=== PATIENT | female | born 1980 | race Caucasian/White ===

== ENCOUNTER 2021-04-09 09:32 | Outpatient (REF) | payer OTHER, SELFPAY | END 2021-04-09 09:33 | disposition home or self-care (01) | LOC: HO.LAB 09:32 | PROVIDERS: Visit Provider Internal Medicine | DX: Z20.822 Contact with and (suspected) exposure to COVID-19 (principal) | CPT/HCPCS: C9803; U0003; U0005 ==

== ENCOUNTER 2021-05-19 09:18 | Emergency (ER) | payer OTHER, SELFPAY ==
--- NOTE | 2021-05-19 | ECG_ITS ---
Test Reason : dizziness Blood Pressure : / mmHG Vent. Rate : 111 BPM Atrial Rate : 111 BPM P-R Int : 126 ms QRS Dur : 076 ms QT Int : 334 ms P-R-T Axes : 052 -08 022 degrees QTc Int : 454 ms Sinus tachycardia Possible Left atrial enlargement Borderline ECG No previous ECGs available Referred By: Generic ED Physician Electronically Signed By:JUVENTINO JACK MD
--- NOTE | ~2021-05-19 | US_ITS ---
EXAMINATION: US ABDOMEN LIMITED CLINICAL INFORMATION: Elevated liver enzymes. Question gallstones.. COMPARISON: None TECHNIQUE: Real-time imaging of the right upper quadrant abdominal viscera. FINDINGS: PANCREAS: Normal. LIVER: Liver echotexture is increased. The liver is normal in size. The liver contour is normal. No focal hepatic lesion. There is no intrahepatic biliary duct dilatation seen. GALLBLADDER: Normal. The gallbladder is physiologically distended without evidence of stones, sludge, polyps, wall thickening or pericholecystic fluid. COMMON BILE DUCT: Normal in caliber measuring 0.3 cm in diameter. RIGHT KIDNEY: Normal. No hydronephrosis. No renal calculi or focal parenchymal lesions. The kidney measures 10.4 cm in maximum dimension. FREE FLUID: None. US/US abdomen limited IMPRESSION: Echogenic liver probably representing fatty infiltration. Normal-appearing gallbladder. No gallstone seen.
[2021-05-19 09:53] VITALS: BP 158/110; PULSE 115; RESP 18; TEMP 36.4; O2SAT 97; BMI 24.0
[2021-05-19 11:11] VITALS: BP 171/119; PULSE 113; RESP 18; O2SAT 100
[2021-05-19 11:23] LABS: MANUAL DIFF FLAG NO
[2021-05-19 11:28] LABS: Basophils Absolute Auto 0.1 X10*3/uL (0.0-0.2); Eosinophils Percent Auto 0.2 % (0-4); Hematocrit 41.5 % (37.0-47.0); Imm Gran Abs Auto 0.02 X10*3/uL (0.00-0.03); Imm Gran Pct Auto 0.3 % (0.0-0.4); Lymphocytes Absolute Auto 0.6 X10*3/uL (1.2-4.9); Lymphocytes Percent Auto 11.1 % (20-40); Mean Corpuscular HGB Conc 33.7 g/dl (31.0-35.0); Mean Corpuscular Hemoglobin 33.4 pg (27.0-33.0); Mean Platelet Volume 9.4 fL (9.4-12.3); Monocytes Absolute Auto 0.4 X10*3/uL (0.1-1.2); Monocytes Percent Auto 6.9 % (2-11); Neutrophils Absolute Auto 4.6 x10*3/uL (2.0-8.3); Neutrophils Percent Auto 80.5 % (45-73); Platelet Count 183 X10*3/uL (160-400); Red Blood Count 4.19 X10*6/uL (4.20-5.50); Red Cell Distribution Width 13.4 % (11.0-16.0); White Blood Count 5.8 X10*3/uL (4.8-10.8)
[2021-05-19 11:39] LABS: Alanine Aminotransferase 109 U/L (0-31); Albumin Level 5.1 g/dL (3.5-5.0); Alkaline Phosphatase 87 U/L (39-117); Anion Gap 18 (12-20); Aspartate Amino Transferase 194 U/L (5-31); Bilirubin Total 1.6 mg/dL (0.0-1.0); Blood Urea Nitrogen 10 mg/dL (9-16); Calcium 9.6 mg/dL (8.4-10.2); Carbon Dioxide 26 mmol/L (22-29); Chloride 96 mmol/L (96-108); Creatinine Clr Calc Pharmacy 76.1; Estimated Glomerular Filt Rate > 60; Glucose Random 121 mg/dL (60-115); Potassium 3.4 mmol/L (3.3-5.1); Sodium 137 mmol/L (135-145); Total Protein 8.8 g/dL (6.5-8.0)
[2021-05-19 11:47] LABS: COVID-19 Test Negative (Negative); IDNOW Serial# 08D9AD1C
[2021-05-19] MEDS: 0.9 % Sodium Chloride 1,000 ML 999 ML IV ×2 (11:53)
--- NOTE | 2021-05-19 11:55 | PC.NURSE ---
patient a&ox3, pt ambulated with a steady gait to bathroom to change into hospital attire, iv inserted, labs drawn, ivf running per order, will continue to monitor.
[2021-05-19] MEDS: LORazepam 2 MG/ML VIAL IVPUSH (12:04)
[2021-05-19 13:05] LABS: Lipase 19 U/L (8-78); Magnesium 1.2 mg/dL (1.6-2.6)
[2021-05-19 13:07] LABS: HCG Quantitative < 2 mIU/mL
--- NOTE | 2021-05-19 13:20 | ED.NAVMDI ---
HPI - Nausea/Vomiting/Diarrhea General Chief complaint: Nausea/Vomiting/Diarrhea Stated complaint: dizziness, shaky Time Seen by Provider: 05/19/21 11:30 Source: patient Mode of arrival: ambulatory Limitations: no limitations History of Present Illness HPI Narrative: 41-year-old female presents to ED for vomiting and tremors. Patient drinks 5 bottles of vodka per day. Patient states last drink was yesterday. Patient states also having the shakes. Patient admits to history of alcohol abuse. Patient denies any abdominal pain, flank pain, fever, chills, dysuria, hematuria, headache, chest pain, shortness of breath, or dizziness. Patient denies any slurred speech, loss of vision, paralysis of extremities, facial droop, abdominal pain, chest pain, shortness of breath, vomitting blood, coughing up blood, or blood in stool. Patient denies any complaints. MD elicited complaint: nausea and vomiting Associated nausea: Yes Related Data Previous Rx's Medication Instructions Recorded famotidine 20 mg tablet (Pepcid) 20 mg PO BID 10 Days #20 tab 05/19/21 ondansetron HCl 4 mg tablet 4 mg PO Q6H PRN 3 Days #12 tab 05/19/21 (Zofran) Allergies Allergy/AdvReac Type Severity Reaction Status Date / Time No Known Allergies Allergy Verified 05/19/21 09:58 [No Known Allergies*] Review of Systems Review of Systems: Yes all other systems are reviewed and are negative Constitutional: Constitutional: Reports as per HPI and Reports no additional constitutional complaints Eyes: Eyes: Reports as per HPI and Reports no additional eye complaints ENT: Reports system reviewed and no additional complaints, except as documented and Reports as per HPI Cardiovascular: Cardiovascular: Reports as per HPI and Reports no additional cardiovascular complaints Respiratory: Respiratory: Reports as per HPI and Reports no additional respiratory complaints Gastrointestinal: Gastrointestinal: Reports as per HPI, Reports no additional gastrointestinal complaints, Reports nausea and Reports vomiting Genitourinary: Genitourinary: Reports no additional female genitourinary complaints and Reports as per HPI Musculoskeletal: Musculoskeletal: Reports no additional musculoskeletal complaints and Reports as per HPI Integumentary/Breasts: Skin/Breast: Reports system reviewed and no additional complaints, except as docu and Reports as per HPI Neurologic: Reports system reviewed and no additional complaints, except as documented and Reports as per HPI Comments: Tremors Psychiatric: Psychiatric: Reports no additional psychiatric complaints and Reports as per HPI [facility] Past Medical History Medical History (Updated 05/19/21 @ 17:10 by YURY Gross) Hypertension Social History Social History Patient Tobacco Use Status: Never used Tobacco Use of substances other than those prescribed or required for medical reasons: No Advance Directives: No Patient : No Physical Exam Vital Signs: Vital Signs: Last Vital Signs Temp 97.0 F 05/19/21 15:17 Pulse 102 H 05/19/21 15:17 Resp 20 05/19/21 15:17 BP 146/88 H 05/19/21 15:17 Pulse Ox 100 05/19/21 15:17 Body Mass Index 24.0 Const: General: cooperative, healthy appearing, comfortable, no acute distress, well developed, alert and awake Orientation/consciousness: patient oriented x3 HENMT: Head: Yes normal to inspection, Yes No palpable skull fracture present, Yes normocephalic, Yes atraumatic and No abrasion Eyes: Other: Negative nystagmus Neck: Neck: Yes normal visual inspection, Yes full ROM, Yes no lymphadenopathy, Yes no meningeal signs, Yes trachea midline, Yes supple and No tender Chest: Chest palpation & inspection: normal inspection of the chest and normal palpation of entire chest wall Resp: Effort & Inspection: normal respiratory effort and able to speak in complete sentences Auscultation: clear to auscultation bilaterally Cardio: Jugular venous distension: no JVD Heart sounds: S1 normal heart sound present and S2 normal heart sound present GI: Inspection: Yes normal to inspection and No abdominal wall ecchymosis Palpation (GI): Soft to palpation, not firm, nontender, no guarding and not rigid : General: No CVA tenderness and Yes no CVA tenderness Back/Spine/Pelvis: Back: no CVA tenderness, No CVA tenderness and No back tenderness Skin: General skin exam: no rashes or lesions noted and elasticity normal Neuro: Other: Positive for tremors. Negative for slurred speech. Finger to nose and rapid hand movement intact. Negative Romberg. Negative pronator drift. All extremities equal strength 5+. Negative facial droop. General: patient oriented x3, gait normal, no meningeal signs and CN's II-XI intact bilaterally Cranial nerves: Yes CN's II-XII intact bilaterally Extrem: General: Yes normal to inspection and Yes full ROM Psych: Appearance: grossly normal, well kempt and not disheveled Course Course Course Narrative: History physical exam indicates alcohol withdrawal symptoms. Will do basic labs and EKG. Will give ativan. Negative for any neuro deficit. Reevaluation(s) Reevaluation #1: Lab shows elevated liver enzymes. Patient does not have any abdominal tenderness on palpation. Patient denies ever having abdominal pain. Slight elevation T bili. Alkaline phosphate normal. Magnesium 1.2. Magnesium ordered. Elevated liver enzymes due to history of alcoholism ( drinks 5 bottles of vodka per day). Not suspecting cholecystitis presently. Patient is not having any abdominal pain and alkaline phosphate is normal. Patient passed p.o. challenge. Tremors and vital signs resolved after receiving Ativan. Time: 14:43 Reevaluation #2: manager architectural jose angel Ariza saw patient for detox and patient refused detox but will accept outpatient resources stop drinking alcohol. Patient than me every time she drinks water she gets nauseous and vomited sometime green-yellow bile with going for 1 month. Patient states no problem eating solid food But patient denies having any sharp abdominal pain. Patient states at times may have acid burning sensation. Due to patient having liver enzymes in the ER elevated with none to compare to with just do ultrasound. No indication for any head CT scan indicated. patient is not having any dizziness just nausea and vomiting after drinking water as per patient and is negative for any neuro deficits. Not suspect any mass or stroke in the brain. Patient denies ever having seizure. Partner denies patient ever having tremors while unconscious. Patient denies ever having urinary/bowel incontinence. Patient request ultrasound althoug normal symptoms may be due to alcohol drinking and cessation to withdrawal symptoms tremors which have improved after Ativan and elevated liver enzyme. Symptoms also may be due to alcoholic GERD/Gastritis Reevaluation #3: Patient fatty liver but negative for gallstones. Patient will be discharged alcohol withdrawal. Patient will follow-up outpatient detox program lists given by Annita to help her stop drinking. EKG negative STEMI once again. Troponin negative. Negative for any neuro deficits. Time: 17:03 MDM - Nausea/Vomiting/Diarrhea MDM Narrative Medical decision making narrative: Alcohol withdrawal. GERD Lab Data Result diagrams: 05/19/21 11:17 05/19/21 11:17 Labs: Lab Results 05/19/21 05/19/21 05/19/21 Range/Units 11:17 11:17 11:17 WBC 5.8 (4.8-10.8) X10*3/uL RBC 4.19 L (4.20-5.50) X10*6/uL Hgb 14.0 (12.0-16.0) g/dl Hct 41.5 (37.0-47.0) % MCV 99.0 H (80.0-98.0) fL MCH 33.4 H (27.0-33.0) pg MCHC 33.7 (31.0-35.0) g/dl RDW 13.4 (11.0-16.0) % Plt Count 183 (160-400) X10*3/uL MPV 9.4 (9.4-12.3) fL Immature Gran % (Auto) 0.3 (0.0-0.4) % Neut % (Auto) 80.5 H (45-73) % Lymph % (Auto) 11.1 L (20-40) % Mclennan % (Auto) 6.9 (2-11) % Eos % (Auto) 0.2 (0-4) % Baso % (Auto) 1.0 (0-2) % Lymph # (Auto) 0.6 L (1.2-4.9) X10*3/uL Mclennan # (Auto) 0.4 (0.1-1.2) X10*3/uL Eos # (Auto) 0.0 (0.0-0.4) X10*3/uL Baso # (Auto) 0.1 (0.0-0.2) X10*3/uL Abs Immat Gran (auto) 0.02 (0.00-0.03) X10*3/uL Absolute Neuts (auto) 4.6 (2.0-8.3) x10*3/uL Absolute Nucleated RBC 0.000 (0.0-0.012) X10*3/uL Nucleated RBC % (auto) 0.0 (0.0-0.2) /100WBC Sodium 137 (135-145) mmol/L Potassium 3.4 (3.3-5.1) mmol/L Chloride 96 (96-108) mmol/L Carbon Dioxide 26 (22-29) mmol/L Anion Gap 18 (12-20) BUN 10 (9-16) mg/dL Creatinine 0.84 (0.5-1.4) mg/dL Estim Creat Clear Calc 76.1 Estimated GFR > 60 Random Glucose 121 H (60-115) mg/dL Calcium 9.6 (8.4-10.2) mg/dL Magnesium 1.2 L* (1.6-2.6) mg/dL Total Bilirubin 1.6 H (0.0-1.0) mg/dL AST 194 H (5-31) U/L ALT 109 H (0-31) U/L Alkaline Phosphatase 87 (39-117) U/L Troponin I High Sens (<3.5-17.0) ng/L Total Protein 8.8 H (6.5-8.0) g/dL Albumin 5.1 H (3.5-5.0) g/dL Lipase 19 (8-78) U/L Beta HCG, Quant < 2 mIU/mL COVID-19 ([facility]) Negative (Negative) COVID-19 Clin Com See Note 05/19/21 Range/Units 11:51 WBC (4.8-10.8) X10*3/uL RBC (4.20-5.50) X10*6/uL Hgb (12.0-16.0) g/dl Hct (37.0-47.0) % MCV (80.0-98.0) fL MCH (27.0-33.0) pg MCHC (31.0-35.0) g/dl RDW (11.0-16.0) % Plt Count (160-400) X10*3/uL MPV (9.4-12.3) fL Immature Gran % (Auto) (0.0-0.4) % Neut % (Auto) (45-73) % Lymph % (Auto) (20-40) % Mclennan % (Auto) (2-11) % Eos % (Auto) (0-4) % Baso % (Auto) (0-2) % Lymph # (Auto) (1.2-4.9) X10*3/uL Mclennan # (Auto) (0.1-1.2) X10*3/uL Eos # (Auto) (0.0-0.4) X10*3/uL Baso # (Auto) (0.0-0.2) X10*3/uL Abs Immat Gran (auto) (0.00-0.03) X10*3/uL Absolute Neuts (auto) (2.0-8.3) x10*3/uL Absolute Nucleated RBC (0.0-0.012) X10*3/uL Nucleated RBC % (auto) (0.0-0.2) /100WBC Sodium (135-145) mmol/L Potassium (3.3-5.1) mmol/L Chloride (96-108) mmol/L Carbon Dioxide (22-29) mmol/L Anion Gap (12-20) BUN (9-16) mg/dL Creatinine (0.5-1.4) mg/dL Estim Creat Clear Calc Estimated GFR Random Glucose (60-115) mg/dL Calcium (8.4-10.2) mg/dL Magnesium (1.6-2.6) mg/dL Total Bilirubin (0.0-1.0) mg/dL AST (5-31) U/L ALT (0-31) U/L Alkaline Phosphatase (39-117) U/L Troponin I High Sens < 3.5 (<3.5-17.0) ng/L Total Protein (6.5-8.0) g/dL Albumin (3.5-5.0) g/dL Lipase (8-78) U/L Beta HCG, Quant mIU/mL COVID-19 ([facility]) (Negative) COVID-19 Clin Com ECG Data Interpretation: Sinus tachycardia. Ventricular rate 111. Parents for 129. QRS 76 pr QTC 454. Negative STEMI Discharge Plan Discharge Clinical Impression: Alcohol withdrawal Qualifiers: Complication of substance-induced condition: uncomplicated Qualified Code(s): F10.230 - Alcohol dependence with withdrawal, uncomplicated GERD (gastroesophageal reflux disease) Qualifiers: Esophagitis presence: esophagitis presence not specified Qualified Code(s): K21.9 - Gastro-esophageal reflux disease without esophagitis Patient Disposition: Home, Self-Care Instructions: Gastroesophageal Reflux Disease (ED), Alcohol Withdrawal (ED) Additional Instructions: New EKG and blood test came back negative for heart attack. Ultrasound came back negative for gallstones. Vital Signs and symptoms resolved after receiving Ativan. Please follow-up with outpatient detox program resources your given by Care Team Counselor Annita. Return to ED immediately for any headache, dizziness, slurred speech, facial droop, loss of vision, paralysis of extremities, tremors, loss of consciousness, urinary/bowel incontinence, altered mental status, abdominal pain, inability tolerate p.o,chest pain, shortness of breath, fever, or chills, or any other concerning symptoms. Please follow-up with primary care provider. Prescriptions: New famotidine [Pepcid] 20 mg tablet 20 mg PO BID 10 Days Qty: 20 RF: 0 ondansetron HCl [Zofran] 4 mg tablet 4 mg PO Q6H PRN (Reason: nausea and vomiting) 3 Days Qty: 12 RF: 0 Interventions: ED Discharge Assessment Last Done: 05/19/21 17:50 Discharge Date/Time: 05/19/21 17:51 Print Language: [place]
[2021-05-19 13:35] VITALS: BP 134/89; PULSE 105; RESP 18; O2SAT 98
--- NOTE | 2021-05-19 13:35 | PC.NURSE ---
patient a&ox3, vss, family at bedside, no c/o pain or discomfort, pt eating ice chips so no temp was done at this time, will continue to monitor.
[2021-05-19] MEDS: Magnesium Sulfate/H2O 2 GM/50 ML PIGGYBACK IV (14:08)
--- NOTE | 2021-05-19 14:10 | PC.NURSE ---
patient a&ox3, family at bedside, iv mag started per order, will continue to monitor.
[2021-05-19 14:20] LABS: Troponin-I High Sensitivity < 3.5 ng/L (<3.5-17.0)
[2021-05-19 15:17] VITALS: BP 146/88; PULSE 102; RESP 20; TEMP 36.1; O2SAT 100
--- NOTE | 2021-05-19 16:16 | MHC.RECOVRN ---
T/w met with pt in 22H to discuss alcohol use. Pt reports drinking 5 drinks daily x 2 years. Pt states I only drink after work. Pt denies experiencing withdrawal symptoms in the past. Pt difficult to engage in conversation regarding alcohol use, pt repeatedly states I'm good. Pt made aware of elevated LFTs and how alcohol use may be beginning to impact health. Pt verbalizes understanding. When asked about desire to reduce amount of alcohol, pt states I'm thinking about cutting back. Pt educated regarding recovery supports and services available, provided with written material as well. Pt declines referrals at this time, provided with t/w card if needed. Discussed with provider as well as Vidya Walden APRN.
== END 2021-05-19 17:51 | disposition home or self-care (01) ==
PROVIDERS: Physician Assistant; Emergency Provider Emergency Medicine; PCP Internal Medicine
DX: F10.230 Alcohol dependence with withdrawal, uncomplicated (principal); K21.9 Gastro-esophageal reflux disease without esophagitis; R42 Dizziness and giddiness; Y90.9 Presence of alcohol in blood, level not specified; Z20.822 Contact with and (suspected) exposure to COVID-19; Z79.899 Other long term (current) drug therapy
CPT/HCPCS: 36415; 76705; 80053; 83690; 83735; 84484; 84702; 85025; 87635; 93005; 96361; 96365; 96366; 96375; 99284; J2060; J3475

== ENCOUNTER 2021-07-18 19:39 | Emergency (ER) | payer OTHER, SELFPAY ==
[2021-07-18 19:54] VITALS: BP 144/121; PULSE 105; RESP 18; TEMP 36.4; O2SAT 99; BMI 23.1
--- NOTE | 2021-07-18 20:20 | ED_ITS ---
HPI - Psych General Chief Complaint: Psychiatric Symptoms <YURY Hernandez - Last Filed: 07/18/21 20:59> Stated Complaint: crisis <YURY Hernandez - Last Filed: 07/18/21 20:59> Time Seen by Provider: 07/18/21 20:20 <YURY Hernandez Last Filed: 07/18/21 20:59> Source: patient <YURY Hernandez - Last Filed: 07/18/21 20:59> Mode of arrival: ambulatory <YURY Hernandez - Last Filed: 07/18/21 20:59> Limitations: no limitations <YURY Hernandez Last Filed: 07/18/21 20:59> History of Present Illness HPI Narrative: 41-year-old female with history of intermittent heavy ETOH abuse, HTN, and untreated anxiety/depression who presents to the ER with worsening depression and anxiety in the setting of increased life stressors. She cannot specifically say when or what triggered her worsening state. She got into a fight with her prior to coming in and reports she was not in a good place. She has had thoughts of hurting herself but reports she would never do it, she has 2 children who she loves and she would never harm herself. She reports 2 years ago she found her best friend after she committed suicide by hanging herself. She reports she thinks about this event often and it triggers her anxiety and depression. She repors a longstanding history of anxiety, was previously on ativan but has since been taken off. She have never been to therapy and is not on any other medications, except for her BP. She admits to intermittent ETOH use, at times binges. No drug use. <YURY Hernandez - Last Filed: 07/18/21 20:59> MD complaint: feels depressed and anxiety <YURY Hernandez - Last Filed: 07/18/21 20:59> Onset (ago): unknown <YURY Hernandez - Last Filed: 07/18/21 20:59> Duration: constant <YURY Hernandez Last Filed: 07/18/21 20:59> History of same: Yes <YURY Hernandez - Last Filed: 07/18/21 20:59> Relieving factors: none <YURY Hernandez Last Filed: 07/18/21 20:59> Exacerbating factors: other (thinking about her best friend's suicide) <YURY Hernandez Last Filed: 07/18/21 20:59> Context: significant life stressor <YURY Hernandez Last Filed: 07/18/21 20:59> Associated psychiatric symptoms: depression <YURY Hernandez Last Filed: 07/18/21 20:59> Associated symptoms: headache and insomnia <YURY Hernandez Last Filed: 07/18/21 20:59> If self harm: admits thoughts of self harm <YURY Hernandez Last Filed: 07/18/21 20:59> Related Data Home Medications: Home Medications Medication Instructions Recorded Confirmed amlodipine 10 mg tablet 10 mg PO DAILY 06/09/21 indapamide 1.25 mg tablet 1.25 mg PO DAILY 06/09/21 Previous Rx's Medication Instructions Recorded clotrimazole-betamethasone 1 1 appl TOPICAL BID 14 Days #45 g 06/09/21 %-0.05 % topical cream <YURY Hernandez Last Filed: 07/18/21 20:59> Allergies/Adverse Reactions: Allergies Allergy/AdvReac Type Severity Reaction Status Date / Time No Known Allergies Allergy Verified 06/09/21 09:16 [No Known Allergies*] <YURY Hernandez Last Filed: 07/18/21 20:59> Review of Systems Review of Systems: Constitutional: No Fever, No Chills ENT/Mouth: No sore throat, No Rhinorrhea Cardiovascular: No Chest Pain, No SOB Respiratory: No Cough, No Sputum Gastrointestinal: No Nausea, No Vomiting, No Diarrhea, No abdominal Pain Genitourinary: No Dysuria, No Urinary Frequency, No Hematuria Musculoskeletal: No joint pain, No Myalgias Neuro: No Dizziness, + Headache Psych: + Anxiety/Panic, + Depression, +vague SI, no AH/VH, No HI Heme/Lymph: No Bruising, No Lymphadenopathy <YURY Hernandez Last Filed: 07/18/21 20:59> [facility] Past Medical History Medical History: Medical History (Updated 07/18/21 @ 20:47 by YURY Hernandez) Hypertension <YURY Hernandez - Last Filed: 07/18/21 20:59> Social History Social History: Social History Patient Tobacco Use Status: Never used Tobacco Advance Directives: No Advance Directives Information Provided: No Patient : No <YURY Hernandez - Last Filed: 07/18/21 20:59> Physical Exam Vital Signs: Vital Signs: Last Vital Signs Temp 97.6 F 07/18/21 19:54 Pulse 105 H 07/18/21 19:54 Resp 18 07/18/21 19:54 BP 144/121 H 07/18/21 19:54 Pulse Ox 99 07/18/21 19:54 BMI result Body Mass Index 23.1 <YURY Hernandez - Last Filed: 07/18/21 20:59> Vital Signs: Last Vital Signs Temp 97.6 F 07/18/21 19:54 Pulse 105 H 07/18/21 19:54 Resp 18 07/18/21 19:54 BP 144/121 H 07/18/21 19:54 Pulse Ox 99 07/18/21 19:54 BMI result Body Mass Index 23.1 <Scott Rousseau MD - Last Filed: 07/18/21 23:33> Appearance: Alert. Oriented X3. Tearful Eyes: Pupils equal, round and reactive to light. ENT: Pharynx normal. Neck: Normal inspection. Neck supple. CVS: Normal heart rate and rhythm. Pulses normal. Respiratory: No respiratory distress. Breath sounds normal. Abdomen: Soft and nontender. +BS x4 Skin: Skin warm and dry. Normal skin color. Normal skin turgor. No rashes. Extremities: No lower extremity edema. Neuro/psych: Oriented X 3. Grossly normal, nonfocal. Tearful, conversant, makes eye contact. anxious and depressed, good insight and judgment <YURY Hernandez - Last Filed: 07/18/21 20:59> Course Course Course Narrative: 41 y/o female with history of anxiety/depression, ETOH abuse, HTN who presents to the ER with worsening depression and anxiety as well as vague SI. She reports she would never actually harm herself but she has thought about it only because of the experience she had finding her best friend. She never sought counseling or therapy after this traumatic event. She would like some resources on how best to cope and manage her stress. She reports feeling safe at home. Will check basic labs, Utox, ETOH and have CARE team see her. <YURY Hernandez - Last Filed: 07/18/21 20:59> 41 y/o female with history of anxiety/depression, ETOH abuse, HTN who presents to the ER with worsening depression and anxiety as well as vague SI. She reports she would never actually harm herself but she has thought about it o nly because of the experience she had finding her best friend. She never sought counseling or therapy after this traumatic event. She would like some resources on how best to cope and manage her stress. She reports feeling safe at home. Will check basic labs, Utox, ETOH and have CARE team see her. 3: I assumed care of this patient from my colleague, physician pediatric medical assistant Angeles Neil at 9:00 p.m.. The patient stated that she 1 the leave the emergency department and attempted to leave. I went in to talk to the patient but she refused to talk to me. She states that she told the triage nurse details that she felt were going to be kept private and she does not want to make the statements again. In reviewing the notes, she did tell the triage nurse that she wanted to harm herself. In this note, she told the physician pediatric medical assistant that she has been thinking of hurting herself but does not have a plan. She has also been thinking about her friend who committed suicide, the patient states that she found the patient hanging and she thinks about this often. Given these statements and the fact that the patient at this time is unwilling to discuss this further with me, the patient will be placed on a Section 12 until she can get at a appropriate psychiatric evaluation to help her with her suicidal ideation. 2329: The patient's laboratory evaluation did reveal an elevated AST and ALT of 181 and 96, she has had similar elevations in the past and this is secondary to her daily alcohol use. Patient's blood alcohol level was 330. COVID-19 was positive. The patient told me that her children were positive for COVID last week. The patient states she has had 3 Moderna vaccines. She has not had any symptoms. Given her elevated alcohol level the patient will need to be observed in the emergency department for at least 8 hours until she is sober and can be evaluated by the crisis 2329: Physician observation started at 2329. Patient placed in physician observation because the patient needed more time for her to metabolize her alcohol in her blood so that she can be sober at the time of evaluation by the crisis team. I did discuss the above findings with the patient. At the time observation was started the patient's vitals were stable, patient is alert and oriented but slightly agitated about being on a Section 12. Neuro: nonfocal, CV RRR, Lungs clear. <Scott Rousseau MD - Last Filed: 07/18/21 23:33> MDM - Psych Lab Data Result diagrams: : 07/18/21 21:39 07/18/21 21:39 <YURY Hernandez - Last Filed: 07/18/21 20:59> Labs: Lab Results 07/18/21 07/18/21 07/18/21 Range/Units 21:34 21:39 21:39 WBC 5.9 (4.8-10.8) X10*3/uL RBC 4.26 (4.20-5.50) X10*6/uL Hgb 14.1 (12.0-16.0) g/dl Hct 43.1 (37.0-47.0) % MCV 101.2 H (80.0-98.0) fL MCH 33.1 H (27.0-33.0) pg MCHC 32.7 (31.0-35.0) g/dl RDW 14.2 (11.0-16.0) % Plt Count 315 D (160-400) X10*3/uL MPV 8.9 L (9.4-12.3) fL Immature Gran % (Auto) 0.5 H (0.0-0.4) % Neut % (Auto) 50.8 (45-73) % Lymph % (Auto) 37.3 (20-40) % Henderson % (Auto) 8.0 (2-11) % Eos % (Auto) 1.5 (0-4) % Baso % (Auto) 1.9 (0-2) % Lymph # (Auto) 2.2 (1.2-4.9) X10*3/uL Henderson # (Auto) 0.5 (0.1-1.2) X10*3/uL Eos # (Auto) 0.1 (0.0-0.4) X10*3/uL Baso # (Auto) 0.1 (0.0-0.2) X10*3/uL Abs Immat Gran (auto) 0.03 (0.00-0.03) X10*3/uL Absolute Neuts (auto) 3.0 (2.0-8.3) x10*3/uL Absolute Nucleated RBC 0.000 (0.0-0.012) X10*3/uL Nucleated RBC % (auto) 0.0 (0.0-0.2) /100WBC Sodium 143 (135-145) mmol/L Potassium 3.7 (3.3-5.1) mmol/L Chloride 105 (96-108) mmol/L Carbon Dioxide 23 (22-29) mmol/L Anion Gap 19 (12-20) BUN 9 (9-16) mg/dL Creatinine 0.76 (0.5-1.4) mg/dL Estim Creat Clear Calc 84.1 Estimated GFR > 60 Random Glucose 96 (60-115) mg/dL Calcium 9.7 (8.4-10.2) mg/dL Magnesium 2.1 (1.6-2.6) mg/dL Total Bilirubin 0.4 (0.0-1.0) mg/dL Direct Bilirubin 0.2 (0.0-0.5) mg/dL AST 181 H (5-31) U/L ALT 96 H (0-31) U/L Alkaline Phosphatase 88 (39-117) U/L Total Protein 8.8 H (6.5-8.0) g/dL Albumin 4.7 (3.5-5.0) g/dL Ethyl Alcohol mg/dL COVID-19 ([facility]) Positive A (Negative) COVID-19 Clin Com See Note 07/18/21 Range/Units 21:39 WBC (4.8-10.8) X10*3/uL RBC (4.20-5.50) X10*6/uL Hgb (12.0-16.0) g/dl Hct (37.0-47.0) % MCV (80.0-98.0) fL MCH (27.0-33.0) pg MCHC (31.0-35.0) g/dl RDW (11.0-16.0) % Plt Count (160-400) X10*3/uL MPV (9.4-12.3) fL Immature Gran % (Auto) (0.0-0.4) % Neut % (Auto) (45-73) % Lymph % (Auto) (20-40) % Henderson % (Auto) (2-11) % Eos % (Auto) (0-4) % Baso % (Auto) (0-2) % Lymph # (Auto) (1.2-4.9) X10*3/uL Henderson # (Auto) (0.1-1.2) X10*3/uL Eos # (Auto) (0.0-0.4) X10*3/uL Baso # (Auto) (0.0-0.2) X10*3/uL Abs Immat Gran (auto) (0.00-0.03) X10*3/uL Absolute Neuts (auto) (2.0-8.3) x10*3/uL Absolute Nucleated RBC (0.0-0.012) X10*3/uL Nucleated RBC % (auto) (0.0-0.2) /100WBC Sodium (135-145) mmol/L Potassium (3.3-5.1) mmol/L Chloride (96-108) mmol/L Carbon Dioxide (22-29) mmol/L Anion Gap (12-20) BUN (9-16) mg/dL Creatinine (0.5-1.4) mg/dL Estim Creat Clear Calc Estimated GFR Random Glucose (60-115) mg/dL Calcium (8.4-10.2) mg/dL Magnesium (1.6-2.6) mg/dL Total Bilirubin (0.0-1.0) mg/dL Direct Bilirubin (0.0-0.5) mg/dL AST (5-31) U/L ALT (0-31) U/L Alkaline Phosphatase (39-117) U/L Total Protein (6.5-8.0) g/dL Albumin (3.5-5.0) g/dL Ethyl Alcohol 330 H* mg/dL COVID-19 ([facility]) (Negative) COVID-19 Clin Com <YURY Hernandez - Last Filed: 07/18/21 20:59> Lab Results 07/18/21 07/18/21 07/18/21 Range/Units 21:34 21:39 21:39 WBC 5.9 (4.8-10.8) X10*3/uL RBC 4.26 (4.20-5.50) X10*6/uL Hgb 14.1 (12.0-16.0) g/dl Hct 43.1 (37.0-47.0) % MCV 101.2 H (80.0-98.0) fL MCH 33.1 H (27.0-33.0) pg MCHC 32.7 (31.0-35.0) g/dl RDW 14.2 (11.0-16.0) % Plt Count 315 D (160-400) X10*3/uL MPV 8.9 L (9.4-12.3) fL Immature Gran % (Auto) 0.5 H (0.0-0.4) % Neut % (Auto) 50.8 (45-73) % Lymph % (Auto) 37.3 (20-40) % Henderson % (Auto) 8.0 (2-11) % Eos % (Auto) 1.5 (0-4) % Baso % (Auto) 1.9 (0-2) % Lymph # (Auto) 2.2 (1.2-4.9) X10*3/uL Henderson # (Auto) 0.5 (0.1-1.2) X10*3/uL Eos # (Auto) 0.1 (0.0-0.4) X10*3/uL Baso # (Auto) 0.1 (0.0-0.2) X10*3/uL Abs Immat Gran (auto) 0.03 (0.00-0.03) X10*3/uL Absolute Neuts (auto) 3.0 (2.0-8.3) x10*3/uL Absolute Nucleated RBC 0.000 (0.0-0.012) X10*3/uL Nucleated RBC % (auto) 0.0 (0.0-0.2) /100WBC Sodium 143 (135-145) mmol/L Potassium 3.7 (3.3-5.1) mmol/L Chloride 105 (96-108) mmol/L Carbon Dioxide 23 (22-29) mmol/L Anion Gap 19 (12-20) BUN 9 (9-16) mg/dL Creatinine 0.76 (0.5-1.4) mg/dL Estim Creat Clear Calc 84.1 Estimated GFR > 60 Random Glucose 96 (60-115) mg/dL Calcium 9.7 (8.4-10.2) mg/dL Magnesium 2.1 (1.6-2.6) mg/dL Total Bilirubin 0.4 (0.0-1.0) mg/dL Direct Bilirubin 0.2 (0.0-0.5) mg/dL AST 181 H (5-31) U/L ALT 96 H (0-31) U/L Alkaline Phosphatase 88 (39-117) U/L Total Protein 8.8 H (6.5-8.0) g/dL Albumin 4.7 (3.5-5.0) g/dL Ethyl Alcohol mg/dL COVID-19 ([facility]) Positive A (Negative) COVID-19 Clin Com See Note 07/18/21 Range/Units 21:39 WBC (4.8-10.8) X10*3/uL RBC (4.20-5.50) X10*6/uL Hgb (12.0-16.0) g/dl Hct (37.0-47.0) % MCV (80.0-98.0) fL MCH (27.0-33.0) pg MCHC (31.0-35.0) g/dl RDW (11.0-16.0) % Plt Count (160-400) X10*3/uL MPV (9.4-12.3) fL Immature Gran % (Auto) (0.0-0.4) % Neut % (Auto) (45-73) % Lymph % (Auto) (20-40) % Henderson % (Auto) (2-11) % Eos % (Auto) (0-4) % Baso % (Auto) (0-2) % Lymph # (Auto) (1.2-4.9) X10*3/uL Henderson # (Auto) (0.1-1.2) X10*3/uL Eos # (Auto) (0.0-0.4) X10*3/uL Baso # (Auto) (0.0-0.2) X10*3/uL Abs Immat Gran (auto) (0.00-0.03) X10*3/uL Absolute Neuts (auto) (2.0-8.3) x10*3/uL Absolute Nucleated RBC (0.0-0.012) X10*3/uL Nucleated RBC % (auto) (0.0-0.2) /100WBC Sodium (135-145) mmol/L Potassium (3.3-5.1) mmol/L Chloride (96-108) mmol/L Carbon Dioxide (22-29) mmol/L Anion Gap (12-20) BUN (9-16) mg/dL Creatinine (0.5-1.4) mg/dL Estim Creat Clear Calc Estimated GFR Random Glucose (60-115) mg/dL Calcium (8.4-10.2) mg/dL Magnesium (1.6-2.6) mg/dL Total Bilirubin (0.0-1.0) mg/dL Direct Bilirubin (0.0-0.5) mg/dL AST (5-31) U/L ALT (0-31) U/L Alkaline Phosphatase (39-117) U/L Total Protein (6.5-8.0) g/dL Albumin (3.5-5.0) g/dL Ethyl Alcohol 330 H* mg/dL COVID-19 ([facility]) (Negative) COVID-19 Clin Com <Scott Rousseau MD - Last Filed: 07/18/21 23:33> Discharge Plan Discharge Clinical Impression: Anxiety Depression Qualifiers: Depression Type: unspecified Qualified Code(s): F32.A - Depression, unspecified <YURY Hernandez - Last Filed: 07/18/21 20:59> Instructions: Depression (ED), Anxiety (ED) <YURY Hernandez - Last Filed: 07/18/21 20:59> Prescriptions: No Action amlodipine 10 mg tablet 10 mg PO DAILY RF: 0 indapamide 1.25 mg tablet 1.25 mg PO DAILY RF: 0 clotrimazole-betamethasone 1-0.05 % cream 1 appl topical BID 14 Days Qty: 45 RF: 0 <YURY Hernandez - Last Filed: 07/18/21 20:59>
--- NOTE | 2021-07-18 21:16 | PC.NURSE ---
Pt became agitated and attempted to leave. I've been waiting here for a fucking hour and this isnt' helping MD Curiel To bedside to evaluate.
--- NOTE | 2021-07-18 21:29 | MHC.CARE ---
CARE team consult received for pt who endorsed increased family stress, anxiety, and vague suicidal ideation with no plan. Given pt's report of alcohol use prior to arrival to the ED nurse, ethanol level is needed prior to intervention. Pt has been refusing to change or provide lab specimens. ED physician spoke with pt and determined that pt will be placed on a Sect 12a for evaluation. Changeover completed and labs pending.
[2021-07-18 21:49] LABS: MANUAL DIFF FLAG NO
[2021-07-18 21:51] LABS: Basophils Absolute Auto 0.1 X10*3/uL (0.0-0.2); Basophils Percent Auto 1.9 % (0-2); Eosinophils Absolute Auto 0.1 X10*3/uL (0.0-0.4); Eosinophils Percent Auto 1.5 % (0-4); Hematocrit 43.1 % (37.0-47.0); Hemoglobin 14.1 g/dl (12.0-16.0); Imm Gran Abs Auto 0.03 X10*3/uL (0.00-0.03); Imm Gran Pct Auto 0.5 % (0.0-0.4); Lymphocytes Absolute Auto 2.2 X10*3/uL (1.2-4.9); Lymphocytes Percent Auto 37.3 % (20-40); Mean Corpuscular HGB Conc 32.7 g/dl (31.0-35.0); Mean Corpuscular Hemoglobin 33.1 pg (27.0-33.0); Mean Corpuscular Volume 101.2 fL (80.0-98.0); Mean Platelet Volume 8.9 fL (9.4-12.3); Monocytes Absolute Auto 0.5 X10*3/uL (0.1-1.2); Neutrophils Percent Auto 50.8 % (45-73); Platelet Count 315 X10*3/uL (160-400); Red Blood Count 4.26 X10*6/uL (4.20-5.50); Red Cell Distribution Width 14.2 % (11.0-16.0); White Blood Count 5.9 X10*3/uL (4.8-10.8)
[2021-07-18 21:57] LABS: COVID-19 Test Positive (Negative)
[2021-07-18 22:06] LABS: Ethanol 330 mg/dL
[2021-07-18 22:12] LABS: Alanine Aminotransferase 96 U/L (0-31); Albumin Level 4.7 g/dL (3.5-5.0); Alkaline Phosphatase 88 U/L (39-117); Anion Gap 19 (12-20); Aspartate Amino Transferase 181 U/L (5-31); Bilirubin Direct 0.2 mg/dL (0.0-0.5); Bilirubin Total 0.4 mg/dL (0.0-1.0); Blood Urea Nitrogen 9 mg/dL (9-16); Calcium 9.7 mg/dL (8.4-10.2); Carbon Dioxide 23 mmol/L (22-29); Chloride 105 mmol/L (96-108); Creatinine Clr Calc Pharmacy 84.1; Estimated Glomerular Filt Rate > 60; Glucose Random 96 mg/dL (60-115); Magnesium 2.1 mg/dL (1.6-2.6); Potassium 3.7 mmol/L (3.3-5.1); Sodium 143 mmol/L (135-145); Total Protein 8.8 g/dL (6.5-8.0)
--- NOTE | 2021-07-18 22:23 | MHC.CARE ---
Pt is intoxicated with a BAL of 330 at 2139. She will not be clinically appropriate for assessment until after 6am.
--- NOTE | 2021-07-19 00:11 | PC.NURSE ---
Patient resting comfortably in bed aware of plan of care to stay till sober on section 12 and be evaluated in am.
[2021-07-19 01:02] VITALS: RESP 18
[2021-07-19 02:58] VITALS: BP 146/85; PULSE 99; RESP 18; O2SAT 97
[2021-07-19 05:16] VITALS: BP 129/84; PULSE 100; RESP 18; TEMP 36.7; O2SAT 98
--- NOTE | 2021-07-19 08:07 | PC.NURSE ---
Care Team aware of pt waiting to be seen. pt sleeping, Care Team will meet with her when she is more awake.
[2021-07-19 08:45] LABS: Appearance Urine CLOUDY; Color Urine YELLOW; Glucose Urine UA NEG (NEG); Leukocyte Esterase Urine 2+ (NEG); Nitrite Urine NEG (NEG); PH 5.5 (5.0-8.0); Specific Gravity - Urine 1.025 (1.005-1.025); UACC Culture Trigger YES; Urine Blood TRACE (NEG); Urine Ketones 40 MG/DL (NEG); Urine Protein TRACE MG/DL (NEG-TRACE)
[2021-07-19 08:54] LABS: Bacteria Urine 2+ /LPF; Squamous Epithelial Cell Urine 3+ /LPF
[2021-07-19 09:00] LABS: Amphetamine Screen Urine Not Detected (Not Detect); Barbiturates, Urine Not Detected (Not Detect); Benzodiazepines Screen Urine Not Detected (Not Detect); Cannabinoid Screen Urine POSITIVE (Not Detect); Cocaine Screen Urine POSITIVE (Not Detect); Fentanyl, urine Not Detected (Not Detect); Opiate Screen Urine Not Detected (Not Detect); Phencyclidine Screen Urine Not Detected (Not Detect)
[2021-07-19] MEDS: LORazepam 1 MG TABLET PO (10:18)
--- NOTE | 2021-07-19 12:26 | MHC.CARE ---
Pt presented to [facility] ED after she was dropped off by her friend. Pt was intoxicated with a BAL of? ?330 07/18/21 at 2139.? Pt reported passive SI though denied plan and intent and stressors related to her . Today, Pt denies current SI/HI/AH/VH. Pt denies history of SI/HI/AH/VH. Pt denies history of formal mental health or substance use treatment. Pt has no history of hospitalizations. Pt reports she is a social drinker and was intoxicated last evening.? CARE Team spoke with Pts who reported no safety concerns and in agreement with discharge home. CARE Team reviewed case with Dr. Hawk who is in agreement with plan for discharge. Plan for Pt to follow up with her PCP regarding therapy referrals. Pt provided with [facility] crisis information.
== END 2021-07-19 11:19 | disposition home or self-care (01) ==
PROVIDERS: Physician Assistant; Emergency Provider Emergency Medicine Emergency Medical Services
DX: U07.1 COVID-19 (principal); F41.9 Anxiety disorder, unspecified; F32.A Depression, unspecified; R45.851 Suicidal ideations; F10.10 Alcohol abuse, uncomplicated; Y90.8 Blood alcohol level of 240 mg/100 ml or more; R45.1 Restlessness and agitation; I10 Essential (primary) hypertension; Z79.899 Other long term (current) drug therapy
CPT/HCPCS: 36415; 80048; 80076; 80307; 81001; 82077; 83735; 85025; 87086; 87635; 99283; 99284

== ENCOUNTER 2021-08-21 12:18 | Emergency (ER) | payer OTHER, SELFPAY ==
--- NOTE | ~2021-08-21 | XR_ITS ---
EXAMINATION: XR WRIST, LEFT CLINICAL INFORMATION: Left wrist pain at the ulnar styloid process after injury. COMPARISON: 07/24/2019 TECHNIQUE: Four views of the left wrist. FINDINGS: There is no fracture or dislocation. The carpal rows are well aligned. Joint spaces are maintained. The soft tissues are unremarkable. XR/XR wrist LT min 3V IMPRESSION: No fracture or malalignment.
[2021-08-21 12:24] VITALS: BP 142/100; PULSE 82; RESP 18; TEMP 37; O2SAT 100; BMI 24.0
--- NOTE | 2021-08-21 14:31 | ED.EXTPRO ---
HPI - Extremity Problem General Chief complaint: Extremity Injury, Upper Stated complaint: wrist might be broken Time Seen by Provider: 08/21/21 13:48 Source: patient Mode of arrival: ambulatory History of Present Illness HPI Narrative: 41-year-old female with PMHx HTN presenting to ED complaining of left wrist pain s/p slip and on ice 2-3 weeks ago. Reports mild swelling and pain with movement. Denies numbness, tingling, weakness MD Complaint: extremity pain Onset (ago): week(s) Related Data Home Medications Medication Instructions Recorded Confirmed amlodipine 10 mg tablet 10 mg PO DAILY 06/09/21 indapamide 1.25 mg tablet 1.25 mg PO DAILY 06/09/21 Previous Rx's Medication Instructions Recorded clotrimazole-betamethasone 1 1 appl TOPICAL BID 14 Days #45 g 06/09/21 %-0.05 % topical cream naproxen 500 mg tablet 500 mg PO BID PRN 10 Days #20 tab 08/21/21 Allergies Allergy/AdvReac Type Severity Reaction Status Date / Time No Known Allergies Allergy Verified 08/21/21 12:26 [No Known Allergies*] Review of Systems Review of Systems: Constitutional: No Fever, No Chills ENT/Mouth: No Ear Pain, No Nasal Congestion, No sore throat, No Rhinorrhea Cardiovascular: No Chest Pain, No SOB Respiratory: No Cough Gastrointestinal: No Nausea, No Vomiting, No Diarrhea, No Constipation, No Abdominal pain Genitourinary:, No Dysuria, No Hematuria Musculoskeletal: + joint pain, No Myalgias, + Joint Swelling Skin: No Skin Lesions, No rash Neuro: No Weakness, No Numbness, No Paresthesias, no head trauma, no LO Yes all other systems are reviewed and are negative Neurologic: Denies Sensory deficit (Neuro) [facility] Past Medical History Attestation statement: The following information was validated with the patient. Medical History Hypertension Social History Social History Patient Tobacco Use Status: Never used Tobacco Advance Directives: No Advance Directives Information Provided: No Patient : No Physical Exam Vital Signs: Vital Signs: Last Vital Signs Temp 98.6 F 08/21/21 12:24 Pulse 82 08/21/21 12:24 Resp 18 08/21/21 12:24 BP 142/100 H 08/21/21 12:24 Pulse Ox 100 08/21/21 12:24 BMI result Body Mass Index 24.0 Const: General: cooperative, healthy appearing and no acute distress Orientation/consciousness: patient oriented x3 Limitations: no limitations HENMT: Head: Yes normal to inspection and Yes atraumatic Ears: hearing grossly normal bilaterally General nose exam: Normal external nose present Face and sinus: Yes normal facial exam Eyes: General: appearance normal, both eyes and all related structures EOM: EOMs intact bilaterally Neck: Neck: Yes normal visual inspection and Yes no meningeal signs Resp: Effort & Inspection: normal respiratory effort and no respiratory distress Cardio: Rate: regular rate Peripheral pulses: radial pulses present Skin: Rashes: no rashes Wounds: no wounds Neuro: General: patient oriented x3 and no meningeal signs Gait exam (Neuro): Normal gait present Sensory Exam: No Sensory deficit (Neuro) Extrem: Other: left wrist with mild swelling to ulnar aspect & tenderness to palpation. No deformity/ ecchymosis or erythema. Neurovascularly intact. Inversion/ eversion limited secondary to pain. Hand/ digits nontender with finger to thumb opposition intact. No snuffbox tenderness. Forearm without deformity Course Course Course Narrative: XR wrist LT min 3V IMPRESSION: No fracture or malalignment. ? >> volar splint applied. Patient given orthopedic follow-up. Discussed worrisome signs and symptoms. Feels safe for discharge MDM - Extremity (Nontraumatic) MDM Narrative Medical decision making narrative: 41-year-old female with PMHx HTN presenting to ED complaining of left wrist pain s/p slip and on ice 2-3 weeks ago. on exam VSS, NAD /appearing, concern for sprain versus fracture. Will obtain x-rays Discharge Plan Discharge Clinical Impression: Left wrist sprain Patient Disposition: Home, Self-Care Instructions: Wrist Sprain (ED) Additional Instructions: your x-ray was unremarkable. Wear wrist splint home as needed for comfort and stability. Ice and elevate Naproxen as an anti-inflammatory/pain medication, take with food. In addition take Tylenol. Please follow-up with her primary care doctor and Orthopedics as needed If symptoms persist or worsen, you have weakness or numbness please return to ED Prescriptions: New naproxen 500 mg tablet 500 mg PO BID PRN (Reason: pain) 10 Days Qty: 20 0RF No Action amlodipine 10 mg tablet 10 mg PO DAILY 0RF indapamide 1.25 mg tablet 1.25 mg PO DAILY 0RF clotrimazole-betamethasone 1-0.05 % cream 1 appl topical BID 14 Days Qty: 45 0RF Referrals: Colette Quintanilla PA-C [Physician Screen Printer] - 1 week Interventions: ED Discharge Assessment Last Done: 08/21/21 14:39
[2021-08-21 14:37] VITALS: BP 133/94; PULSE 88; RESP 18; O2SAT 100
== END 2021-08-21 14:39 | disposition home or self-care (01) ==
PROVIDERS: Emergency Provider Emergency Medicine
DX: S63.502A Unspecified sprain of left wrist, initial encounter (principal); W00.0XXA Fall on same level due to ice and snow, initial encounter; Y93.9 Activity, unspecified; Y92.410 Unspecified street and highway as the place of occurrence of the external cause; Y99.9 Unspecified external cause status
CPT/HCPCS: 29125; 73110; 99283; 99284

== ENCOUNTER → 2021-08-27 14:12 | Outpatient (BNVA) | payer OTHER, SELFPAY | PROVIDERS: Visit Provider Physician Assistant ==

== ENCOUNTER 2021-09-14 19:33 | Outpatient (REF) | payer OTHER, SELFPAY ==
--- NOTE | ~2021-09-14 | MR_ITS ---
EXAMINATION: MRI WRIST WITHOUT CONTRAST, LEFT CLINICAL INFORMATION: Medial left wrist pain radiating to the elbow. Pain and swelling. Fall. COMPARISON: Left wrist radiographs dated 08/21/2021. TECHNIQUE: Multisequence MR imaging of the left wrist was obtained without contrast on a high-field strength scanner. FINDINGS: TRIANGULAR FIBROCARTILAGE: Possible partial tear through the ulnar styloid aspect of the triangular fibrocartilage complex. INTRINSIC LIGAMENTS: Intact. TENDONS/MEDIAN NERVE: Trace fluid within the extensor carpi ulnaris tendon sheath, consistent with minimal tenosynovitis. No measurable tendon defect. ARTICULAR CARTILAGE/BONE: Intact articular cartilage. No acute fracture or dislocation. No marrow edema. JOINT FLUID/SOFT TISSUES: Along the volar aspect of the radial styloid there is a lobulated fluid collection measuring 0.2 x 0.7 x 1.1 cm, consistent with a synovial recess versus ganglion cyst. There is mild edema adjacent to the distal radioulnar joint capsule with a trace joint effusion. MR/MR wrist LT wo con IMPRESSION: 1. Possible partial tear through the ulnar styloid attachment of the triangular fibrocartilage complex. Trace distal radioulnar joint effusion with mild capsular edema, which could indicate a capsular sprain. 2. Ganglion cyst versus synovial recess ventral to the radial styloid measuring up to 1.1 cm. 3. Minimal extensor carpi ulnaris tenosynovitis. No measurable tendon tear.
== END 2021-09-14 19:34 | disposition home or self-care (01) ==
LOC: HO.MRI 19:33
PROVIDERS: Visit Provider Physician Assistant
DX: S63.501A Unspecified sprain of right wrist, initial encounter (principal)
CPT/HCPCS: 73221

== ENCOUNTER 2021-10-05 12:13 | Inpatient (IN) | payer OTHER, SELFPAY ==
[2021-10-05 13:11] VITALS: BP 177/109; PULSE 121; RESP 24; TEMP 36.1; O2SAT 100; BMI 24.0
[2021-10-05 13:28] LABS: MANUAL DIFF FLAG NO
[2021-10-05 13:29] LABS: Basophils Percent Auto 0.5 % (0-2); Hematocrit 40.5 % (37.0-47.0); Hemoglobin 13.8 g/dl (12.0-16.0); Imm Gran Abs Auto 0.04 X10*3/uL (0.00-0.03); Imm Gran Pct Auto 0.5 % (0.0-0.4); Lymphocytes Absolute Auto 0.5 X10*3/uL (1.2-4.9); Lymphocytes Percent Auto 6.9 % (20-40); Mean Corpuscular HGB Conc 34.1 g/dl (31.0-35.0); Mean Corpuscular Hemoglobin 32.6 pg (27.0-33.0); Mean Corpuscular Volume 95.7 fL (80.0-98.0); Mean Platelet Volume 9.4 fL (9.4-12.3); Monocytes Absolute Auto 0.5 X10*3/uL (0.1-1.2); Monocytes Percent Auto 6.1 % (2-11); Neutrophils Absolute Auto 6.7 x10*3/uL (2.0-8.3); Platelet Count 203 X10*3/uL (160-400); Red Blood Count 4.23 X10*6/uL (4.20-5.50); Red Cell Distribution Width 12.4 % (11.0-16.0); White Blood Count 7.8 X10*3/uL (4.8-10.8)
[2021-10-05 13:47] LABS: Alanine Aminotransferase 71 U/L (0-31); Albumin Level 5.1 g/dL (3.5-5.0); Alkaline Phosphatase 81 U/L (39-117); Anion Gap 23 (12-20); Aspartate Amino Transferase 116 U/L (5-31); Bilirubin Direct 0.3 mg/dL (0.0-0.5); Bilirubin Total 1.2 mg/dL (0.0-1.0); Blood Urea Nitrogen 10 mg/dL (9-16); Calcium 10.3 mg/dL (8.4-10.2); Carbon Dioxide 22 mmol/L (22-29); Chloride 95 mmol/L (96-108); Creatinine Clr Calc Pharmacy 75.1; Estimated Glomerular Filt Rate > 60; Glucose Random 145 mg/dL (60-115); Lipase 17 U/L (8-78); Potassium 4.4 mmol/L (3.3-5.1); Sodium 136 mmol/L (135-145); Total Protein 9.6 g/dL (6.5-8.0)
--- NOTE | 2021-10-05 14:29 | ED_ITS ---
HPI - Nausea/Vomiting/Diarrhea General Chief complaint: Nausea/Vomiting/Diarrhea Stated complaint: Liver issues Time Seen by Provider: 10/05/21 14:29 Source: patient Mode of arrival: ambulatory Limitations: no limitations History of Present Illness HPI Narrative: 41 y/o female with history of daily ETOH abuse, anxiety/depression, HTN who presents to the ER with intractable vomiting since last night. She states that she has had countless episodes of vomiting with persistent nausea. She states her upper abdomen and rib cage is sore from vomiting so forcefully but she has no abdominal pain at rest. She states earlier today both of her hands cramped up and she couldn't move them. She has been anxious all day, started developing tremors, lightheadedness and weakness. She states she has drank 10 nips of vodka per day for the last 6 months. She wants to quit. She denies other drug use. MD elicited complaint: nausea and vomiting Pertinent past history: alcohol abuse Onset (ago): day(s) (1) Description of vomiting: bilious Associated nausea: Yes Associated abdominal pain: Yes Location of pain: chest and epigastric Pain consistency: intermittent Severity: moderate Quality: aching Exacerbating factors: eating and vomiting Relieving factors: none Context: alcohol abuse Associated symptoms: diaphoresis, loss of appetite, malaise, nausea/vomiting, weakness, anxiety and bloating Related Data Home Medications Medication Instructions Recorded Confirmed amlodipine 10 mg tablet 10 mg PO DAILY 06/09/21 10/05/21 indapamide 1.25 mg tablet 1.25 mg PO DAILY 06/09/21 10/05/21 omeprazole 20 mg capsule,delayed 20 mg PO DAILY PRN 10/05/21 10/05/21 release Allergies Allergy/AdvReac Type Severity Reaction Status Date / Time No Known Allergies Allergy Verified 08/21/21 12:26 [No Known Allergies*] Review of Systems 2 Review of Systems: Constitutional: No Fever, No Chills ENT/Mouth: No sore throat, No Rhinorrhea, No Swallowing Difficulty Eyes: No Eye Pain, No Swelling, No Redness Cardiovascular: No Chest Pain, No SOB, No Orthopnea, No Edema Respiratory: No Cough, No Sputum, No Wheezing, No dyspnea Gastrointestinal: + Nausea, +Vomiting, No Diarrhea, + abdominal Pain, No Hematochezia, No Melena Genitourinary: No Dysuria, No Urinary Frequency, No Hematuria Musculoskeletal: No joint pain, No Myalgias Skin: No Skin Lesions, No rash Neuro: + Weakness, No Numbness, + Dizziness, +Headache Psych: + Anxiety/Panic, +Depression, No SI Heme/Lymph: No Bruising, No Lymphadenopathy Endocrine: No Polyuria, No Polydipsia Gastrointestinal: Gastrointestinal: Reports nausea PMFSH Past Medical History Attestation statement: The following information was validated with the patient. Medical History Hypertension Social History Social History (Updated 08/27/21 @ 14:20 by Karen Baxter CMA) Patient Tobacco Use Status: Never used Tobacco Advance Directives: No Advance Directives Information Provided: No Patient : No Current occupational status: employed Current occupation: [employer] Physical Exam Vital Signs: Vital Signs: Last Vital Signs Temp 98.4 F 10/05/21 15:08 Pulse 110 H 10/05/21 15:08 Resp 15 10/05/21 15:08 BP 155/96 H 10/05/21 15:08 Pulse Ox 99 10/05/21 15:08 BMI result Body Mass Index 24.0 Appearance: Alert. Oriented X3. Appears anxious, tremulous Eyes: Pupils equal, round and reactive to light. ENT: Pharynx normal. Neck: Normal inspection. Neck supple. CVS: tachycardic, regular rhythm. Pulses normal. Respiratory: No respiratory distress. Breath sounds normal. Abdomen: Soft and nontender. hyperactive +BS x4 Skin: Skin warm and dry. Normal skin color. Normal skin turgor. No rashes. Extremities: No lower extremity edema. Bilateral hand tremor. Neuro: Oriented X 3. No motor deficit. No sensory deficit. Course Course Course Narrative: 41 y/o female with history of ETOH abuse, anxiety/depression, HTN who presents to the ED with nausea and vomiting since last night in the setting of chronic daily ETOH abuse. On arrival to the ER she is tachycardic, hypertensive and tremulous. Will check labs, lytes, etoh level, VICK and give her IV ativan 2mg, IV zofran. CIWA at least 10 with last drink <24 hours ago. Will plan to give PO phenobarbital once nausea is improved. Will plan for admission, she is agreeable. Reevaluation(s) Reevaluation #1: Patient remains tachycardic and tremulous after 2 mg ativan. Will give another 1mg as well as PO phenobarb load, PO phos and IV Mg+ for repletion. Will admit for further treatment of alcohol withdrawal. MDM - Nausea/Vomiting/Diarrhea Medical Records Attestation: I reviewed the patient's medical records. Lab Data Attestation: I reviewed the patient's lab results. Result diagrams: 10/05/21 13:22 10/05/21 13:22 Labs: Lab Results 10/05/21 10/05/21 10/05/21 Range/Units 13:22 13:22 14:57 WBC 7.8 (4.8-10.8) X10*3/uL RBC 4.23 (4.20-5.50) X10*6/uL Hgb 13.8 (12.0-16.0) g/dl Hct 40.5 (37.0-47.0) % MCV 95.7 (80.0-98.0) fL MCH 32.6 (27.0-33.0) pg MCHC 34.1 (31.0-35.0) g/dl RDW 12.4 (11.0-16.0) % Plt Count 203 D (160-400) X10*3/uL MPV 9.4 (9.4-12.3) fL Immature Gran % (Auto) 0.5 H (0.0-0.4) % Neut % (Auto) 86.0 H (45-73) % Lymph % (Auto) 6.9 L (20-40) % [place] % (Auto) 6.1 (2-11) % Eos % (Auto) 0.0 (0-4) % Baso % (Auto) 0.5 (0-2) % Lymph # (Auto) 0.5 L (1.2-4.9) X10*3/uL [place] # (Auto) 0.5 (0.1-1.2) X10*3/uL Eos # (Auto) 0.0 (0.0-0.4) X10*3/uL Baso # (Auto) 0.0 (0.0-0.2) X10*3/uL Abs Immat Gran (auto) 0.04 H (0.00-0.03) X10*3/uL Absolute Neuts (auto) 6.7 (2.0-8.3) x10*3/uL Absolute Nucleated RBC 0.000 (0.0-0.012) X10*3/uL Nucleated RBC % (auto) 0.0 (0.0-0.2) /100WBC PT 12.2 (9.9-13.0) SEC INR 1.1 (0.9-1.1) APTT 29.7 (24.1-38.0) SEC Sodium 136 (135-145) mmol/L Potassium 4.4 (3.3-5.1) mmol/L Chloride 95 L (96-108) mmol/L Carbon Dioxide 22 (22-29) mmol/L Anion Gap 23 H (12-20) BUN 10 (9-16) mg/dL Creatinine 0.85 (0.5-1.4) mg/dL Estim Creat Clear Calc 75.1 Estimated GFR > 60 Random Glucose 145 H (60-115) mg/dL Calcium 10.3 H D (8.4-10.2) mg/dL Phosphorus 2.1 L (2.7-4.5) mg/dL Magnesium 1.3 L* (1.6-2.6) mg/dL Total Bilirubin 1.2 H (0.0-1.0) mg/dL Direct Bilirubin 0.3 (0.0-0.5) mg/dL AST 116 H (5-31) U/L ALT 71 H (0-31) U/L Alkaline Phosphatase 81 (39-117) U/L Total Protein 9.6 H (6.5-8.0) g/dL Albumin 5.1 H (3.5-5.0) g/dL Lipase 17 (8-78) U/L Ethyl Alcohol mg/dL 10/05/21 Range/Units 14:57 WBC (4.8-10.8) X10*3/uL RBC (4.20-5.50) X10*6/uL Hgb (12.0-16.0) g/dl Hct (37.0-47.0) % MCV (80.0-98.0) fL MCH (27.0-33.0) pg MCHC (31.0-35.0) g/dl RDW (11.0-16.0) % Plt Count (160-400) X10*3/uL MPV (9.4-12.3) fL Immature Gran % (Auto) (0.0-0.4) % Neut % (Auto) (45-73) % Lymph % (Auto) (20-40) % [place] % (Auto) (2-11) % Eos % (Auto) (0-4) % Baso % (Auto) (0-2) % Lymph # (Auto) (1.2-4.9) X10*3/uL [place] # (Auto) (0.1-1.2) X10*3/uL Eos # (Auto) (0.0-0.4) X10*3/uL Baso # (Auto) (0.0-0.2) X10*3/uL Abs Immat Gran (auto) (0.00-0.03) X10*3/uL Absolute Neuts (auto) (2.0-8.3) x10*3/uL Absolute Nucleated RBC (0.0-0.012) X10*3/uL Nucleated RBC % (auto) (0.0-0.2) /100WBC PT (9.9-13.0) SEC INR (0.9-1.1) APTT (24.1-38.0) SEC Sodium (135-145) mmol/L Potassium (3.3-5.1) mmol/L Chloride (96-108) mmol/L Carbon Dioxide (22-29) mmol/L Anion Gap (12-20) BUN (9-16) mg/dL Creatinine (0.5-1.4) mg/dL Estim Creat Clear Calc Estimated GFR Random Glucose (60-115) mg/dL Calcium (8.4-10.2) mg/dL Phosphorus (2.7-4.5) mg/dL Magnesium (1.6-2.6) mg/dL Total Bilirubin (0.0-1.0) mg/dL Direct Bilirubin (0.0-0.5) mg/dL AST (5-31) U/L ALT (0-31) U/L Alkaline Phosphatase (39-117) U/L Total Protein (6.5-8.0) g/dL Albumin (3.5-5.0) g/dL Lipase (8-78) U/L Ethyl Alcohol < 10 mg/dL ECG Data Attestation: I personally reviewed and interpreted this ECG as follows: ECG interpretation date: 10/05/21 ECG interpretation time: 16:16 Prior ECG tracings: available for review Interpretation: Sinus rhythm with marked sinus arrhythmia, heart rate 97 beats per minute, normal FL interval, normal QTC, no ST segment elevations or depressions. Critical Care Time Critical Care Time Critical Care Time: Yes Total Critical Care Time: 37 Attestation: I have personally provided critical care time exclusive of time spent on separately billable procedures. Time includes review of lab data, radiology results, discussion with consultants, and monitoring for potential decompensation. Intervention performed as documented. Discharge Plan Discharge Clinical Impression: Alcohol withdrawal, Hypomagnesemia, Transaminitis, Vomiting Patient Disposition: Admitted As Inpatient
--- NOTE | 2021-10-05 14:41 | ECG_ITS ---
Test Reason : NAUSEA Blood Pressure : / mmHG Vent. Rate : 097 BPM Atrial Rate : 097 BPM P-R Int : 142 ms QRS Dur : 078 ms QT Int : 366 ms P-R-T Axes : 052 -12 020 degrees QTc Int : 464 ms Sinus rhythm with marked sinus arrhythmia Possible Left atrial enlargement Minimal voltage criteria for LVH, may be normal variant ( R in aVL ) Nonspecific ST abnormality Abnormal ECG When compared with ECG of 19-MAY-2021 09:48, No significant change was found Referred By: Angeles Neil Electronically Signed By:LILLIAN HERNANDEZ MD
--- NOTE | 2021-10-05 14:42 | PHA.MEDREC ---
MED REC COMPLETE, PT MAY NOT BE TAKING HER BLOOD PRESSURE MEDS REGULARY, BASED ON PHARMACY FILL HISTORY SHE SHOULD HAVE RUN OUT SEVERAL MONTHS AGO Pharmacy Consult ? Medication Reconciliation Pharmacy has completed the medication reconciliation.
[2021-10-05 15:02] LABS: Magnesium 1.3 mg/dL (1.6-2.6); Phosphorus 2.1 mg/dL (2.7-4.5)
[2021-10-05] MEDS: 0.9 % Sodium Chloride 1,000 ML 999 ML IVCONT (15:04)
[2021-10-05 15:08] VITALS: BP 155/96; PULSE 110; RESP 15; TEMP 36.9; O2SAT 99
[2021-10-05 15:13] LABS: INTERNATIONAL NORM RATIO 1.1 (0.9-1.1); Prothrombin Time 12.2 SEC (9.9-13.0)
[2021-10-05 15:15] LABS: Partial Thromboplastin Time 29.7 SEC (24.1-38.0)
[2021-10-05] MEDS: Magnesium Sulfate/H2O 2 GM/50 ML PIGGYBACK IV (15:16)
[2021-10-05] MEDS: LORazepam 2 MG/ML VIAL IVPUSH (15:16)
[2021-10-05] MEDS: ondansetron HCL 4 MG/2 ML VIAL IVPUSH (15:16)
[2021-10-05 15:18] LABS: Ethanol < 10 mg/dL
--- NOTE | 2021-10-05 16:20 | PM.IMHP ---
History of Present Illness Date of Service: 10/05/21 Chief Complaint: Alcohol withdrawl 41-year-old woman with history of alcohol abuse presenting to the ER with complaints of intractable nausea and vomiting since last night. She reports that the vomiting was forceful and she started to have pain in her abdomen and ribcage. Apparently today her hands cramped up and she could not move them she developed anxiety and tremors. She reports that she drinks 10 nips of vodka a day and has been doing this for at least 6 months. Magnesium was noted to be low at 1.3, total bili 1.2, AST 116, ALT 71 she was also noted to be hypertensive and tachycardic. She was given a dose of phenobarb in the ER, Ativan, Zofran, 1 L of IV fluid and K-Phos. She will be admitted for further management and treatment of acute alcohol withdrawal and intractable nausea and vomiting. Review of Systems Review of Systems: Denies any recent fever chills or decrease in appetite respiratory denies any shortness of breath coverage production cardiovascular chest pain gastrointestinal see HPI genitourinary denies any dysuria frequency or hematuria musculoskeletal denies any joint pain or swelling neuropsych denies any weakness or seizures all other systems reviewed are negative [facility] Medical History Hypertension Family History (Updated 10/05/21 @ 16:57 by Hilda Mccall NP) Father Bile duct cancer Mother Breast cancer Social History (Updated 08/27/21 @ 14:20 by Karen Baxter CMA) Patient Tobacco Use Status: Never used Tobacco Advance Directives: No Advance Directives Information Provided: No Patient : No Current occupational status: employed Current occupation: [employer] Meds Allergies Allergy/AdvReac Type Severity Reaction Status Date / Time No Known Allergies Allergy Verified 08/21/21 12:26 [No Known Allergies*] Active Medications: Current Medications Amlodipine Besylate (Amlodipine Besylate 10 Mg Tablet) 10 mg PO DAILY DAI; Protocol Folic Acid (Folic Acid 1 Mg Tablet) 1 mg PO DAILY DAI Magnesium Sulfate (Magnesium Sulfate/H2o) 2 gm in 50 mls @ 25 mls/hr IV ONCE ONE Stop: 10/05/21 17:02 Last Admin: 10/05/21 15:16 Dose: 25 mls/hr Documented by: Multivitamins/Vitamin C (Multivitamin Tablet) 1 tab PO DAILY [facility] Non-Formulary Medication (Indapamide) 1.25 mg PO DAILY [facility] Omeprazole (Omeprazole 20 Mg Capsule.Dr) 20 mg PO DAILY PRN PRN Reason: Heartburn Pharmacy Consult (Consult Rx Perform Med Rec) 1 each MISCELLANE ONCE PRN PRN Reason: Consult order Thiamine HCl (Thiamine Hcl 100 Mg Tablet) 50 mg PO DAILY [facility] Home Medications Medication Instructions Recorded Confirmed Last Taken Type amlodipine 10 mg tablet 10 mg PO DAILY 06/09/21 10/05/21 Unknown History indapamide 1.25 mg tablet 1.25 mg PO DAILY 06/09/21 10/05/21 Unknown History omeprazole 20 mg capsule,delayed 20 mg PO DAILY PRN 10/05/21 10/05/21 Unknown History release Physical Exam Vital Signs and Narrative: Vital Signs: Last Vital Signs Temp 98.4 F 10/05/21 15:08 Pulse 110 H 10/05/21 15:08 Resp 15 10/05/21 15:08 BP 155/96 H 10/05/21 15:08 Pulse Ox 99 10/05/21 15:08 BMI result Body Mass Index 24.0 Appearing in no acute distress head is normocephalic atraumatic eyes pupils are PERRLA sclera is anicteric mouth throat mucous membranes are intact and moist neck is supple no lymphadenopathy, no JVD noted lung sounds are clear to auscultation heart regular rate rhythm, clear S1, S2 positive bowel sounds, abdomen is soft, nontender neuro patient is alert x3, no focal deficits Results Labs CBC and Chem 7: 10/05/21 13:22 10/05/21 13:22 Labs: Laboratory Results - last 24 hr 10/05/21 10/05/21 10/05/21 13:22 13:22 14:57 MCV 95.7 MCH 32.6 MCHC 34.1 RDW 12.4 Plt Count 203 D MPV 9.4 Immature Gran % (Auto) 0.5 H Neut % (Auto) 86.0 H Lymph % (Auto) 6.9 L [place] % (Auto) 6.1 Eos % (Auto) 0.0 Baso % (Auto) 0.5 Lymph # (Auto) 0.5 L [place] # (Auto) 0.5 Eos # (Auto) 0.0 Baso # (Auto) 0.0 Abs Immat Gran (auto) 0.04 H Absolute Neuts (auto) 6.7 Absolute Nucleated RBC 0.000 Nucleated RBC % (auto) 0.0 PT 12.2 INR 1.1 APTT 29.7 Anion Gap 23 H Estim Creat Clear Calc 75.1 Estimated GFR > 60 Random Glucose 145 H Calcium 10.3 H D Phosphorus 2.1 L Magnesium 1.3 L* Total Bilirubin 1.2 H Direct Bilirubin 0.3 AST 116 H ALT 71 H Alkaline Phosphatase 81 Total Protein 9.6 H Albumin 5.1 H Lipase 17 Ethyl Alcohol 10/05/21 14:57 MCV MCH MCHC RDW Plt Count MPV Immature Gran % (Auto) Neut % (Auto) Lymph % (Auto) [place] % (Auto) Eos % (Auto) Baso % (Auto) Lymph # (Auto) [place] # (Auto) Eos # (Auto) Baso # (Auto) Abs Immat Gran (auto) Absolute Neuts (auto) Absolute Nucleated RBC Nucleated RBC % (auto) PT INR APTT Anion Gap Estim Creat Clear Calc Estimated GFR Random Glucose Calcium Phosphorus Magnesium Total Bilirubin Direct Bilirubin AST ALT Alkaline Phosphatase Total Protein Albumin Lipase Ethyl Alcohol < 10 Assessment and Plan (1) Alcohol withdrawal: Status: Acute Plan 41 year old women admitted with nausea, vomiting and alcohol withdrawl symptoms Alcohol withdrawal symptoms Phenobarbital protocol Multivitamin, folic acid and thiamine Intractable Nausea and vomiting likely secondary to gastritis PPI IV fluids Alcohol abuse Care team consult Hypophosphatemia Secondary to alcohol use [facility] Hypertension Continue home medications Transaminitis Secondary to alcohol use Trend Hypomagnesemia Secondary to alcohol use Replete and trend DVT prophylaxis with Lovenox Attending Dr. Duckworth Full code Quality Stroke Does the patient have a stroke diagnosis?: No VTE Prior VTE?: No VTE Risk Level:: Medical - moderate - high VTE Device Contraindication: Treatment Not Indicated VTE Drug Contraindication: N/A - Med Ordered
--- NOTE | 2021-10-05 16:35 | PC.NURSE ---
covid test added on per request of house painter helper
[2021-10-05] MEDS: LORazepam 2 MG/ML VIAL 1 MG IVPUSH (17:14)
[2021-10-05] MEDS: Enoxaparin Sodium 40 MG/0.4 ML SYRINGE SUBCUT (17:14)
[2021-10-05] MEDS: PHENobarbitaL 30 MG TABLET 210 MG PO (17:15)
[2021-10-05 18:43] LABS: COVID-19 Test Negative (Negative); IDNOW Serial# 55D5AD1C
[2021-10-05] MEDS: Lactated Ringers 1,000 ML 150 ML IVCONT ×2 (18:45→23:12)
[2021-10-05 20:01] VITALS: PULSE 112; RESP 17
[2021-10-05] MEDS: PHENobarbitaL 30 MG TABLET 150 MG PO ×2 (20:46→23:14)
[2021-10-05] MEDS: Sodium,Potassium Phosphates POWD.PACK 2 PACKET PO (20:47)
[2021-10-05] MEDS: Acetaminophen 325 MG TABLET 650 MG PO (20:53)
[2021-10-05 20:55] VITALS: TEMP 36.9
[2021-10-05] MEDS: 0.9 % Sodium Chloride Flush 3 ML SYRINGE IVFLUSH (23:14)
[2021-10-05] MEDS: Omeprazole 20 MG CAPSULE.DR PO (23:21)
[2021-10-05 23:28] VITALS: BMI 26.4
[2021-10-05] MEDS: oxyCODONE HCl Immed Release 5 MG TABLET PO (23:52)
[2021-10-06] VITALS (7 sets, daily range): BP systolic 126–141; BP diastolic 80–94; PULSE 81–96; RESP 16–20; TEMP 36.1–37.1; O2SAT 96–100
[2021-10-06 06:59] LABS: MANUAL DIFF FLAG NO
[2021-10-06 07:10] LABS: Basophils Percent Auto 0.9 % (0-2); Eosinophils Percent Auto 1.2 % (0-4); Hematocrit 35.2 % (37.0-47.0); Hemoglobin 11.6 g/dl (12.0-16.0); Imm Gran Abs Auto 0.02 X10*3/uL (0.00-0.03); Imm Gran Pct Auto 0.6 % (0.0-0.4); Lymphocytes Absolute Auto 1.2 X10*3/uL (1.2-4.9); Lymphocytes Percent Auto 34.1 % (20-40); Mean Corpuscular Hemoglobin 32.8 pg (27.0-33.0); Mean Corpuscular Volume 99.4 fL (80.0-98.0); Mean Platelet Volume 9.5 fL (9.4-12.3); Monocytes Absolute Auto 0.4 X10*3/uL (0.1-1.2); Monocytes Percent Auto 10.2 % (2-11); Neutrophils Absolute Auto 1.8 x10*3/uL (2.0-8.3); Red Blood Count 3.54 X10*6/uL (4.20-5.50); Red Cell Distribution Width 12.5 % (11.0-16.0); White Blood Count 3.4 X10*3/uL (4.8-10.8)
[2021-10-06 07:12] LABS: Platelet Count 139 X10*3/uL (160-400)
[2021-10-06 07:19] LABS: Magnesium 2.1 mg/dL (1.6-2.6)
[2021-10-06 07:22] LABS: Anion Gap 11 (12-20); Blood Urea Nitrogen 8 mg/dL (9-16); Calcium 8.4 mg/dL (8.4-10.2); Carbon Dioxide 29 mmol/L (22-29); Chloride 97 mmol/L (96-108); Creatinine Clr Calc Pharmacy 96.1; Estimated Glomerular Filt Rate > 60; Glucose Random 86 mg/dL (60-115); Potassium 3.2 mmol/L (3.3-5.1); Sodium 134 mmol/L (135-145)
[2021-10-06] MEDS: Acetaminophen 325 MG TABLET 650 MG PO (09:37)
[2021-10-06] MEDS: hydroCHLOROthiazide 25 MG TABLET PO (09:38)
[2021-10-06] MEDS: Potassium Chloride ER 20 MEQ TAB.ER.PRT 40 MEQ PO (09:38)
[2021-10-06] MEDS: Folic Acid 1 MG TABLET PO (09:39)
[2021-10-06] MEDS: PHENobarbitaL 15 MG TABLET 45 MG PO ×2 (09:39→19:59)
[2021-10-06] MEDS: Thiamine HCL 100 MG TABLET 50 MG PO (09:40)
[2021-10-06] MEDS: Multivitamin TABLET 1 TAB PO (09:40)
[2021-10-06] MEDS: amLODIPine Besylate 10 MG TABLET PO (09:40)
[2021-10-06] MEDS: ondansetron HCL 4 MG/2 ML VIAL IVPUSH (09:41)
[2021-10-06] MEDS: 0.9 % Sodium Chloride Flush 3 ML SYRINGE IVFLUSH (09:41)
--- NOTE | 2021-10-06 10:02 | MHC.CM.PN ---
CM met with Patient and her at bedside. Patient lives in a house with her and 2 Sons, ages 9 and 16 years of age (Patient is here with ETOH Withdrawal/51A Filed with the [facility] branch). Home no services vs Care Team interventions is the goal and CM has initiated and will follow for dc planning.PCP is through [facility] and Patient has received Moderna vax x3.
--- NOTE | 2021-10-06 10:05 | HO.PM.IMPN ---
Subjective Subjective Date of Service: 10/06/21 Review of Systems follow-up alcohol withdrawal Still feeling mildly shaky soem nausea Physical Exam Vital Signs: Vital Signs: Last Vital Signs Temp 98.1 F 10/06/21 07:40 Pulse 87 10/06/21 07:40 Resp 18 10/06/21 07:40 BP 133/92 H 10/06/21 07:40 Pulse Ox 96 10/06/21 07:40 BMI result Body Mass Index 26.4 Appearing in no acute distress lung sounds are clear to auscultation heart regular rate rhythm, clear S1, S2 positive bowel sounds, abdomen is soft, nontender neuro patient is alert x3, no focal deficits Objective Data Active Medications Acetaminophen (Acetaminophen 325 Mg Tablet) 650 mg PO Q6H PRN PRN Reason: Pain, Mild (Pain Scale 1-3) Last Admin: 10/06/21 09:37 Dose: 650 mg Documented by: MEREDITH Amlodipine Besylate (Amlodipine Besylate 10 Mg Tablet) 10 mg PO DAILY [facility]; Protocol Last Admin: 10/06/21 09:40 Dose: 10 mg Documented by: MEREDITH Enoxaparin Sodium (Enoxaparin Sodium 40 Mg/0.4 Ml Syringe) 40 mg SUBCUT Q24H [facility] Last Admin: 10/05/21 17:14 Dose: 40 mg Documented by: NAZARIO Folic Acid (Folic Acid 1 Mg Tablet) 1 mg PO DAILY [facility] Last Admin: 10/06/21 09:39 Dose: 1 mg Documented by: MEREDITH Hydrochlorothiazide (Hydrochlorothiazide 25 Mg Tablet) 25 mg PO DAILY [facility] Last Admin: 10/06/21 09:38 Dose: 25 mg Documented by: MEREDITH Lactated Ringer's (Lr) 1,000 mls @ 150 mls/hr IVCONT .Q6H40M [facility] Last Infusion: 10/06/21 09:43 Dose: 0 mls/hr Documented by: MEREDITH Multivitamins/Vitamin C (Multivitamin Tablet) 1 tab PO DAILY [facility] Last Admin: 10/06/21 09:40 Dose: 1 tab Documented by: MEREDITH Omeprazole (Omeprazole 20 Mg Capsule.) 20 mg PO DAILY PRN PRN Reason: Heartburn Last Admin: 10/05/21 23:21 Dose: 20 mg Documented by: SANDRA Ondansetron HCl (Ondansetron Hcl 4 Mg/2 Ml Vial) 4 mg IVPUSH Q8H PRN PRN Reason: Nausea and Vomiting Last Admin: 10/06/21 09:41 Dose: 4 mg Documented by: MEREDITH Pharmacy Consult (Consult Rx Perform Med Rec) 1 each MISCELLANE ONCE PRN PRN Reason: Consult order Pharmacy Consult (Consult Rx Etoh Phenob Po Dose) 1 each MISCELLANE ONCE PRN; Protocol PRN Reason: Consult order Phenobarbital (Phenobarbital 15 Mg Tablet) 45 mg PO BID [facility]; Protocol Stop: 10/07/21 21:01 Last Admin: 10/06/21 09:39 Dose: 45 mg Documented by: MEREDITH Phenobarbital (Phenobarbital 30 Mg Tablet) 30 mg PO BID [facility]; Protocol Stop: 10/09/21 21:01 Phenobarbital (Phenobarbital 30 Mg Tablet) 30 mg PO DAILY [facility]; Protocol Stop: 10/11/21 09:01 Sodium Chloride (0.9 % Sodium Chloride Flush 3 Ml Syringe) 3 ml IVFLUSH QSHIFT [facility] Last Admin: 10/06/21 09:41 Dose: 3 ml Documented by: MEREDITH Thiamine HCl (Thiamine Hcl 100 Mg Tablet) 50 mg PO DAILY [facility] Last Admin: 10/06/21 09:40 Dose: 50 mg Documented by: MEREDITH Labs CBC & Chem 7: 10/06/21 06:22 10/06/21 06:22 Labs: Laboratory Results - last 24 hr 10/05/21 10/05/21 10/05/21 13:22 13:22 14:57 MCV 95.7 MCH 32.6 MCHC 34.1 RDW 12.4 Plt Count 203 D MPV 9.4 Immature Gran % (Auto) 0.5 H Neut % (Auto) 86.0 H Lymph % (Auto) 6.9 L [place] % (Auto) 6.1 Eos % (Auto) 0.0 Baso % (Auto) 0.5 Lymph # (Auto) 0.5 L [place] # (Auto) 0.5 Eos # (Auto) 0.0 Baso # (Auto) 0.0 Abs Immat Gran (auto) 0.04 H Absolute Neuts (auto) 6.7 Absolute Nucleated RBC 0.000 Nucleated RBC % (auto) 0.0 PT 12.2 INR 1.1 APTT 29.7 Anion Gap 23 H Estim Creat Clear Calc 75.1 Estimated GFR > 60 Random Glucose 145 H Calcium 10.3 H D Phosphorus 2.1 L Magnesium 1.3 L* Total Bilirubin 1.2 H Direct Bilirubin 0.3 AST 116 H ALT 71 H Alkaline Phosphatase 81 Total Protein 9.6 H Albumin 5.1 H Lipase 17 Ethyl Alcohol COVID-19 ([facility]) COVID-19 Clin Com 10/05/21 10/05/21 10/06/21 14:57 18:22 06:22 MCV 99.4 H MCH 32.8 MCHC 33.0 RDW 12.5 Plt Count 139 L D MPV 9.5 Immature Gran % (Auto) 0.6 H Neut % (Auto) 53.0 Lymph % (Auto) 34.1 [place] % (Auto) 10.2 Eos % (Auto) 1.2 Baso % (Auto) 0.9 Lymph # (Auto) 1.2 [place] # (Auto) 0.4 Eos # (Auto) 0.0 Baso # (Auto) 0.0 Abs Immat Gran (auto) 0.02 Absolute Neuts (auto) 1.8 L Absolute Nucleated RBC 0.000 Nucleated RBC % (auto) 0.0 PT INR APTT Anion Gap Estim Creat Clear Calc Estimated GFR Random Glucose Calcium Phosphorus Magnesium Total Bilirubin Direct Bilirubin AST ALT Alkaline Phosphatase Total Protein Albumin Lipase Ethyl Alcohol < 10 COVID-19 ([facility]) Negative COVID-19 Clin Com See Note 10/06/21 10/06/21 06:22 06:22 MCV MCH MCHC RDW Plt Count MPV Immature Gran % (Auto) Neut % (Auto) Lymph % (Auto) [place] % (Auto) Eos % (Auto) Baso % (Auto) Lymph # (Auto) [place] # (Auto) Eos # (Auto) Baso # (Auto) Abs Immat Gran (auto) Absolute Neuts (auto) Absolute Nucleated RBC Nucleated RBC % (auto) PT INR APTT Anion Gap 11 L Estim Creat Clear Calc 96.1 Estimated GFR > 60 Random Glucose 86 Calcium 8.4 D Phosphorus Magnesium 2.1 Total Bilirubin Direct Bilirubin AST ALT Alkaline Phosphatase Total Protein Albumin Lipase Ethyl Alcohol COVID-19 ([facility]) COVID-19 Clin Com Assessment and Plan (1) Alcohol withdrawal: Status: Acute Plan 41 year old women admitted with nausea, vomiting and alcohol withdrawl symptoms Alcohol withdrawal symptoms Phenobarbital protocol Multivitamin, folic acid and thiamine Intractable Nausea and vomiting likely secondary to gastritis. Improving PPI IV fluids cepacol for throat discomfort Alcohol abuse Care team consult Hypophosphatemia Secondary to alcohol use [facility] Hypertension Continue home medications Transaminitis Secondary to alcohol use Trend Hypomagnesemia Secondary to alcohol use Replete and trend DVT prophylaxis with Lovenox Attending Dr. Bee Full code Patient requires continued hospitalization For IV fluids and PPI for gastritis and alcohol withdrawal. She also continues to need phenobarbital for withdrawal symptoms. Quality Stroke Does the patient have a stroke diagnosis?: No VTE Prior VTE?: No VTE Risk Level:: Medical - moderate - high VTE Device Contraindication: Treatment Not Indicated VTE Drug Contraindication: N/A - Med Ordered
[2021-10-06] MEDS: Lactated Ringers 1,000 ML 150 ML IVCONT ×2 (10:27→20:00)
[2021-10-06] MEDS: Famotidine/PF 20 MG/2 ML VIAL IVPUSH ×2 (12:35→20:01)
--- NOTE | 2021-10-06 14:38 | MHC.RECOVRN ---
Met with pt in 475 after consult placed to CARE Team for alcohol use. Upon entering pts room, pt in bed, awake, alert, oriented, watching TV. Pt reports alcohol use, approx 10 nips vodka daily after work x a few years. Prior to that, pt reports drinking hard seltzer. Pt dismissive of t/w questions, states After yesterday I am just going to stop. I know everyone probably says that but it was awful. Pt has not received [facility] tx in the past, however, reports was hospitalized 6-7 months ago and was started on naltrexone. Pt states They didn't do anything for him so I tried them. I didn't feel anything on them. Pt educated regarding medications for alcohol use disorder and risks associated with taking non-prescribed medications. Pt educated regarding resources and community supports. 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 Pt declines all other interventions. Pt plans to make appt with [facility] once discharged and think about IOP. Pt states I can't go anywhere, I have my kids and my job. They are school choice so I have to drive them and I just can't go. Pt smiling and nodding yes throughout conversation, avoidant of discussing alcohol use. Pt provided with resources as well as t/w contact information if needed. Pt encouraged to reach out if referrals are needed.
[2021-10-06] MEDS: Enoxaparin Sodium 40 MG/0.4 ML SYRINGE SUBCUT (17:49)
[2021-10-06] MEDS: hydrOXYzine HCL 25 MG TABLET PO (19:58)
[2021-10-07] VITALS: BP 134/85; PULSE 76; RESP 20; TEMP 36.1; O2SAT 100
[2021-10-07] MEDS: Lactated Ringers 1,000 ML 150 ML IVCONT (02:33)
[2021-10-07 02:50] VITALS: BP 144/97; PULSE 76; RESP 20; TEMP 36.4; O2SAT 97
[2021-10-07 07:29] VITALS: BP 132/90; PULSE 62; RESP 18; TEMP 36.1; O2SAT 98
[2021-10-07 10:11] LABS: Potassium 3.4 mmol/L (3.3-5.1)
[2021-10-07] MEDS: PHENobarbitaL 15 MG TABLET 45 MG PO (10:42)
[2021-10-07] MEDS: hydroCHLOROthiazide 25 MG TABLET PO (10:43)
[2021-10-07] MEDS: Thiamine HCL 100 MG TABLET 50 MG PO (10:43)
[2021-10-07] MEDS: Multivitamin TABLET 1 TAB PO (10:44)
[2021-10-07] MEDS: Famotidine/PF 20 MG/2 ML VIAL IVPUSH (10:44)
[2021-10-07] MEDS: amLODIPine Besylate 10 MG TABLET PO (10:44)
[2021-10-07] MEDS: Folic Acid 1 MG TABLET PO (10:44)
[2021-10-07] MEDS: 0.9 % Sodium Chloride Flush 3 ML SYRINGE IVFLUSH (10:46)
--- NOTE | 2021-10-07 11:17 | PM.DS ---
DS: Providers Provider Date of Service: 10/07/21 Date of admission: 10/05/21 16:18 Primary care physician: Unknown Physician Consults: 10/05/21 16:17 Consult to Care Team Routine Comment: Reason for consultation: alcohol abuse DS: Diagnosis Discharge Diagnosis (1) Alcohol withdrawal: Status: Acute DS: Summary Hospital Course Hospital Course: 41-year-old woman with history of alcohol abuse presenting to the ER with complaints of intractable nausea and vomiting since last night.? She reports that the vomiting was forceful and she started to have pain in her abdomen and ribcage.? Apparently today her hands cramped up and she could not move them she developed anxiety and tremors.? She reports that she drinks 10 nips of vodka a day and has been doing this for at least 6 months. Magnesium was noted to be low at 1.3, total bili 1.2, AST 116, ALT 71 she was also noted to be hypertensive and tachycardic.? She was given a dose of phenobarb in the ER, Ativan, Zofran, 1 L of IV fluid and K-Phos.? She will be admitted for further management and treatment of acute alcohol withdrawal and intractable nausea and vomiting. Hospital course: Patient came with alcohol withdrawal-treated with phenobarb protocol-seems to be improved. Electrolyte abnormalities including hypomagnesemia and hypokalemia repleted and resolved and seems to be related to alcohol use. Care team saw the patient and information given. Elevated LFT probably related to alcohol use-liver function test improving, repeat liver function test and electrolytes and renal function with PCP in 1 week. Above was discussed with the patient in detail length she understand and in agreement with the above plan. Time Spent with Patient Time attestation: Total time spent providing and/or coordinating discharge services: Discharge coordination time: Greater than 30 minutes Quality: Safe Use of Opioids Does Pt have an Active Cancer Diagnosis on the Problem List?: No Quality: Stroke Does the patient have a stroke diagnosis?: No Physical Exam Vital Signs: Vital Signs: Last Vital Signs Temp 97.0 F 10/07/21 07:29 Pulse 62 10/07/21 07:29 Resp 18 10/07/21 07:29 BP 132/90 H 10/07/21 07:29 Pulse Ox 98 10/07/21 07:29 BMI result Body Mass Index 26.4 Appearance: Alert.? Oriented X3.? not in distress.? Eyes: Pupils equal, round and reactive to light.? Sclera nonicteric.? ENT: Pharynx normal.? Moist mucous membranes. cvs: rrr, [id number] , no murmur res: clear to auscultation ,no rhonchii or wheezing abd: no rebound or guarding ,nt, bs present. ext pulses present , no cyanosis . neuro: axo3 , nonfocal. DS: Data Data Completed and Pending Labs on day of discharge: Laboratory Results - last 24 hr 10/07/21 09:16 Potassium 3.4 labs: PT ? ? ?12.2 INR ? ? ?1.1 APTT ? ? ?29.7 Anion Gap ? ?23 H ? Estim Creat Clear Calc ? ?75.1 ? Estimated GFR ? ?> 60 ? Random Glucose ? ?145 H ? Calcium ? ?10.3 H D ? Phosphorus ? ?2.1 L ? Magnesium ? ?1.3 L* ? Total Bilirubin ? ?1.2 H ? Direct Bilirubin ? ?0.3 ? AST ? ?116 H ? ALT ? ?71 H ? Alkaline Phosphatase ? ?81 ? Total Protein ? ?9.6 H ? Albumin ? ?5.1 H ? Lipase ? ?17 ? Ethyl Alcohol ? ? Discharge Plan Discharge Patient Disposition: Home, Self-Care Discharge Diagnosis: Alcohol withdrawal, hypokalemia/hypomagnesemia. Referrals: Physician,Unknown J [Primary Care Provider] - 1 Week Discharge Medications: New Cepacol Sore Throat (brittani-men) 15-3.6 mg Lozenge 1 jessica mucous membrane Q2H PRN (Reason: Sore Throat) Qty: 10 0RF folic acid 1 mg Tablet 1 mg PO DAILY Qty: 30 0RF thiamine mononitrate (vit B1) 100 mg Tablet 100 mg PO DAILY Qty: 30 0RF Continued omeprazole 20 mg Capsule,Delayed Release(Dr/Ec) 20 mg PO DAILY PRN (Reason: Heartburn) 0RF amlodipine 10 mg tablet 10 mg PO DAILY 0RF indapamide 1.25 mg tablet 1.25 mg PO DAILY 0RF Discharge Orders: Discharge Order (Routine); Ordered 10/07/21 Ordered By: Shantell Mistry Diet: advance to usual diet Activity on Discharge: As tolerated Stand Alone Forms: Patient Portal Discharge page Care Plan Goals: Patient came with alcohol withdrawal-treated with phenobarb protocol-seems to be improved. Electrolyte abnormalities including hypomagnesemia and hypokalemia repleted and resolved and seems to be related to alcohol use. Care team saw the patient and information given. Elevated LFT probably related to alcohol use-liver function test improving, repeat liver function test and electrolytes and renal function with PCP in 1 week. Above was discussed with the patient in detail length she understand and in agreement with the above plan. Health Concerns: As above. Plan of Treatment: As above. Assessment: As above.
[2021-10-07 11:28] VITALS: BP 130/93; PULSE 76; RESP 18; TEMP 36.9; O2SAT 98
--- NOTE | 2021-10-07 11:32 | MHC.CM.PN ---
Female 41 DX ETOH WD She lives with family. She is independent. Discharge scheduled for today. DP She has been seen by the Care team. They have provided Community resource information. Patient will arrange for transportation home.
--- NOTE | 2021-10-07 14:09 | PM.DS ---
DS: Providers Provider Date of Service: 10/07/21 Date of admission: 10/05/21 16:18 Primary care physician: Unknown Physician Consults: 10/05/21 16:17 Consult to Care Team Routine Comment: Reason for consultation: alcohol abuse DS: Diagnosis Discharge Diagnosis (1) Alcohol withdrawal: Status: Acute DS: Summary Hospital Course Hospital Course: 41-year-old woman with history of alcohol abuse presenting to the ER with complaints of intractable nausea and vomiting since last night.? She reports that the vomiting was forceful and she started to have pain in her abdomen and ribcage.? Apparently today her hands cramped up and she could not move them she developed anxiety and tremors.? She reports that she drinks 10 nips of vodka a day and has been doing this for at least 6 months. Magnesium was noted to be low at 1.3, total bili 1.2, AST 116, ALT 71 she was also noted to be hypertensive and tachycardic.? She was given a dose of phenobarb in the ER, Ativan, Zofran, 1 L of IV fluid and K-Phos.? She will be admitted for further management and treatment of acute alcohol withdrawal and intractable nausea and vomiting. Hospital course: Patient came with alcohol withdrawal-treated with phenobarb protocol-seems to be improved. Electrolyte abnormalities including hypomagnesemia and hypokalemia repleted and resolved and seems to be related to alcohol use. Care team saw the patient and information given. Elevated LFT probably related to alcohol use-liver function test improving, repeat liver function test and electrolytes and renal function with PCP in 1 week. Above was discussed with the patient in detail length she understand and in agreement with the above plan. Time Spent with Patient Time attestation: Total time spent providing and/or coordinating discharge services: Discharge coordination time: Greater than 30 minutes Quality: Safe Use of Opioids Does Pt have an Active Cancer Diagnosis on the Problem List?: No Quality: Stroke Does the patient have a stroke diagnosis?: No Physical Exam Vital Signs: Vital Signs: Last Vital Signs Temp 98.4 F 10/07/21 11:28 Pulse 76 10/07/21 11:28 Resp 18 10/07/21 11:28 BP 130/93 H 10/07/21 11:28 Pulse Ox 98 10/07/21 11:28 BMI result Body Mass Index 26.4 Appearance: Alert.? Oriented X3.? not in distress.? Eyes: Pupils equal, round and reactive to light.? Sclera nonicteric.? ENT: Pharynx normal.? Moist mucous membranes. cvs: rrr, [id number] , no murmur res: clear to auscultation ,no rhonchii or wheezing abd: no rebound or guarding ,nt, bs present. ext pulses present , no cyanosis. neuro: axo3 , nonfocal. DS: Data Data Completed and Pending Labs on day of discharge: Laboratory Results - last 24 hr 10/07/21 09:16 Potassium 3.4 Discharge Plan Discharge Patient Disposition: Home, Self-Care Discharge Diagnosis: Alcohol withdrawal, hypokalemia/hypomagnesemia. Referrals: Physician,Unknown J [Primary Care Provider] - 1 Week Discharge Medications: New folic acid 1 mg Tablet 1 mg PO DAILY Qty: 30 0RF thiamine mononitrate (vit B1) 100 mg Tablet 100 mg PO DAILY Qty: 30 0RF Cepacol Sore Throat (brittani-men) 15-3.6 mg Lozenge 1 jessica mucous membrane Q2H PRN (Reason: Sore Throat) Qty: 10 0RF Continued omeprazole 20 mg Capsule,Delayed Release(Dr/Ec) 20 mg PO DAILY PRN (Reason: Heartburn) 0RF amlodipine 10 mg tablet 10 mg PO DAILY 0RF indapamide 1.25 mg tablet 1.25 mg PO DAILY 0RF Discharge Orders: Discharge Order (Routine); Ordered 10/07/21 Ordered By: Shantell Mistry Diet: advance to usual diet Activity on Discharge: As tolerated Stand Alone Forms: Patient Portal Discharge page Care Plan Goals: Patient came with alcohol withdrawal-treated with phenobarb protocol-seems to be improved. Electrolyte abnormalities including hypomagnesemia and hypokalemia repleted and resolved and seems to be related to alcohol use. Care team saw the patient and information given. Elevated LFT probably related to alcohol use-liver function test improving, repeat liver function test and electrolytes and renal function with PCP in 1 week. Above was discussed with the patient in detail length she understand and in agreement with the above plan. Health Concerns: As above. Plan of Treatment: As above. Assessment: As above.
--- NOTE | 2021-10-09 13:28 | P.CDIR_ITS ---
Documented by User: Ana Luisa Eldridge RN 10/09/21 13:32 Retrospective Query PHYSICIAN'S DOCUMENTATION REQUEST Date of Query: 10/09/21 1322 Patient Name: Aracelis Calderón Admit Date: 10/05/21 Dear Doctor, A review of the medical record indicates additional documentation may be needed. Please review below and update the documentation accordingly. Clinical Indicators: The diagnosis of Gastritis was documented on 10/05/21 and 10/06/21 but is not consistently noted in subsequent documentation Risk Factors/Clinical Indicators/Treatments Per H&P 10/05/21: intractable nausea and vomiting likely secondary to gastritis PPI, IVF Please clarify the following: * Gastritis was present on admission and is now resolved * Gastritis was present on admission and is still being monitored, evaluated, or treated * Gastritis was ruled out * Gastritis is still a likely, suspected, probable diagnosis * Other (please specify) * Unable to determine Use of terms such as suspected, likely, concern for, or probable (associated with a specific diagnosis that is being evaluated, monitored, or treated as if it exists) are acceptable and can be coded in the inpatient setting, when documented at the time of discharge. Thank you, Ana Luisa Eldridge RN Extension: [phone] Please use your independent medical judgment in providing your response. THIS QUERY IS PART OF THE PERMANENT MEDICAL RECORD Documented by User: Shantell Mistry MD 10/09/21 13:34 Retrospective Query Provider Response: Other (Alcohol related gastritis.)
== END 2021-10-07 14:57 | disposition home or self-care (01) | DRG 241 ==
LOC: HO.ED 14:45 → HO.EDOVER 16:24 → HO.IMC 18:32
PROVIDERS: Physician Assistant; Admitting Provider Nurse Practitioner Acute Care; Emergency Provider Emergency Medicine; Visit Provider Internal Medicine
DX: K29.20 Alcoholic gastritis without bleeding (principal); E83.39 Other disorders of phosphorus metabolism; F10.139 Alcohol abuse with withdrawal, unspecified; E83.42 Hypomagnesemia; F32.A Depression, unspecified; F41.9 Anxiety disorder, unspecified; Z20.822 Contact with and (suspected) exposure to COVID-19; Z79.899 Other long term (current) drug therapy
CPT/HCPCS: 36415; 80048; 80076; 82077; 83690; 83735; 84100; 84132; 85025; 85610; 85730; 87635; 93005; 96361; 96365; 96375; 96376; 99285; 99291; J1650; J2060; J2405; J3475

== ENCOUNTER 2021-11-10 10:00 | Emergency (ER) | payer OTHER, SELFPAY ==
--- NOTE | ~2021-11-10 | XR_ITS ---
EXAMINATION: LEFT WRIST X-RAY CLINICAL INFORMATION: Pain COMPARISON: Previous x-rays most recent August 2021 and MRI September 2021 TECHNIQUE: 4 views of the left wrist FINDINGS: Bone alignment is normal. No fracture or dislocation is seen. Joint spaces are normal. Soft tissues are normal. XR/XR hand wrist LT IMPRESSION: Normal left wrist.
[2021-11-10 11:02] VITALS: BP 162/116; PULSE 86; RESP 18; TEMP 36.5; O2SAT 100; BMI 24.9
--- NOTE | 2021-11-10 11:43 | ED_ITS ---
HPI - Extremity Injury (Upper) General Chief Complaint: Extremity Injury, Upper Stated Complaint: L arm inj-work related Time Seen by Provider: 11/10/21 11:17 Source: patient Mode of arrival: ambulatory Limitations: no limitations History of Present Illness HPI narrative: 41-year-old female presenting to the ED with complaints of left wrist / hand pain after she was opening up a window at her job and the whole window came down on her left hand/ wrist and since then she has been having pain/ swelling on palpation. She reports it does not hurt when she moves it. Otherwise she denies any other symptoms complaints or concerns at this time. 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) Other injuries: none Place: work Severity: moderate Relieving factors: none Exacerbating factors: other ( Palpation) Context: crush Associated symptoms: denies other symptoms Related Data Home Medications Medication Instructions Recorded Confirmed amlodipine 10 mg tablet 10 mg PO DAILY 06/09/21 10/05/21 indapamide 1.25 mg tablet 1.25 mg PO DAILY 06/09/21 10/05/21 omeprazole 20 mg capsule,delayed 20 mg PO DAILY PRN 10/05/21 10/05/21 release Previous Rx's Medication Instructions Recorded benzocaine 15 mg-menthol 3.6 mg 1 jessica MUCOUS MEMBRANE Q2H PRN #10 10/07/21 lozenges (Cepacol Sore Throat ea (benzocaine-menthol)) folic acid 1 mg tablet 1 mg PO DAILY #30 tab 10/07/21 thiamine mononitrate (vit B1) 100 100 mg PO DAILY #30 tab 10/07/21 mg tablet naproxen 500 mg tablet 500 mg PO BID PRN #10 tab 11/10/21 Allergies Allergy/AdvReac Type Severity Reaction Status Date / Time No Known Allergies Allergy Verified 08/21/21 12:26 [No Known Allergies*] Review of Systems Review of Systems: Constitutional : No Weight loss, No Fever, No Chills, No Night Sweats, No Fatigue, No Malaise ENT/Mouth : No Hearing loss, No Ear Pain, No Nasal Congestion, No Sinus Pain, No Hoarseness, No sore throat, No Rhinorrhea, No Swallowing Difficulty Eyes: No Eye Pain, No Swelling, No Redness, No Foreign Body, No Discharge, No Vision Changes Cardiovascular : No Chest Pain, No SOB, No Dyspnea on Exertion, No Orthopnea, No Edema, No Palpitations Respiratory : No Cough, No Sputum, No Wheezing, No Smoke Exposure, No Dyspnea Gastrointestinal : No Nausea, No Vomiting, No Diarrhea, No Constipation, No abdominal Pain, No Hematochezia, No Melena Genitourinary : no irregular bleeding, No Dysuria, No Urinary Frequency, No Hematuria, No Urinary Incontinence, No Urgency, No Flank Pain, No Urinary Flow Changes, No Hesitancy Musculoskeletal : + left hand/wrist joint pain/swelling, No Myalgias, No Joint Swelling Skin : No Skin Lesions, No rash Neuro : No Weakness, No Numbness, No Paresthesias, No Loss of Consciousness, No Dizziness, No Headache Psych : No Anxiety/Panic, No Depression, No SI/HI/AH/VH, No Social Issues, Heme/Lymph: No Bruising, No Bleeding,No Lymphadenopathy Endocrine : No Polyuria, No Polydipsia, No Temperature Intolerance Yes all other systems are reviewed and are negative COUNT INCLUDES THE [facility] Past Medical History Attestation statement: The following information was validated with the patient. Medical History Hypertension Family History Family History Father Bile duct cancer Mother Breast cancer Social History Social History Household Members: Spouse and Children Housing: House Alcohol intake: current Alcohol intake frequency: 3 or more drinks per day Alcohol type: beer Patient Tobacco Use Status: Never used Tobacco Advance Directives: No Patient : No service: No Current occupational status: employed Current occupation: [employer] Physical Exam Vital Signs: Vital Signs: Last Vital Signs Temp 97.7 F 11/10/21 11:02 Pulse 86 11/10/21 11:02 Resp 18 11/10/21 11:02 BP 162/116 H 11/10/21 11:02 Pulse Ox 100 11/10/21 11:02 BMI result Body Mass Index 24.9 vital signs have been reviewed as normal and appeared to be correct. Blood pressure 162/116 Heart rate normal. Respiration rate normal. Temperature normal. Oxygen saturation normal. Appearance: Alert. Oriented X3. No acute distress. Head: Normal external exam. Normocephalic. Atraumatic. Eyes: PERRLA. EOMI. Conjunctiva and sclera normal. Eyelids normal. ENT: Pharynx normal. Uvula midline. Moist mucous membranes. Neck: Normal inspection. Neck supple. FROM. CVS: Normal heart rate and rhythm. Respiratory: No respiratory distress. Painless inspiration. Skin: Skin warm and dry. Normal skin color. Normal skin turgor. No rashes/lesions/lacerations noted. Extremities: Patient mild tenderness palpation to the ulnar aspect of the left hand/ wrist with mild soft tissue swelling. She has full range of motion no obvious ligamentous or tendon injury noted. Not consistent muscle rupture noted. Otherwise all other extremities exhibit normal range of motion nontender. Neuro: Oriented X 3. No motor deficit. No sensory deficit. Reflexes normal. Normal steady gait. No focal neuro deficits noted. Vascular: + radial pulses/+ 2 distal pedal pulses/+2 dorsalis pedis b/l. Normal cap refill. No cyanosis noted to upper extremity nails and lower extremity toes nails. Course Course Course Narrative: x-ray of left hand and wrist negative for any acute processes. Patient most likely hand/wrist sprain. Will treat symptomatic instruct to return if any new or worsening symptoms follow up with primary care provider and to take her blood pressure medication at home as she reports she is unsure if she took it although she denies any cardiac related complaints. Patient understands agrees with this plan. MDM - Extremity Injury (Upper) Medical Records Attestation: I reviewed the patient's medical records. Imaging Data Left hand/ wrist x-ray: Attestation: I personally reviewed and interpreted this imaging study as follows: Radiologist's impression: FINDINGS: Bone alignment is normal. No fracture or dislocation is seen. Joint spaces are normal. Soft tissues are normal.? XR/XR hand wrist LT IMPRESSION: Normal left wrist.? Discharge Plan Discharge Clinical Impression: Sprain and strain of wrist, Work related injury Patient Disposition: Home, Self-Care Instructions: Wrist Sprain (ED), Return to Work Instructions (ED) Prescriptions: New naproxen 500 mg tablet 500 mg PO BID PRN (Reason: pain) Qty: 10 0RF No Action omeprazole 20 mg Capsule,Delayed Release(Dr/Ec) 20 mg PO DAILY PRN (Reason: Heartburn) 0RF folic acid 1 mg Tablet 1 mg PO DAILY Qty: 30 0RF thiamine mononitrate (vit B1) 100 mg Tablet 100 mg PO DAILY Qty: 30 0RF Cepacol Sore Throat (brittani-men) 15-3.6 mg Lozenge 1 jessica mucous membrane Q2H PRN (Reason: Sore Throat) Qty: 10 0RF amlodipine 10 mg tablet 10 mg PO DAILY 0RF indapamide 1.25 mg tablet 1.25 mg PO DAILY 0RF Referrals: [facility] [Provider Group] - 1 day Physician,Unknown J [Primary Care Provider] - 2 days (your pcp) Stand Alone Forms: Work/School Release
[2021-11-10] MEDS: Ibuprofen 800 MG TABLET PO (11:45)
== END 2021-11-10 12:30 | disposition home or self-care (01) ==
PROVIDERS: Emergency Provider Emergency Medicine
DX: S63.502A Unspecified sprain of left wrist, initial encounter (principal); M25.532 Pain in left wrist; X58.XXXA Exposure to other specified factors, initial encounter; Y93.9 Activity, unspecified; Y92.9 Unspecified place or not applicable; Y99.0 Civilian activity done for income or pay; Z79.899 Other long term (current) drug therapy
CPT/HCPCS: 29125; 73110; 73130; 99283

== ENCOUNTER → 2021-11-17 11:20 | Outpatient (BNVA) | payer OTHER, SELFPAY | PROVIDERS: Visit Provider Physician Assistant Medical | DX: S60.212A Contusion of left wrist, initial encounter (principal); W20.8XXA Other cause of strike by thrown, projected or falling object, initial encounter | CPT/HCPCS: 99203 ==

== ENCOUNTER → 2021-11-24 08:57 | Outpatient (BNVA) | payer OTHER, SELFPAY | PROVIDERS: Visit Provider Physician Assistant Medical | DX: S60.212A Contusion of left wrist, initial encounter (principal); X58.XXXA Exposure to other specified factors, initial encounter | CPT/HCPCS: 99213 ==

== ENCOUNTER → 2021-12-03 10:29 | Outpatient (BNVA) | payer OTHER, SELFPAY | PROVIDERS: Visit Provider Physician Assistant | DX: S69.82XA Other specified injuries of left wrist, hand and finger(s), initial encounter (principal) | CPT/HCPCS: 99202 ==

== ENCOUNTER → 2021-12-22 15:24 | Outpatient (BNVA) | payer OTHER, SELFPAY | PROVIDERS: Visit Provider Orthopaedic Surgery | DX: M25.532 Pain in left wrist (principal); R20.0 Anesthesia of skin; R20.2 Paresthesia of skin | CPT/HCPCS: 99212 ==

== ENCOUNTER → 2022-01-12 10:29 | Outpatient (BNVA) | payer OTHER, SELFPAY | PROVIDERS: Visit Provider Orthopaedic Surgery | DX: M25.532 Pain in left wrist (principal); R20.0 Anesthesia of skin; R20.2 Paresthesia of skin | CPT/HCPCS: 20605; 99212; J1100 ==

== ENCOUNTER → 2022-01-21 10:15 | Outpatient (BNVA) | payer OTHER, SELFPAY | PROVIDERS: Visit Provider Physician Assistant | DX: M25.539 Pain in unspecified wrist (principal); M25.532 Pain in left wrist; R20.0 Anesthesia of skin; R20.2 Paresthesia of skin | CPT/HCPCS: 99212 ==

== ENCOUNTER 2022-01-29 10:30 | Outpatient (RCR) | payer OTHER, SELFPAY ==
--- NOTE | 2021-11-19 09:52 | MHC.OT.EP ---
[address] [phone] Occupational Therapy Plan of Care Date of Evaluation: 11/19/21 Diagnosis: Left hand/wrist constusion Assessment: 41 yo right hand dominant female w/ hx of trauma to left wrist including fall two years ago and TFCC injury after FOOSH this past August, now presents to OT after left wrist contusion when an open window slammed down on her wrist. On assessment she has mild edema in left ulnar wrist and tenderness to palpate over TFCC. She has (+) fovea sign and pain w/ gross grasp and weightbearing through palm. S/S consistant w/ TFCC injury, and MRI 09/14/21 shows partial tear. She will benefit from cont'd orthosis wear as well as trial of conservative treatment for wrist stability and joint protection. Frequency and Duration: The patient will be seen 2x/wk for 4 weeks Short Term Goals: Ind w/ orthosis wear Ind w/ joint protection Pt to return to light work duties Assisted Goals: Pt to demo gross grasp >45lb w/ minimal pain Pt to demo good progression of weightbearing through palm Pt to complete bimanual lifting 20lb w/ ease, wearing orthosis for support Treatment Plan: Therapeutic Exercise Therapeutic Activity Home Exercise Program Splinting Patient Education Edema Control ADL Training Ultrasound Iontophoresis Paraffin Fluidotherapy MHP Cold Packs Soft Tissue Mobilization Kinesiotaping Ionto w/ dex Electronically Signed By: Nicole Albrecht OTR/Zayra CHT Please Sign and return to therapist. Thank you once again for your referral.
--- NOTE | 2022-02-08 13:50 | MHC.OT.DC ---
[address] [phone] F: [phone] Occupational Therapy Discharge Note Provider: Paty Brown PA-C Diagnosis: Left hand/wrist constusion Date of Evaluation: 11/19/21 Date of Discharge: 02/08/22 Treatments to Date: 10 Cancellations to Date: 6 No Shows to Date: 1 Discharge Status: Recommend MD Follow-up Visit Non-compliance Discharge Summary: Aracelis was initially seen in OT s/p crush injury to left hand/wrist, which appears to have exacerbated prior TFCC injury. She is now s/p cortisone injection to right wrist, reporting no change in pain and has returned to resting wrist orthosis wear. Prior to injection, wrist range has been WFL, but still with low gross grasp and inability to weight bear through her palm. We have educated her on protection of TFCC through orthosis wear, limiting rotation and weight-bearing, but she has continued to have discomfort and impaired function. She has met a plateau in therapy along with several cancellations and no-shows; we will be discharging from services at this time. Electronically Signed By: ELIE Mustafa/Zayra MEMBRENO Reviewed/agree with student documentation: N/A Therapist: Please Sign and return to therapist, thank you for your referral.
== END 2022-02-08 13:50 | disposition home or self-care (01) ==
LOC: HO.OT 10:30
PROVIDERS: Visit Provider Physician Assistant Medical
DX: S60.212D Contusion of left wrist, subsequent encounter (principal)
CPT/HCPCS: 97033; 97035; 97110; 97140; 97165

== ENCOUNTER 2022-02-11 08:15 | Outpatient (REF) | payer OTHER, SELFPAY ==
--- NOTE | 2022-02-11 08:18 | EMG_ITS ---
Left median and ulnar motor and sensory studies were performed, left radial sensory study was performed, left ulnar and dorsal median and lateral antecubital sensory studies were performed, and needle examination performed in paraspinals and some hand muscles. IMPRESSION: Mild left ulnar neuropathy mostly affecting the sensory component. This is probably not of entrapment type. MD SANTOS Fitch/HANDY / [id number]
== END 2022-02-11 08:16 | disposition home or self-care (01) ==
LOC: HO.NEURO 08:15
PROVIDERS: Visit Provider Orthopaedic Surgery
DX: R20.0 Anesthesia of skin (principal); R20.2 Paresthesia of skin
CPT/HCPCS: 95886; 95910

== ENCOUNTER 2022-03-02 10:34 | Outpatient (REF) | payer OTHER, SELFPAY ==
--- NOTE | ~2022-03-02 | XR_ITS ---
EXAMINATION: XR WRIST, LEFT CLINICAL INFORMATION: Pain. COMPARISON: 08/21/2021 TECHNIQUE: 4 views of the left wrist. FINDINGS: There is no evidence of acute fracture or dislocation of the left wrist. Left wrist joint spaces are maintained. No significant soft tissue swelling is appreciated. XR/XR wrist LT w scaphoid IMPRESSION: No significant bony abnormality of the left wrist identified.
== END 2022-03-02 10:35 | disposition home or self-care (01) ==
LOC: HO.HOSX 10:34
PROVIDERS: Visit Provider Orthopaedic Surgery
DX: M25.532 Pain in left wrist (principal); R20.0 Anesthesia of skin; R20.2 Paresthesia of skin
CPT/HCPCS: 73110; 99212

== ENCOUNTER 2022-07-06 08:53 | Outpatient (REF) | payer OTHER, SELFPAY | END 2022-07-06 08:54 | disposition home or self-care (01) | LOC: HO.HOSX 08:53 | PROVIDERS: Visit Provider Orthopaedic Surgery | DX: Z13.89 Encounter for screening for other disorder (principal) ==

== ENCOUNTER 2022-10-09 10:10 | Inpatient (IN) | payer OTHER, SELFPAY ==
[2022-10-09] VITALS (9 sets, daily range): BP systolic 128–165; BP diastolic 81–120; PULSE 95–113; RESP 16–20; TEMP 36.2–37.7; O2SAT 95–100; BMI 22.3
--- NOTE | ~2022-10-09 | XR_ITS ---
EXAMINATION: XR CHEST CLINICAL INFORMATION: Cough, fever COMPARISON: None available. TECHNIQUE: Frontal view of the chest was obtained. FINDINGS: No significant abnormality is noted involving the heart, lungs, mediastinum, bony thorax or soft tissues. XR/XR chest 1V IMPRESSION: Unremarkable examination.
--- NOTE | ~2022-10-09 | MR_ITS ---
EXAMINATION: MR ABDOMEN WITHOUT CONTRAST CLINICAL INFORMATION: Abdominal pain and elevated liver function tests COMPARISON: HIDA scan 10/10/2022 Previous abdominal ultrasound 10/09/2022 and nuclear medicine TECHNIQUE: MR abdomen is performed without gadolinium contrast. MRCP sequences were also performed. Exam is limited due to patient motion. FINDINGS: LUNG BASES: The visualized lung bases are unremarkable. LIVER, GALLBLADDER, AND BILIARY TREE: The liver is enlarged, right lobe measuring 23 cm in length. There is significant signal loss in the liver on out of phase sequences suggestive of severe fatty infiltration. The liver is normal in contour. No focal liver lesion is seen. The gallbladder is slightly enlarged measuring 10 x 4.5 x 4.5 cm in dimension. No gallstones are seen. The gallbladder wall is thickened and edematous. Gallbladder wall measures 6 mm. There is increased central T2 signal in the liver suggestive of periportal edema. Intra and extrahepatic bile ducts are not well visualized due to periportal edema. No biliary duct dilatation is seen. There is a small amount of ascites. PANCREAS: Unremarkable. SPLEEN: Unremarkable. ADRENAL GLANDS: Unremarkable. KIDNEYS AND URETERS: The kidneys are normal in size and shape. No hydronephrosis. No perinephric stranding. GASTROINTESTINAL TRACT: No bowel obstruction. No ascites or fluid collection. ABDOMINAL WALL: No significant hernia is appreciated. LYMPH NODES: No lymphadenopathy. VASCULAR: Unremarkable. OSSEOUS STRUCTURES: Marrow signal normal. MR/MR abdomen wo con IMPRESSION: Enlarged fatty liver. Dilated gallbladder, gallbladder wall thickening and edema. No gallstone seen. Limited MRCP. There is periportal edema and bile ducts are not well visualized. No intra or extrahepatic biliary duct dilatation or stone seen. Differential would include reactive gallbladder wall changes secondary to liver disease, cholangitis and acalculous cholecystitis. Small amount of ascites.
--- NOTE | ~2022-10-09 | US_ITS ---
EXAMINATION: US ABDOMEN LIMITED CLINICAL INFORMATION: Right upper quadrant pain. COMPARISON: None available. TECHNIQUE: Real-time imaging of the right upper quadrant abdominal viscera. FINDINGS: PANCREAS: The visualized portion of the pancreas head and body are normal, portion of the pancreatic body and tail, not visualized are obscured by bowel gas. LIVER: Mildly enlarged The liver is normal in size. The liver contour is normal. Increased echogenicity of the liver parenchyma, this can be seen in the setting of hepatic steatosis or liver parenchymal disease. No focal hepatic lesion. There is no intrahepatic biliary duct dilatation seen. GALLBLADDER: Gallbladder is distended the wall of which are edematous, there is pericholecystic fluid and echogenic material within the gallbladder, this is highly suspicious for acute cholecystitis. No tenderness reported pressing on the gallbladder however this could be masked if patient is medicated. COMMON BILE DUCT: Normal in caliber measuring 0.4 cm in diameter. RIGHT KIDNEY: Normal. No hydronephrosis. No renal calculi or focal parenchymal lesions. The kidney measures 11 cm in maximum dimension. FREE FLUID: There is a trace amount of free fluid around the liver mild ascites. US/US abdomen limited IMPRESSION: * Findings suspicious for ACUTE CHOLECYSTITIS. This can be confirmed by HIDA scan if clinically indicated. Surgical evaluation warranted. * Increased echogenicity of the liver parenchyma, this can be seen in the setting of hepatic steatosis or liver parenchymal disease. (Referring physician staff is being called, by physician staff assistance, to be alerted of the above findings and recommendations.) WILBERT 10/09/2022 1:45 PM
--- NOTE | ~2022-10-09 | NM_ITS ---
EXAMINATION: NUCLEAR MEDICINE HEPATOBILIARY CLINICAL INFORMATION: Biliary sludge. Right upper quadrant pain. Evaluate for acute cholecystitis. COMPARISON: Right upper quadrant ultrasound from 10/09/2022. TECHNIQUE: Hepatobiliary scintigraphy performed. Anterior dynamic imaging of abdomen performed for 60 minutes after injection of radiotracer. A total of 5.0 mCi of Tc99m mebrofenin was administered intravenously. 1.0 mcg of CCK was given intravenously after 30 minutes. FINDINGS: Normal hepatic uptake and excretion. The radiotracer begins to accumulate within the gallbladder after 8-9 minutes and radiotracer becomes visible in the duodenum after 15 minutes. The calculated gallbladder ejection fraction is 14% at 20 minutes and 8% at 30 minutes. Therefore, there are findings of gallbladder dysfunction. NM/NM hepatobiliary w pharm IMPRESSION: * The observation of accumulation of radiotracer within the gallbladder indicates patency of the cystic duct and argues against acute cholecystitis. * Gallbladder dysfunction with suboptimal ejection fraction of < 35 % after 30 minutes of observation.
--- NOTE | 2022-10-09 10:27 | PC.NURSE ---
Pt reports fatigue and general weakness x 4 days. States dark urine, abd swollen x 1 month. States dry heaving x 1 month. Abd is firm, tender to RUQ on palpation. H/O elevated LFTs that normalized after no ETOH. Pt reports ETOH on Tuesday. Denies h/o ETOH withdrawal Pt sclera s/ jaundiced, warm and dry. Urine is dark.
--- NOTE | 2022-10-09 10:35 | ED.GENADULT ---
[facility] - General Adult General Chief complaint: General Medical Stated complaint: fatigue Time Seen by Provider: 10/09/22 10:22 Source: patient Mode of arrival: ambulatory History of Present Illness HPI narrative: 42-year-old female with a past medical history of ETOH abuse, anxiety/depression, HTN, presenting to the ED complaining of excessive fatigue, dark urine x5 days, with postprandial nausea & bilious emesis x1 month. Also reports right-sided abdominal pain. Admits to drinking 7-8 vodka drinks daily and stopped cold turkey since Tuesday. Reports her son noticed her eyes were yellow recently. Reports decrease urine output and constipation attributed to decreased oral intake. Denies headache, weakness, change in vision, chest pain, SOB, dysuria, hematuria, or hematochezia. Onset (ago): day(s) Related Data Home Medications Medication Instructions Recorded Confirmed amlodipine 10 mg tablet 10 mg PO DAILY 06/09/21 10/09/22 omeprazole 20 mg capsule,delayed 20 mg PO DAILY PRN Heartburn 10/05/21 10/09/22 release multivitamin 1 tab PO DAILY 10/09/22 10/09/22 Allergies Allergy/AdvReac Type Severity Reaction Status Date / Time No Known Allergies Allergy Verified 03/02/22 09:49 [No Known Allergies*] Review of Systems Review of Systems: Constitutional: No Fever, No Chills, + Fatigue, + Malaise ENT/Mouth: No Ear Pain, No Hoarseness, No Rhinorrhea, No Swallowing Difficulty Eyes: +scleral icterus, No Eye Pain, No Swelling, No Redness, No Discharge, No Vision Changes Cardiovascular: No Chest Pain, No SOB, No Dyspnea on Exertion, No Edema, No Palpitations Respiratory: No Cough, No Sputum, No Dyspnea Gastrointestinal: + Nausea, + Vomiting, No Diarrhea, + Constipation, + Abdominal pain, No Hematochezia, No Melena Genitourinary: No irregular bleeding, No Dysuria, No Urinary Frequency, No Hematuria, No Flank Pain, No Urinary Flow Changes, No Hesitancy Musculoskeletal: No joint pain, No Myalgias, No Joint Swelling Skin: No Skin Lesions, No rash Neuro: + Weakness, No Numbness, No Dizziness, No Headache Yes all other systems are reviewed and are negative Constitutional: Constitutional: Reports as per [facility] Past Medical History Attestation statement: The following information was validated with the patient. 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[employer] Physical Exam ED Vital Signs: Vital Signs - 24 hr 10/09/22 10:19 10/09/22 10:35 10/09/22 10:37 Temperature 97.4 F Pulse Rate 108 H 108 H 113 H Respiratory Rate 18 18 Blood Pressure 165/120 H 147/108 H Pulse Oximetry 99 95 Oxygen Delivery Method Room Air Room Air 10/09/22 12:08 10/09/22 15:30 Temperature Pulse Rate 99 106 H Respiratory Rate 16 20 Blood Pressure 137/96 H 148/103 H Pulse Oximetry 97 98 Oxygen Delivery Method Room Air Room Air BMI result Body Mass Index 22.3 Const General: cooperative and no acute distress Orientation/consciousness: patient oriented x3 Limitations: no limitations HENMT Head: Yes normal to inspection and Yes atraumatic Ears: hearing grossly normal bilaterally General nose exam: Normal external nose present Face and sinus: Yes normal facial exam Eyes General: appearance normal, both eyes and all related structures Alignment and Position: position normal Conjunctivae: conjunctival abnormal bilateral conjunctival icterus Pupils: Equal, round and reactive pupils present EOM: EOMs intact bilaterally Direct Ophthalmoscopy: normal light reflex and no photophobia Neck Neck: Yes normal visual inspection and Yes no meningeal signs Resp Effort & Inspection: normal respiratory effort and no respiratory distress Auscultation: clear to auscultation bilaterally Cardio Rate: regular rate Heart sounds: S1 normal heart sound present and S2 normal heart sound present GI Inspection: Yes normal to inspection Palpation (GI): Soft to palpation, Tenderness to palpation present (GI) in the RUQ; Corea's sign negative and with no rebound tenderness, no guarding and not rigid General: Yes no CVA tenderness Back/Spine/Pelvis Back: no CVA tenderness Skin Rashes: no rashes Wounds: no wounds Neuro General: patient oriented x3, gait normal, tone normal, no meningeal signs, no focal motor deficits and CN's II-XI intact bilaterally Cranial nerves: Yes CN's II-XII intact bilaterally, Yes Equal, round and reactive pupils present and Yes Bilaterally intact EOM present Gait exam (Neuro): Normal gait present Motor exam (neuro): 5/5 motor strength present throughout, Motor fasciculations not present and no tremors Extrem General: Yes normal to inspection, Yes no pedal edema and Yes no calf tenderness Course Course Course Narrative: -1225--no leukocytosis. Hypokalemic to 2.6 > 20 mEq IV and 60 mEq p.o. repletion ordered. Also hypomagnesemic at 1.0 > 2g IV repletion ordered -noted transaminitis with significantly elevated bilirubin, AST/ALT and alk-phos -ethanol negative 1358--US abdomen limited IMPRESSION: ? *? Findings suspicious for ACUTE CHOLECYSTITIS. This can be confirmed by HIDA scan if clinically indicated. Surgical evaluation warranted. ? *? Increased echogenicity of the liver parenchyma, this can be seen in the setting of hepatic steatosis or liver parenchymal disease. ? (Referring physician staff is being called, by physician staff assistance, to be alerted of the above findings and recommendations.) AJ 10/09/2022 1:45 PM > will consult surgery Dr. Yun > patient not surgical candidate at this time, will see patient on admission. Also consulted GI Dr. Johnson -patient to be admitted for further management. >>Lactic/blood cultures and empiric IV antibiotics ordered. Patient's persistent tachycardia and hypertension likely from ETOH withdrawal rather than severe sepsis > phenobarb protocol ordered Medications Administered Discontinued Medications Generic Name Dose Route Start Last Admin Trade Name Freq PRN Reason Stop Dose Admin Famotidine 20 mg 10/09/22 10:48 10/09/22 11:02 Famotidine/Pf 20 Mg/2 Ml Vial IVPUSH 10/09/22 10:49 20 mg ONCE ONE Administration Sodium Chloride 1,000 mls @ 999 mls/hr 10/09/22 11:00 10/09/22 12:05 Ns IV 10/09/22 12:00 Infused .Q1H1M DAI Infusion Magnesium Sulfate 2 gm in 50 mls @ 25 mls/hr 10/09/22 11:36 10/09/22 13:50 Magnesium Sulfate/H2o IV 10/09/22 13:35 Infused ONCE ONE Infusion Potassium Chloride 10 meq in 100 mls @ 100 mls/hr 10/09/22 12:30 10/09/22 14:50 Potassium Chloride/H20 IV 10/09/22 14:29 Infused Q1H DAI Infusion Piperacillin Sod/Tazobactam 50 mls @ 100 mls/hr 10/09/22 14:44 10/09/22 15:28 Sod 3.375 gm/ Sodium Chloride IV 10/09/22 15:13 100 mls/hr ONCE ONE Administration Ondansetron HCl 4 mg 10/09/22 10:43 10/09/22 11:02 Ondansetron Hcl 4 Mg/2 Ml Vial IVPUSH 10/09/22 10:44 4 mg ONCE ONE Administration Potassium Chloride 60 meq 10/09/22 12:27 10/09/22 12:40 Potassium Chloride Packet 20 Meq Packet PO 10/09/22 12:28 60 meq ONCE ONE Administration Potassium Chloride 40 meq 10/09/22 14:49 10/09/22 15:28 Potassium Chloride Packet 20 Meq Packet PO 10/09/22 14:50 40 meq ONCE ONE Administration Medical Decision Making Medical Decision Making MDM Narrative: 42-year-old female with a past medical history of ETOH abuse, anxiety/depression, HTN, presenting to the ED complaining of excessive fatigue, dark urine x5 days, postprandial nausea & bilious emesis x1 month, & right-sided abdominal pain. On physical exam, tachycardic to 108 likely from dehydration/pain, hypertensive (could be subclinical ETOH withdrawal), mild bilateral scleral icterus noted, RUQ tender to palpation with negative Corea's sign. Concern for cholelithiasis/choledocalithiasis/cholangitis vs pancreatitis vs liver failure/cirrhosis vs ?Hepatitis vs ETOH abuse vs metabolic abnormalities including dehydration. No evidence of alcohol withdrawal at this time. Lower concern for appendicitis, diverticulitis, UTI, ACS Low suspicion for severe sepsis at this time Plan: Abd US, labs, UA, hepatitis panel, acetaminophen/ethanol Please refer to course for remaining clinical decision making, interpretation of labs/imaging results, and discussions with consultants and/or family members. Differential Diagnosis Differential Diagnoses: The differential diagnosis associated with the presentation includes As above Admission/Observation Consideration of admission/observation: Escalation of care including admission/observation considered Lab Data MDM Lab Attestation statement: I reviewed the patient's lab results. 10/09/22 10:55 10/09/22 10:55 Labs: Lab Results 10/09/22 10/09/22 10/09/22 Range/Units 10:55 10:55 10:55 WBC 10.6 (4.8-10.8) X10*3/uL RBC 3.48 L (4.20-5.50) X10*6/uL Hgb 12.9 (12.0-16.0) g/dl Hct 36.0 L (37.0-47.0) % MCV 103.4 H (80.0-98.0) fL MCH 37.1 H (27.0-33.0) pg MCHC 35.8 H (31.0-35.0) g/dl RDW 16.5 H (11.0-16.0) % Plt Count 186 D (160-400) X10*3/uL MPV 10.5 (9.4-12.3) fL Immature Gran % (Auto) 0.8 H (0.0-0.4) % Neut % (Auto) 85.8 H (45-73) % Lymph % (Auto) 7.3 L (20-40) % Gates % (Auto) 5.1 (2-11) % Eos % (Auto) 0.1 (0-4) % Baso % (Auto) 0.9 (0-2) % Lymph # (Auto) 0.8 L (1.2-4.9) X10*3/uL Gates # (Auto) 0.5 (0.1-1.2) X10*3/uL Eos # (Auto) 0.0 (0.0-0.4) X10*3/uL Baso # (Auto) 0.1 (0.0-0.2) X10*3/uL Abs Immat Gran (auto) 0.08 H (0.00-0.03) X10*3/uL Absolute Neuts (auto) 9.1 H (2.0-8.3) x10*3/uL Absolute Nucleated RBC 0.020 H (0.0-0.012) X10*3/uL Nucleated RBC % (auto) 0.2 (0.0-0.2) /100WBC PT (10.0-13.1) SEC INR (0.9-1.1) Sodium 134 L (135-145) mmol/L Potassium 2.6 L D (3.3-5.1) mmol/L Chloride 89 L (96-108) mmol/L Carbon Dioxide 29 (22-29) mmol/L Anion Gap 19 (12-20) BUN 6 L (9-16) mg/dL Creatinine 0.63 (0.5-1.4) mg/dL Estim Creat Clear Calc 100.4 Estimated GFR > 60 Random Glucose 100 (60-115) mg/dL Calcium 8.1 L (8.4-10.2) mg/dL Magnesium 1.0 L* (1.6-2.6) mg/dL Total Bilirubin 7.5 H (0.0-1.0) mg/dL Direct Bilirubin 4.8 H (0.0-0.5) mg/dL AST 305 H (5-31) U/L ALT 59 H (0-31) U/L Alkaline Phosphatase 263 H (39-117) U/L Total Protein 7.5 (6.5-8.0) g/dL Albumin 3.5 (3.5-5.0) g/dL Lipase 24 (8-78) U/L Acetaminophen < 17 (<30) mcg/mL Ethyl Alcohol < 10 mg/dL COVID-19 ([facility]) Negative (Negative) COVID-19 Clin Com See Note 10/09/22 Range/Units 10:56 WBC (4.8-10.8) X10*3/uL RBC (4.20-5.50) X10*6/uL Hgb (12.0-16.0) g/dl Hct (37.0-47.0) % MCV (80.0-98.0) fL MCH (27.0-33.0) pg MCHC (31.0-35.0) g/dl RDW (11.0-16.0) % Plt Count (160-400) X10*3/uL MPV (9.4-12.3) fL Immature Gran % (Auto) (0.0-0.4) % Neut % (Auto) (45-73) % Lymph % (Auto) (20-40) % Gates % (Auto) (2-11) % Eos % (Auto) (0-4) % Baso % (Auto) (0-2) % Lymph # (Auto) (1.2-4.9) X10*3/uL Gates # (Auto) (0.1-1.2) X10*3/uL Eos # (Auto) (0.0-0.4) X10*3/uL Baso # (Auto) (0.0-0.2) X10*3/uL Abs Immat Gran (auto) (0.00-0.03) X10*3/uL Absolute Neuts (auto) (2.0-8.3) x10*3/uL Absolute Nucleated RBC (0.0-0.012) X10*3/uL Nucleated RBC % (auto) (0.0-0.2) /100WBC PT 16.1 H (10.0-13.1) SEC INR 1.4 H (0.9-1.1) Sodium (135-145) mmol/L Potassium (3.3-5.1) mmol/L Chloride (96-108) mmol/L Carbon Dioxide (22-29) mmol/L Anion Gap (12-20) BUN (9-16) mg/dL Creatinine (0.5-1.4) mg/dL Estim Creat Clear Calc Estimated GFR Random Glucose (60-115) mg/dL Calcium (8.4-10.2) mg/dL Magnesium (1.6-2.6) mg/dL Total Bilirubin (0.0-1.0) mg/dL Direct Bilirubin (0.0-0.5) mg/dL AST (5-31) U/L ALT (0-31) U/L Alkaline Phosphatase (39-117) U/L Total Protein (6.5-8.0) g/dL Albumin (3.5-5.0) g/dL Lipase (8-78) U/L Acetaminophen (<30) mcg/mL Ethyl Alcohol mg/dL COVID-19 ([facility]) (Negative) COVID-19 Clin Com Radiology Impression Discussion of test interpretation with radiology: I have reviewed the radiologist's reading. External Record Review External record reviewed: Inpatient record, Office record, Outpatient record, Prior outpatient labs, Prior outpatient radiology, Primary care record and Outside ED record Critical Care Time Critical Care Time Critical Care Time: Yes Total Critical Care Time: 50 Attestation: I have personally provided critical care time exclusive of time spent on separately billable procedures. Time includes review of lab data, radiology results, discussion with consultants, and monitoring for potential decompensation. Intervention performed as documented. Discharge Plan Discharge Clinical Impression: Acute cholecystitis, Transaminitis, Scleral icterus Patient Disposition: Admitted As Inpatient
[2022-10-09] MEDS: Famotidine/PF 20 MG/2 ML VIAL IVPUSH (11:02)
[2022-10-09] MEDS: ondansetron HCL 4 MG/2 ML VIAL IVPUSH (11:02)
[2022-10-09 11:03] LABS: MANUAL DIFF FLAG NO
[2022-10-09] MEDS: 0.9 % Sodium Chloride 1,000 ML 999 ML IV ×2 (11:03→16:20)
[2022-10-09 11:08] LABS: Basophils Absolute Auto 0.1 X10*3/uL (0.0-0.2); Basophils Percent Auto 0.9 % (0-2); Eosinophils Percent Auto 0.1 % (0-4); Hemoglobin 12.9 g/dl (12.0-16.0); Imm Gran Abs Auto 0.08 X10*3/uL (0.00-0.03); Imm Gran Pct Auto 0.8 % (0.0-0.4); Lymphocytes Absolute Auto 0.8 X10*3/uL (1.2-4.9); Lymphocytes Percent Auto 7.3 % (20-40); Mean Corpuscular HGB Conc 35.8 g/dl (31.0-35.0); Mean Corpuscular Hemoglobin 37.1 pg (27.0-33.0); Mean Corpuscular Volume 103.4 fL (80.0-98.0); Mean Platelet Volume 10.5 fL (9.4-12.3); Monocytes Absolute Auto 0.5 X10*3/uL (0.1-1.2); Monocytes Percent Auto 5.1 % (2-11); NRBC Pct Auto 0.2 /100WBC (0.0-0.2); Neutrophils Absolute Auto 9.1 x10*3/uL (2.0-8.3); Neutrophils Percent Auto 85.8 % (45-73); Platelet Count 186 X10*3/uL (160-400); Red Blood Count 3.48 X10*6/uL (4.20-5.50); Red Cell Distribution Width 16.5 % (11.0-16.0); White Blood Count 10.6 X10*3/uL (4.8-10.8)
[2022-10-09 11:17] LABS: INTERNATIONAL NORM RATIO 1.4 (0.9-1.1); Prothrombin Time 16.1 SEC (10.0-13.1)
[2022-10-09 11:22] LABS: COVID-19 Test Negative (Negative); IDNOW Serial# 55D5AD1C
[2022-10-09 11:37] LABS: Alanine Aminotransferase 59 U/L (0-31); Albumin Level 3.5 g/dL (3.5-5.0); Alkaline Phosphatase 263 U/L (39-117); Anion Gap 19 (12-20); Aspartate Amino Transferase 305 U/L (5-31); Bilirubin Direct 4.8 mg/dL (0.0-0.5); Bilirubin Total 7.5 mg/dL (0.0-1.0); Blood Urea Nitrogen 6 mg/dL (9-16); Calcium 8.1 mg/dL (8.4-10.2); Carbon Dioxide 29 mmol/L (22-29); Chloride 89 mmol/L (96-108); Creatinine Clr Calc Pharmacy 100.4; Estimated Glomerular Filt Rate > 60; Ethanol < 10 mg/dL; Glucose Random 100 mg/dL (60-115); Lipase 24 U/L (8-78); Potassium 2.6 mmol/L (3.3-5.1); Sodium 134 mmol/L (135-145); Total Protein 7.5 g/dL (6.5-8.0)
[2022-10-09] MEDS: Magnesium Sulfate/H2O 2 GM/50 ML PIGGYBACK IV (12:05)
[2022-10-09] MEDS: Potassium Chloride Packet 20 MEQ PACKET 60 MEQ PO (12:40)
[2022-10-09] MEDS: Potassium Chloride/H20 10 MEQ/100 ML PIGGYBACK 100 MEQ IV ×2 (12:42→13:44)
[2022-10-09 13:18] LABS: Acetaminophen LAB < 17 mcg/mL (<30)
--- NOTE | 2022-10-09 14:22 | PHA.MEDREC ---
Pharmacy Consult ? Medication Reconciliation Pharmacy has completed the medication reconciliation. Spoke to patient to confirm meds. Patient states that they are nonadherent to meds. Patient states they should be on amlodipine for BP, but haven't been faithful to taking it.
--- NOTE | 2022-10-09 14:43 | PM.GICN ---
History of Present Illness Data of Consult Service Date: 10/09/22 Requesting physician: Natalie Tyson Primary Care Provider: Unknown Physician HPI Reason for consult: elevated LFts 42 YF with history of ETOH abuse, anxiety/depression, HTN seen at [facility] ED on 10/09/22 with excessive fatigue, dark urine x5 days, Pt also complains of mild right-sided abdominal pain, postprandial nausea & bilious emesis x1 month.? Her appetite has been poor with decreased PO intake and wt loss Pt admits to drinking 7-8 vodka drinks daily on and off for the past several years and stopped cold turkey since Tuesday - 10/05/22. Reports her son noticed her eyes were yellow recently. Pt notes a decrease urine output and constipation attributed to decreased oral intake. She denies fever, chills, sweating, headache, weakness, change in vision, chest pain, SOB, dysuria, hematuria, or hematochezia. Pt is and has 2 childern. She worked at the [employer] in [place] and took an early shelter recently. Patient denies any family history of liver disease, colon polyps, colon cancer or GI malignancy Her dad has a driking problem 10/08/22 ABDOMINAL ULTRASOUND SHOWED: LIVER: Mildly enlarged The liver is normal in size. The liver contour is normal. Increased echogenicity of the liver parenchyma, this can be seen in the setting of hepatic steatosis or liver parenchymal disease. No focal hepatic lesion. There is no intrahepatic biliary duct dilatation seen. GALLBLADDER: Gallbladder is distended the wall of which are edematous, there is pericholecystic fluid and echogenic material within the gallbladder, this is highly suspicious for acute cholecystitis. No tenderness reported pressing on the gallbladder however this could be masked if patient is medicated. COMMON BILE DUCT: Normal in caliber measuring 0.4 cm in diameter. ? Findings suspicious for ACUTE CHOLECYSTITIS. This can be confirmed by HIDA scan if clinically indicated. Surgical evaluation warranted. ? *? Increased echogenicity of the liver parenchyma, this can be seen in the setting of hepatic steatosis or liver parenchymal disease. Review of Systems Review of Systems: Constitutional: No Fever, No Chills, + Fatigue, + Malaise ENT/Mouth: No Ear Pain, No Hoarseness, No Rhinorrhea, No Swallowing Difficulty Eyes: +scleral icterus, No Eye Pain, No Swelling, No Redness, No Discharge, No Vision Changes Cardiovascular: No Chest Pain, No SOB, No Dyspnea on Exertion, No Edema, No Palpitations Respiratory: No Cough, No Sputum, No Dyspnea Gastrointestinal: + Nausea, + Vomiting, No Diarrhea, + Constipation, + Abdominal pain, No Hematochezia, No Melena Genitourinary: No irregular bleeding, No Dysuria, No Urinary Frequency, No Hematuria, No Flank Pain, No Urinary Flow Changes, No Hesitancy Musculoskeletal: No joint pain, No Myalgias, No Joint Swelling Skin: No Skin Lesions, No rash Neuro: + Weakness, No Numbness, No Dizziness, No Headache Yes all other systems are reviewed and are negative Constitutional: Constitutional: Reports as per [facility] Past Medical History Medical History Hypertension Family History Family History Father Bile duct cancer Mother Breast cancer Social History Social History Household Members: Family Housing: House Alcohol intake: current Alcohol intake frequency: 3 or more drinks per day Alcohol type: hard liquor Patient Tobacco Use Status: Never used Tobacco Substance Use Type: Marijuana service: No Current occupational status: employed 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[employer] Meds Allergies Allergy/AdvReac Type Severity Reaction Status Date / Time No Known Allergies Allergy Verified 03/02/22 09:49 [No Known Allergies*] Active Medications: Current Medications Pharmacy Consult (Consult Rx Perform Med Rec) 1 each MISCELLANE ONCE STA Stop: 10/09/22 12:31 Home Medications Medication Instructions Recorded Confirmed Last Taken Type amlodipine 10 mg tablet 10 mg PO DAILY 06/09/21 10/09/22 2 Months Ago History ~08/11/22 omeprazole 20 mg capsule,delayed 20 mg PO DAILY PRN Heartburn 10/05/21 10/09/22 Unknown History release multivitamin 1 tab PO DAILY 10/09/22 10/09/22 1 Month Ago History ~09/08/22 Physical Exam Vital Signs: Vital Signs: Last Vital Signs Temp 97.4 F 10/09/22 10:19 Pulse 99 10/09/22 12:08 Resp 16 10/09/22 12:08 BP 137/96 H 10/09/22 12:08 Pulse Ox 97 10/09/22 12:08 O2 Del Method Room Air 10/09/22 12:08 BMI result Body Mass Index 22.3 Const: General: comfortable and no acute distress Nutritional Appearance: average body habitus Orientation/consciousness: patient oriented x3 Limitations: no limitations HEENT: Head: Yes normal to inspection Ears: hearing grossly normal bilaterally Eyes: Sclerae: scleral abnormal (jaundice) Pupils: Equal, round and reactive pupils present Neck: Neck: Yes normal visual inspection Chest: Chest palpation & inspection: normal inspection of the chest Resp: Effort & Inspection: normal respiratory effort Auscultation: clear to auscultation bilaterally Cardio: Palpation: normal PMI Rate: regular rate Rhythm: regular rhythm Heart sounds: S1 normal heart sound present, S2 normal heart sound present and no murmurs GI: Palpation (GI): Soft to palpation, Tenderness to palpation present (GI) (Mild right upper quadrant tenderness on palpation), No hepatosplenomegaly present and Hepatomegaly present (Liver palpable 4 cms below the RCM - slightly tender to palpation) Auscultation: normal bowel sounds Rectal Exam - Female: deferred Skin: General skin exam: no rashes or lesions noted Neuro: General: patient oriented x3, gait normal and moves all extremities Cranial nerves: Yes Equal, round and reactive pupils present Psych: Appearance: grossly normal Mental Status: mental status grossly normal Results Labs 10/09/22 10:55 10/09/22 10:55 Labs: Short CBC 10/09/22 Range/Units 10:55 WBC 10.6 (4.8-10.8) X10*3/uL Hgb 12.9 (12.0-16.0) g/dl Hct 36.0 L (37.0-47.0) % Plt Count 186 D (160-400) X10*3/uL BMP 10/09/22 10:55 Sodium 134 L Potassium 2.6 L D Chloride 89 L Carbon Dioxide 29 BUN 6 L Creatinine 0.63 Calcium 8.1 L Liver Function 10/09/22 Range/Units 10:55 Total Bilirubin 7.5 H (0.0-1.0) mg/dL Direct Bilirubin 4.8 H (0.0-0.5) mg/dL AST 305 H (5-31) U/L ALT 59 H (0-31) U/L Alkaline Phosphatase 263 H (39-117) U/L Albumin 3.5 (3.5-5.0) g/dL Assessment and Plan (1) Scleral icterus: Status: Acute (2) Transaminitis: Status: Acute Plan 42 YF with history of ETOH abuse, anxiety/depression, HTN admitted to [facility] on 10/09/22 with excessive fatigue, dark urine x5 days, Pt also complains of mild right-sided abdominal pain, postprandial nausea & bilious emesis x1 month.? Pt admits to drinking 7-8 vodka drinks daily on and off for the past several years and stopped cold turkey since Tuesday - 10/05/22. Pt has tender hepatomegaly on physical exam. Elevated LFTs are likely due to acute alcoholic hepatitis, acute viral, ischemic or drug induced hepatitis. Maddrey score is 26, the [place] alcoholic hepatitis score is 6 Biliary obstruction is unlikely since CBD is not dilated. Pt denies taking acetaminophen for the past 6 months. GB changes noted on US are likely related to alcoholic hepatitis. RECOMMENDATIONS: 1. Agree with checking serologies for hepatitis A, B and C and a clear liquid diet 2. Follow LFTs daily 3. Steroids are not indicated since Maddrey score is 26 and [place] alcoholic hepatitis score is 6 4. Agree with IV antibiotics 5. Needs outpatient Rehab to quit ETOH abuse ADDENDUM: 10/10/22 HIDA SCAN SHOWED: The radiotracer begins to accumulate within the gallbladder after 8-9 minutes and radiotracer becomes visible in the duodenum after 15 minutes. The calculated gallbladder ejection fraction is 14% at 20 minutes and 8% at 30 minutes. Therefore, there are findings of gallbladder dysfunction. IMPRESSION: *? The observation of accumulation of radiotracer within the gallbladder indicates patency of the cystic duct and argues against acute cholecystitis. *? Gallbladder dysfunction with suboptimal ejection fraction of < 35 % after 30 minutes of observation. Low GB EF likely related to hepatic inflammation. ? Time Spent With Patient Time: Total time managing care of this patient today ____ minutes. Procedures Date of Service Date of Service: 10/09/22
[2022-10-09] MEDS: Potassium Chloride Packet 20 MEQ PACKET 40 MEQ PO (15:28)
[2022-10-09] MEDS: Piperacillin Sodium/Tazobactam 3.375 GM in 0.9 % Sodium Chloride 50 ML IV (15:28)
--- NOTE | 2022-10-09 15:34 | PC.NURSE ---
pt reports she is prescribed Amlodipine however, she has not taken it since she has run out of the last dose. Blood pressure is elevated at this time, PA and aware
--- NOTE | 2022-10-09 15:45 | MHC.EDTECH ---
this pct assumed care of pt at 1500 ,vitals sign taken ,blood and blood culture drawn ,urine sample collected and sent to lab ,pt had a jello and chicken broth .
--- NOTE | 2022-10-09 15:48 | P.HPHOSP_ITS ---
History of Present Illness Date of Service: 10/09/22 Attending physician on admission: Shantell Mistry Chief Complaint: Abdominal pain, N/V Pt is a 42-year-old female with a PMH significant for?HTN, alcohol use disorder, and anxiety/depression who presents to the ED with?nausea, vomiting, and right upper quadrant pain. Patient states she has been drinking heavily for quite a while now, 7-8 mixed vodka-soda water drinks on most days. For the past month patient states she has been dry heaving in the morning and has reduced p.o. intake since then, with virtually no regular food the past two weeks. Has been fatigued since then. Patient developed intractable nausea and vomiting 4 days ago, with 8-9 episodes of vomiting daily. Patient denies hematemesis. Has had dark urine since then. Around the same time patient developed right upper quadrant pain rated 5/10, and had upper abdominal bloating/distension. Patient states she did not take any medications to relieve pain or for nausea or vomiting. Says she has not had a drink since Tuesday. Patient denies tremors, diaphoresis, hallucinations. Of note, pt states she was admitted once in the past for alcohol withdrawal. Patient denies chest pain/pressure, palpitations. No shortness of breath, denies headache. ED spoke with Dr. Yun who stated the pt was not a surgical candidate at this time. In the ED patient was afebrile, but tachycardic up to 113. Labs were significant for INR of 1.4, sodium of 134, potassium of 2.6, chloride of 89, magnesium of 1.0, total bilirubin of 7.5, direct bilirubin of 4.8, AST of 305, ALT of 59, alk-phos 263. Tox screen negative for salicylates, acetaminophen, and ethyl alcohol, but positive for cocaine and marijuana. Hepatitis panel pending. Abdominal ultrasound and findings suspicious for acute cholecystitis with increased echogenicity of the liver. Pt was treated for ondansetron, famotidine, IVF, magnesium, potassium, Zosyn, and started on phenobarbital protocol. Pt will be admitted to the hospital for treatment of likely alcoholic hepatitis. Review of Systems Review of Systems: Dry heaves/retching in the morning x4 weeks Nausea, vomiting x4 days Decreased p.o. intake Right upper quadrant pain Upper abdominal bloating No fever, chills Yes all other systems are reviewed and are negative [facility] Medical History Hypertension Family History Father Bile duct cancer Mother Breast cancer Social History Household Members: Spouse and Children Housing: House Alcohol intake: current Alcohol intake frequency: 3 or more drinks per day Alcohol type: hard liquor Patient Tobacco Use Status: Never used Tobacco Smoked in Last 30 Days: No Use of substances other than those prescribed or required for medical reasons: Yes Substance Use Type: Marijuana Advance Directives: No service: No Current occupational status: employed 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[employer] Meds Allergies Allergy/AdvReac Type Severity Reaction Status Date / Time No Known Allergies Allergy Verified 03/02/22 09:49 [No Known Allergies*] Home Medications Medication Instructions Recorded Confirmed Last Taken Type amlodipine 10 mg tablet 10 mg PO DAILY 06/09/21 10/09/22 2 Months Ago History ~08/11/22 omeprazole 20 mg capsule,delayed 20 mg PO DAILY PRN Heartburn 10/05/21 10/09/22 Unknown History release multivitamin 1 tab PO DAILY 10/09/22 10/09/22 1 Month Ago History ~09/08/22 Physical Exam Vital Signs and Narrative: Vital Signs: Last Vital Signs Temp 97.4 F 10/09/22 10:19 Pulse 106 H 10/09/22 15:30 Resp 20 10/09/22 15:30 BP 148/103 H 10/09/22 15:30 Pulse Ox 98 10/09/22 15:30 O2 Del Method Room Air 10/09/22 15:30 BMI result Body Mass Index 22.3 Constitutional: Alert, in no acute distress. Mental Status: Oriented to person, place and time. Eyes: Pupils are equal, round, and reactive to light. Ear, Nose, and Throat: Oropharynx clear, mucous membranes moist. Ears and nose without deformities. Trachea midline. Respiratory: Clear to auscultation bilaterally. No wheezing, rales, or rhonchi. Cardiovascular: S1, S2 regular, tachycardic. No murmurs, rubs, or gallops. Gastrointestinal: Abdomen soft, non-tender, non-distended. Normal bowel sounds. Non-tender hepatomegaly. Neurologic: Cranial nerves II-XII are grossly intact bilaterally. No focal neurological deficits. Moves all extremities spontaneously. Skin: No rashes or lesions noted. Musculoskeletal: No cyanosis or clubbing. Extremities: No edema. Psychiatric: Normal mood and affect. Results Labs 10/09/22 10:55 10/09/22 10:55 Labs: Laboratory Results - last 24 hr 10/09/22 10/09/22 10/09/22 10:55 10:55 10:55 MCV 103.4 H MCH 37.1 H MCHC 35.8 H RDW 16.5 H Plt Count 186 D MPV 10.5 Immature Gran % (Auto) 0.8 H Neut % (Auto) 85.8 H Lymph % (Auto) 7.3 L [place] % (Auto) 5.1 Eos % (Auto) 0.1 Baso % (Auto) 0.9 Lymph # (Auto) 0.8 L [place] # (Auto) 0.5 Eos # (Auto) 0.0 Baso # (Auto) 0.1 Abs Immat Gran (auto) 0.08 H Absolute Neuts (auto) 9.1 H Absolute Nucleated RBC 0.020 H Nucleated RBC % (auto) 0.2 PT INR Anion Gap 19 Estim Creat Clear Calc 100.4 Estimated GFR > 60 Random Glucose 100 Calcium 8.1 L Magnesium 1.0 L* Total Bilirubin 7.5 H Direct Bilirubin 4.8 H AST 305 H ALT 59 H Alkaline Phosphatase 263 H Total Protein 7.5 Albumin 3.5 Lipase 24 Acetaminophen < 17 Ethyl Alcohol < 10 COVID-19 ([facility]) Negative COVID-19 Clin Com See Note 10/09/22 10:56 MCV MCH MCHC RDW Plt Count MPV Immature Gran % (Auto) Neut % (Auto) Lymph % (Auto) [place] % (Auto) Eos % (Auto) Baso % (Auto) Lymph # (Auto) [place] # (Auto) Eos # (Auto) Baso # (Auto) Abs Immat Gran (auto) Absolute Neuts (auto) Absolute Nucleated RBC Nucleated RBC % (auto) PT 16.1 H INR 1.4 H Anion Gap Estim Creat Clear Calc Estimated GFR Random Glucose Calcium Magnesium Total Bilirubin Direct Bilirubin AST ALT Alkaline Phosphatase Total Protein Albumin Lipase Acetaminophen Ethyl Alcohol COVID-19 ([facility]) COVID-19 Clin Com Imaging Radiologist's Impressions: Impressions Abdomen Ultrasound 10/09/22 12:15 IMPRESSION: * Findings suspicious for ACUTE CHOLECYSTITIS. This can be confirmed by HIDA scan if clinically indicated. Surgical evaluation warranted. * Increased echogenicity of the liver parenchyma, this can be seen in the setting of hepatic steatosis or liver parenchymal disease. (Referring physician staff is being called, by physician staff assistance, to be alerted of the above findings and recommendations.) AJ 10/09/2022 1:45 PM Assessment and Plan (1) Transaminitis: Status: Acute (2) Hypomagnesemia: Status: Acute Plan Pt is a 42-year-old female with a PMH significant for?HTN, alcohol use disorder, and anxiety/depression who presents to the ED with?nausea, vomiting, and right upper quadrant pain. Pt will be admitted to the hospital for treatment of likely alcoholic hepatitis. Transaminitis Patient's total bilirubin 7.5, direct bilirubin 4.8, AST 305, ALT, 59, alk-phos 263 Question of acute alcoholic hepatitis versus biliary obstruction Check hepatitis panel Check tox screen, salicylates IV abx: Ceftriaxone and metronidazole Clear liquid diet for now, advance as tolerated GI consult Follow CMP Question of acute cholecystitis Abdominal ultrasound found evidence of possible cholecystitis Patient currently not experiencing any right upper quadrant abdominal pain, abdomen nontender on physical examination ED contacted General surgery who stated patient is not a surgical candidate at this time Will get HIDA scan Pt will be made NPO after midnight in anticipation of HIDA scan Alcohol use disorder Pt placed on phenobarbital protocol CIWA scale Follow Mag holland, CMP IVF: D5W Addiction medicine consult Daily multivitamin, folic acid 1mg, Thiamine 100 mg daily Protonix IV Admit to telemetry Hypokalemia Patient's potassium 2.6 at time of presentation Patient given supplemental potassium in the ED Follow BMP Hypomagnesmia Patient's magnesium 1.0 time of presentation Patient given magnesium 2 g IV in the ED Repeat magnesium 1.9 Follow BMP Full Code Attending:?Dr. Mistry DVT Prophylaxis: Lovenox Pt will require a hospitalization of at least two nights for treatment of?likely alcoholic hepatitis. Time Spent With Patient Time: Total time managing care of this patient today ____ minutes. Quality Stroke Does the patient have a stroke diagnosis?: No VTE Prior VTE?: No VTE Risk Level:: Medical - moderate - high VTE Device Contraindication: Treatment Not Indicated VTE Drug Contraindication: N/A - Med Ordered
[2022-10-09 16:03] LABS: Appearance Urine Cloudy; Color Urine Orange; Glucose Urine UA 100 mg/dL (Negative); PH 6.5 (5.0-9.0); Specific Gravity - Urine 1.025 (1.005-1.025); UMIC TRIGGER UACC YES; Urine Blood Negative (Negative)
[2022-10-09 16:06] LABS: UPreg QC Valid YES; Urine Pregnancy NEGATIVE (NEGATIVE)
[2022-10-09 16:10] LABS: Lactic Acid 1.1 mmol/L (0.5-2.0)
[2022-10-09 16:13] LABS: Bacteria Urine Trace (None Seen); Hyaline Casts Urine 0-2 /LPF (0-2); RBC Urine 0-2 /HPF (0-2); WBC Urine 0-5 /HPF (0-5)
[2022-10-09 16:18] LABS: Amphetamine Screen Urine Not Detected (Not Detect); Barbiturates, Urine Not Detected (Not Detect); Benzodiazepines Screen Urine Not Detected (Not Detect); Cannabinoid Screen Urine POSITIVE (Not Detect); Cocaine Screen Urine POSITIVE (Not Detect); Fentanyl, urine Not Detected (Not Detect); Opiate Screen Urine Not Detected (Not Detect); Phencyclidine Screen Urine Not Detected (Not Detect)
[2022-10-09 16:20] LABS: Salicylate < 5.0 mg/dL (15-30)
[2022-10-09] MEDS: PHENobarbitaL sodium 130 MG/ML IM ONCE 219 MG IM (16:20)
[2022-10-09 16:21] LABS: Alanine Aminotransferase 58 U/L (0-31); Albumin Level 3.3 g/dL (3.5-5.0); Alkaline Phosphatase 240 U/L (39-117); Anion Gap 15 (12-20); Aspartate Amino Transferase 315 U/L (5-31); Bilirubin Direct 4.8 mg/dL (0.0-0.5); Bilirubin Total 7.1 mg/dL (0.0-1.0); Blood Urea Nitrogen 4 mg/dL (9-16); Calcium 7.4 mg/dL (8.4-10.2); Carbon Dioxide 27 mmol/L (22-29); Chloride 96 mmol/L (96-108); Creatinine Clr Calc Pharmacy 105.4; Estimated Glomerular Filt Rate > 60; Glucose Random 87 mg/dL (60-115); Potassium 3.3 mmol/L (3.3-5.1); Sodium 135 mmol/L (135-145); Total Protein 7.1 g/dL (6.5-8.0)
--- NOTE | 2022-10-09 16:30 | PC.NURSE ---
pt reports last drink being on Tuesday and at that time also doing 1 line of cocaine. Pt agreeable to phenobarb doses
--- NOTE | 2022-10-09 17:24 | PM.EVENT ---
Event Note Date of Service: 10/09/22 Event Note: This patient is seen and examined . Patient came the hospital because of 2-3 weeks history of poor appetite, on top of that patient was drinking alcohol work and start are 6-7 drink almost every day, 3-4 days ago started having nausea vomiting and some discomfort in right upper guarded area , she denies any fever chills or any sick contacts or cough or phlegm or urine urinary complaints. Lab imaging: Elevated bilirubin in range of 7.1, elevated AST greater than ALT, alk-phos in region of 200s, INR 1.4. Albumin 3.3 Also found to have severe hypokalemia, potassium range 2.6, magnesium 1.1. CBC seems fine. Abdominal ultrasound:?suspicious for ACUTE CHOLECYSTITIS. This can be confirmed by HIDA scan if clinically indicated. Surgical evaluation warranted. ? *? Increased echogenicity of the liver parenchyma, this can be seen in the setting of hepatic steatosis or liver parenchymal disease. In ED: Patient received aggressive electrolytic replacement potassium and magnesium, famotidine, IV fluid, Zofran, also on phenobarb protocol. Physical exam and assessment and plan coordinated in APCs note, Agree with the plan except: 1. Right upper quadrant pain/elevated LFT: Question of cholecystitis. Workup for elevated LFTs-hepatitis profile pending, Tylenol level fine, abdominal ultrasound shows question of cholecystitis. Will start patient on hydration, antibiotics, replete electrolytes, continue bowel rest, IV hydration, antiemetics In ED seems to be started on phenobarb protocol , CIWA scale, thiamine, folic acid. Addiction consult., urine toxicology-in the past she was positive with cocaine and marijuana. GI evaluation noted-continue above supportive care, HIDA scan. ED physician discussed the case with on-call surgery-currently no surgical intervention recommended. Time Spent With Patient Time: Total time managing care of this patient today ____ minutes.
[2022-10-09] MEDS: Thiamine HCL 100 MG TABLET PO (17:49)
[2022-10-09] MEDS: Enoxaparin Sodium 40 MG/0.4 ML SYRINGE SUBCUT (17:49)
[2022-10-09] MEDS: Folic Acid 1 MG TABLET PO (17:49)
[2022-10-09] MEDS: Dextrose 5 % and 0.9 % NaCl 1,000 ML 100 ML IVCONT (17:51)
[2022-10-09] MEDS: 0.9 % Sodium Chloride 1,000 ML 100 ML IVCONT (17:51)
[2022-10-09] MEDS: Potassium Chloride Packet 20 MEQ PACKET PO (17:51)
[2022-10-09] MEDS: metroNIDAZOLE/NS 500 MG/100 ML PIGGYBACK 100 MG IV (17:51)
[2022-10-09 17:58] LABS: Magnesium 1.9 mg/dL (1.6-2.6)
[2022-10-09 18:40] LABS: Alanine Aminotransferase 55 U/L (0-31); Alkaline Phosphatase 216 U/L (39-117); Anion Gap 14 (12-20); Aspartate Amino Transferase 290 U/L (5-31); Bilirubin Total 6.2 mg/dL (0.0-1.0); Blood Urea Nitrogen 4 mg/dL (9-16); Calcium 7.3 mg/dL (8.4-10.2); Carbon Dioxide 26 mmol/L (22-29); Chloride 98 mmol/L (96-108); Estimated Glomerular Filt Rate > 60; Glucose Random 140 mg/dL (60-115); Sodium 134 mmol/L (135-145); Total Protein 6.5 g/dL (6.5-8.0)
--- NOTE | 2022-10-09 19:13 | PC.NURSE ---
this RN spoke with nuc med who informed me that pt must be NPO for HIDA scan. PA hospitalist aware and patient will be NPO after midnight
--- NOTE | 2022-10-09 20:00 | MHC.EDTECH ---
pt 2000 rounding and vitals sign taken ,pt have a visitor at bedside .
[2022-10-09] MEDS: Pantoprazole Sodium 40 MG/10 ML VIAL IVPUSH (20:06)
[2022-10-09] MEDS: Magnesium Oxide 400 MG TABLET PO (20:06)
[2022-10-09] MEDS: PHENobarbitaL sodium 130 MG/ML VIAL IM Q3Hx2 164 MG IM ×2 (20:06→22:28)
--- NOTE | 2022-10-09 21:01 | PC.NURSE ---
attempted to call report on pt, no answer
[2022-10-09] MEDS: Melatonin 3 MG TABLET 6 MG PO (22:28)
[2022-10-09] MEDS: 0.9 % Sodium Chloride Flush 3 ML SYRINGE IVFLUSH (22:29)
[2022-10-10] MEDS: metroNIDAZOLE/NS 500 MG/100 ML PIGGYBACK 100 MG IV ×3 (02:44→16:05)
[2022-10-10 03:45] VITALS: BP 125/86; PULSE 95; RESP 16; TEMP 36.6; O2SAT 97
[2022-10-10 06:13] LABS: INTERNATIONAL NORM RATIO 1.3 (0.9-1.1); Prothrombin Time 15.6 SEC (10.0-13.1)
[2022-10-10 06:33] LABS: Magnesium 1.8 mg/dL (1.6-2.6)
[2022-10-10 07:58] LABS: Alanine Aminotransferase 49 U/L (0-31); Albumin Level 2.8 g/dL (3.5-5.0); Alkaline Phosphatase 206 U/L (39-117); Anion Gap 12 (12-20); Aspartate Amino Transferase 249 U/L (5-31); Bilirubin Total 5.6 mg/dL (0.0-1.0); Blood Urea Nitrogen < 3 mg/dL (9-16); Carbon Dioxide 28 mmol/L (22-29); Chloride 100 mmol/L (96-108); Creatinine Clr Calc Pharmacy 109.1; Estimated Glomerular Filt Rate > 60; Glucose Random 98 mg/dL (60-115); Sodium 137 mmol/L (135-145); Total Protein 6.1 g/dL (6.5-8.0)
[2022-10-10 08:17] LABS: Potassium 2.8 mmol/L (3.3-5.1)
[2022-10-10] MEDS: Magnesium Oxide 400 MG TABLET PO ×2 (09:49→21:26)
[2022-10-10] MEDS: Multivitamin TABLET 1 TAB PO (09:49)
[2022-10-10] MEDS: PHENobarbitaL 15 MG TABLET 45 MG PO ×2 (09:49→21:26)
[2022-10-10] MEDS: Folic Acid 1 MG TABLET PO (09:49)
[2022-10-10] MEDS: Pantoprazole Sodium 40 MG/10 ML VIAL IVPUSH ×2 (09:49→21:26)
[2022-10-10] MEDS: cefTRIAXone sodium 1 GM in 0.9 % Sodium Chloride 50 ML IV (09:49)
--- NOTE | 2022-10-10 10:18 | MHC.CM.PN ---
CM ATTEMPTED TO MEET W/PT HOWEVER PT OFF UNIT FOR PROCEDURE, CM TO REVISIT
[2022-10-10] MEDS: Dextrose 5 % and 0.9 % NaCl 1,000 ML 100 ML IVCONT (10:36)
--- NOTE | 2022-10-10 11:05 | P.PNIM_ITS ---
Subjective Subjective Date of Service: 10/11/22 Interval History: Abdominal pain, elevated lft's Review of Systems abd pain slowly improving no fevers ,lft's improving Physical Exam Vital Signs: Vital Signs: Last Vital Signs Temp 97.9 F 10/10/22 03:45 Pulse 95 10/10/22 03:45 Resp 16 10/10/22 03:45 BP 125/86 10/10/22 03:45 Pulse Ox 97 10/10/22 03:45 O2 Del Method Room Air 10/10/22 03:45 BMI result Body Mass Index 22.3 Appearance: Alert.? Oriented X3.? cvs: rrr, [id number] . res: clear to auscultation ,no rhonchii or wheezing abd: no rebound or guarding ,ruq improving, bs present. ext pulses present , no cyanosis . neuro: axo3 , nonfocal. Objective Data Active Medications Docusate Sodium (Docusate Sodium 100 Mg Capsule) 100 mg PO DAILY PRN PRN Reason: Constipation Enoxaparin Sodium (Enoxaparin Sodium 40 Mg/0.4 Ml Syringe) 40 mg SUBCUT Q24H [facility] Last Admin: 10/09/22 17:49 Dose: 40 mg Documented By: HERNÁN Folic Acid (Folic Acid 1 Mg Tablet) 1 mg PO DAILY [facility] Last Admin: 10/10/22 09:49 Dose: 1 mg Documented By: TIRSO Ceftriaxone Sodium 1 gm/ (Sodium Chloride) 50 mls @ 100 mls/hr IV Q24H [facility] Last Infusion: 10/10/22 10:47 Dose: 0 mls/hr Documented By: TIRSO Metronidazole (Flagyl) 500 mg in 100 mls @ 100 mls/hr IV Q8H [facility] Last Admin: 10/10/22 10:25 Dose: 100 mls/hr Documented By: TIRSO Dextrose/Sodium Chloride (D5ns) 1,000 mls @ 100 mls/hr IVCONT .Q10H [facility] Last Infusion: 10/10/22 10:48 Dose: 0 mls/hr Documented By: TIRSO Magnesium Oxide (Magnesium Oxide 400 Mg Tablet) 400 mg PO BID [facility] Last Admin: 10/10/22 09:49 Dose: 400 mg Documented By: TIRSO Melatonin (Melatonin 3 Mg Tablet) 6 mg PO BEDTIME [facility] Last Admin: 10/09/22 22:28 Dose: 6 mg Documented By: BECCA Multivitamins/Vitamin C (Multivitamin Tablet) 1 tab PO DAILY [facility] Last Admin: 10/10/22 09:49 Dose: 1 tab Documented By: TIRSO Ondansetron HCl (Ondansetron Hcl 4 Mg/2 Ml Vial) 4 mg IVPUSH Q8H PRN PRN Reason: Nausea and Vomiting Pantoprazole Sodium (Pantoprazole Sodium 40 Mg/10 Ml Vial) 40 mg IVPUSH BID [facility] Last Admin: 10/10/22 09:49 Dose: 40 mg Documented By: TIRSO Pharmacy Consult (Consult Rx Etoh Phenob Im/Po) 1 each MISCELLANE ONCE PRN; Protocol PRN Reason: Consult order Phenobarbital (Phenobarbital 15 Mg Tablet) 45 mg PO BID [facility] Stop: 10/11/22 21:01 Last Admin: 10/10/22 09:49 Dose: 45 mg Documented By: TIRSO Phenobarbital (Phenobarbital 30 Mg Tablet) 30 mg PO BID [facility] Stop: 10/13/22 21:01 Phenobarbital (Phenobarbital 15 Mg Tablet) 15 mg PO DAILY [facility] Stop: 10/15/22 09:01 Sodium Chloride (0.9 % Sodium Chloride Flush 3 Ml Syringe) 3 ml IVFLUSH QSHIFT [facility] Last Admin: 10/10/22 09:03 Dose: Not Given Documented By: USMAN Non-Admin Reason: IV Running Trazodone HCl (Trazodone Hcl 50 Mg Tablet) 50 mg PO BEDTIME PRN PRN Reason: Insomnia Labs 10/09/22 10:55 10/10/22 07:34 Labs: Laboratory Results - last 24 hr 10/09/22 10/09/22 10/09/22 10:55 10:55 10:55 MCV 103.4 H MCH 37.1 H MCHC 35.8 H RDW 16.5 H Plt Count 186 D MPV 10.5 Immature Gran % (Auto) 0.8 H Neut % (Auto) 85.8 H Lymph % (Auto) 7.3 L [place] % (Auto) 5.1 Eos % (Auto) 0.1 Baso % (Auto) 0.9 Lymph # (Auto) 0.8 L [place] # (Auto) 0.5 Eos # (Auto) 0.0 Baso # (Auto) 0.1 Abs Immat Gran (auto) 0.08 H Absolute Neuts (auto) 9.1 H Absolute Nucleated RBC 0.020 H Nucleated RBC % (auto) 0.2 PT INR Anion Gap 19 Estim Creat Clear Calc 100.4 Estimated GFR > 60 Random Glucose 100 Lactic Acid Calcium 8.1 L Magnesium 1.0 L* Total Bilirubin 7.5 H Direct Bilirubin 4.8 H AST 305 H ALT 59 H Alkaline Phosphatase 263 H Total Protein 7.5 Albumin 3.5 Lipase 24 Urine Color Urine Appearance Urine pH Ur Specific [place] Urine Protein Urine Glucose (UA) Urine Ketones Urine Blood Urine Nitrite Ur Leukocyte Esterase Urine RBC Urine WBC Ur Squamous Epith Cells Urine Bacteria Hyaline Casts Urine Test Salicylates < 5.0 L Urine Opiates Screen Urine Fentanyl Screen Acetaminophen < 17 Ur Barbiturates Screen Ur Phencyclidine Scrn Ur Amphetamines Screen U Benzodiazepines Scrn Urine Cocaine Screen U Marijuana (THC) Screen Ethyl Alcohol < 10 COVID-19 ([facility]) Negative COVID-19 Clin Com See Note 10/09/22 10/09/22 10/09/22 10:56 15:47 15:47 MCV MCH MCHC RDW Plt Count MPV Immature Gran % (Auto) Neut % (Auto) Lymph % (Auto) [place] % (Auto) Eos % (Auto) Baso % (Auto) Lymph # (Auto) [place] # (Auto) Eos # (Auto) Baso # (Auto) Abs Immat Gran (auto) Absolute Neuts (auto) Absolute Nucleated RBC Nucleated RBC % (auto) PT 16.1 H INR 1.4 H Anion Gap 15 Estim Creat Clear Calc 105.4 Estimated GFR > 60 Random Glucose 87 Lactic Acid Calcium 7.4 L D Magnesium 1.9 Total Bilirubin 7.1 H Direct Bilirubin 4.8 H AST 315 H ALT 58 H Alkaline Phosphatase 240 H Total Protein 7.1 Albumin 3.3 L Lipase Urine Color [place] Urine Appearance Cloudy Urine pH 6.5 Ur Specific [place] 1.025 Urine Protein See Note Urine Glucose (UA) 100 H Urine Ketones See Note Urine Blood Negative Urine Nitrite See Note Ur Leukocyte Esterase See Note Urine RBC 0-2 Urine WBC 0-5 Ur Squamous Epith Cells 6-10 Urine Bacteria Trace Hyaline Casts 0-2 Urine Test Salicylates Urine Opiates Screen Urine Fentanyl Screen Acetaminophen Ur Barbiturates Screen Ur Phencyclidine Scrn Ur Amphetamines Screen U Benzodiazepines Scrn Urine Cocaine Screen U Marijuana (THC) Screen Ethyl Alcohol COVID-19 ([facility]) COVID-[address] Com 10/09/22 10/09/22 10/09/22 15:47 15:47 15:48 MCV MCH MCHC RDW Plt Count MPV Immature Gran % (Auto) Neut % (Auto) Lymph % (Auto) [place] % (Auto) Eos % (Auto) Baso % (Auto) Lymph # (Auto) [place] # (Auto) Eos # (Auto) Baso # (Auto) Abs Immat Gran (auto) Absolute Neuts (auto) Absolute Nucleated RBC Nucleated RBC % (auto) PT INR Anion Gap Estim Creat Clear Calc Estimated GFR Random Glucose Lactic Acid 1.1 Calcium Magnesium Total Bilirubin Direct Bilirubin AST ALT Alkaline Phosphatase Total Protein Albumin Lipase Urine Color Urine Appearance Urine pH Ur Specific Williamson Urine Protein Urine Glucose (UA) Urine Ketones Urine Blood Urine Nitrite Ur Leukocyte Esterase Urine RBC Urine WBC Ur Squamous Epith Cells Urine Bacteria Hyaline Casts Urine Test NEGATIVE Salicylates Urine Opiates Screen Not Detected Urine Fentanyl Screen Not Detected Acetaminophen Ur Barbiturates Screen Not Detected Ur Phencyclidine Scrn Not Detected Ur Amphetamines Screen Not Detected U Benzodiazepines Scrn Not Detected Urine Cocaine Screen POSITIVE H U Marijuana (THC) Screen POSITIVE H Ethyl Alcohol COVID-19 ([facility]) COVID-19 [place] 10/09/22 10/10/22 10/10/22 18:00 05:53 05:53 MCV MCH MCHC RDW Plt Count MPV Immature Gran % (Auto) Neut % (Auto) Lymph % (Auto) [place] % (Auto) Eos % (Auto) Baso % (Auto) Lymph # (Auto) [place] # (Auto) Eos # (Auto) Baso # (Auto) Abs Immat Gran (auto) Absolute Neuts (auto) Absolute Nucleated RBC Nucleated RBC % (auto) PT 15.6 H INR 1.3 H Anion Gap 14 Estim Creat Clear Calc 102.0 Estimated GFR > 60 Random Glucose 140 H Lactic Acid Calcium 7.3 L Magnesium 1.8 Total Bilirubin 6.2 H Direct Bilirubin AST 290 H ALT 55 H Alkaline Phosphatase 216 H Total Protein 6.5 Albumin 3.0 L Lipase Urine Color Urine Appearance Urine pH Ur Specific [place] Urine Protein Urine Glucose (UA) Urine Ketones Urine Blood Urine Nitrite Ur Leukocyte Esterase Urine RBC Urine WBC Ur Squamous Epith Cells Urine Bacteria Hyaline Casts Urine Test Salicylates Urine Opiates Screen Urine Fentanyl Screen Acetaminophen Ur Barbiturates Screen Ur Phencyclidine Scrn Ur Amphetamines Screen U Benzodiazepines Scrn Urine Cocaine Screen U Marijuana (THC) Screen Ethyl Alcohol COVID-19 ([facility]) COVID-19 Clin Com 10/10/22 07:34 MCV MCH MCHC RDW Plt Count MPV Immature Gran % (Auto) Neut % (Auto) Lymph % (Auto) [place] % (Auto) Eos % (Auto) Baso % (Auto) Lymph # (Auto) [place] # (Auto) Eos # (Auto) Baso # (Auto) Abs Immat Gran (auto) Absolute Neuts (auto) Absolute Nucleated RBC Nucleated RBC % (auto) PT INR Anion Gap 12 Estim Creat Clear Calc 109.1 Estimated GFR > 60 Random Glucose 98 Lactic Acid Calcium 7.0 L Magnesium Total Bilirubin 5.6 H Direct Bilirubin AST 249 H ALT 49 H Alkaline Phosphatase 206 H Total Protein 6.1 L Albumin 2.8 L Lipase Urine Color Urine Appearance Urine pH Ur Specific [place] Urine Protein Urine Glucose (UA) Urine Ketones Urine Blood Urine Nitrite Ur Leukocyte Esterase Urine RBC Urine WBC Ur Squamous Epith Cells Urine Bacteria Hyaline Casts Urine Test Salicylates Urine Opiates Screen Urine Fentanyl Screen Acetaminophen Ur Barbiturates Screen Ur Phencyclidine Scrn Ur Amphetamines Screen U Benzodiazepines Scrn Urine Cocaine Screen U Marijuana (THC) Screen Ethyl Alcohol COVID-19 ([facility]) COVID-19 Clin Com Assessment and Plan (1) Acute cholecystitis: Status: Acute (2) Transaminitis: Status: Acute Plan 42-year-old female with a PMH significant for?HTN, alcohol use disorder, and anxiety/depression who presents to the ED with?nausea, vomiting, and right upper quadrant pain. Pt will be admitted to the hospital for treatment of? likely alcoholic hepatitis. Transaminitis-? alcoholic hepatitis vs viral hepatitis vs obstruction lft's improving hepatitis profile pending ,tox screen-positive for cocaine /marijuana. plan: Clear liquid diet for now, advance as tolerated,IV abx:? Ceftriaxone and metronidazole GI consult- continue hydration, lft;s trendin ,antibiotics ,added hida scan. Question of acute cholecystitis Abdominal ultrasound found evidence of possible cholecystitis Patient currently not experiencing any right upper quadrant abdominal pain, abdomen nontender on physical examination HIDA scan,GI follow up. impending Alcohol withdrawal on phenobarbital protocol,CIWA scale Follow lytes, Mag, CMP continue ivf D5W, multivitamin, folic acid 1mg, Thiamine 100 mg daily,Protonix IV Admit to telemetry Hypokalemia added po replacements Follow BMP Hypomagnesmia Repeat magnesium 1.8 added po replacements Follow BMP DVT Prophylaxis: Lovenox inpatient need : alcoholic hepatitis, acute cholecystitis -need lft;s moniterin, hida scan, electrolytic abnormalities -needs replacements ,iv antibiotics ,blood culture waitin( need to be neg 48hr) . Time Spent With Patient Time: Total time managing care of this patient today ____ minutes. Quality Stroke Does the patient have a stroke diagnosis?: No VTE Prior VTE?: No VTE Risk Level:: Medical - moderate - high VTE Device Contraindication: Treatment Not Indicated VTE Drug Contraindication: N/A - Med Ordered
--- NOTE | 2022-10-10 11:25 | MHC.RECOVRN ---
This senior grant writer went to meet with patient after addiction consult was placed. Patient was visiting with family, t/w to return later when family not present to review [facility] hx and recovery supports.
[2022-10-10] MEDS: Potassium Chloride Packet 20 MEQ PACKET 40 MEQ PO (11:59)
[2022-10-10 12:00] VITALS: BP 114/70; PULSE 103; RESP 18; TEMP 36.5; O2SAT 97
[2022-10-10] MEDS: Potassium Chloride/H20 10 MEQ/100 ML PIGGYBACK 100 MEQ IV ×2 (12:00→13:30)
[2022-10-10 12:01] LABS: Bilirubin Direct 3.7 mg/dL (0.0-0.5)
--- NOTE | 2022-10-10 13:22 | MHC.CM.PN ---
EMR REVIEWED, PT ADMITTED W/ABD PAIN. QUESTION OF ACUTE CHOLEYCYSTITIS AND PHENOBARB PROTOCOL FOR ETOH, CM MET W/PT WHO IS A&OX4, REPORTS SHE LIVES W/ AND 2 KIDS, INDEPENDENT W/ALL CARE, DENIES USE OF DME/SERVICES, CM DISCUSSED ETOH TX W/PT AND SHE REPORTS SHE RECENTLY SIGNED UP AT [facility] [employer] HOWEVER NEEDS TO CALL THEM AFTER D/C SHE HAS NOT YET STARTED TX PROGRAM. PT IS VAGUE IN RESPONSES AND ANTIC WOULD STILL BENEFIT FROM RECOVERY TEAM INTERVENTION. PT VERIFIES PCP IS AT [facility] OFFICE BUT DOES NOT KNOW NAME, [facility] AND PT EDUCATED ON AND DECLINES TO COMPLETE A HCP AT THIS TIME, PT AWARE SHE CAN ASK FOR CM IF SHE CHANGES HER MIND.
--- NOTE | 2022-10-10 13:35 | MHC.RECOVRN ---
This sports writer met w/ patient after addiction consult was placed, patient was laying in bed, alert, awake. This sports writer attempted substance use hx, patient reports I have already stopped drinking and will be going to [facility] when I leave here . T/W inquired about whether patient had been in touch with [facility] about inpatient treatment, patient states no, outpatient treatment. This sports writer attempted to review risks associated with stopping use of ETOH abruptly, attempted to review harm reduction, patient minimizing impact of ETOH, minimizing risks of ETOH withdrawal. Patient denied hx of seizures, AVH. Patient states supportive of recovery. Patient declined recovery supports.
[2022-10-10 15:56] VITALS: BP 117/62; PULSE 106; RESP 18; TEMP 38.1; O2SAT 99
[2022-10-10] MEDS: guaiFENesin 100 MG/5 ML LIQUID 10 ML PO (16:05)
[2022-10-10] MEDS: Potassium Chloride Packet 20 MEQ PACKET PO (16:05)
[2022-10-10] MEDS: Acetaminophen 325 MG TABLET 650 MG PO (16:47)
[2022-10-10 16:53] VITALS: BP 122/83; PULSE 113; RESP 20; TEMP 38; O2SAT 96
[2022-10-10] MEDS: Melatonin 3 MG TABLET 6 MG PO (21:26)
[2022-10-11] VITALS: BP 124/72; PULSE 108; RESP 16; TEMP 37.2; O2SAT 99
[2022-10-11] MEDS: metroNIDAZOLE/NS 500 MG/100 ML PIGGYBACK 100 MG IV ×2 (02:15→10:21)
[2022-10-11 03:49] LABS: HBS Num1 > 1000.00 mIU/mL (0-7.99); HBc Num1 0.17 S/CO (0.00-0.79); HBsAGNum1 0.32 S/CO (0.00-0.99); Hepatitis A Antibody IgM 0.12 Index (0-0.79); Hepatitis B Core Antibody Nonreactive (Nonreactive); Hepatitis B Surface Antigen Negative (Negative); ~HepC Num1 0.13 S/CO (0.00-0.79); ~Hepatitis A Antibody IgM Nonreactive (Nonreactive); ~Hepatitis B Surface Antibody REACTIVE (Nonreactive); ~Hepatitis C Antibody Nonreactive (Nonreactive)
[2022-10-11 07:17] LABS: Folate 4.8 ng/mL (> or = 4.0); Vitamin B12 1656 pg/mL (200-900)
[2022-10-11 07:46] LABS: Alanine Aminotransferase 45 U/L (0-31); Albumin Level 2.7 g/dL (3.5-5.0); Alkaline Phosphatase 191 U/L (39-117); Aspartate Amino Transferase 203 U/L (5-31); Bilirubin Direct 3.3 mg/dL (0.0-0.5); Bilirubin Total 4.8 mg/dL (0.0-1.0); Total Protein 5.8 g/dL (6.5-8.0)
[2022-10-11 07:52] LABS: Vitamin D 25-OH Total 9.9 ng/mL (>30)
[2022-10-11 08:00] VITALS: BP 136/88; PULSE 95; RESP 20; TEMP 36.7; O2SAT 100
[2022-10-11 08:18] LABS: Magnesium 1.6 mg/dL (1.6-2.6); Potassium 3.4 mmol/L (3.3-5.1)
[2022-10-11] MEDS: guaiFENesin 100 MG/5 ML LIQUID 10 ML PO ×3 (09:09→22:44)
[2022-10-11] MEDS: Multivitamin TABLET 1 TAB PO (09:09)
[2022-10-11] MEDS: Magnesium Oxide 400 MG TABLET PO ×2 (09:09→22:45)
[2022-10-11] MEDS: Pantoprazole Sodium 40 MG/10 ML VIAL IVPUSH ×2 (09:09→22:44)
[2022-10-11] MEDS: Folic Acid 1 MG TABLET PO (09:09)
[2022-10-11] MEDS: PHENobarbitaL 15 MG TABLET 45 MG PO ×2 (09:09→22:45)
[2022-10-11] MEDS: cefTRIAXone sodium 1 GM in 0.9 % Sodium Chloride 50 ML IV (09:10)
[2022-10-11] MEDS: 0.9 % Sodium Chloride Flush 3 ML SYRINGE IVFLUSH ×2 (09:10→17:07)
--- NOTE | 2022-10-11 09:34 | MHC.CM.PN ---
Patient is listed as, self-pay. CM has made a referral to [facility].
--- NOTE | 2022-10-11 09:55 | MHC.CM.PN ---
Per Ligia in [facility] [employer], Patient has HNE through her Employer.
--- NOTE | 2022-10-11 10:36 | MHC.CM.PN ---
Per ROUNDS discussion, Patient is not yet medically cleared for dc (spiking fevers and blood cultures are pending);home vs Recovery Team interventions is the goal and CM will continue to follow.
[2022-10-11] MEDS: Dextrose 5 % and 0.9 % NaCl 1,000 ML 100 ML IVCONT (11:47)
--- NOTE | 2022-10-11 12:36 | P.PNIM_ITS ---
Subjective Subjective Date of Service: 10/11/22 Interval History: Abdominal pain, elevated lft's Review of Systems abd pain slowly improving no fevers ,lft's improving Physical Exam Vital Signs: Vital Signs: Last Vital Signs Temp 98.1 F 10/11/22 08:00 Pulse 95 10/11/22 08:00 Resp 20 10/11/22 08:00 BP 136/88 10/11/22 08:00 Pulse Ox 100 10/11/22 08:00 O2 Del Method Room Air 10/11/22 08:00 BMI result Body Mass Index 22.3 Appearance: Alert.? Oriented X3.? cvs: rrr, [id number] . res: clear to auscultation ,no rhonchii or wheezing abd: no rebound or guarding ,ruq improving, bs present. ext pulses present , no cyanosis . neuro: axo3 , nonfocal. Objective Data Active Medications Docusate Sodium (Docusate Sodium 100 Mg Capsule) 100 mg PO DAILY PRN PRN Reason: Constipation Enoxaparin Sodium (Enoxaparin Sodium 40 Mg/0.4 Ml Syringe) 40 mg SUBCUT Q24H [facility] Last Admin: 10/10/22 16:07 Dose: Not Given Documented By: TIRSO Non-Admin Reason: Patient Refused Folic Acid (Folic Acid 1 Mg Tablet) 1 mg PO DAILY [facility] Last Admin: 10/11/22 09:09 Dose: 1 mg Documented By: JUN Guaifenesin (Guaifenesin 100 Mg/5 Ml Liquid) 10 ml PO Q4H PRN PRN Reason: Cough Last Admin: 10/11/22 09:09 Dose: 10 ml Documented By: JUN Ceftriaxone Sodium 1 gm/ (Sodium Chloride) 50 mls @ 100 mls/hr IV Q24H [facility] Last Infusion: 10/11/22 10:28 Dose: 0 mls/hr Documented By: JUN Metronidazole (Flagyl) 500 mg in 100 mls @ 100 mls/hr IV Q8H [facility] Last Infusion: 10/11/22 11:49 Dose: 0 mls/hr Documented By: JUN Dextrose/Sodium Chloride (D5ns) 1,000 mls @ 100 mls/hr IVCONT .Q10H [facility] Last Admin: 10/11/22 11:47 Dose: Not Given Documented By: JUN Non-Admin Reason: IV Running Magnesium Oxide (Magnesium Oxide 400 Mg Tablet) 400 mg PO BID [facility] Last Admin: 10/11/22 09:09 Dose: 400 mg Documented By: JUN Melatonin (Melatonin 3 Mg Tablet) 6 mg PO BEDTIME [facility] Last Admin: 10/10/22 21:26 Dose: 6 mg Documented By: KHANH Multivitamins/Vitamin C (Multivitamin Tablet) 1 tab PO DAILY [facility] Last Admin: 10/11/22 09:09 Dose: 1 tab Documented By: JUN Ondansetron HCl (Ondansetron Hcl 4 Mg/2 Ml Vial) 4 mg IVPUSH Q8H PRN PRN Reason: Nausea and Vomiting Pantoprazole Sodium (Pantoprazole Sodium 40 Mg/10 Ml Vial) 40 mg IVPUSH BID [facility] Last Admin: 10/11/22 09:09 Dose: 40 mg Documented By: JUN Pharmacy Consult (Consult Rx Etoh Phenob Im/Po) 1 each MISCELLANE ONCE PRN; Protocol PRN Reason: Consult order Phenobarbital (Phenobarbital 15 Mg Tablet) 45 mg PO BID [facility] Stop: 10/11/22 21:01 Last Admin: 10/11/22 09:09 Dose: 45 mg Documented By: JUN Phenobarbital (Phenobarbital 30 Mg Tablet) 30 mg PO BID [facility] Stop: 10/13/22 21:01 Phenobarbital (Phenobarbital 15 Mg Tablet) 15 mg PO DAILY [facility] Stop: 10/15/22 09:01 Sodium Chloride (0.9 % Sodium Chloride Flush 3 Ml Syringe) [facility] Last Admin: 10/11/22 09:10 Dose: 3 ml Documented By: JUN Trazodone HCl (Trazodone Hcl 50 Mg Tablet) 50 mg PO BEDTIME PRN PRN Reason: Insomnia Labs 10/09/22 10:55 10/11/22 06:10 Labs: Laboratory Results - last 24 hr 10/09/22 10/11/22 10/11/22 10:55 06:10 06:10 Magnesium 1.6 Total Bilirubin 4.8 H Direct Bilirubin 3.3 H AST 203 H ALT 45 H Alkaline Phosphatase 191 H Total Protein 5.8 L Albumin 2.7 L Vitamin B12 1656 H 25-OH Vitamin D Total 9.9 Folate 4.8 Hepatitis A IgM Ab Nonreactive Hep Bs Antigen Negative Hep Bs Antibody REACTIVE Hep B Core Total Ab Nonreactive Hepatitis C Ab (EIA) Nonreactive Microbiology Microbiology Results: Microbiology 10/09/22 15:47 Blood Culture - Preliminary Blood - Venous No growth after 24 hours. 10/09/22 15:49 Blood Culture - Preliminary Blood - Venous No growth after 24 hours. Assessment and Plan (1) Transaminitis: Status: Acute (2) FUO (fever of unknown origin): Status: Acute (3) Viral URI: Status: Acute Plan 42-year-old female with a PMH significant for?HTN, alcohol use disorder, and anxiety/depression who presents to the ED with?nausea, vomiting, and right upper quadrant pain. Pt will be admitted to the hospital for treatment of? likely alcoholic hepatitis. Transaminitis-? alcoholic hepatitis vs viral hepatitis vs obstruction lft's improving hepatitis profile? pending ,tox screen-positive for cocaine /marijuana. plan: Clear liquid diet for now, advance as tolerated,IV abx:? Ceftriaxone and metronidazole GI consult- continue hydration, lft;s trendin ,antibiotics ,added hida scan. less likely acute cholecystitis Abdominal ultrasound found evidence of possible cholecystitis Patient currently not experiencing any right upper quadrant abdominal pain, abdomen nontender on physical examination ?HIDA scan noted - less likely cheolcystitis . impending Alcohol withdrawal on phenobarbital protocol,CIWA scale Follow lytes, Mag, CMP continue ivf? D5W, multivitamin, folic acid 1mg, Thiamine 100 mg daily,Protonix IV Admit to telemetry Hypokalemia added po replacements Follow BMP Hypomagnesmia Repeat magnesium 1.8 added po replacements Follow BMP Fevers : ? unclear possible alcoholic hepatitis related, since ua, cxr , blood cultures so far neg@24hrs ,hida neg for acute cholecytitis will add Id eval. tachycardia seems multifactorial -due to dehydration/anxiety-not due to sepsis ID eval- may related to alcoholic hepatitis, possible related to viral uri- positive for entero/rhino virus ,hpeatitis profile seems fine hiv test pending continue antibiotics until blood cultures neg@48hrs DVT Prophylaxis: Lovenox inpatient need : alcoholic hepatitis, acute cholecystitis -need lft;s moniterin, hida scan, electrolytic abnormalities -needs replacements ,iv antibiotics ,blood culture waitin( need to be neg 48hr) . Time Spent With Patient Time: Total time managing care of this patient today ____ minutes. Quality Stroke Does the patient have a stroke diagnosis?: No VTE Prior VTE?: No VTE Risk Level:: Medical - moderate - high VTE Device Contraindication: Treatment Not Indicated VTE Drug Contraindication: N/A - Med Ordered
[2022-10-11 13:52] LABS: Adenovirus PCR Not Detected (Not Detect.); Bordetella parapertussis PCR Not Detected (Not Detect.); Bordetella pertussis PCR Not Detected (Not Detect.); Chlamydia pneumoniae PCR Not Detected (Not Detect.); Coronavirus 229E PCR Not Detected (Not Detect.); Coronavirus HKU1 PCR Not Detected (Not Detect.); Coronavirus NL63 PCR Not Detected (Not Detect.); Coronavirus OC43 PCR Not Detected (Not Detect.); Human metapneumovirus PCR Not Detected (Not Detect.); Influenza A PCR Not Detected (Not Detect.); Influenza B PCR Not Detected (Not Detect.); Mycoplasma pneumoniae PCR Not Detected (Not Detect.); Parainfluenza 1 PCR Not Detected (Not Detect.); Parainfluenza 2 PCR Not Detected (Not Detect.); Parainfluenza 3 PCR Not Detected (Not Detect.); Parainfluenza 4 PCR Not Detected (Not Detect.); RSV PCR Not Detected (Not Detect.); Rhino/Enterovirus PCR Detected (Not Detect.); SARS-CoV-2 PCR Not Detected (Not Detect.)
--- NOTE | 2022-10-11 14:22 | W.PM.IDCN ---
History of Present Illness Data of Consult Service Date: 10/11/22 Requesting physician: Slime Duckworth Primary Care Provider: Unknown Physician HPI Reason for consult: hepatitis She presents with one month nausea and vomiting. She also has low grade fever and chills. She drinks daily vodka and uses cocaine and marijuan. No one else is ill. She denies tick bites. 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[employer] Meds Allergies Allergy/AdvReac Type Severity Reaction Status Date / Time No Known Allergies Allergy Verified 03/02/22 09:49 [No Known Allergies*] Active Medications: Current Medications Docusate Sodium (Docusate Sodium 100 Mg Capsule) 100 mg PO DAILY PRN PRN Reason: Constipation Enoxaparin Sodium (Enoxaparin Sodium 40 Mg/0.4 Ml Syringe) 40 mg SUBCUT Q24H [facility] Last Admin: 10/10/22 16:07 Dose: Not Given Folic Acid (Folic Acid 1 Mg Tablet) 1 mg PO DAILY [facility] Last Admin: 10/11/22 09:09 Dose: 1 mg Guaifenesin (Guaifenesin 100 Mg/5 Ml Liquid) 10 ml PO Q4H PRN PRN Reason: Cough Last Admin: 10/11/22 09:09 Dose: 10 ml Ceftriaxone Sodium 1 gm/ (Sodium Chloride) 50 mls @ 100 mls/hr IV Q24H DAI Last Infusion: 10/11/22 10:28 Dose: Infused Metronidazole (Flagyl) 500 mg in 100 mls @ 100 mls/hr IV Q8H [facility] Last Infusion: 10/11/22 11:49 Dose: Infused Dextrose/Sodium Chloride (D5ns) 1,000 mls @ 100 mls/hr IVCONT .Q10H [facility] Last Admin: 10/11/22 11:47 Dose: 100 mls/hr Magnesium Oxide (Magnesium Oxide 400 Mg Tablet) 400 mg PO BID [facility] Last Admin: 10/11/22 09:09 Dose: 400 mg Melatonin (Melatonin 3 Mg Tablet) 6 mg PO BEDTIME [facility] Last Admin: 10/10/22 21:26 Dose: 6 mg Multivitamins/Vitamin C (Multivitamin Tablet) 1 tab PO DAILY [facility] Last Admin: 10/11/22 09:09 Dose: 1 tab Ondansetron HCl (Ondansetron Hcl 4 Mg/2 Ml Vial) 4 mg IVPUSH Q8H PRN PRN Reason: Nausea and Vomiting Pantoprazole Sodium (Pantoprazole Sodium 40 Mg/10 Ml Vial) 40 mg IVPUSH BID [facility] Last Admin: 10/11/22 09:09 Dose: 40 mg Pharmacy Consult (Consult Rx Etoh Phenob Im/Po) 1 each MISCELLANE ONCE PRN; Protocol PRN Reason: Consult order Phenobarbital (Phenobarbital 15 Mg Tablet) 45 mg PO BID [facility] Stop: 10/11/22 21:01 Last Admin: 10/11/22 09:09 Dose: 45 mg Phenobarbital (Phenobarbital 30 Mg Tablet) 30 mg PO BID [facility] Stop: 10/13/22 21:01 Phenobarbital (Phenobarbital 15 Mg Tablet) 15 mg PO DAILY [facility] Stop: 10/15/22 09:01 Sodium Chloride (0.9 % Sodium Chloride Flush 3 Ml Syringe) 3 ml IVFLUSH QSHIFT [facility] Last Admin: 10/11/22 09:10 Dose: 3 ml Trazodone HCl (Trazodone Hcl 50 Mg Tablet) 50 mg PO BEDTIME PRN PRN Reason: Insomnia Home Medications Medication Instructions Recorded Confirmed Last Taken Type amlodipine 10 mg tablet 10 mg PO DAILY 06/09/21 10/09/22 2 Months Ago History ~08/11/22 omeprazole 20 mg capsule,delayed 20 mg PO DAILY PRN Heartburn 10/05/21 10/09/22 Unknown History release multivitamin 1 tab PO DAILY 10/09/22 10/09/22 1 Month Ago History ~09/08/22 Physical Exam Vital Signs: Vital Signs: Last Vital Signs Temp 98.1 F 10/11/22 08:00 Pulse 95 10/11/22 08:00 Resp 20 10/11/22 08:00 BP 136/88 10/11/22 08:00 Pulse Ox 100 10/11/22 08:00 O2 Del Method Room Air 10/11/22 08:00 BMI result Body Mass Index 22.3 Const: General: cooperative HEENT: Head: Yes normal to inspection Face and sinus: Yes normal facial exam Mouth: Normal oral and palatal mucosa present Teeth and gingiva: dentition normal Eyes: General: appearance normal, both eyes and all related structures Pupils: Equal, round and reactive pupils present Resp: Effort & Inspection: normal respiratory effort Cardio: Rate: regular rate Rhythm: regular rhythm GI: Palpation (GI): Soft to palpation and nontender : General: Yes no CVA tenderness Back/Spine/Pelvis: Back: no CVA tenderness Skin: General skin exam: no rashes or lesions noted Neuro: General: moves all extremities Cranial nerves: Yes Equal, round and reactive pupils present Extrem: General: Yes normal to inspection Psych: Appearance: grossly normal Results Labs 10/09/22 10:55 10/11/22 06:10 Labs: BMP 10/11/22 06:10 Potassium 3.4 D Liver Function 10/11/22 Range/Units 06:10 Total Bilirubin 4.8 H (0.0-1.0) mg/dL Direct Bilirubin 3.3 H (0.0-0.5) mg/dL AST 203 H (5-31) U/L ALT 45 H (0-31) U/L Alkaline Phosphatase 191 H (39-117) U/L Albumin 2.7 L (3.5-5.0) g/dL Microbiology Microbiology Results: Microbiology 10/09/22 15:47 Blood - Venous Blood Culture - Preliminary No growth after 24 hours. 10/09/22 15:49 Blood - Venous Blood Culture - Preliminary No growth after 24 hours. Assessment and Plan (1) FUO (fever of unknown origin): Status: Acute She has hepatitis of subacute onset. She has had scleral icterus in past. Diagnosis can include alcohol associated hepatitis ,Hepatitis C,HIV,autoimmune disorder Plan No antibiotics since not found to have infection such as cholecysititis. Await Hepatitis C,HIV testing. Alcohol use disorder treatment. Await blood cultures. Time Spent With Patient Time: Total time managing care of this patient today ____ minutes.
[2022-10-11 15:29] VITALS: BP 134/91; PULSE 105; RESP 17; TEMP 37.6; O2SAT 96
[2022-10-11] MEDS: Melatonin 3 MG TABLET 6 MG PO (22:45)
[2022-10-11 23:25] VITALS: BP 133/87; PULSE 104; RESP 17; TEMP 37.3; O2SAT 97
[2022-10-12] MEDS: guaiFENesin 100 MG/5 ML LIQUID 10 ML PO ×3 (05:09→18:21)
[2022-10-12 06:24] LABS: Alanine Aminotransferase 47 U/L (0-31); Alkaline Phosphatase 215 U/L (39-117); Anion Gap 13 (12-20); Aspartate Amino Transferase 180 U/L (5-31); Blood Urea Nitrogen < 3 mg/dL (9-16); Calcium 7.8 mg/dL (8.4-10.2); Carbon Dioxide 24 mmol/L (22-29); Chloride 100 mmol/L (96-108); Estimated Glomerular Filt Rate > 60; Glucose Random 135 mg/dL (60-115); Potassium 3.4 mmol/L (3.3-5.1); Sodium 134 mmol/L (135-145); Total Protein 6.5 g/dL (6.5-8.0)
--- NOTE | 2022-10-12 07:13 | PC.NURSE ---
Pt began experiencing abdominal bloating and distention that was noticeably increased from the beginning of the shift. Pt was pass flatus and had hyperactive bowel sounds. Dr. Rocha was notified will continue to monitor.
[2022-10-12 07:41] VITALS: BP 116/77; PULSE 89; RESP 16; TEMP 37.3; O2SAT 97
[2022-10-12] MEDS: 0.9 % Sodium Chloride Flush 3 ML SYRINGE IVFLUSH ×2 (08:21→17:43)
[2022-10-12] MEDS: Pantoprazole Sodium 40 MG/10 ML VIAL IVPUSH ×2 (08:21→20:03)
[2022-10-12] MEDS: Folic Acid 1 MG TABLET PO (08:22)
[2022-10-12] MEDS: Magnesium Oxide 400 MG TABLET PO ×2 (08:22→20:02)
[2022-10-12] MEDS: Calcium Carbonate 750 MG TAB.CHEW PO (08:22)
[2022-10-12] MEDS: Multivitamin TABLET 1 TAB PO (08:22)
[2022-10-12] MEDS: PHENobarbitaL 30 MG TABLET PO ×2 (08:24→20:02)
--- NOTE | 2022-10-12 14:27 | PM.GIPN ---
Subjective Subjective Date of Service: 10/12/22 Interval History: Initial consultation 10/[address] Johnson for etOH hepatitis. Pt seen at bedside for persistent abd discomfort and elevated LFTs. Reports worsening sensation of bloating and distention since yest despite a good appetite and lack of N,V. Had diarrhea initially at the time of admission but now for one day no BMs and passing minimal gas. No fevers, chills. Critical Care Time (minutes): 0 Physical Exam Vital Signs: Vital Signs: Last Vital Signs Temp 99.2 F 10/12/22 07:41 Pulse 89 10/12/22 07:41 Resp 16 10/12/22 07:41 BP 116/77 10/12/22 07:41 Pulse Ox 97 10/12/22 07:41 O2 Del Method Room Air 10/12/22 07:41 BMI result Body Mass Index 22.3 Gen appear: NAD, non toxic appearing HEENT: icteric Abd: soft, nontender, mildly distended, bowel sounds present Objective Data Labs 10/09/22 10:55 10/12/22 05:37 Labs: Laboratory Results - last 24 hr 10/12/22 05:37 Sodium 134 L Potassium 3.4 Chloride 100 Carbon Dioxide 24 Anion Gap 13 BUN < 3 L Creatinine 0.57 Estim Creat Clear Calc 111.0 Estimated GFR > 60 Random Glucose 135 H Calcium 7.8 L D Total Bilirubin 5.0 H AST 180 H ALT 47 H Alkaline Phosphatase 215 H Total Protein 6.5 Albumin 3.0 L Microbiology Microbiology Results: Microbiology 10/09/22 15:47 Blood - Venous Blood Culture - Preliminary No growth after 48 hours. 10/09/22 15:49 Blood - Venous Blood Culture - Preliminary No growth after 48 hours. Procedures Date of Service Date of Service: 10/12/22 Progress Note: A&P Assessment and plan (1) Elevated LFTs: Status: Acute (2) Alcohol use disorder: Status: Acute Plan Overall picture consistent with mild alc hep confounded by rhino/enterovirus infection. AST:ALT pattern quite typical for etOH hep however given persistent abd discomfort would recommend MRCP to r/o biliary obstruction. Optimize bowel regimen Encourage ambulation. Of note, pt was also noted to have biliary dyskinesia with EF of 8% at 30 mins. In the absence of baseline sx of biliary colic and ongoing alc hep, would recommend repeating the HIDA in 2-4 weeks. Time Spent With Patient Time: Total time managing care of this patient today ____ minutes. Quality Stroke Does the patient have a stroke diagnosis?: No VTE Prior VTE?: No VTE Risk Level:: Medical - moderate - high VTE Device Contraindication: Treatment Not Indicated VTE Drug Contraindication: N/A - Med Ordered
--- NOTE | 2022-10-12 14:46 | P.PNIM_ITS ---
Subjective Subjective Date of Service: 10/12/22 Interval History: Abdominal pain and some swellin also, elevated lft's Review of Systems abd pain slowly improving no fevers ,lft's similar to day, no fevers Physical Exam Vital Signs: Vital Signs: Last Vital Signs Temp 99.2 F 10/12/22 07:41 Pulse 89 10/12/22 07:41 Resp 16 10/12/22 07:41 BP 116/77 10/12/22 07:41 Pulse Ox 97 10/12/22 07:41 O2 Del Method Room Air 10/12/22 07:41 BMI result Body Mass Index 22.3 Appearance: Alert.? Oriented X3.? cvs: rrr, [id number] . res: clear to auscultation ,no rhonchii or wheezing abd: no rebound or guarding ,ruq improving, bs present. ext pulses present , no cyanosis . neuro: axo3 , nonfocal. Objective Data Active Medications Docusate Sodium (Docusate Sodium 100 Mg Capsule) 100 mg PO DAILY PRN PRN Reason: Constipation Enoxaparin Sodium (Enoxaparin Sodium 40 Mg/0.4 Ml Syringe) 40 mg SUBCUT Q24H [facility] Last Admin: 10/11/22 17:12 Dose: Not Given Documented By: JUN Non-Admin Reason: Patient Refused Folic Acid (Folic Acid 1 Mg Tablet) 1 mg PO DAILY [facility] Last Admin: 10/12/22 08:22 Dose: 1 mg Documented By: NABOR Guaifenesin (Guaifenesin 100 Mg/5 Ml Liquid) 10 ml PO Q4H PRN PRN Reason: Cough Last Admin: 10/12/22 10:29 Dose: 10 ml Documented By: NABOR Magnesium Oxide (Magnesium Oxide 400 Mg Tablet) 400 mg PO BID [facility] Last Admin: 10/12/22 08:22 Dose: 400 mg Documented By: NABOR Melatonin (Melatonin 3 Mg Tablet) 6 mg PO BEDTIME [facility] Last Admin: 10/11/22 22:45 Dose: 6 mg Documented By: KHANH Multivitamins/Vitamin C (Multivitamin Tablet) 1 tab PO DAILY [facility] Last Admin: 10/12/22 08:22 Dose: 1 tab Documented By: NABOR Ondansetron HCl (Ondansetron Hcl 4 Mg/2 Ml Vial) 4 mg IVPUSH Q8H PRN PRN Reason: Nausea and Vomiting Pantoprazole Sodium (Pantoprazole Sodium 40 Mg/10 Ml Vial) 40 mg IVPUSH BID [facility] Last Admin: 10/12/22 08:21 Dose: 40 mg Documented By: NABOR Pharmacy Consult (Consult Rx Etoh Phenob Im/Po) 1 each MISCELLANE ONCE PRN; Protocol PRN Reason: Consult order Phenobarbital (Phenobarbital 30 Mg Tablet) 30 mg PO BID [facility] Stop: 10/13/22 21:01 Last Admin: 10/12/22 08:24 Dose: 30 mg Documented By: NABOR Phenobarbital (Phenobarbital 15 Mg Tablet) 15 mg PO DAILY [facility] Stop: 10/15/22 09:01 Sodium Chloride (0.9 % Sodium Chloride Flush 3 Ml Syringe) 3 ml IVFLUSH QSHIFT [facility] Last Admin: 10/12/22 08:21 Dose: 3 ml Documented By: NABOR Trazodone HCl (Trazodone Hcl 50 Mg Tablet) 50 mg PO BEDTIME PRN PRN Reason: Insomnia Labs 10/09/22 10:55 10/12/22 05:37 Labs: Laboratory Results - last 24 hr 10/12/22 05:37 Anion Gap 13 Estim Creat Clear Calc 111.0 Estimated GFR > 60 Random Glucose 135 H Calcium 7.8 L D Total Bilirubin 5.0 H AST 180 H ALT 47 H Alkaline Phosphatase 215 H Total Protein 6.5 Albumin 3.0 L Microbiology Microbiology Results: Microbiology 10/09/22 15:47 Blood Culture - Preliminary Blood - Venous No growth after 48 hours. 10/09/22 15:49 Blood Culture - Preliminary Blood - Venous No growth after 48 hours. Assessment and Plan (1) Transaminitis: Status: Acute (2) FUO (fever of unknown origin): Status: Acute (3) Viral URI: Status: Acute Plan 42-year-old female with a PMH significant for?HTN, alcohol use disorder, and anxiety/depression who presents to the ED with?nausea, vomiting, and right upper quadrant pain. Pt will be admitted to the hospital for treatment of? likely alcoholic hepatitis. Transaminitis-? alcoholic hepatitis vs viral hepatitis vs obstruction lft's improving hepatitis profile? pending ,tox screen-positive for cocaine /marijuana. plan: Clear liquid diet for now, advance as tolerated,IV abx:? Ceftriaxone and metronidazole GI consult- continue hydration, lft;s similar, added abd mri , d/w Gi -need Gi followup less likely acute cholecystitis Abdominal ultrasound found evidence of possible cholecystitis Patient currently not experiencing any right upper quadrant abdominal pain, abdomen nontender on physical examination ?HIDA scan noted - less likely cheolcystitis . impending Alcohol withdrawal on phenobarbital protocol,CIWA scale Follow lytes, Mag, CMP continue ivf? D5W, multivitamin, folic acid 1mg, Thiamine 100 mg daily,Protonix IV Admit to telemetry Hypokalemia added po replacements Follow BMP Hypomagnesmia Repeat magnesium 1.8 added po replacements Follow BMP Fevers : ? unclear possible alcoholic hepatitis related vs viral URI (rhino/entero) since ua, cxr , blood cultures so far neg@24hrs ,hida neg for acute cholecytitis tachycardia seems multifactorial -due to dehydration/anxiety-not due to sepsis ID eval- may related to alcoholic hepatitis, possible related to viral uri- positive for entero/rhino virus ,hpeatitis profile seems fine hiv test pending, stop antibiotics DVT Prophylaxis: Lovenox inpatient need : alcoholic hepatitis and lft;s moniterin-? biliray dikinesia ,electrolytic abnormalities -needs replacements ,workup for ?bliary diskinesia ,Gi follow up Time Spent With Patient Time: Total time managing care of this patient today ____ minutes. Quality Stroke Does the patient have a stroke diagnosis?: No VTE Prior VTE?: No VTE Risk Level:: Medical - moderate - high VTE Device Contraindication: Treatment Not Indicated VTE Drug Contraindication: N/A - Med Ordered
[2022-10-12 15:38] VITALS: BP 121/85; PULSE 98; RESP 17; TEMP 36.6; O2SAT 97
[2022-10-12] MEDS: Melatonin 3 MG TABLET 6 MG PO (20:03)
[2022-10-12] MEDS: Benzonatate 100 MG CAPSULE 200 MG PO (20:40)
[2022-10-12 23:39] VITALS: BP 131/84; PULSE 102; RESP 18; TEMP 37.1; O2SAT 98
[2022-10-13] MEDS: 0.9 % Sodium Chloride Flush 3 ML SYRINGE IVFLUSH ×4 (00:13→20:11)
[2022-10-13] MEDS: guaiFENesin 100 MG/5 ML LIQUID 10 ML PO ×3 (02:35→17:39)
[2022-10-13 04:35] LABS: HIV AB/AG Nonreactive (Nonreactive); HIV Num 1 0.08 S/CO (0.00-0.99)
[2022-10-13 07:34] LABS: Alanine Aminotransferase 34 U/L (0-31); Albumin Level 2.7 g/dL (3.5-5.0); Alkaline Phosphatase 182 U/L (39-117); Anion Gap 10 (12-20); Aspartate Amino Transferase 135 U/L (5-31); Bilirubin Total 4.6 mg/dL (0.0-1.0); Blood Urea Nitrogen < 3 mg/dL (9-16); Calcium 7.9 mg/dL (8.4-10.2); Carbon Dioxide 29 mmol/L (22-29); Chloride 100 mmol/L (96-108); Creatinine Clr Calc Pharmacy 117.1; Estimated Glomerular Filt Rate > 60; Glucose Random 93 mg/dL (60-115); Sodium 135 mmol/L (135-145); Total Protein 5.8 g/dL (6.5-8.0)
[2022-10-13 07:53] VITALS: BP 152/97; PULSE 97; RESP 16; TEMP 36.3; O2SAT 97
[2022-10-13] MEDS: PHENobarbitaL 30 MG TABLET PO ×2 (07:59→20:11)
[2022-10-13] MEDS: Multivitamin TABLET 1 TAB PO (07:59)
[2022-10-13] MEDS: Folic Acid 1 MG TABLET PO (07:59)
[2022-10-13] MEDS: Magnesium Oxide 400 MG TABLET PO ×2 (07:59→20:11)
[2022-10-13 14:52] VITALS: BP 124/85; PULSE 108; RESP 20; TEMP 36; O2SAT 96
--- NOTE | 2022-10-13 16:38 | P.PNIM_ITS ---
Subjective Subjective Date of Service: 10/13/22 Interval History: Notes improvement in pain overnight. Review of Systems Denies chest pain Denies shortness of breath Denies nausea vomiting diarrhea Denies fever chills Physical Exam Vital Signs: Vital Signs: Last Vital Signs Temp 96.8 F 10/13/22 14:52 Pulse 108 H 10/13/22 14:52 Resp 20 10/13/22 14:52 BP 124/85 10/13/22 14:52 Pulse Ox 96 10/13/22 14:52 O2 Del Method Room Air 10/13/22 14:52 BMI result Body Mass Index 22.3 Const: Other: No acute issues Resp: Other: Clear to auscultation bilaterally no rales rhonchi or wheezes Cardio: Other: No S4; positive S1-S2; no S3 murmurs rubs or gallops GI: Other: Soft nontender nondistended normoactive bowel sounds Extrem: Other: No edema bilaterally Objective Data Active Medications Benzonatate (Benzonatate 100 Mg Capsule) 200 mg PO TID PRN PRN Reason: cough Last Admin: 10/12/22 20:40 Dose: 200 mg Documented By: CHUCHO Docusate Sodium (Docusate Sodium 100 Mg Capsule) 100 mg PO DAILY PRN PRN Reason: Constipation Enoxaparin Sodium (Enoxaparin Sodium 40 Mg/0.4 Ml Syringe) 40 mg SUBCUT Q24H [facility]S [facility] 234 BEDS AT [facility] Last Admin: 10/12/22 17:43 Dose: Not Given Documented By: NABOR Non-Admin Reason: Patient Refused Folic Acid (Folic Acid 1 Mg Tablet) 1 mg PO DAILY [facility] 234 BEDS AT [facility] Last Admin: 10/13/22 07:59 Dose: 1 mg Documented By: TIRSO Guaifenesin (Guaifenesin 100 Mg/5 Ml Liquid) 10 ml PO Q4H PRN PRN Reason: Cough Last Admin: 10/13/22 07:58 Dose: 10 ml Documented By: TIRSO Magnesium Oxide (Magnesium Oxide 400 Mg Tablet) 400 mg PO BID [facility] 234 BEDS AT [facility] Last Admin: 10/13/22 07:59 Dose: 400 mg Documented By: TIRSO Melatonin (Melatonin 3 Mg Tablet) 6 mg PO BEDTIME [facility] 234 BEDS AT [facility] Last Admin: 10/12/22 20:03 Dose: 6 mg Documented By: CHUCHO Multivitamins/Vitamin C (Multivitamin Tablet) 1 tab PO DAILY [facility] 234 BEDS AT [facility] Last Admin: 10/13/22 07:59 Dose: 1 tab Documented By: TIRSO Ondansetron HCl (Ondansetron Hcl 4 Mg/2 Ml Vial) 4 mg IVPUSH Q8H PRN PRN Reason: Nausea and Vomiting Pharmacy Consult (Consult Rx Etoh Phenob Im/Po) 1 each MISCELLANE ONCE PRN; Protocol PRN Reason: Consult order Phenobarbital (Phenobarbital 30 Mg Tablet) 30 mg PO BID [facility] 234 BEDS AT [facility] Stop: 10/13/22 21:01 Last Admin: 10/13/22 07:59 Dose: 30 mg Documented By: TIRSO Phenobarbital (Phenobarbital 15 Mg Tablet) 15 mg PO DAILY [facility] 234 BEDS AT [facility] Stop: 10/15/22 09:01 Sodium Chloride (0.9 % Sodium Chloride Flush 3 Ml Syringe) 3 ml IVFLUSH QSHIFT [facility]S [facility]CLUDE 234 BEDS AT [facility] Last Admin: 10/13/22 07:59 Dose: 3 ml Documented By: TIRSO Trazodone HCl (Trazodone Hcl 50 Mg Tablet) 50 mg PO BEDTIME PRN PRN Reason: Insomnia Labs 10/09/22 10:55 10/13/22 06:20 Labs: Laboratory Results - last 24 hr 10/11/22 10/13/22 13:11 06:20 Anion Gap 10 L Estim Creat Clear Calc 117.1 Estimated GFR > 60 Random Glucose 93 Calcium 7.9 L Total Bilirubin 4.6 H AST 135 H ALT 34 H Alkaline Phosphatase 182 H Total Protein 5.8 L Albumin 2.7 L HIV 1&2 Ab/P24 Ag 4thGn Nonreactive Assessment and Plan (1) Transaminitis: Status: Acute (2) Viral URI: Status: Acute (3) Alcohol use disorder: Status: Acute Plan 42-year-old female with a PMH significant for?HTN, alcohol use disorder, and anxiety/depression who presents to the ED with?nausea, vomiting, and right upper quadrant pain. Pt will be admitted to the hospital for treatment of? likely alcoholic hepatitis. 1.Transaminitis -slowly improving; observe overnight and follow labs in a -will ask surgery to review MRI to rule out surgical issues -likely home in a.m. 2. Alcohol use disorder -CIWA 0 -continue CIWA protocol DVT Prophylaxis: Lovenox Requires ongoing hospitalization to observe on CIWA scale to rule out alcohol withdrawal. Time Spent With Patient Time: Total time managing care of this patient today ____ minutes. Quality Stroke Does the patient have a stroke diagnosis?: No VTE Prior VTE?: No VTE Risk Level:: Medical - moderate - high VTE Device Contraindication: Treatment Not Indicated VTE Drug Contraindication: N/A - Med Ordered
[2022-10-13] MEDS: Enoxaparin Sodium 40 MG/0.4 ML SYRINGE SUBCUT (17:39)
[2022-10-13] MEDS: Benzonatate 100 MG CAPSULE 200 MG PO (17:39)
[2022-10-13] MEDS: Acetaminophen 325 MG TABLET 650 MG PO (20:10)
[2022-10-13] MEDS: Melatonin 3 MG TABLET 6 MG PO (20:11)
[2022-10-13 22:58] VITALS: BP 125/81; PULSE 95; RESP 20; TEMP 36.1; O2SAT 97
--- NOTE | 2022-10-14 02:39 | PC.NURSE ---
Pt A&OX3. Pleasant and cooperative. CIWA score (0). VSS. Pt sleeping comfortably after receiving Tylenol around 2014. No further c/o pain/discomfort. Pt has a harsh cough that comes in waves. Has not asked for cough medicine since 17:40. Will continue to monitor.
[2022-10-14 07:25] LABS: MANUAL DIFF FLAG NO
[2022-10-14 07:28] LABS: Basophils Absolute Auto 0.1 X10*3/uL (0.0-0.2); Basophils Percent Auto 1.5 % (0-2); Eosinophils Absolute Auto 0.1 X10*3/uL (0.0-0.4); Eosinophils Percent Auto 1.5 % (0-4); Hemoglobin 11.6 g/dl (12.0-16.0); Imm Gran Abs Auto 0.19 X10*3/uL (0.00-0.03); Imm Gran Pct Auto 2.9 % (0.0-0.4); Lymphocytes Absolute Auto 1.1 X10*3/uL (1.2-4.9); Lymphocytes Percent Auto 16.5 % (20-40); Mean Corpuscular HGB Conc 34.1 g/dl (31.0-35.0); Mean Corpuscular Hemoglobin 36.8 pg (27.0-33.0); Mean Corpuscular Volume 107.9 fL (80.0-98.0); Mean Platelet Volume 10.8 fL (9.4-12.3); Monocytes Absolute Auto 0.6 X10*3/uL (0.1-1.2); Monocytes Percent Auto 9.4 % (2-11); Neutrophils Absolute Auto 4.4 x10*3/uL (2.0-8.3); Neutrophils Percent Auto 68.2 % (45-73); Platelet Count 225 X10*3/uL (160-400); Red Blood Count 3.15 X10*6/uL (4.20-5.50); Red Cell Distribution Width 19.5 % (11.0-16.0); White Blood Count 6.5 X10*3/uL (4.8-10.8)
[2022-10-14 07:51] LABS: Alanine Aminotransferase 33 U/L (0-31); Albumin Level 2.9 g/dL (3.5-5.0); Alkaline Phosphatase 210 U/L (39-117); Anion Gap 10 (12-20); Aspartate Amino Transferase 135 U/L (5-31); Bilirubin Total 4.6 mg/dL (0.0-1.0); Blood Urea Nitrogen < 3 mg/dL (9-16); Calcium 8.6 mg/dL (8.4-10.2); Carbon Dioxide 29 mmol/L (22-29); Chloride 99 mmol/L (96-108); Estimated Glomerular Filt Rate > 60; Glucose Fasting 96 mg/dL (60-99); Potassium 3.8 mmol/L (3.3-5.1); Sodium 134 mmol/L (135-145); Total Protein 6.2 g/dL (6.5-8.0)
[2022-10-14 08:00] VITALS: BP 136/96; PULSE 95; RESP 20; TEMP 36.7; O2SAT 97
[2022-10-14] MEDS: PHENobarbitaL 15 MG TABLET PO (08:34)
[2022-10-14] MEDS: guaiFENesin 100 MG/5 ML LIQUID 10 ML PO (08:34)
[2022-10-14] MEDS: Magnesium Oxide 400 MG TABLET PO (08:35)
[2022-10-14] MEDS: Acetaminophen 325 MG TABLET 650 MG PO (08:35)
[2022-10-14] MEDS: Multivitamin TABLET 1 TAB PO (08:35)
[2022-10-14] MEDS: Benzonatate 100 MG CAPSULE 200 MG PO (08:35)
[2022-10-14] MEDS: Folic Acid 1 MG TABLET PO (08:35)
[2022-10-14] MEDS: 0.9 % Sodium Chloride Flush 3 ML SYRINGE IVFLUSH (08:36)
[2022-10-14 11:41] VITALS: BP 134/99; PULSE 98; RESP 19; TEMP 36.7; O2SAT 99
--- NOTE | 2022-10-14 12:01 | PM.DS ---
DS: Providers Provider Date of Service: 10/14/22 Date of admission: 10/09/22 17:16 Date of discharge: 10/14/22 Primary care physician: Ralph Claudio III, MD Consults: 10/09/22 17:23 Consult to Gastroenterology Routine Consulting Provider: Patrick Johnson Reason for consultation: Elevated LFTs Has provider been notified: Yes 10/09/22 17:33 Addiction Medicine Routine Consulting Provider: Addiction Covering Reason for consultation: Alcohol use disorder 10/11/22 07:55 Consult to Infectious Diseases Routine Consulting Provider: [facility] Infectious Disease Reason for consultation: fuo DS: Diagnosis Discharge Diagnosis (1) Transaminitis: Status: Acute (2) Viral URI: Status: Acute (3) Alcohol use disorder: Status: Acute DS: Summary Hospital Course Hospital Course: 42-year-old female with a PMH significant for?HTN, alcohol use disorder, and anxiety/depression who presents to the ED with?nausea, vomiting, and right upper quadrant pain.? Patient states she has been drinking heavily for quite a while now, 7-8 mixed vodka-soda water drinks on most days.? For the past month patient states she has been dry heaving in the morning and has reduced p.o. intake since then, with virtually no regular food the past two weeks. Has been fatigued since then. Patient developed intractable nausea and vomiting 4 days ago, with 8-9 episodes of vomiting daily.? Patient denies hematemesis. Has had dark urine since then. Around the same time patient developed right upper quadrant pain rated 5/10, and had upper abdominal bloating/distension. Patient states she did not take any medications to relieve pain or for nausea or vomiting.? Says she has not had a drink since Tuesday. Patient denies tremors, diaphoresis, hallucinations. Of note, pt states she was admitted once in the past for alcohol withdrawal.? Patient denies chest pain/pressure, palpitations.? No shortness of breath, denies headache. ED spoke with Dr. Yun who stated the pt was not a surgical candidate at this time. In the ED patient was afebrile, but tachycardic up to 113. Labs were significant for INR of 1.4, sodium of 134, potassium of 2.6, chloride of 89, magnesium of 1.0, total bilirubin of 7.5, direct bilirubin of 4.8, AST of 305, ALT of 59, alk-phos 263.? Tox screen negative for salicylates, acetaminophen, and ethyl alcohol, but positive for cocaine and marijuana.? Hepatitis panel pending.? Abdominal ultrasound and findings suspicious for acute cholecystitis with increased echogenicity of the liver.? Pt was treated for ondansetron, famotidine, IVF, magnesium, potassium, Zosyn, and started on phenobarbital protocol. Pt will be admitted to the hospital for treatment of? likely alcoholic hepatitis. Hospital [facility] Patient admitted to general medical floor.s. HIDA scan without findings consistent with acute cholecystitis. MRCP without acute obstructive findings. Patient was seen by GI, and enzymes trended downward. This was felt to be alcoholic transaminitis. Patient was counseled extensively about the avoidance of alcohol to prevent further deterioration. She declines services at this time related to alcohol use disorder will follow-up with PCP Time Spent with Patient Time attestation: Total time managing care of this patient today ____ minutes. Discharge coordination time: Greater than 30 minutes Quality: Safe Use of Opioids Does Pt have an Active Cancer Diagnosis on the Problem List?: No Quality: Stroke Does the patient have a stroke diagnosis?: No Physical Exam Vital Signs: Vital Signs: Last Vital Signs Temp 98.0 F 10/14/22 11:41 Pulse 98 10/14/22 11:41 Resp 19 10/14/22 11:41 BP 134/99 H 10/14/22 11:41 Pulse Ox 99 10/14/22 11:41 O2 Del Method Room Air 10/14/22 11:41 BMI result Body Mass Index 22.3 Const: Other: No acute issues Resp: Other: Clear to auscultation bilaterally no rales rhonchi or wheezes Cardio: Other: No S4; positive S1-S2; no S3 murmurs rubs or gallops GI: Other: Soft nontender nondistended normoactive bowel sounds Extrem: Other: No edema bilaterally DS: Data Data Completed and Pending Completed studies during hospitalization [Text1]: Procedures Detoxification Services for Substance Abuse Treatment (10/05/21) Labs on day of discharge: Laboratory Results - last 24 hr 10/14/22 10/14/22 06:49 06:49 WBC 6.5 RBC 3.15 L Hgb 11.6 L Hct 34.0 L MCV 107.9 H MCH 36.8 H MCHC 34.1 RDW 19.5 H Plt Count 225 MPV 10.8 Immature Gran % (Auto) 2.9 H Neut % (Auto) 68.2 Lymph % (Auto) 16.5 L [place] % (Auto) 9.4 Eos % (Auto) 1.5 Baso % (Auto) 1.5 Lymph # (Auto) 1.1 L [place] # (Auto) 0.6 Eos # (Auto) 0.1 Baso # (Auto) 0.1 Abs Immat Gran (auto) 0.19 H Absolute Neuts (auto) 4.4 Absolute Nucleated RBC 0.000 Nucleated RBC % (auto) 0.0 Sodium 134 L Potassium 3.8 Chloride 99 Carbon Dioxide 29 Anion Gap 10 L BUN < 3 L Creatinine 0.56 Estim Creat Clear Calc 113.0 Estimated GFR > 60 Fasting Glucose 96 Calcium 8.6 D Total Bilirubin 4.6 H AST 135 H ALT 33 H Alkaline Phosphatase 210 H Total Protein 6.2 L Albumin 2.9 L Preliminary micro results at discharge 10/09/22 15:47 Blood Culture - Preliminary Blood - Venous No growth after 48 hours. 10/09/22 15:49 Blood Culture - Preliminary Blood - Venous No growth after 48 hours. Discharge Plan Discharge Anticipated Discharge Date/Time: 10/14/22 11:58 Patient Disposition: Home, Self-Care Discharge Diagnosis: Transaminitis Referrals: Ralph Claudio III, MD [Primary Care Provider] - 1 Week Discharge Medications: Continued omeprazole 20 mg Capsule,Delayed Release(Dr/Ec) 20 mg PO DAILY PRN (Reason: Heartburn) multivitamin Tablet 1 tab PO DAILY amlodipine 10 mg tablet 10 mg PO DAILY Discharge Orders: Discharge Order (Routine); Ordered 10/14/22 Ordered By: Edgar Aguilera Diet: Advance to usual diet Activity on Discharge: As tolerated Stand Alone Forms: Patient Portal Discharge page Care Plan Goals: Avoid alcohol at all cost Health Concerns: Resume pre-hospital medicines Plan of Treatment: Follow-up with PCP in 2 weeks Assessment: See discharge summary
--- NOTE | 2022-10-14 12:20 | MHC.CM.PN ---
Patient has been medically cleared for dc to home today, self care.
== END 2022-10-14 12:45 | disposition home or self-care (01) | DRG 434 ==
LOC: HO.ED 14:01 → HO.EDOVER 17:41 → HO.IMC 20:22
PROVIDERS: Internal Medicine; Internal Medicine Gastroenterology; Physician Assistant; Admitting Provider Student in an Organized Health Care Education/Training Program; Emergency Provider Emergency Medicine; PCP Internal Medicine; Visit Provider Hospitalist
DX: K70.10 Alcoholic hepatitis without ascites (principal); J06.9 Acute upper respiratory infection, unspecified; B97.10 Unspecified enterovirus as the cause of diseases classified elsewhere; B97.89 Other viral agents as the cause of diseases classified elsewhere; F41.9 Anxiety disorder, unspecified; F10.10 Alcohol abuse, uncomplicated; F32.A Depression, unspecified; E83.42 Hypomagnesemia; E87.6 Hypokalemia; E86.0 Dehydration; Z79.899 Other long term (current) drug therapy
CPT/HCPCS: 36415; 71045; 74181; 76705; 78227; 80048; 80053; 80076; 80143; 80179; 80307; 81001; 81003; 81025; 82077; 82248; 82306; 82607; 82746; 83605; 83690; 83735; 84132; 85025; 85610; 86704; 86706; 86709; 86803; 87040; 87340; 87389; 87633; 87635; 99222; 99285; A9537; J0696; J1650; J2405; J2543; J2560; J2805; J3475

== ENCOUNTER 2022-12-16 08:06 | Emergency (ER) | payer OTHER, SELFPAY ==
--- NOTE | ~2022-12-16 | XR_ITS ---
EXAMINATION: XR ABDOMEN COMPLETE CLINICAL INDICATION: Abdominal distention COMPARISON: None available. TECHNIQUE: 2 views of the abdomen. FINDINGS: Nonobstructive bowel gas pattern. Scattered gas throughout the bowel in the abdomen without abnormal dilatation. IUD in the pelvis. No suspicious calcifications. No air-fluid level on the upright view. No gross free air, though the right hemidiaphragm is not fully in the [id number]. The lung bases are clear. XR/XR abdomen min 2V IMPRESSION: Nonobstructive bowel gas pattern.
--- NOTE | ~2022-12-16 | US_ITS ---
EXAMINATION: US ABDOMEN LIMITED CLINICAL INFORMATION: Alcohol abuse. Abdominal distention. COMPARISON: MRI abdomen 10/12/2022 Right upper quadrant ultrasound 10/09/2022 TECHNIQUE: Real-time imaging of the right upper quadrant abdominal viscera. FINDINGS: LIVER: Enlarged. Nodular surface contour. There is diffuse increased liver parenchymal echogenicity, consistent with hepatic steatosis. No definite focal lesion is seen, but evaluation is limited due to poor sound beam penetration through the coarse echogenic liver parenchyma. There is no intrahepatic biliary duct dilatation seen. FREE FLUID: Small to moderate ascites. US/US abdomen limited IMPRESSION: Hepatomegaly and hepatic steatosis. Small to moderate ascites.
[2022-12-16 08:15] VITALS: BP 146/103; PULSE 97; RESP 18; TEMP 36.8; O2SAT 96; BMI 21.9
[2022-12-16 09:54] LABS: MANUAL DIFF FLAG NO
[2022-12-16 09:57] LABS: Basophils Absolute Auto 0.1 X10*3/uL (0.0-0.2); Basophils Percent Auto 1.1 % (0-2); Eosinophils Percent Auto 0.4 % (0-4); Hemoglobin 12.9 g/dl (12.0-16.0); Imm Gran Abs Auto 0.14 X10*3/uL (0.00-0.03); Imm Gran Pct Auto 1.4 % (0.0-0.4); Lymphocytes Absolute Auto 0.9 X10*3/uL (1.2-4.9); Lymphocytes Percent Auto 8.4 % (20-40); Mean Corpuscular HGB Conc 34.9 g/dl (31.0-35.0); Mean Corpuscular Hemoglobin 32.8 pg (27.0-33.0); Mean Corpuscular Volume 94.1 fL (80.0-98.0); Mean Platelet Volume 10.5 fL (9.4-12.3); Monocytes Absolute Auto 0.8 X10*3/uL (0.1-1.2); Monocytes Percent Auto 7.5 % (2-11); NRBC Pct Auto 0.2 /100WBC (0.0-0.2); Neutrophils Absolute Auto 8.3 x10*3/uL (2.0-8.3); Neutrophils Percent Auto 81.2 % (45-73); Platelet Count 153 X10*3/uL (160-400); Red Blood Count 3.93 X10*6/uL (4.20-5.50); Red Cell Distribution Width 16.9 % (11.0-16.0); White Blood Count 10.3 X10*3/uL (4.8-10.8)
[2022-12-16 10:00] LABS: INTERNATIONAL NORM RATIO 2.1 (0.9-1.1); Prothrombin Time 24.9 SEC (10.0-13.1)
[2022-12-16 10:07] LABS: Appearance Urine Cloudy; Color Urine Orange; UMIC TRIGGER UACC YES
[2022-12-16 10:14] LABS: Amphetamine Screen Urine Not Detected (Not Detect); Barbiturates, Urine Not Detected (Not Detect); Benzodiazepines Screen Urine Not Detected (Not Detect); Cannabinoid Screen Urine POSITIVE (Not Detect); Cocaine Screen Urine POSITIVE (Not Detect); Fentanyl, urine Not Detected (Not Detect); Opiate Screen Urine Not Detected (Not Detect); Phencyclidine Screen Urine Not Detected (Not Detect)
[2022-12-16 10:17] LABS: Bacteria Urine 4+ (None Seen); Hyaline Casts Urine 0-2 /LPF (0-2); RBC Urine 0-2 /HPF (0-2); WBC Urine 0-5 /HPF (0-5)
[2022-12-16 10:33] LABS: Alanine Aminotransferase 30 U/L (0-31); Alkaline Phosphatase 317 U/L (39-117); Anion Gap 13 (12-20); Aspartate Amino Transferase 221 U/L (5-31); Bilirubin Total 20.6 mg/dL (0.0-1.0); Blood Urea Nitrogen 5 mg/dL (9-16); Calcium 8.9 mg/dL (8.4-10.2); Carbon Dioxide 39 mmol/L (22-29); Chloride 82 mmol/L (96-108); Creatinine Clr Calc Pharmacy 107.2; Estimated Glomerular Filt Rate > 60; Glucose Random 92 mg/dL (60-115); Potassium 2.6 mmol/L (3.3-5.1); Sodium 131 mmol/L (135-145)
--- NOTE | 2022-12-16 10:34 | ED.GENADULT ---
HPI - General Adult General Chief complaint: Abdominal Pain Stated complaint: abd blotting Time Seen by Provider: 12/16/22 08:18 Source: patient Mode of arrival: ambulatory Limitations: no limitations History of Present Illness HPI narrative: 42-year-old female presents with abdominal distention symptoms seem to have started about 1-2 weeks ago. She describes symptoms moderate to severe. They are associated with constipation. She is passing flatus. She has a lot of abdominal discomfort but no fevers, chills, nausea vomiting. There is no clear relieving or exacerbating features. She has no urinary complaints. Patient admits drinking significant amounts of alcohol on a daily basis. Patient reports last drink was on Tuesday. Patient also admits to smoking marijuana in use of cocaine. Patient does have a known history of elevated liver enzymes. She denies a history of liver cirrhosis. Related Data Home Medications Medication Instructions Recorded Confirmed amlodipine 10 mg tablet 10 mg PO DAILY 06/09/21 10/09/22 omeprazole 20 mg capsule,delayed 20 mg PO DAILY PRN Heartburn 10/05/21 10/09/22 release multivitamin 1 tab PO DAILY 10/09/22 10/09/22 Previous Rx's Medication Instructions Recorded folic acid 1 mg tablet 1 mg PO DAILY #30 tabs 12/16/22 potassium chloride 20 mEq oral 20 meq PO DAILY #30 ea 12/16/22 packet thiamine HCl (vitamin B1) 100 mg 100 mg PO DAILY #30 tabs 12/16/22 tablet Allergies Allergy/AdvReac Type Severity Reaction Status Date / Time No Known Allergies Allergy Verified 03/02/22 09:49 [No Known Allergies*] Review of Systems Review of Systems: CONSTITUTIONAL: Denies weight loss, fever and chills. HEENT: Denies changes in vision and hearing. RESPIRATORY: Denies SOB and cough. CV: Denies palpitations no CP. GI: Denies abdominal pain, nausea, vomiting and diarrhea. : Denies dysuria and urinary frequency. MSK: Denies myalgia and joint pain. SKIN: Denies rash and pruritus. NEUROLOGICAL: Denies headache and syncope. PSYCHIATRIC: Denies recent changes in mood. Denies anxiety and depression. 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[employer] Physical Exam ED Vital Signs: Vital Signs - 24 hr 12/16/22 08:15 Temperature 98.2 F Pulse Rate 97 Respiratory Rate 18 Blood Pressure 146/103 H Pulse Oximetry 96 Oxygen Delivery Method Room Air BMI result Body Mass Index 21.9 GEN: Well developed, no acute distress, alert, oriented HEENT: Normocephalic, atraumatic, normal external ears, nose appears normal, no oropharyngeal edema or exudates Eyes: Normal to appearance Neck: Supple, no lymphadenopathy Respiratory: Talks in complete sentences, no respiratory distress, clear to auscultation bilaterally Cardiovascular: Regular rate and rhythm, no murmurs rubs or gallops Abdomen: Soft, nontender, , no guarding, no rebound abdomen is distended Back: No CVA tenderness Extremities: No clubbing cyanosis or edema Neurologic: No focal neurologic deficits, cranial nerves 2-12 intact, strength is 5/5 bilaterally Skin: No rash Course Course Course Narrative: 42-year-old female with history of alcohol abuse presents with abdominal distension. Examination is consistent with either a nonspecific bowel gas pattern versus ascites. Will order imaging studies to confirm this. Her x-ray did come back which is a nonspecific bowel gas pattern. Ultrasound is currently pending. On my personal evaluation, I saw small amount of ascites increased liver echogenicity. Awaiting official report. Her chemistry panel still pending. Her INR is 2 suggestive of significant liver injury. Her platelet count is also slightly low. I have already discussed with her concerns about ongoing liver injury and risk of liver cirrhosis. She will need to follow-up with gastroenterology. Will re-evaluate the patient shortly Reevaluation(s) Reevaluation #1: Workup is complete. Patient has hypokalemia. She has been replaced orally and will take an additional dose today. She will also take folic acid, thiamine and multivitamin. Patient will be referred to GI. Time: 10:56 Medical Decision Making Medical Decision Making [facility] Narrative: 42-year-old female presents with abdominal distension. Examination revealed distended abdomen, no rebound or guarding. Differential diagnosis includes ascites, constipation, small-bowel obstruction, gastroenteritis, ileus. Will obtain an x-ray and ultrasound. Order routine laboratory analysis. There is no emergent indication for CT scan at this time. Differential Diagnosis Differential Diagnoses: The differential diagnosis associated with the presentation includes (See above) Admission/Observation Consideration of admission/observation: Escalation of care including admission/observation considered Lab Data [facility] Lab Attestation statement: I reviewed the patient's lab results. 12/16/22 09:49 12/16/22 09:49 Labs: Lab Results 12/16/22 12/16/22 12/16/22 Range/Units 09:49 09:49 09:49 WBC 10.3 (4.8-10.8) X10*3/uL RBC 3.93 L D (4.20-5.50) X10*6/uL Hgb 12.9 (12.0-16.0) g/dl Hct 37.0 (37.0-47.0) % MCV 94.1 (80.0-98.0) fL MCH 32.8 (27.0-33.0) pg MCHC 34.9 (31.0-35.0) g/dl RDW 16.9 H (11.0-16.0) % Plt Count 153 L D (160-400) X10*3/uL MPV 10.5 (9.4-12.3) fL Immature Gran % (Auto) 1.4 H (0.0-0.4) % Neut % (Auto) 81.2 H (45-73) % Lymph % (Auto) 8.4 L (20-40) % [place] % (Auto) 7.5 (2-11) % Eos % (Auto) 0.4 (0-4) % Baso % (Auto) 1.1 (0-2) % Lymph # (Auto) 0.9 L (1.2-4.9) X10*3/uL [place] # (Auto) 0.8 (0.1-1.2) X10*3/uL Eos # (Auto) 0.0 (0.0-0.4) X10*3/uL Baso # (Auto) 0.1 (0.0-0.2) X10*3/uL Abs Immat Gran (auto) 0.14 H (0.00-0.03) X10*3/uL Absolute Neuts (auto) 8.3 (2.0-8.3) x10*3/uL Absolute Nucleated RBC 0.020 H (0.0-0.012) X10*3/uL Nucleated RBC % (auto) 0.2 (0.0-0.2) /100WBC PT 24.9 H (10.0-13.1) SEC INR 2.1 H (0.9-1.1) Sodium 131 L (135-145) mmol/L Potassium 2.6 L D (3.3-5.1) mmol/L Chloride 82 L (96-108) mmol/L Carbon Dioxide 39 H (22-29) mmol/L Anion Gap 13 (12-20) BUN 5 L (9-16) mg/dL Creatinine 0.59 (0.5-1.4) mg/dL Estim Creat Clear Calc 107.2 Estimated GFR > 60 Random Glucose 92 (60-115) mg/dL Calcium 8.9 (8.4-10.2) mg/dL Total Bilirubin 20.6 H (0.0-1.0) mg/dL AST 221 H (5-31) U/L ALT 30 (0-31) U/L Alkaline Phosphatase 317 H (39-117) U/L Total Protein 8.0 (6.5-8.0) g/dL Albumin 3.0 L (3.5-5.0) g/dL Urine Color Urine Appearance Urine pH (5.0-9.0) Ur Specific [place] (1.005-1.025) Urine Protein (Neg-Trace) mg/dL Urine Glucose (UA) (Negative) mg/dL Urine Ketones (Negative) mg/dL Urine Blood (Negative) Urine Nitrite (Negative) Ur Leukocyte Esterase (Negative) Urine RBC (0-2) /HPF Urine WBC (0-5) /HPF Ur Squamous Epith Cells (0-2) /HPF Urine Bacteria (None Seen) Hyaline Casts (0-2) /LPF Urine Opiates Screen (Not Detect) Urine Fentanyl Screen (Not Detect) Ur Barbiturates Screen (Not Detect) Ur Phencyclidine Scrn (Not Detect) Ur Amphetamines Screen (Not Detect) U Benzodiazepines Scrn (Not Detect) Urine Cocaine Screen (Not Detect) U Marijuana (THC) Screen (Not Detect) Ethyl Alcohol mg/dL 12/16/22 12/16/22 12/16/22 Range/Units 09:49 09:49 09:49 WBC (4.8-10.8) X10*3/uL RBC (4.20-5.50) X10*6/uL Hgb (12.0-16.0) g/dl Hct (37.0-47.0) % MCV (80.0-98.0) fL MCH (27.0-33.0) pg MCHC (31.0-35.0) g/dl RDW (11.0-16.0) % Plt Count (160-400) X10*3/uL MPV (9.4-12.3) fL Immature Gran % (Auto) (0.0-0.4) % Neut % (Auto) (45-73) % Lymph % (Auto) (20-40) % [place] % (Auto) (2-11) % Eos % (Auto) (0-4) % Baso % (Auto) (0-2) % Lymph # (Auto) (1.2-4.9) X10*3/uL [place] # (Auto) (0.1-1.2) X10*3/uL Eos # (Auto) (0.0-0.4) X10*3/uL Baso # (Auto) (0.0-0.2) X10*3/uL Abs Immat Gran (auto) (0.00-0.03) X10*3/uL Absolute Neuts (auto) (2.0-8.3) x10*3/uL Absolute Nucleated RBC (0.0-0.012) X10*3/uL Nucleated RBC % (auto) (0.0-0.2) /100WBC PT (10.0-13.1) SEC INR (0.9-1.1) Sodium (135-145) mmol/L Potassium (3.3-5.1) mmol/L Chloride (96-108) mmol/L Carbon Dioxide (22-29) mmol/L Anion Gap (12-20) BUN (9-16) mg/dL Creatinine (0.5-1.4) mg/dL Estim Creat Clear Calc Estimated GFR Random Glucose (60-115) mg/dL Calcium (8.4-10.2) mg/dL Total Bilirubin (0.0-1.0) mg/dL AST (5-31) U/L ALT (0-31) U/L Alkaline Phosphatase (39-117) U/L Total Protein (6.5-8.0) g/dL Albumin (3.5-5.0) g/dL Urine Color [place] Urine Appearance Cloudy Urine pH 8.0 (5.0-9.0) Ur Specific [place] 1.010 (1.005-1.025) Urine Protein See Note (Neg-Trace) mg/dL Urine Glucose (UA) See Note (Negative) mg/dL Urine Ketones See Note (Negative) mg/dL Urine Blood See Note (Negative) Urine Nitrite See Note (Negative) Ur Leukocyte Esterase See Note (Negative) Urine RBC 0-2 (0-2) /HPF Urine WBC 0-5 (0-5) /HPF Ur Squamous Epith Cells 3-5 (0-2) /HPF Urine Bacteria 4+ (None Seen) Hyaline Casts 0-2 (0-2) /LPF Urine Opiates Screen Not Detected (Not Detect) Urine Fentanyl Screen Not Detected (Not Detect) Ur Barbiturates Screen Not Detected (Not Detect) Ur Phencyclidine Scrn Not Detected (Not Detect) Ur Amphetamines Screen Not Detected (Not Detect) U Benzodiazepines Scrn Not Detected (Not Detect) Urine Cocaine Screen POSITIVE H (Not Detect) U Marijuana (THC) Screen POSITIVE H (Not Detect) Ethyl Alcohol < 10 mg/dL Independent Interpretation I performed an independent interpretation of an: Plain X-Ray (Nonspecific bowel gas pattern) and Ultrasound (Increased liver echogenicity, ascites) Radiology Impression Discussion of test interpretation with radiology: I have reviewed the radiologist's reading. Radiologist Impression: US/US abdomen limited IMPRESSION: Hepatomegaly and hepatic steatosis. Small to moderate ascites. Dictated By: Rachel Ortiz MD Signed By: <Electronically signed by Rachel Ortiz MD in OV> 12/16/22 1034 DD/ 1008 TD/TT:? Kitchen Stewardess: Prescription Management I considered prescription management with: Antibiotic Discharge Plan Discharge Clinical Impression: Liver disease, Alcohol abuse, Acute hypokalemia, Elevated INR, Hypoalbuminemia, Elevated LFTs, Ascites Patient Disposition: Home, Self-Care Instructions: Liver Disease Diet (DC), Hypokalemia (ED), Abuse of Alcohol (DC), Ascites (ED), Elevated INR (ED) Additional Instructions: Your workup today demonstrated moderate liver disease likely due to alcohol abuse. I am recommending abstinence of alcohol. Addition, I would recommend following up with some outpatient resources for alcohol abuse therapy, counseling and treatment. Your potassium level was quite low. Your given some potassium prior to discharge. He should take an additional dose today and continue to take for the next several days until you are able to follow-up with her primary care provider. Prescriptions: New potassium chloride 20 mEq packet 20 meq PO DAILY Qty: 30 0RF folic acid 1 mg tablet 1 mg PO DAILY Qty: 30 0RF thiamine HCl (vitamin B1) 100 mg tablet 100 mg PO DAILY Qty: 30 0RF No Action omeprazole 20 mg Capsule,Delayed Release(Dr/Ec) 20 mg PO DAILY PRN (Reason: Heartburn) multivitamin Tablet 1 tab PO DAILY amlodipine 10 mg tablet 10 mg PO DAILY Referrals: Patrick Johnson MD [Physician] - 1 week
[2022-12-16 10:38] LABS: Ethanol < 10 mg/dL
[2022-12-16] MEDS: Potassium Chloride Packet 20 MEQ PACKET 40 MEQ PO (11:46)
== END 2022-12-16 11:49 | disposition home or self-care (01) ==
PROVIDERS: Emergency Provider Emergency Medicine; PCP Internal Medicine
DX: K70.9 Alcoholic liver disease, unspecified (principal); E87.6 Hypokalemia; R79.89 Other specified abnormal findings of blood chemistry; R18.8 Other ascites; R16.0 Hepatomegaly, not elsewhere classified; K31.89 Other diseases of stomach and duodenum; Z79.899 Other long term (current) drug therapy
CPT/HCPCS: 36415; 74019; 76705; 80053; 80307; 81001; 81003; 85025; 85610; 99282; 99284

== ENCOUNTER 2022-12-27 19:26 | Inpatient (IN) | payer OTHER, SELFPAY ==
--- NOTE | ~2022-12-27 | US_ITS ---
EXAMINATION: US ABDOMEN LIMITED CLINICAL INFORMATION: Right upper quadrant pain and jaundice. COMPARISON: None available. TECHNIQUE: Real-time imaging of the right upper quadrant abdominal viscera. FINDINGS: PANCREAS: Normal. LIVER: The liver is normal in size, with a longitudinal span of 18.2 cm. The liver contour is normal. Parenchymal echogenicity is generally increased. No focal hepatic lesion. There is no intrahepatic biliary duct dilatation seen. There is hepatopedal portal venous flow. GALLBLADDER: The gallbladder is physiologically distended without evidence of stones, sludge or polyp. There is gallbladder wall thickening to 7 mm, likely a sequela of ascites. COMMON BILE DUCT: Visualization limited. Normal in caliber measuring 0.2 cm in diameter. RIGHT KIDNEY: Normal. No hydronephrosis. No renal calculi or focal parenchymal lesions. The kidney measures 11.4 cm in maximum dimension. FREE FLUID: There is moderate ascites, most pronounced in the perihepatic region and left lower quadrant. US/US abdomen limited IMPRESSION: 1. There is hepatomegaly. 2. There is generalized increase in hepatic echotexture, consistent with fatty infiltration or hepatocellular disease. Please correlate clinically. No focal hepatic mass or intrahepatic biliary dilatation is seen. 3. There is moderate ascites. 4. Gallbladder wall thickening is likely a sequela of ascites. No cholelithiasis is seen. No sonographic Corea's sign is reported.
--- NOTE | ~2022-12-27 | XR_ITS ---
EXAMINATION: XR CHEST CLINICAL INFORMATION: Chest pain. COMPARISON: Chest x-ray 10/10/2022 TECHNIQUE: Frontal portable view of the chest was obtained. 1730 hours FINDINGS: Lung volume low. Linear atelectasis at lung bases. No focal consolidation. No significant pleural effusion. The heart size is normal. The cardiac and mediastinal contours are normal. No pulmonary vascular congestion No acute osseous abnormality. XR/XR chest 1V IMPRESSION: Low lung volume with linear atelectasis at lung bases.
--- NOTE | ~2022-12-27 | CT_ITS ---
EXAMINATION: CT ABDOMEN AND PELVIS WITHOUT CONTRAST CLINICAL INFORMATION: Abdominal pain. History of vocal use COMPARISON: None available. TECHNIQUE: Multidetector volumetric imaging was performed from the superior aspect of the liver through the pubic symphysis. Sagittal and coronal reformatted images were obtained on the technologist's workstation. This CT examination was performed using dose optimization techniques as appropriate, variously including the following: *Automated exposure control *Adjustment of mA and/or kV according to patient size (this includes techniques or standardized protocols for targeted exams where dose is matched to indication/reason for exam; i.e. extremities or head) *Use of iterative reconstruction technique DLP: 414 mGy-cm FINDINGS: LUNG BASES: There is bibasilar posterior pleural thickening and bilateral basilar parenchymal scarring. Heart size is normal. LIVER, GALLBLADDER, AND BILIARY TREE: The liver is enlarged in size, shape, and diffusely hypoattenuated. No focal hepatic lesion or biliary ductal dilatation is present. There is mild perihepatic fluid collection. The gallbladder is unremarkable with no evidence of radiopaque gallstones, gallbladder wall thickening, or obvious pericholecystic inflammatory changes. PANCREAS: Unremarkable. SPLEEN: Unremarkable. ADRENAL GLANDS: Unremarkable. KIDNEYS AND URETERS: The kidneys are normal in size, shape, and attenuation. No hydronephrosis, hydroureter, or calculi seen. No perinephric stranding. BLADDER: Unremarkable. GASTROINTESTINAL TRACT: The small and large bowel are unremarkable. The appendix is unremarkable. There is diffuse mild to moderate ascites. ABDOMINAL WALL: No significant hernia is appreciated. LYMPH NODES: Normal. VASCULAR: Unremarkable. PELVIC VISCERA: The uterus is anteverted with an IUD well located within the endometrial canal. There is free fluid in the pelvis. No abnormal pelvic lymph nodes. No evidence of inguinal hernia. OSSEOUS STRUCTURES: Unremarkable. CT/CT abdomen pelvis wo IV con IMPRESSION: 1. Hepatomegaly with hepatic steatosis. 2. Diffuse ascites. 3. No radiopaque urolith or hydroureteronephrosis. Fleischner guidelines were followed.
--- NOTE | ~2022-12-27 | US_ITS ---
EXAMINATION: ULTRASOUND-GUIDED PARACENTESIS WITH ABDOMINAL CLINICAL INDICATIONS: Ascites. COMPARISON: CT of the abdomen and pelvis 12/28/2022. TECHNIQUE: Following explaining ultrasound-guided paracentesis procedure, benefits and risk, a written consent was obtained. Patient was placed supine on ultrasound stretcher and preliminary ultrasound imaging was obtained. An optimal site was selected along the right mid quadrant and site was marked with marker. The marked site was cleaned and draped in the usual sterile manner. 1% lidocaine was injected at the puncture site. Through a small skin incision a 5 [place] catheter was advanced into the peritoneal space. After observing fluid return, stylet was withdrawn and catheter connected to vacuum bottle via connecting cannula. After obtaining all fluid and observing no more fluid remaining, the catheter was withdrawn and complete hemostasis was achieved at the puncture site. Sterile dressing was applied postprocedure. The patient tolerated procedure extremely well. The patient was monitored by our nursing during the exam. FINDINGS: There is a moderate amount of fluid seen in the abdomen. Approximately 1.2 L of greenish/yellowish clear fluid was drained for therapeutic purposes. None of the fluid was sent at this time. Ultrasound-guided paracentesis was performed in the ER on the previous day. US/US paracentesis abd w/image IMPRESSION: Successful ultrasound-guided therapeutic paracentesis performed with approximately 1.2 L of greenish/yellowish clear fluid drained.
[2022-12-27 19:28] VITALS: BP 149/86; PULSE 108; RESP 19; TEMP 36.6; O2SAT 95; BMI 22.3
--- NOTE | 2022-12-27 19:30 | ED.ABDPAIN ---
HPI - Abdominal Pain General Chief Complaint: Abdominal Pain Stated Complaint: abd pain Time Seen by Provider: 12/27/22 21:54 Source: patient, RN notes reviewed and old records reviewed Mode of arrival: ambulatory Limitations: no limitations History of Present Illness HPI narrative: 42-year-old male presents for evaluation abdominal pain and abdominal distension Patient has recent workup for ?liver issues. ? She is a chronic alcoholic reports that she has been sober for the last 2 weeks She was seen here 12 days ago for abdominal distension and ?turning yellow. ? She was ultimately worked up for with abdominal ultrasound, x-ray and was discharged home to follow-up with GI She reports that because it is a specialist her insurance requires that she get a referral from her PCP and she has been unable to see GI She reports in the last 12 days she has had increasing abdominal pain, distention and has been turning ?more yellow. ? Denies having any alcohol in the last 2 weeks Denies any fevers or chills Related Data Home Medications Medication Instructions Recorded Confirmed amlodipine 10 mg tablet 10 mg PO DAILY 06/09/21 10/09/22 omeprazole 20 mg capsule,delayed 20 mg PO DAILY PRN Heartburn 10/05/21 10/09/22 release multivitamin 1 tab PO DAILY 10/09/22 10/09/22 Previous Rx's Medication Instructions Recorded folic acid 1 mg tablet 1 mg PO DAILY #30 tabs 12/16/22 potassium chloride 20 mEq oral 20 meq PO DAILY #30 ea 12/16/22 packet thiamine HCl (vitamin B1) 100 mg 100 mg PO DAILY #30 tabs 12/16/22 tablet Allergies Allergy/AdvReac Type Severity Reaction Status Date / Time No Known Allergies Allergy Verified 12/27/22 19:28 [No Known Allergies*] Review of Systems Constitutional: Reports as per HPI, Denies chills, Denies fatigue, Denies fever(s) and Denies headache(s) Denies headache(s) Cardiovascular: Denies chest pain and Denies dyspnea Respiratory: Denies cough and Denies dyspnea Gastrointestinal: Reports abdominal pain, Denies constipation, Denies nausea and Denies vomiting Genitourinary: Denies dysuria Skin/Breast: Reports jaundice Denies headache(s) and Denies focal weakness Endocrine: Denies fatigue PMFSH Past Medical History Medical History Hypertension Family History Family History Father Bile duct cancer Mother Breast cancer Social History Social History Household Members: Family Housing: House Alcohol intake: former Patient Tobacco Use Status: Never used Tobacco Smoked in Last 30 Days: No Use of substances other than those prescribed or required for medical reasons: No Substance Use Type: Marijuana Advance Directives: No Advance Directives Information Provided: No Patient : No service: No Current occupational status: employed 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[employer] Physical Exam ED Vital Signs: Vital Signs - 24 hr 12/27/22 19:28 12/27/22 21:08 12/27/22 21:57 Temperature 98 F 98.6 F 98.5 F Pulse Rate 108 H 101 H 100 Respiratory Rate 19 17 21 H Blood Pressure 149/86 H 114/76 106/62 Pulse Oximetry 95 98 95 Oxygen Delivery Method Room Air Room Air Room Air 12/27/22 23:50 Temperature Pulse Rate 93 Respiratory Rate 16 Blood Pressure 112/72 Pulse Oximetry 96 Oxygen Delivery Method Room Air BMI result Body Mass Index 22.3 Const General: alert and awake Nutritional Appearance: well nourished Orientation/consciousness: patient oriented x3 HENMT Head: Yes normocephalic and Yes atraumatic Eyes Eyelids: Yes eyelids normal Conjunctivae: conjunctivae normal Sclerae: scleral abnormal (Bilateral scleral icterus) Corneas: corneas normal Pupils: Equal, round and reactive pupils present EOM: EOMs intact bilaterally Neck Neck: Yes full ROM Resp Effort & Inspection: normal respiratory effort, able to speak in complete sentences, no audible wheezes and not labored Auscultation: clear to auscultation bilaterally GI Inspection: Yes distended Palpation (GI): Soft to palpation, Tenderness to palpation present (GI), no guarding, not rigid and Ascites present (Moderate ascites) Skin Other: Significant jaundice Neuro General: patient oriented x3 Cranial nerves: Yes Equal, round and reactive pupils present and Yes Bilaterally intact EOM present Cognition (Neuro): normal cognition Extrem Other: Moving all extremities well without any obvious deformities Procedures Paracentesis Time Out Performed: Yes Local Anesthetic: lidocaine 1% Amount of anesthesia used (mL): 2 Fluid: clear, other (Approximately 700 cc of clear, yellow peritoneal fluid drained) and sent to lab for analysis Post Procedure Exam: awake, alert, normal BP, normal HR and normal SpO2 Patient Tolerated Procedure: well Complications: pain Course Course Course Narrative: RME - 42 yo female with history of alcoholic liver disease (last drink 2 weeks ago), ascites who is presenting with worsening abdominal pain and distention for the last 2 weeks. Seen here on 12/16 - had bilirubin of 20, K+ 2.6, and U/S showing nodular liver w/ small-moderate ascites. She has never had a paracentesis. Denies history of cirrhosis. Was discharged with plan for outpatient GI. Has been having worsening abd pain and distention. Plan: labs, bedside U/S to assess for worsening ascites and possible paracentesis. Reevaluation(s) Reevaluation #1: Patient's labs not indicative of SBP. We will treat her hyponatremia with IV fluids, will give her albumin to help increase oncotic pressure and hopefully prevent immediate recurrence of ascites fluid. Discussed with the hospitalist, Dr Wells who recommends treating the UTI with ceftriaxone and she will admit the patient. Time: 02:07 Medical Decision Making Medical Decision Making [facility] Narrative: Patient is significantly jaundiced the T bili elevated to 30, will get ultrasound to rule out biliary obstruction. She is doing workup for ascites and liver failure. The patient has a white count of 15.4 1000 which is new from 12 days ago. Will get a paracentesis. See procedure note. She is afebrile, her abdomen is mildly tender to palpation with no significant guarding. Differential Diagnosis Differential Diagnoses: The differential diagnosis associated with the presentation includes Liver cirrhosis Acute liver failure Ascites SBP Lab Data [facility] Lab Attestation statement: I reviewed the patient's lab results. (Leukocytosis of 15.4k. Mild transaminitis, significant hyperbilirubinemia to 31.3. Albumin it is low at 2.6) 12/27/22 19:54 12/27/22 19:54 Labs: Lab Results 12/27/22 12/27/22 12/27/22 Range/Units 19:54 19:54 19:54 WBC 15.4 H (4.8-10.8) X10*3/uL RBC 2.96 L D (4.20-5.50) X10*6/uL Hgb 10.0 L D (12.0-16.0) g/dl Hct 29.4 L D (37.0-47.0) % MCV 99.3 H (80.0-98.0) fL MCH 33.8 H (27.0-33.0) pg MCHC 34.0 (31.0-35.0) g/dl RDW 20.5 H (11.0-16.0) % Plt Count 232 D (160-400) X10*3/uL MPV 10.0 (9.4-12.3) fL Immature Gran % (Auto) Cancelled Neut % (Auto) Cancelled Lymph % (Auto) Cancelled [place] % (Auto) Cancelled Eos % (Auto) Cancelled Baso % (Auto) Cancelled Lymph # (Auto) Cancelled [place] # (Auto) Cancelled Eos # (Auto) Cancelled Baso # (Auto) Cancelled Abs Immat Gran (auto) Cancelled Absolute Neuts (auto) Cancelled Absolute Nucleated RBC 0.020 H (0.0-0.012) X10*3/uL Nucleated RBC % (auto) 0.1 (0.0-0.2) /100WBC Neutrophils % (Manual) 76 H (45-73) % Band Neutrophils % 5 (3-5) % Lymphocytes % (Manual) 10 L (20-40) % Monocytes % (Manual) 7 (2-11) % Eosinophils % (Manual) 1 (0-4) % Metamyelocytes % 1 % Abs Neuts (Manual) 12.5 H (2.0-8.3) X10*3/uL Lymphocytes # (Manual) 1.5 (1.2-4.9) X10*3/uL Monocytes # (Manual) 1.1 (0.1-1.2) X10*3/uL Eosinophils # (Manual) 0.2 (0.0-0.4) X10*3/uL Metamyelocytes # 0.2 X10*3/uL Platelet Estimate NORMAL (NORMAL) Plt Morphology Comment NORMAL RBC Morphology NOTED Acanthocytes (Spur) 2+ (3-5) /OIF PT 22.3 H (10.0-13.1) SEC INR 1.9 H (0.9-1.1) APTT 34.5 (26.0-36.4) SEC Sodium 130 L (135-145) mmol/L Potassium 4.0 D (3.3-5.1) mmol/L Chloride 103 D (96-108) mmol/L Carbon Dioxide 18 L (22-29) mmol/L Anion Gap 13 (12-20) BUN 7 L (9-16) mg/dL Creatinine 0.62 (0.5-1.4) mg/dL Estim Creat Clear Calc 102.0 Estimated GFR > 60 Random Glucose 101 (60-115) mg/dL Calcium 8.8 (8.4-10.2) mg/dL Magnesium 1.7 (1.6-2.6) mg/dL Total Bilirubin 31.3 H (0.0-1.0) mg/dL Direct Bilirubin 19.6 H (0.0-0.5) mg/dL AST 301 H (5-31) U/L ALT 47 H (0-31) U/L Alkaline Phosphatase 192 H (39-117) U/L Total Protein 6.9 (6.5-8.0) g/dL Albumin 2.6 L (3.5-5.0) g/dL Lipase 19 (8-78) U/L Urine Color Urine Appearance Urine pH (5.0-9.0) Ur Specific [place] (1.005-1.025) Urine Protein (Neg-Trace) mg/dL Urine Glucose (UA) (Negative) mg/dL Urine Ketones (Negative) mg/dL Urine Blood (Negative) Urine Nitrite (Negative) Ur Leukocyte Esterase (Negative) Urine RBC (0-2) /HPF Urine WBC (0-5) /HPF Ur Squamous Epith Cells (0-2) /HPF Other Crystals Urine Bacteria (None Seen) Hyaline Casts (0-2) /LPF Peritoneal WBC X10*3/uL Peritoneal RBC X10*6/uL [place] Neutrophils % [place]iton Lymphocytes % Peritoneal Monocytes % Peritoneal Basophils % Peritoneal Other Cells % Urine Opiates Screen (Not Detect) Urine Fentanyl Screen (Not Detect) Ur Barbiturates Screen (Not Detect) Ur Phencyclidine Scrn (Not Detect) Ur Amphetamines Screen (Not Detect) U Benzodiazepines Scrn (Not Detect) Urine Cocaine Screen (Not Detect) U Marijuana (THC) Screen (Not Detect) Ethyl Alcohol < 10 mg/dL 06/26/23 06/26/23 06/26/23 Range/Units 21:03 21:03 23:57 WBC (4.8-10.8) X10*3/uL RBC (4.20-5.50) X10*6/uL Hgb (12.0-16.0) g/dl Hct (37.0-47.0) % MCV (80.0-98.0) fL MCH (27.0-33.0) pg MCHC (31.0-35.0) g/dl RDW (11.0-16.0) % Plt Count (160-400) X10*3/uL MPV (9.4-12.3) fL Immature Gran % (Auto) Neut % (Auto) Lymph % (Auto) [place] % (Auto) Eos % (Auto) Baso % (Auto) Lymph # (Auto) [place] # (Auto) Eos # (Auto) Baso # (Auto) Abs Immat Gran (auto) Absolute Neuts (auto) Absolute Nucleated RBC (0.0-0.012) X10*3/uL Nucleated RBC % (auto) (0.0-0.2) /100WBC Neutrophils % (Manual) (45-73) % Band Neutrophils % (3-5) % Lymphocytes % (Manual) (20-40) % Monocytes % (Manual) (2-11) % Eosinophils % (Manual) (0-4) % Metamyelocytes % % Abs Neuts (Manual) (2.0-8.3) X10*3/uL Lymphocytes # (Manual) (1.2-4.9) X10*3/uL Monocytes # (Manual) (0.1-1.2) X10*3/uL Eosinophils # (Manual) (0.0-0.4) X10*3/uL Metamyelocytes # X10*3/uL Platelet Estimate (NORMAL) Plt Morphology Comment RBC Morphology Acanthocytes (Spur) /OIF PT (10.0-13.1) SEC INR (0.9-1.1) APTT (26.0-36.4) SEC Sodium (135-145) mmol/L Potassium (3.3-5.1) mmol/L Chloride (96-108) mmol/L Carbon Dioxide (22-29) mmol/L Anion Gap (12-20) BUN (9-16) mg/dL Creatinine (0.5-1.4) mg/dL Estim Creat Clear Calc Estimated GFR Random Glucose (60-115) mg/dL Calcium (8.4-10.2) mg/dL Magnesium (1.6-2.6) mg/dL Total Bilirubin (0.0-1.0) mg/dL Direct Bilirubin (0.0-0.5) mg/dL AST (5-31) U/L ALT (0-31) U/L Alkaline Phosphatase (39-117) U/L Total Protein (6.5-8.0) g/dL Albumin (3.5-5.0) g/dL Lipase (8-78) U/L Urine Color Dark Yellow Urine Appearance Cloudy Urine pH 6.5 (5.0-9.0) Ur Specific [place] 1.020 (1.005-1.025) Urine Protein 30 (1+) H (Neg-Trace) mg/dL Urine Glucose (UA) Negative (Negative) mg/dL Urine Ketones Negative (Negative) mg/dL Urine Blood Negative (Negative) Urine Nitrite Positive H (Negative) Ur Leukocyte Esterase Moderate (2+) H (Negative) Urine RBC 11-20 H (0-2) /HPF Urine WBC 6-10 H (0-5) /HPF Ur Squamous Epith Cells 11-20 (0-2) /HPF Other Crystals Present Urine Bacteria 4+ (None Seen) Hyaline Casts 0-2 (0-2) /LPF Peritoneal WBC 0.046 X10*3/uL Peritoneal RBC < 0.002 X10*6/uL [place] Neutrophils 10 % Periton Lymphocytes 13 % Peritoneal Monocytes 32 % Peritoneal Basophils 1 % Peritoneal Other Cells 44 % Urine Opiates Screen Not Detected (Not Detect) Urine Fentanyl Screen Not Detected (Not Detect) Ur Barbiturates Screen Not Detected (Not Detect) Ur Phencyclidine Scrn Not Detected (Not Detect) Ur Amphetamines Screen Not Detected (Not Detect) U Benzodiazepines Scrn Not Detected (Not Detect) Urine Cocaine Screen Not Detected (Not Detect) U Marijuana (THC) Screen POSITIVE H (Not Detect) Ethyl Alcohol mg/dL Medications Administered Generic Name Dose Route Start Last Admin Trade Name Freq PRN Reason Stop Dose Admin Albumin Human 100 mls @ 100 mls/hr 12/28/22 00:30 12/28/22 01:08 Kedbumin 25 % IV 12/28/22 02:29 100 mls/hr Q1H DAI Administration Discontinued Medications Generic Name Dose Route Start Last Admin Trade Name Freq PRN Reason Stop Dose Admin Sodium Chloride 1,000 mls @ 999 mls/hr 12/28/22 00:30 12/28/22 01:10 Ns IV 12/28/22 01:30 999 mls/hr .Q1H1M DAI Administration Lidocaine HCl 5 ml 12/27/22 23:07 12/28/22 00:25 Lidocaine Hcl 1 % Mpf 5 Ml Vial INFILTRATI 12/27/22 23:08 5 ml ONCE ONE Administration Discharge Plan Discharge Clinical Impression: Abdominal ascites, Transaminitis Patient Disposition: Admitted As Inpatient
[2022-12-27 20:07] LABS: Hematocrit 29.4 % (37.0-47.0); Mean Corpuscular Hemoglobin 33.8 pg (27.0-33.0); Mean Corpuscular Volume 99.3 fL (80.0-98.0); NRBC Pct Auto 0.1 /100WBC (0.0-0.2); Platelet Count 232 X10*3/uL (160-400); Red Blood Count 2.96 X10*6/uL (4.20-5.50); Red Cell Distribution Width 20.5 % (11.0-16.0); White Blood Count 15.4 X10*3/uL (4.8-10.8)
[2022-12-27 20:26] LABS: INTERNATIONAL NORM RATIO 1.9 (0.9-1.1); Prothrombin Time 22.3 SEC (10.0-13.1)
[2022-12-27 20:28] LABS: Partial Thromboplastin Time 34.5 SEC (26.0-36.4)
[2022-12-27 21:00] LABS: Alanine Aminotransferase 47 U/L (0-31); Albumin Level 2.6 g/dL (3.5-5.0); Alkaline Phosphatase 192 U/L (39-117); Anion Gap 13 (12-20); Aspartate Amino Transferase 301 U/L (5-31); Bilirubin Total 31.3 mg/dL (0.0-1.0); Blood Urea Nitrogen 7 mg/dL (9-16); Calcium 8.8 mg/dL (8.4-10.2); Carbon Dioxide 18 mmol/L (22-29); Chloride 103 mmol/L (96-108); Estimated Glomerular Filt Rate > 60; Ethanol < 10 mg/dL; Glucose Random 101 mg/dL (60-115); Lipase 19 U/L (8-78); Magnesium 1.7 mg/dL (1.6-2.6); Sodium 130 mmol/L (135-145); Total Protein 6.9 g/dL (6.5-8.0)
[2022-12-27 21:08] VITALS: BP 114/76; PULSE 101; RESP 17; TEMP 37; O2SAT 98
[2022-12-27 21:25] LABS: Bilirubin Direct 19.6 mg/dL (0.0-0.5)
[2022-12-27 21:25] LABS: Amphetamine Screen Urine Not Detected (Not Detect); Barbiturates, Urine Not Detected (Not Detect); Benzodiazepines Screen Urine Not Detected (Not Detect); Cannabinoid Screen Urine POSITIVE (Not Detect); Cocaine Screen Urine Not Detected (Not Detect); Fentanyl, urine Not Detected (Not Detect); Opiate Screen Urine Not Detected (Not Detect); Phencyclidine Screen Urine Not Detected (Not Detect)
[2022-12-27 21:29] LABS: Acanthocytes 2+ (3-5) /OIF; Band Neutrophils Percent 5 % (3-5); Eosinophils Absolute Manual 0.2 X10*3/uL (0.0-0.4); Eosinophils Percent Manual 1 % (0-4); Lymphocytes Absolute Manual 1.5 X10*3/uL (1.2-4.9); Lymphocytes Percent Manual 10 % (20-40); Metamyelocytes Absolute 0.2 X10*3/uL; Metamyelocytes Percent 1 %; Monocytes Absolute Manual 1.1 X10*3/uL (0.1-1.2); Monocytes Percent Manual 7 % (2-11); Neutrophils Absolute Manual 12.5 X10*3/uL (2.0-8.3); Neutrophils Percent Manual 76 % (45-73)
[2022-12-27 21:30] LABS: RBC Morphology NOTED
[2022-12-27 21:31] LABS: Platelet Estimate NORMAL (NORMAL); Platelet Morphology Comment NORMAL
[2022-12-27 21:33] LABS: Appearance Urine Cloudy; Color Urine Dark Yellow; Glucose Urine UA Negative (Negative); Leukocyte Esterase Urine Moderate (2+) (Negative); Nitrite Urine Positive (Negative); PH 6.5 (5.0-9.0); UMIC TRIGGER UACC YES; Urine Blood Negative (Negative); Urine Ketones Negative (Negative); Urine Protein 30 (1+) mg/dL (Neg-Trace)
[2022-12-27 21:57] VITALS: BP 106/62; PULSE 100; RESP 21; TEMP 36.9; O2SAT 95
[2022-12-27 21:57] LABS: Bacteria Urine 4+ (None Seen); Hyaline Casts Urine 0-2 /LPF (0-2); UACC Culture Trigger YES
[2022-12-27 21:58] LABS: Other Crystals Urine Present
[2022-12-27 23:50] VITALS: BP 112/72; PULSE 93; RESP 16; O2SAT 96
--- NOTE | 2022-12-27 23:59 | MHC.EDTECH ---
This tech assumed care of patient at 2300, Patient had a paracentesis done,sent diagnostic labs per Adria Mack taken after bottle they are wnl. RN aware. Patient is resting comfortably in stretcher call martinez is within reach
[2022-12-28] VITALS (7 sets, daily range): BP systolic 97–120; BP diastolic 57–75; PULSE 97–103; RESP 18–26; TEMP 36.3–37.3; O2SAT 94–97; BMI 24.5; BMI 23.3
[2022-12-28 00:22] LABS: MN% 90.9 %; PMN% 9.1 %; WBC Peritoneal Fluid 0.046 X10*3/uL
[2022-12-28] MEDS: Lidocaine HCl 1 % MPF 5 ML VIAL INFILTRATI (00:25)
[2022-12-28 00:26] LABS: RBC Peritoneal Fluid < 0.002 X10*6/uL
[2022-12-28 00:28] LABS: BF Shift QC OK YES; Man Diluent Bkgrd OK YES
[2022-12-28 00:47] LABS: Basophils Peritoneal Fl 1 %; Lymphocyte Peritoneal Fl 13 %; Monocytes Peritoneal Fl 32 %; Neutrophils Peritoneal Fluid 10 %
[2022-12-28 00:48] LABS: Other Peritioneal Fl 44 %
[2022-12-28] MEDS: Albumin Human 25 % 100 ML IV ×2 (01:08→02:40)
[2022-12-28] MEDS: 0.9 % Sodium Chloride 1,000 ML 999 ML IV (01:10)
[2022-12-28 02:40] LABS: Ammonia 26 umol/L (13-55)
[2022-12-28] MEDS: Lactulose 20 GM/30 ML SOLUTION 30 GM PO ×3 (02:41→14:26)
[2022-12-28] MEDS: Enoxaparin Sodium 40 MG/0.4 ML SYRINGE SUBCUT ×2 (02:45→20:21)
[2022-12-28] MEDS: prednisoLONE sodium phosphate 15 MG/5 ML SOLUTION 40 MG PO (03:18)
[2022-12-28 05:16] LABS: Glucose Peritoneal Fluid 20 MG/DL
[2022-12-28 05:28] LABS: LDH Peritoneal Fluid < 10 U/L
[2022-12-28 06:02] LABS: Hematocrit 23.9 % (37.0-47.0); Hemoglobin 8.4 g/dl (12.0-16.0); Mean Corpuscular HGB Conc 35.1 g/dl (31.0-35.0); Mean Corpuscular Hemoglobin 34.9 pg (27.0-33.0); Mean Corpuscular Volume 99.2 fL (80.0-98.0); Mean Platelet Volume 9.9 fL (9.4-12.3); Platelet Count 199 X10*3/uL (160-400); Red Blood Count 2.41 X10*6/uL (4.20-5.50); Red Cell Distribution Width 20.2 % (11.0-16.0); White Blood Count 12.8 X10*3/uL (4.8-10.8)
[2022-12-28 06:21] LABS: Anion Gap 12 (12-20); Blood Urea Nitrogen 6 mg/dL (9-16); Calcium 8.5 mg/dL (8.4-10.2); Carbon Dioxide 18 mmol/L (22-29); Chloride 106 mmol/L (96-108); Estimated Glomerular Filt Rate > 60; Glucose Random 109 mg/dL (60-115); Potassium 3.4 mmol/L (3.3-5.1); Sodium 133 mmol/L (135-145)
--- NOTE | 2022-12-28 06:38 | PM.IMHP ---
History of Present Illness Date of Service: 12/28/22 Chief Complaint: Abdominal pain and distension This is a 42-year-old female past medical history of alcoholic liver cirrhosis and alcohol abuse, hypertension presents the hospital with complaints of abdominal distension and significant pain. Patient also reports that she noticed her color yellowing. Patient has not been able to get an appointment with a internet marketing analyst and would like further management. Patient denies any confusion, no fever no chills, no chest pain, some shortness of breath, no urinary symptoms and no current lower extremity edema. On arrival to the ED patient noted to have a heart rate of 108, otherwise stable Labs are significant for WBC count of 15.4, hemoglobin of 10, hematocrit 29.4, PT of 22.3, INR of 1.9, sodium of 130, bilirubin of 31.3, direct of 19.6, AST of 3 1, ALT of 47, alk-phos of 192, albumin of 2.6, Urine is positive for leukocyte Estrace, nitrites, and WBC, Patient reports that her last drink was about 2 weeks ago. Diagnostic paracentesis was done in the ED and shows no evidence of SBP Review of Systems Review of Systems: Yes all other systems are reviewed and are negative [facility] Medical History Alcohol use disorder Alcoholic cirrhosis of liver Hypertension Family History Father Bile duct cancer Mother Breast cancer Social History Household Members: Family Housing: House Alcohol intake: former Patient Tobacco Use Status: Never used Tobacco Smoked in Last 30 Days: No Use of substances other than those prescribed or required for medical reasons: No Substance Use Type: Marijuana Advance Directives: No Advance Directives Information Provided: No Patient : No service: No Current occupational status: employed 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[employer] Meds Allergies Allergy/AdvReac Type Severity Reaction Status Date / Time No Known Allergies Allergy Verified 12/27/22 19:28 [No Known Allergies*] Active Medications: Current Medications Enoxaparin Sodium (Enoxaparin Sodium 40 Mg/0.4 Ml Syringe) 40 mg SUBCUT BEDTIME DAI Last Admin: 12/28/22 02:45 Dose: 40 mg Guaifenesin/Dextromethorphan (Guaifenesin Dm 100/10/5 Ml 5 Ml Syrup) 5 ml PO Q4H PRN PRN Reason: cough Ceftriaxone Sodium 1 gm/ (Sodium Chloride) 50 mls @ 100 mls/hr IV BEDTIME [facility] Lactulose (Lactulose 20 Gm/30 Ml Solution) 30 gm PO TID [facility] Last Admin: 12/28/22 02:41 Dose: 30 gm Ondansetron HCl (Ondansetron Hcl 4 Mg/2 Ml Vial) 4 mg IVPUSH Q8H PRN PRN Reason: Nausea and Vomiting Oxycodone HCl (Oxycodone Hcl Immed Release 5 Mg Tablet) 5 mg PO Q6H PRN PRN Reason: Pain, Severe (Pain Scale 7-10) Prednisolone Sodium Phosphate (Prednisolone Sodium Phosphate 15 Mg/5 Ml Solution) 40 mg PO DAILY [facility] Last Admin: 12/28/22 03:18 Dose: 40 mg Sodium Chloride (0.9 % Sodium Chloride Flush 3 Ml Syringe) 3 ml IVFLUSH QSHIFT [facility] Home Medications Medication Instructions Recorded Confirmed Last Taken Type amlodipine 10 mg tablet 10 mg PO DAILY 06/09/21 12/28/22 1 Day Ago History ~12/27/22 omeprazole 20 mg capsule,delayed 20 mg PO DAILY PRN Heartburn 10/05/21 12/28/22 1 Day Ago History release ~12/27/22 multivitamin 1 tab PO DAILY 10/09/22 12/28/22 1 Month Ago History ~09/08/22 Physical Exam Vital Signs and Narrative: Vital Signs: Last Vital Signs Temp 98.6 F 12/28/22 02:05 Pulse 101 H 12/28/22 04:06 Resp 18 12/28/22 04:06 BP 112/74 12/28/22 04:06 Pulse Ox 97 12/28/22 04:06 O2 Del Method Room Air 12/28/22 04:06 BMI result Body Mass Index 22.3 Const: General: cooperative and no acute distress Orientation/consciousness: patient oriented x3 Eyes: Pupils: Equal, round and reactive pupils present Resp: Effort & Inspection: normal respiratory effort Cardio: Rate: regular rate Rhythm: regular rhythm GI: Other: Abdomen is hard, 3+ distension, diffusely tender to palpation Skin: General skin exam: no rashes or lesions noted Neuro: General: patient oriented x3 Cranial nerves: Yes Equal, round and reactive pupils present Cognition (Neuro): normal cognition Extrem: General: Yes normal to inspection and Yes no pedal edema Results Labs 12/28/22 05:28 12/28/22 05:28 Labs: Laboratory Results - last 24 hr 12/27/22 12/27/22 12/27/22 19:54 19:54 19:54 MCV 99.3 H MCH 33.8 H MCHC 34.0 RDW 20.5 H Plt Count 232 D MPV 10.0 Immature Gran % (Auto) Cancelled Neut % (Auto) Cancelled Lymph % (Auto) Cancelled Alcorn % (Auto) Cancelled Eos % (Auto) Cancelled Baso % (Auto) Cancelled Lymph # (Auto) Cancelled Alcorn # (Auto) Cancelled Eos # (Auto) Cancelled Baso # (Auto) Cancelled Abs Immat Gran (auto) Cancelled Absolute Neuts (auto) Cancelled Absolute Nucleated RBC 0.020 H Nucleated RBC % (auto) 0.1 Neutrophils % (Manual) 76 H Band Neutrophils % 5 Lymphocytes % (Manual) 10 L Monocytes % (Manual) 7 Eosinophils % (Manual) 1 Metamyelocytes % 1 Abs Neuts (Manual) 12.5 H Lymphocytes # (Manual) 1.5 Monocytes # (Manual) 1.1 Eosinophils # (Manual) 0.2 Metamyelocytes # 0.2 Platelet Estimate NORMAL Plt Morphology Comment NORMAL RBC Morphology NOTED Acanthocytes (Spur) 2+ (3-5) PT 22.3 H INR 1.9 H APTT 34.5 Anion Gap 13 Estim Creat Clear Calc 102.0 Estimated GFR > 60 Random Glucose 101 Calcium 8.8 Magnesium 1.7 Total Bilirubin 31.3 H Direct Bilirubin 19.6 H AST 301 H ALT 47 H Alkaline Phosphatase 192 H Ammonia Total Protein 6.9 Albumin 2.6 L Lipase 19 Urine Color Urine Appearance Urine pH Ur Specific [place] Urine Protein Urine Glucose (UA) Urine Ketones Urine Blood Urine Nitrite Ur Leukocyte Esterase Urine RBC Urine WBC Ur Squamous Epith Cells Other Crystals Urine Bacteria Hyaline Casts Peritoneal WBC Peritoneal RBC Periton Neutrophils Periton Lymphocytes Peritoneal Monocytes Peritoneal Basophils Peritoneal Other Cells Peritoneal LDH Peritoneal Glucose Urine Opiates Screen Urine Fentanyl Screen Ur Barbiturates Screen Ur Phencyclidine Scrn Ur Amphetamines Screen U Benzodiazepines Scrn Urine Cocaine Screen U Marijuana (THC) Screen Ethyl Alcohol < 10 12/27/22 12/27/22 12/27/22 21:03 21:03 23:57 MCV MCH MCHC RDW Plt Count MPV Immature Gran % (Auto) Neut % (Auto) Lymph % (Auto) Alcorn % (Auto) Eos % (Auto) Baso % (Auto) Lymph # (Auto) [place]corn # (Auto) Eos # (Auto) Baso # (Auto) Abs Immat Gran (auto) Absolute Neuts (auto) Absolute Nucleated RBC Nucleated RBC % (auto) Neutrophils % (Manual) Band Neutrophils % Lymphocytes % (Manual) Monocytes % (Manual) Eosinophils % (Manual) Metamyelocytes % Abs Neuts (Manual) Lymphocytes # (Manual) Monocytes # (Manual) Eosinophils # (Manual) Metamyelocytes # Platelet Estimate Plt Morphology Comment RBC Morphology Acanthocytes (Spur) PT INR APTT Anion Gap Estim Creat Clear Calc Estimated GFR Random Glucose Calcium Magnesium Total Bilirubin Direct Bilirubin AST ALT Alkaline Phosphatase Ammonia Total Protein Albumin Lipase Urine Color Dark Yellow Urine Appearance Cloudy Urine pH 6.5 Ur Specific [place] 1.020 Urine Protein 30 (1+) H Urine Glucose (UA) Negative Urine Ketones Negative Urine Blood Negative Urine Nitrite Positive H Ur Leukocyte Esterase Moderate (2+) H Urine RBC 11-20 H Urine WBC 6-10 H Ur Squamous Epith Cells 11-20 Other Crystals Present Urine Bacteria 4+ Hyaline Casts 0-2 Peritoneal WBC 0.046 Peritoneal RBC < 0.002 Periton Neutrophils 10 Periton Lymphocytes 13 Peritoneal Monocytes 32 Peritoneal Basophils 1 Peritoneal Other Cells 44 Peritoneal LDH Peritoneal Glucose Urine Opiates Screen Not Detected Urine Fentanyl Screen Not Detected Ur Barbiturates Screen Not Detected Ur Phencyclidine Scrn Not Detected Ur Amphetamines Screen Not Detected U Benzodiazepines Scrn Not Detected Urine Cocaine Screen Not Detected U Marijuana (THC) Screen POSITIVE H Ethyl Alcohol 12/27/22 12/28/22 12/28/22 23:57 02:16 05:28 MCV 99.2 H MCH 34.9 H MCHC 35.1 H RDW 20.2 H Plt Count 199 MPV 9.9 Immature Gran % (Auto) Cancelled Neut % (Auto) Cancelled Lymph % (Auto) Cancelled Alcorn % (Auto) Cancelled Eos % (Auto) Cancelled Baso % (Auto) Cancelled Lymph # (Auto) Cancelled [place]corn # (Auto) Cancelled Eos # (Auto) Cancelled Baso # (Auto) Cancelled Abs Immat Gran (auto) Cancelled Absolute Neuts (auto) Cancelled Absolute Nucleated RBC 0.000 Nucleated RBC % (auto) 0.0 Neutrophils % (Manual) Band Neutrophils % Lymphocytes % (Manual) Monocytes % (Manual) Eosinophils % (Manual) Metamyelocytes % Abs Neuts (Manual) Lymphocytes # (Manual) Monocytes # (Manual) Eosinophils # (Manual) Metamyelocytes # Platelet Estimate Plt Morphology Comment RBC Morphology Acanthocytes (Spur) PT INR APTT Anion Gap Estim Creat Clear Calc Estimated GFR Random Glucose Calcium Magnesium Total Bilirubin Direct Bilirubin AST ALT Alkaline Phosphatase Ammonia 26 Total Protein Albumin Lipase Urine Color Urine Appearance Urine pH Ur Specific [place] Urine Protein Urine Glucose (UA) Urine Ketones Urine Blood Urine Nitrite Ur Leukocyte Esterase Urine RBC Urine WBC Ur Squamous Epith Cells Other Crystals Urine Bacteria Hyaline Casts Peritoneal WBC Peritoneal RBC Periton Neutrophils Periton Lymphocytes Peritoneal Monocytes Peritoneal Basophils Peritoneal Other Cells Peritoneal LDH < 10 Peritoneal Glucose 20 Urine Opiates Screen Urine Fentanyl Screen Ur Barbiturates Screen Ur Phencyclidine Scrn Ur Amphetamines Screen U Benzodiazepines Scrn Urine Cocaine Screen U Marijuana (THC) Screen Ethyl Alcohol 12/28/22 05:28 MCV MCH MCHC RDW Plt Count MPV Immature Gran % (Auto) Neut % (Auto) Lymph % (Auto) [place] % (Auto) Eos % (Auto) Baso % (Auto) Lymph # (Auto) [place] # (Auto) Eos # (Auto) Baso # (Auto) Abs Immat Gran (auto) Absolute Neuts (auto) Absolute Nucleated RBC Nucleated RBC % (auto) Neutrophils % (Manual) Band Neutrophils % Lymphocytes % (Manual) Monocytes % (Manual) Eosinophils % (Manual) Metamyelocytes % Abs Neuts (Manual) Lymphocytes # (Manual) Monocytes # (Manual) Eosinophils # (Manual) Metamyelocytes # Platelet Estimate Plt Morphology Comment RBC Morphology Acanthocytes (Spur) PT INR APTT Anion Gap 12 Estim Creat Clear Calc 102.0 Estimated GFR > 60 Random Glucose 109 Calcium 8.5 Magnesium Total Bilirubin Direct Bilirubin AST ALT Alkaline Phosphatase Ammonia Total Protein Albumin Lipase Urine Color Urine Appearance Urine pH Ur Specific [place] Urine Protein Urine Glucose (UA) Urine Ketones Urine Blood Urine Nitrite Ur Leukocyte Esterase Urine RBC Urine WBC Ur Squamous Epith Cells Other Crystals Urine Bacteria Hyaline Casts Peritoneal WBC Peritoneal RBC Periton Neutrophils Periton Lymphocytes Peritoneal Monocytes Peritoneal Basophils Peritoneal Other Cells Peritoneal LDH Peritoneal Glucose Urine Opiates Screen Urine Fentanyl Screen Ur Barbiturates Screen Ur Phencyclidine Scrn Ur Amphetamines Screen U Benzodiazepines Scrn Urine Cocaine Screen U Marijuana (THC) Screen Ethyl Alcohol Imaging Radiologist's Impressions: Impressions Abdomen Ultrasound 12/27/22 22:36 IMPRESSION: 1. There is hepatomegaly. 2. There is generalized increase in hepatic echotexture, consistent with fatty infiltration or hepatocellular disease. Please correlate clinically. No focal hepatic mass or intrahepatic biliary dilatation is seen. 3. There is moderate ascites. 4. Gallbladder wall thickening is likely a sequela of ascites. No cholelithiasis is seen. No sonographic Corea's sign is reported. Assessment and Plan (1) Acute alcoholic hepatitis: Status: Acute (2) Abdominal ascites: Status: Acute (3) Alcohol use disorder: Status: Acute Plan Patient is a 42-year-old female with history of alcohol abuse presents the hospital with abdominal pain and ascites # acute alcoholic hepatitis - child Morin score of 12, MELD-NA of 30 - will start her on oral prednisolone - gastroenterology consulted - at this time no concern for SBP # abdominal ascites/pain - likely secondary to alcoholic liver cirrhosis - patient had diagnostic paracentesis in the ED with no evidence of SBP - at this time will consult IR for further therapeutic paracentesis # history of alcohol abuse - last drink 2 weeks ago, - not in alcohol withdrawal - continue folic acid and thiamine # acute UTI - positive UA - will treat with IV antibiotics - follow cultures DVT prophylaxis: Lovenox Time Spent With Patient Time: Total time managing care of this patient today ____ minutes. Quality Stroke Does the patient have a stroke diagnosis?: No VTE Prior VTE?: No VTE Risk Level:: Medical - moderate - high VTE Device Contraindication: Treatment Not Indicated VTE Drug Contraindication: N/A - Med Ordered
[2022-12-28 06:50] LABS: Band Neutrophils Percent 5 % (3-5); Basophils Abs Manual 0.4 X10*3/uL (0.0-0.2); Basophils Percent Manual 3 % (0-2); Lymphocytes Absolute Manual 0.5 X10*3/uL (1.2-4.9); Lymphocytes Percent Manual 4 % (20-40); Metamyelocytes Absolute 0.1 X10*3/uL; Metamyelocytes Percent 1 %; Monocytes Absolute Manual 0.3 X10*3/uL (0.1-1.2); Monocytes Percent Manual 2 % (2-11); Neutrophils Absolute Manual 11.5 X10*3/uL (2.0-8.3); Neutrophils Percent Manual 85 % (45-73)
[2022-12-28 07:03] LABS: Acanthocytes 1+ (0-2) /OIF; Platelet Estimate NORMAL (NORMAL); Platelet Morphology Comment NORMAL; Polychromasia 1+ (0-2) /OIF; RBC Morphology NOTED; Target Cells 1+ (5-14) /OIF
--- NOTE | 2022-12-28 07:20 | PC.NURSE ---
pt alert and oriented, pt states she feels very anxious and is requesting ativan to calm her nerves, will tigertext provider.
--- NOTE | 2022-12-28 07:32 | PC.NURSE ---
pt's stomach is jaundice in color, tender to the touch and abdominal distention noted.
--- NOTE | 2022-12-28 07:43 | PC.NURSE ---
messaged provider on tigertext requesting ativan per patient request, CIWA scale done - pt scored an 8, heart rate is 103.
--- NOTE | 2022-12-28 07:50 | MHC.CM.PN ---
Met with patient in regards to discharge planning. Patient lives with her and kids, ambulates independently and had no services prior to coming to the hospital. No services anticipated to be needed because patient is not homebound. Patient has a history of alcohol abuse. Not actively using. PCP verified. HCP completed, signed and witnessed. Original given to patient. Copy placed in chart. Patient received 3 Moderna vaccines. Patient's will transport her home when medically stable. Continue to monitor for d/c needs.
[2022-12-28] MEDS: LORazepam 2 MG/ML VIAL 1 MG IVPUSH (08:43)
[2022-12-28] MEDS: amLODIPine Besylate 10 MG TABLET PO (08:43)
[2022-12-28] MEDS: Potassium Chloride Packet 20 MEQ PACKET PO (08:43)
[2022-12-28] MEDS: Phytonadione (Vit K1) Oral 10 MG/ML AMPUL PO (08:43)
[2022-12-28] MEDS: Multivitamin TABLET 1 TAB PO (08:43)
[2022-12-28] MEDS: Thiamine HCL 100 MG TABLET PO (08:43)
[2022-12-28] MEDS: Folic Acid 1 MG TABLET PO (08:43)
[2022-12-28] MEDS: 0.9 % Sodium Chloride Flush 3 ML SYRINGE IVFLUSH ×3 (08:44→20:31)
--- NOTE | 2022-12-28 08:46 | PC.NURSE ---
pt medicated per order, report called to floor
--- NOTE | 2022-12-28 09:44 | P.CNGI_ITS ---
History of Present Illness Data of Consult Service Date: 12/28/22 Requesting physician: Benedict Wells Primary Care Provider: Ralph Claudio III, MD HPI Reason for consult: ascites ?42-year-old female past medical history of alcoholic liver cirrhosis and alcohol abuse, hypertension who I am seeing for ascites and decompensated cirrhosis. She initially presented with complaints of abdominal distension and diffuse abdominal pain worse with movement, without any relieving factors.? Seh also noted increasing jaundice for last few weeks. Patient denies fever, no chills, no chest pain, some shortness of breath, no urinary symptoms and no leg swelling. Last alcohol drink was several vodkas 2 weeks ago She has been commenced on pred 40 mg due ot high MELD score and concern for alcoholic hepatitis LABS: WBC: 15.4, hemoglobin of 10, hematocrit 29.4, PT of 22.3, INR of 1.9, sodium: 130, bilirubin of 31.3, direct of 19.6, AST of 3 1, ALT of 47, alk-phos of 192, albumin of 2.6, Urine: positive for leukocyte Estrace, nitrites, and WBC, Ascitic fluid: neg for SBP Last viral serologies few months ago neg for Hep A, B and C . Imaging: CT and US: hepatomegaly, ascites, distended thickened GB Review of Systems Review of Systems: Constitutional : No Weight loss, No Fever, No Chills ENT/Mouth : No sore throat, No Rhinorrhea Eyes: No Swelling, No Redness Cardiovascular : No Chest Pain, No SOB, No Edema Respiratory : No Cough, No Sputum, No Wheezing Gastrointestinal : see HPI Genitourinary : NO Dysuria, No Urinary Frequency, No Hematuria, No Urgency Musculoskeletal : No joint pain, No Myalgias, No Joint Swelling Skin : No Skin Lesions, No rash Neuro : No Weakness, No Numbness, No Dizziness, No Headache Psych : No Anxiety/Panic, No Depression Heme/Lymph: No Bruising, No Lymphadenopathy Endocrine : No Polyuria, No Polydipsia All other systems reviewed and are negative. 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[employer] Meds Allergies Allergy/AdvReac Type Severity Reaction Status Date / Time No Known Allergies Allergy Verified 12/27/22 19:28 [No Known Allergies*] Active Medications: Current Medications Amlodipine Besylate (Amlodipine Besylate 10 Mg Tablet) 10 mg PO DAILY DAI; Protocol Last Admin: 12/28/22 08:43 Dose: 10 mg Enoxaparin Sodium (Enoxaparin Sodium 40 Mg/0.4 Ml Syringe) 40 mg SUBCUT BEDTIME DAI Last Admin: 12/28/22 02:45 Dose: 40 mg Folic Acid (Folic Acid 1 Mg Tablet) 1 mg PO DAILY DAI Last Admin: 12/28/22 08:43 Dose: 1 mg Guaifenesin/Dextromethorphan (Guaifenesin Dm 100/10/5 Ml 5 Ml Syrup) 5 ml PO Q4H PRN PRN Reason: cough Ceftriaxone Sodium 1 gm/ (Sodium Chloride) 50 mls @ 100 mls/hr IV BEDTIME DAI Lactulose (Lactulose 20 Gm/30 Ml Solution) 30 gm PO TID DAI Last Admin: 12/28/22 08:43 Dose: 30 gm Lorazepam (Lorazepam 2 Mg/Ml Vial) 1 mg IVPUSH Q4H PRN PRN Reason: CIWA 8+ Last Admin: 12/28/22 08:43 Dose: 1 mg Multivitamins/Vitamin C (Multivitamin Tablet) 1 tab PO DAILY DAI Last Admin: 12/28/22 08:43 Dose: 1 tab Omeprazole (Omeprazole 20 Mg Capsule.Dr) 20 mg PO DAILY PRN PRN Reason: Heartburn Ondansetron HCl (Ondansetron Hcl 4 Mg/2 Ml Vial) 4 mg IVPUSH Q8H PRN PRN Reason: Nausea and Vomiting Oxycodone HCl (Oxycodone Hcl Immed Release 5 Mg Tablet) 5 mg PO Q6H PRN PRN Reason: Pain, Severe (Pain Scale 7-10) Potassium Chloride (Potassium Chloride Packet 20 Meq Packet) 20 meq PO DAILY [facility] Last Admin: 12/28/22 08:43 Dose: 20 meq Prednisolone Sodium Phosphate (Prednisolone Sodium Phosphate 15 Mg/5 Ml Solu tion) 40 mg PO DAILY [facility] Last Admin: 12/28/22 03:18 Dose: 40 mg Sodium Chloride (0.9 % Sodium Chloride Flush 3 Ml Syringe) 3 ml IVFLUSH QSHIFT [facility] Last Admin: 12/28/22 08:44 Dose: 3 ml Thiamine HCl (Thiamine Hcl 100 Mg Tablet) 100 mg PO DAILY [facility] Last Admin: 12/28/22 08:43 Dose: 100 mg Home Medications Medication Instructions Recorded Confirmed Last Taken Type amlodipine 10 mg tablet 10 mg PO DAILY 06/09/21 12/28/22 1 Day Ago History ~12/27/22 omeprazole 20 mg capsule,delayed 20 mg PO DAILY PRN Heartburn 10/05/21 12/28/22 1 Day Ago History release ~12/27/22 multivitamin 1 tab PO DAILY 10/09/22 12/28/22 1 Month Ago History ~09/08/22 Physical Exam Vital Signs: Vital Signs: Last Vital Signs Temp 97.8 F 12/28/22 09:14 Pulse 101 H 12/28/22 09:14 Resp 18 12/28/22 09:14 BP 115/68 12/28/22 09:14 Pulse Ox 96 12/28/22 09:14 O2 Del Method Room Air 12/28/22 09:14 BMI result Body Mass Index 23.3 Const: General: cooperative, no acute distress, alert and awake Nutritional Appearance: well nourished Orientation/consciousness: patient oriented x3 HEENT: Head: Yes normocephalic and Yes atraumatic Eyes: Eyelids: Yes eyelids normal Conjunctivae: conjunctivae normal Sclerae: scleral abnormal (Bilateral scleral icterus) Corneas: corneas normal Pupils: Equal, round and reactive pupils present EOM: EOMs intact bilaterally Neck: Neck: Yes full ROM Resp: Effort & Inspection: normal respiratory effort, able to speak in complete sentences, no audible wheezes and not labored Auscultation: clear to auscultation bilaterally Cardio: Rate: regular rate Rhythm: regular rhythm GI: Other: Abdomen is hard, 3+ distension, diffusely tender to palpation Inspection: Yes distended Palpation (GI): Soft to palpation, Tenderness to palpation present (GI), no guarding, not rigid and Ascites present (Moderate ascites) Skin: Other: Significant jaundice General skin exam: no rashes or lesions noted and jaundice Neuro: General: patient oriented x3 Cranial nerves: Yes Equal, round and reactive pupils present and Yes Bilaterally intact EOM present Cognition (Neuro): normal cognition Extrem: Other: Moving all extremities well without any obvious deformities General: Yes normal to inspection and Yes no pedal edema Psych: Appearance: grossly normal Results Labs 12/28/22 05:28 12/28/22 05:28 Labs: Short CBC 12/27/22 12/28/22 Range/Units 19:54 05:28 WBC 15.4 H 12.8 H (4.8-10.8) X10*3/uL Hgb 10.0 L D 8.4 L (12.0-16.0) g/dl Hct 29.4 L D 23.9 L (37.0-47.0) % Plt Count 232 D 199 (160-400) X10*3/uL BMP 12/27/22 12/28/22 19:54 05:28 Sodium 130 L 133 L Potassium 4.0 D 3.4 Chloride 103 D 106 Carbon Dioxide 18 L 18 L BUN 7 L 6 L Creatinine 0.62 0.62 Calcium 8.8 8.5 Liver Function 12/27/22 Range/Units 19:54 Total Bilirubin 31.3 H (0.0-1.0) mg/dL Direct Bilirubin 19.6 H (0.0-0.5) mg/dL AST 301 H (5-31) U/L ALT 47 H (0-31) U/L Alkaline Phosphatase 192 H (39-117) U/L Albumin 2.6 L (3.5-5.0) g/dL Urine 12/27/22 Range/Units 21:03 Urine Color Dark Yellow Urine Appearance Cloudy Urine pH 6.5 (5.0-9.0) Ur Specific [place] 1.020 (1.005-1.025) Urine Protein 30 (1+) H (Neg-Trace) mg/dL Urine Glucose (UA) Negative (Negative) mg/dL Imaging CT scan - abdomen: Attestation: I personally reviewed and interpreted this imaging study as follows: (hepatomegaly, ascites ) Assessment and Plan (1) Acute alcoholic hepatitis: Status: Acute (2) Abdominal ascites: Status: Acute (3) Alcohol use disorder: Status: Acute Plan A/P: 1/Acute alcoholic hepatitis with decompensated cirrhosis complicated by ascites--Maddrey score; 80-indicates poor prognosis 2/ ascites, no evidence of SBP 3/ anemia, related to 3/ or malnutrition, hypersplenism from portal HTN or from zhieves syndrome from alcohlic hepatitis -no overt GI bleeding at this time, 4/ alcohol abuse PLAN 1/ Check labs for secondary causes of liver disease e.g AIH, hemochromatosis, viral liver disease etc 2/ cont with steorids, PO 40 mg prednisone steroids associated with improved outcomes at 28 d not necessarily at 90 days stop if any sign of infection 3/ high protein and calorie diet may be the most beneficial thing in breaking the inflammatory cycle- 1-1.5 g/kg protein and 30-40 kcal/kg body weight--good outcomes at 1 yr --also with steroids on board increased musc breakdown and catabolism 4/ check zinc level and replace if low, check iron level, b12, folic acid 5/ mutlivitamins and CIWA scoring 6/ AsciteS: can commence low dose lasxi 20 mg and aldactone 50 mg and titrate based on response, lo salt diet 7/ egd , possibly colonoscopy this admission or as o/p depending on clinical course including for variceal assessment 8/ hold beta blockers for the moment 9/ agree with psych eval Time Spent With Patient Time: Total time managing care of this patient today ____ minutes. Procedures Date of Service Date of Service: 12/28/22
--- NOTE | 2022-12-28 11:02 | PM.EVENT ---
Event Note Date of Service: 12/28/22 Event Note: S Sm amt of BRBPR with straining; no melena or hematemesis Anxious Jaundiced Last EtOH 2 wk ago Abd sore O VS- T 97.8, P 101, BP 115/68, R 18, SaO2 96 on RA gen- chronically ill-appearing HEENT- scleral icterus, moist mucus membranes neck- supple lungs- CTAB CV- RRR no m/r/g abd- tense with ascites ext- no edema neuro- no asterixis psych- appopriate affect labs- Hb 10->8.4, Na 133 A/P d#1 42yo F with EtOH cirrhosis presenting with worsening abd distension + jaundice # acute EtOH hepatitis - MDF 74, on d#2 of prednisolone, GI consultation - hepatitis serologies pending, also ordered US abd doppler # ascites - diagnostic tap [700 mL in ED 12/27/22] with no evidence of SBP - therapeutic tap ordered, also started spironolactone + furosemide - on ceftriaxone for UTI which should cover for SBP prophylaxis as well - low-sodium diet # coagulopathy due to cirrhosis - give 10 mg vit K PO, recheck INR # anemia - due to cirrhosis, check FOBT + monitor CBC # UTI - ceftriaxone d#1, follow UCx # AUD - thiamine, folate, Addiction Medicine consult # HTN - amlodipine # VTE ppx: SCDs # dispo: eventual home Time Spent With Patient Time: Total time managing care of this patient today ____ minutes.
[2022-12-28] MEDS: Spironolactone 25 MG TABLET 50 MG PO (11:37)
[2022-12-28] MEDS: Furosemide 20 MG TABLET PO (11:37)
--- NOTE | 2022-12-28 14:24 | MHC.RECOVRN ---
This continuity writer met with patient after addiction consult received. Addiction/Recovery team familiar with patient. Pt was awake, resting in bed, pt jaundice, laying on side. Pt reports last drank ETOH 2 weeks [employer]. Pt has hx of ETOH misuse. Pt reports no cravings past 2 weeks, pt states disgusted with ETOH , wants to remain abstinent. Pt reports is in recovery, pt reports attends meetings several times weekly, pt reports sometimes attends meetings. This continuity writer and patient reviewed recovery resources, [facility]. Pt interested in [facility], pt interested in outpatient appt at [facility]. Vidya Walden Provider aware. This continuity writer to schedule [facility] appt as a part of pts d/c plan. This continuity writer reviewed recovery supports, resource folder left at bedside, pt agreeable to review supports.
--- NOTE | 2022-12-28 15:21 | PC.NURSE ---
Patient noted to have small amount of bright red blood in stool. Stool watery, yellow brown. Unable to collect occult d/t urine contamination. Per patient this was happening at home too. Dr. Oneil made aware. No new orders.
[2022-12-28] MEDS: Lidocaine HCl 1 % MPF 5 ML VIAL 10 ML SUBCUT (16:30)
[2022-12-28] MEDS: Omeprazole 20 MG CAPSULE.DR PO (17:54)
[2022-12-28] MEDS: guaiFENesin DM 100/10/5 ML 5 ML SYRUP PO (18:03)
[2022-12-28 19:49] LABS: OBS Int Ctl Valid YES; OBS1 POSITIVE (NEGATIVE)
[2022-12-28] MEDS: cefTRIAXone sodium 1 GM in 0.9 % Sodium Chloride 50 ML IV (20:21)
[2022-12-29 03:23] VITALS: BP 102/64; PULSE 100; RESP 16; TEMP 36.7; O2SAT 99
[2022-12-29 05:02] LABS: HBS Num1 > 1000.00 mIU/mL (0-7.99); HBsAGNum1 0.35 S/CO (0.00-0.99); Hepatitis A Antibody IgM 0.24 Index (0-0.79); Hepatitis B Core Antibody Nonreactive (Nonreactive); Hepatitis B Surface Antigen Negative (Negative); ~Hepatitis A Antibody IgM Nonreactive (Nonreactive); ~Hepatitis B Surface Antibody REACTIVE (Nonreactive); ~Hepatitis C Antibody Nonreactive (Nonreactive)
[2022-12-29] MEDS: guaiFENesin DM 100/10/5 ML 5 ML SYRUP PO ×2 (06:11→21:45)
[2022-12-29 06:21] LABS: Hematocrit 25.5 % (37.0-47.0); Hemoglobin 8.8 g/dl (12.0-16.0); Mean Corpuscular HGB Conc 34.5 g/dl (31.0-35.0); Mean Corpuscular Hemoglobin 34.9 pg (27.0-33.0); Mean Corpuscular Volume 101.2 fL (80.0-98.0); Mean Platelet Volume 10.3 fL (9.4-12.3); NRBC Pct Auto 0.1 /100WBC (0.0-0.2); Platelet Count 240 X10*3/uL (160-400); Red Blood Count 2.52 X10*6/uL (4.20-5.50); Red Cell Distribution Width 20.8 % (11.0-16.0); White Blood Count 17.8 X10*3/uL (4.8-10.8)
[2022-12-29 06:27] LABS: Prothrombin Time 23.9 SEC (10.0-13.1)
[2022-12-29 06:37] LABS: Alanine Aminotransferase 38 U/L (0-31); Albumin Level 2.7 g/dL (3.5-5.0); Alkaline Phosphatase 162 U/L (39-117); Anion Gap 12 (12-20); Aspartate Amino Transferase 169 U/L (5-31); Blood Urea Nitrogen 8 mg/dL (9-16); Calcium 8.6 mg/dL (8.4-10.2); Carbon Dioxide 18 mmol/L (22-29); Chloride 109 mmol/L (96-108); Creatinine Clr Calc Pharmacy 103.7; Estimated Glomerular Filt Rate > 60; Glucose Random 93 mg/dL (60-115); Iron 79 mcg/dL (30-160); Percent Iron Saturation 64 % (15-50); Potassium 3.1 mmol/L (3.3-5.1); Sodium 136 mmol/L (135-145); Total Iron Binding Capacity 124 mcg/dL (228-428); Total Protein 6.1 g/dL (6.5-8.0); Unsaturated Iron Binding 45 ug/dL
[2022-12-29 06:56] LABS: Ferritin 384 ng/mL (10-250)
[2022-12-29 07:10] LABS: Folate 8.1 ng/mL (> or = 4.0); Vitamin B12 1972 pg/mL (200-900)
[2022-12-29 07:32] VITALS: BP 117/64; PULSE 95; RESP 16; TEMP 36.6; O2SAT 97
[2022-12-29 08:22] LABS: Magnesium 1.7 mg/dL (1.6-2.6)
[2022-12-29] MEDS: Potassium Chloride Packet 20 MEQ PACKET 40 MEQ PO (08:37)
[2022-12-29] MEDS: amLODIPine Besylate 10 MG TABLET PO (08:38)
[2022-12-29] MEDS: Multivitamin TABLET 1 TAB PO (08:38)
[2022-12-29] MEDS: Spironolactone 25 MG TABLET 50 MG PO (08:38)
[2022-12-29] MEDS: Furosemide 20 MG TABLET PO (08:38)
[2022-12-29] MEDS: Thiamine HCL 100 MG TABLET PO (08:39)
[2022-12-29] MEDS: 0.9 % Sodium Chloride Flush 3 ML SYRINGE IVFLUSH ×2 (08:39→15:57)
[2022-12-29] MEDS: prednisoLONE sodium phosphate 15 MG/5 ML SOLUTION 40 MG PO (08:39)
[2022-12-29] MEDS: Folic Acid 1 MG TABLET PO (08:39)
--- NOTE | 2022-12-29 09:58 | HO.PM.IMPN ---
Subjective Subjective Date of Service: 12/29/22 Interval History: therapeutic paracentesis done yesterday, 1.2L fluid removed abd less distended, feels better committed to sobriety constipation resolved Review of Systems Review of Systems: Yes all other systems are reviewed and are negative Physical Exam Vital Signs: Vital Signs: Last Vital Signs Temp 97.9 F 12/29/22 07:32 Pulse 95 12/29/22 07:32 Resp 16 12/29/22 07:32 BP 117/64 12/29/22 07:32 Pulse Ox 97 12/29/22 07:32 O2 Del Method Room Air 12/29/22 07:32 BMI result Body Mass Index 23.3 gen- chronically ill-appearing HEENT- scleral icterus, moist mucus membranes neck- supple lungs- CTAB CV- RRR no m/r/g abd- soft, some residual ascites, paracentesis site without leakage ext- no edema neuro- no asterixis psych- appropriate affect Objective Data Active Medications Amlodipine Besylate (Amlodipine Besylate 10 Mg Tablet) 10 mg PO DAILY [facility]; Protocol Last Admin: 12/29/22 08:38 Dose: 10 mg Documented By: LUCA Enoxaparin Sodium (Enoxaparin Sodium 40 Mg/0.4 Ml Syringe) 40 mg SUBCUT BEDTIME DAI Last Admin: 12/28/22 20:21 Dose: 40 mg Documented By: NAIN Folic Acid (Folic Acid 1 Mg Tablet) 1 mg PO DAILY [facility] Last Admin: 12/29/22 08:39 Dose: 1 mg Documented By: LUCA Furosemide (Furosemide 20 Mg Tablet) 20 mg PO DAILY [facility]; Protocol Last Admin: 12/29/22 08:38 Dose: 20 mg Documented By: LUCA Guaifenesin/Dextromethorphan (Guaifenesin Dm 100/10/5 Ml 5 Ml Syrup) 5 ml PO Q4H PRN PRN Reason: cough Last Admin: 12/29/22 06:11 Dose: 5 ml Documented By: NAIN Ceftriaxone Sodium 1 gm/ (Sodium Chloride) 50 mls @ 100 mls/hr IV BEDTIME [facility] Last Infusion: 12/28/22 21:19 Dose: 0 mls/hr Documented By: NAIN Lactulose (Lactulose 20 Gm/30 Ml Solution) 30 gm PO TID [facility] Last Admin: 12/29/22 08:37 Dose: Not Given Documented By: LUCA Non-Admin Reason: pt refused/multiple bowel movements Lorazepam (Lorazepam 2 Mg/Ml Vial) 1 mg IVPUSH Q4H PRN PRN Reason: CIWA 8+ Last Admin: 12/28/22 08:43 Dose: 1 mg Documented By: KONG Multivitamins/Vitamin C (Multivitamin Tablet) 1 tab PO DAILY [facility] Last Admin: 12/29/22 08:38 Dose: 1 tab Documented By: LUCA Omeprazole (Omeprazole 20 Mg Capsule.Dr) 20 mg PO DAILY PRN PRN Reason: Heartburn Last Admin: 12/28/22 17:54 Dose: 20 mg Documented By: BIANCA Ondansetron HCl (Ondansetron Hcl 4 Mg/2 Ml Vial) 4 mg IVPUSH Q8H PRN PRN Reason: Nausea and Vomiting Oxycodone HCl (Oxycodone Hcl Immed Release 5 Mg Tablet) 5 mg PO Q6H PRN PRN Reason: Pain, Severe (Pain Scale 7-10) Potassium Chloride (Potassium Chloride Packet 20 Meq Packet) 20 meq PO DAILY [facility] Last Admin: 12/29/22 08:39 Dose: Not Given Documented By: LUCA Non-Admin Reason: Duplicate Order Prednisolone Sodium Phosphate (Prednisolone Sodium Phosphate 15 Mg/5 Ml Solution) 40 mg PO DAILY [facility] Last Admin: 12/29/22 08:39 Dose: 40 mg Documented By: LUCA Sodium Chloride (0.9 % Sodium Chloride Flush 3 Ml Syringe) 3 ml [facility] Last Admin: 12/29/22 08:39 Dose: 3 ml Documented By: LUCA Spironolactone (Spironolactone 25 Mg Tablet) 50 mg PO DAILY [facility]; Protocol Last Admin: 12/29/22 08:38 Dose: 50 mg Documented By: LUCA Thiamine HCl (Thiamine Hcl 100 Mg Tablet) 100 mg PO DAILY [facility] Last Admin: 12/29/22 08:39 Dose: 100 mg Documented By: LUCA Labs 12/29/22 05:32 12/29/22 05:32 Labs: Laboratory Results - last 24 hr 12/27/22 12/28/22 12/29/22 19:54 17:57 05:32 MCV 101.2 H MCH 34.9 H MCHC 34.5 RDW 20.8 H Plt Count 240 MPV 10.3 Absolute Nucleated RBC 0.020 H Nucleated RBC % (auto) 0.1 PT INR Anion Gap Estim Creat Clear Calc Estimated GFR Random Glucose Calcium Magnesium Iron TIBC % Saturation Unsat Iron Binding Ferritin Total Bilirubin AST ALT Alkaline Phosphatase Total Protein Albumin Vitamin B12 Folate Stool Occult Blood POSITIVE Hepatitis A IgM Ab Nonreactive Hep Bs Antigen Negative Hep Bs Antibody REACTIVE Hep B Core Total Ab Nonreactive Hepatitis C Ab (EIA) Nonreactive 12/29/22 12/29/22 12/29/22 05:32 05:32 05:32 MCV MCH MCHC RDW Plt Count MPV Absolute Nucleated RBC Nucleated RBC % (auto) PT 23.9 H INR 2.0 H Anion Gap 12 Estim Creat Clear Calc 103.7 Estimated GFR > 60 Random Glucose 93 Calcium 8.6 Magnesium 1.7 Iron 79 TIBC 124 L % Saturation 64 H Unsat Iron Binding 45 Ferritin 384 H Total Bilirubin 24.0 H AST 169 H ALT 38 H Alkaline Phosphatase 162 H Total Protein 6.1 L Albumin 2.7 L Vitamin B12 Folate Stool Occult Blood Hepatitis A IgM Ab Hep Bs Antigen Hep Bs Antibody Hep B Core Total Ab Hepatitis C Ab (EIA) 12/29/22 05:32 MCV MCH MCHC RDW Plt Count MPV Absolute Nucleated RBC Nucleated RBC % (auto) PT INR Anion Gap Estim Creat Clear Calc Estimated GFR Random Glucose Calcium Magnesium Iron TIBC % Saturation Unsat Iron Binding Ferritin Total Bilirubin AST ALT Alkaline Phosphatase Total Protein Albumin Vitamin B12 1972 H Folate 8.1 Stool Occult Blood Hepatitis A IgM Ab Hep Bs Antigen Hep Bs Antibody Hep B Core Total Ab Hepatitis C Ab (EIA) Microbiology Microbiology Results: Microbiology 12/27/22 Unknown Urine Culture - Final Urine clean catch - Urine vieyra top Escherichia coli 12/27/22 23:57 Gram Stain - Final Peritoneal Fluid Anaerobic Culture - Preliminary No growth to date. Body Fluid Culture - Preliminary No growth to date. Assessment and Plan (1) Hyperbilirubinemia: Status: Acute (2) Acute alcoholic hepatitis: Status: Acute Plan d#2 42yo F with EtOH cirrhosis presenting with worsening abd distension + jaundice # acute EtOH hepatitis - MDF 74, on d#09/28 of prednisolone, GI following - HCV negative, HBV immune, autoimmune serologies pending # ascites - diagnostic tap [700 mL in ED 12/27/22] with no evidence of SBP. therapeutic tap done 12/28/22 with 1200 mL removed - started spironolactone + furosemide - on ceftriaxone for UTI which should cover for SBP prophylaxis as well - low-sodium diet # coagulopathy - due to cirrhosis # anemia - due to cirrhosis. FOBT+. monitor CBC. may need inpt EGD for variceal screening. # UTI, E coli quinolone-resistant - ceftriaxone d#08/10 # AUD - thiamine, folate, Addiction Medicine consult # HTN - amlodipine # VTE ppx: SCDs # dispo: eventual home In my clinical judgment, the patient requires continued inpatient hospitalization for the following reasons: liver failure Time Spent With Patient Time: Total time managing care of this patient today _40___ minutes. Quality Stroke Does the patient have a stroke diagnosis?: No VTE Prior VTE?: No VTE Risk Level:: Medical - moderate - high VTE Device Contraindication: Treatment Not Indicated VTE Drug Contraindication: N/A - Med Ordered
--- NOTE | 2022-12-29 15:28 | MHC.RECOVRN ---
Met with pt in 361 to follow up and provide support. Pt sitting in bed, awake, alert, easily engages in conversation. Pt tearful at times during conversation, reports having fear related to current health issues. Pt is open to recovery supports, states I'll do anything. Pt reports is in recovery and is supportive. Discussed recovery analyst as additional support person, pt interested. Pt continues to be interested in [facility], states whatever will help. Plan to place recovery analyst referral and continue to follow. Discussed with Vidya Walden APRN.
[2022-12-29 15:46] VITALS: BP 109/69; PULSE 111; RESP 18; TEMP 36.3; O2SAT 96
[2022-12-29] MEDS: Lactulose 20 GM/30 ML SOLUTION 30 GM PO ×2 (15:55→21:32)
[2022-12-29] MEDS: hydrOXYzine HCL 50 MG TABLET PO (15:55)
[2022-12-29 20:00] VITALS: BP 113/76; PULSE 99; RESP 18; TEMP 36.6; O2SAT 96
[2022-12-29] MEDS: Enoxaparin Sodium 40 MG/0.4 ML SYRINGE SUBCUT (21:32)
[2022-12-29] MEDS: cefTRIAXone sodium 1 GM in 0.9 % Sodium Chloride 50 ML IV (21:36)
[2022-12-29] MEDS: Zolpidem Tartrate 5 MG TABLET PO (22:16)
[2022-12-30 04:00] VITALS: BP 112/58; PULSE 84; RESP 20; TEMP 36.4; O2SAT 98
[2022-12-30 06:10] LABS: Hematocrit 26.9 % (37.0-47.0); Mean Corpuscular HGB Conc 33.5 g/dl (31.0-35.0); Mean Corpuscular Hemoglobin 34.1 pg (27.0-33.0); Mean Corpuscular Volume 101.9 fL (80.0-98.0); Mean Platelet Volume 10.1 fL (9.4-12.3); NRBC Pct Auto 0.1 /100WBC (0.0-0.2); Platelet Count 208 X10*3/uL (160-400); Red Blood Count 2.64 X10*6/uL (4.20-5.50); Red Cell Distribution Width 21.2 % (11.0-16.0); White Blood Count 18.3 X10*3/uL (4.8-10.8)
[2022-12-30 06:29] LABS: Alanine Aminotransferase 42 U/L (0-31); Albumin Level 2.7 g/dL (3.5-5.0); Alkaline Phosphatase 158 U/L (39-117); Anion Gap 13 (12-20); Aspartate Amino Transferase 175 U/L (5-31); Bilirubin Total 19.1 mg/dL (0.0-1.0); Blood Urea Nitrogen 10 mg/dL (9-16); Carbon Dioxide 19 mmol/L (22-29); Chloride 107 mmol/L (96-108); Creatinine Clr Calc Pharmacy 109.1; Estimated Glomerular Filt Rate > 60; Glucose Random 93 mg/dL (60-115); Magnesium 1.8 mg/dL (1.6-2.6); Potassium 3.5 mmol/L (3.3-5.1); Sodium 135 mmol/L (135-145); Total Protein 6.2 g/dL (6.5-8.0)
[2022-12-30 08:00] VITALS: BP 110/80; PULSE 90; RESP 18; TEMP 36.2; O2SAT 96
--- NOTE | 2022-12-30 09:31 | P.PNIM_ITS ---
Subjective Subjective Date of Service: 12/30/22 Interval History: jaundiced abd distension improved BRBPR, no melena Review of Systems Review of Systems: Yes all other systems are reviewed and are negative Physical Exam Vital Signs: Vital Signs: Last Vital Signs Temp 97.1 F 12/30/22 08:00 Pulse 90 12/30/22 08:00 Resp 18 12/30/22 08:00 BP 110/80 12/30/22 08:00 Pulse Ox 96 12/30/22 08:00 O2 Del Method Room Air 12/30/22 08:00 BMI result Body Mass Index 23.3 gen- NAD HEENT- scleral icterus, moist mucus membranes neck- supple lungs- CTAB CV- RRR no m/r/g abd- soft, some residual ascites, paracentesis site without leakage ext- no edema derm- jaundiced neuro- no asterixis psych- appropriate affect Objective Data Active Medications Amlodipine Besylate (Amlodipine Besylate 10 Mg Tablet) 10 mg PO DAILY [facility]; Protocol Last Admin: 12/29/22 08:38 Dose: 10 mg Documented By: LUCA Enoxaparin Sodium (Enoxaparin Sodium 40 Mg/0.4 Ml Syringe) 40 mg SUBCUT BEDTIME DAI Last Admin: 12/29/22 21:32 Dose: 40 mg Documented By: LIBIA Folic Acid (Folic Acid 1 Mg Tablet) 1 mg PO DAILY [facility] Last Admin: 12/29/22 08:39 Dose: 1 mg Documented By: LUCA Furosemide (Furosemide 20 Mg Tablet) 20 mg PO DAILY [facility]; Protocol Last Admin: 12/29/22 08:38 Dose: 20 mg Documented By: LUCA Guaifenesin/Dextromethorphan (Guaifenesin Dm 100/10/5 Ml 5 Ml Syrup) 5 ml PO Q4H PRN PRN Reason: cough Last Admin: 12/29/22 21:45 Dose: 5 ml Documented By: LIBIA Hydroxyzine HCl (Hydroxyzine Hcl 50 Mg Tablet) 50 mg PO Q6H PRN PRN Reason: anxiety Last Admin: 12/29/22 15:55 Dose: 50 mg Documented By: LUCA Ceftriaxone Sodium 1 gm/ (Sodium Chloride) 50 mls @ 100 mls/hr IV BEDTIME DAI Last Infusion: 12/29/22 22:16 Dose: 0 mls/hr Documented By: LIBIA Lactulose (Lactulose 20 Gm/30 Ml Solution) 30 gm PO TID [facility] Last Admin: 12/29/22 21:32 Dose: 30 gm Documented By: LIBIA Lorazepam (Lorazepam 2 Mg/Ml Vial) 1 mg IVPUSH Q4H PRN PRN Reason: CIWA 8+ Last Admin: 12/28/22 08:43 Dose: 1 mg Documented By: KONG Multivitamins/Vitamin C (Multivitamin Tablet) 1 tab PO DAILY [facility] Last Admin: 12/29/22 08:38 Dose: 1 tab Documented By: LUCA Omeprazole (Omeprazole 20 Mg Capsule.Dr) 20 mg PO DAILY PRN PRN Reason: Heartburn Last Admin: 12/28/22 17:54 Dose: 20 mg Documented By: BIANCA Ondansetron HCl (Ondansetron Hcl 4 Mg/2 Ml Vial) 4 mg IVPUSH Q8H PRN PRN Reason: Nausea and Vomiting Oxycodone HCl (Oxycodone Hcl Immed Release 5 Mg Tablet) 5 mg PO Q6H PRN PRN Reason: Pain, Severe (Pain Scale 7-10) Polyethylene Glycol/Electrolytes (Peg 3350/Na Sulf,Bicarb,Cl/Kcl 4,000 Ml Soln.Recon) 4,000 ml PO ONCE ONE Stop: 12/30/22 16:01 Potassium Chloride (Potassium Chloride Packet 20 Meq Packet) 20 meq PO DAILY [facility] Last Admin: 12/29/22 08:39 Dose: Not Given Documented By: LUCA Non-Admin Reason: Duplicate Order Prednisolone Sodium Phosphate (Prednisolone Sodium Phosphate 15 Mg/5 Ml Solution) 40 mg PO DAILY [facility] Last Admin: 12/29/22 08:39 Dose: 40 mg Documented By: LUCA Sodium Chloride (0.9 % Sodium Chloride Flush 3 Ml Syringe) 3 ml IVFLUSH QSHIFT [facility] Last Admin: 12/30/22 00:40 Dose: Not Given Documented By: LIBIA Non-Admin Reason: Patient Asleep Spironolactone (Spironolactone 25 Mg Tablet) 50 mg PO DAILY [facility]; Protocol Last Admin: 12/29/22 08:38 Dose: 50 mg Documented By: LUCA Thiamine HCl (Thiamine Hcl 100 Mg Tablet) 100 mg PO DAILY [facility] Last Admin: 12/29/22 08:39 Dose: 100 mg Documented By: LUCA Labs 12/30/22 05:31 12/30/22 05:31 Labs: Laboratory Results - last 24 hr 12/30/22 12/30/22 05:31 05:31 MCV 101.9 H MCH 34.1 H MCHC 33.5 RDW 21.2 H Plt Count 208 MPV 10.1 Absolute Nucleated RBC 0.020 H Nucleated RBC % (auto) 0.1 Anion Gap 13 Estim Creat Clear Calc 109.1 Estimated GFR > 60 Random Glucose 93 Calcium 9.0 Magnesium 1.8 Total Bilirubin 19.1 H AST 175 H ALT 42 H Alkaline Phosphatase 158 H Total Protein 6.2 L Albumin 2.7 L Microbiology Microbiology Results: Microbiology 12/27/22 23:57 Gram Stain - Final Peritoneal Fluid Anaerobic Culture - Preliminary No growth to date. Body Fluid Culture - Final No growth after 2 days 12/27/22 Unknown Urine Culture - Final Urine clean catch - Urine vieyra top Escherichia coli Assessment and Plan (1) Hyperbilirubinemia: Status: Acute (2) Acute alcoholic hepatitis: Status: Acute Plan d#3 42yo F with EtOH cirrhosis presenting with worsening abd distension + jaundice # acute EtOH hepatitis - MDF 74, on d#10/29 of prednisolone 40 mg/d, GI following and will need outpt f/u as well - HCV negative, HBV immune, autoimmune serologies pending # ascites - diagnostic tap [700 mL in ED 12/27/22] with no evidence of SBP. 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 Quality Stroke Does the patient have a stroke diagnosis?: No VTE Prior VTE?: No VTE Risk Level:: Medical - moderate - high VTE Device Contraindication: Treatment Not Indicated VTE Drug Contraindication: N/A - Med Ordered
[2022-12-30] MEDS: Multivitamin TABLET 1 TAB PO (10:14)
[2022-12-30] MEDS: Thiamine HCL 100 MG TABLET PO (10:14)
[2022-12-30] MEDS: Folic Acid 1 MG TABLET PO (10:14)
[2022-12-30] MEDS: amLODIPine Besylate 10 MG TABLET PO (10:15)
[2022-12-30] MEDS: Spironolactone 25 MG TABLET 50 MG PO (10:15)
[2022-12-30] MEDS: Lactulose 20 GM/30 ML SOLUTION 30 GM PO ×3 (10:16→21:12)
[2022-12-30] MEDS: Furosemide 20 MG TABLET PO (10:16)
[2022-12-30] MEDS: prednisoLONE sodium phosphate 15 MG/5 ML SOLUTION 40 MG PO (10:18)
[2022-12-30] MEDS: 0.9 % Sodium Chloride Flush 3 ML SYRINGE IVFLUSH ×3 (10:23→20:28)
[2022-12-30] MEDS: Potassium Chloride Packet 20 MEQ PACKET PO (10:29)
[2022-12-30 15:17] VITALS: BP 104/58; PULSE 106; RESP 18; TEMP 36.3; O2SAT 99
--- NOTE | 2022-12-30 16:09 | P.PNADD_ITS ---
Subjective Subjective Date of Service: 12/30/22 Reason For Visit: acute alcoholic hepatitis Interim History: Patient currently medically admitted with alcohol related liver cirrhosis and as cities. Seen by it infrastructure consultant during this admission, patient verbalized desire to trial medications for AUD as well as access other recovery supports--including a assistant softball coach. Patient has reviewed medication information for [facility]. No questions about medication at this time. Aware of limitations secondary to liver. Guarded when discussing alcohol use--reports she has not had anything to drink in 2 weeks. Longest period in recovery has been one month (aside from time each ) Identifies family and friends and strong supports. Bright affect, reports feeling more like myself . Review of Systems Constitutional: Reports as per HPI Mental Status Exam Mental Status Exam Patient Appearance: Appropriate (jaundiced ) Level of Consciousness: Awake and Appropriate Affect Description: Anxious Diagnostics Vital Signs (24Hr): Vital Signs - 24 hr 12/29/22 20:00 12/30/22 04:00 12/30/22 08:00 Temperature 97.8 F 97.6 F 97.1 F Pulse Rate 99 84 90 Respiratory Rate 18 20 18 Blood Pressure 113/76 112/58 L 110/80 Pulse Oximetry 96 98 96 Oxygen Delivery Method Room Air Room Air Room Air 12/30/22 15:17 Temperature 97.3 F Pulse Rate 106 H Respiratory Rate 18 Blood Pressure 104/58 L Pulse Oximetry 99 Oxygen Delivery Method Room Air BMI result Body Mass Index 23.3 Labs 12/30/22 05:31 12/30/22 05:31 Labs: Laboratory Results - last 48 hr 12/27/22 12/28/22 12/29/22 19:54 17:57 05:32 WBC 17.8 H RBC 2.52 L Hgb 8.8 L Hct 25.5 L MCV 101.2 H MCH 34.9 H MCHC 34.5 RDW 20.8 H Plt Count 240 MPV 10.3 Absolute Nucleated RBC 0.020 H Nucleated RBC % (auto) 0.1 PT INR Sodium Potassium Chloride Carbon Dioxide Anion Gap BUN Creatinine Estim Creat Clear Calc Estimated GFR Random Glucose Calcium Magnesium Iron TIBC % Saturation Unsat Iron Binding Ferritin Total Bilirubin AST ALT Alkaline Phosphatase Total Protein Albumin Vitamin B12 Folate Stool Occult Blood POSITIVE Hepatitis A IgM Ab Nonreactive Hep Bs Antigen Negative Hep Bs Antibody REACTIVE Hep B Core Total Ab Nonreactive Hepatitis C Ab (EIA) Nonreactive 12/29/22 12/29/22 12/29/22 05:32 05:32 05:32 WBC RBC Hgb Hct MCV MCH MCHC RDW Plt Count MPV Absolute Nucleated RBC Nucleated RBC % (auto) PT 23.9 H INR 2.0 H Sodium 136 Potassium 3.1 L Chloride 109 H Carbon Dioxide 18 L Anion Gap 12 BUN 8 L Creatinine 0.61 Estim Creat Clear Calc 103.7 Estimated GFR > 60 Random Glucose 93 Calcium 8.6 Magnesium 1.7 Iron 79 TIBC 124 L % Saturation 64 H Unsat Iron Binding 45 Ferritin 384 H Total Bilirubin 24.0 H AST 169 H ALT 38 H Alkaline Phosphatase 162 H Total Protein 6.1 L Albumin 2.7 L Vitamin B12 Folate Stool Occult Blood Hepatitis A IgM Ab Hep Bs Antigen Hep Bs Antibody Hep B Core Total Ab Hepatitis C Ab (EIA) 12/29/22 12/30/22 12/30/22 05:32 05:31 05:31 WBC 18.3 H RBC 2.64 L Hgb 9.0 L Hct 26.9 L MCV 101.9 H MCH 34.1 H MCHC 33.5 RDW 21.2 H Plt Count 208 MPV 10.1 Absolute Nucleated RBC 0.020 H Nucleated RBC % (auto) 0.1 PT INR Sodium 135 Potassium 3.5 Chloride 107 Carbon Dioxide 19 L Anion Gap 13 BUN 10 Creatinine 0.58 Estim Creat Clear Calc 109.1 Estimated GFR > 60 Random Glucose 93 Calcium 9.0 Magnesium 1.8 Iron TIBC % Saturation Unsat Iron Binding Ferritin Total Bilirubin 19.1 H AST 175 H ALT 42 H Alkaline Phosphatase 158 H Total Protein 6.2 L Albumin 2.7 L Vitamin B12 1972 H Folate 8.1 Stool Occult Blood Hepatitis A IgM Ab Hep Bs Antigen Hep Bs Antibody Hep B Core Total Ab Hepatitis C Ab (EIA) Imaging Radiology Impressions: ITS Impressions Abdomen Ultrasound 12/27/22 22:36 IMPRESSION: 1. There is hepatomegaly. 2. There is generalized increase in hepatic echotexture, consistent with fatty infiltration or hepatocellular disease. Please correlate clinically. No focal hepatic mass or intrahepatic biliary dilatation is seen. 3. There is moderate ascites. 4. Gallbladder wall thickening is likely a sequela of ascites. No cholelithiasis is seen. No sonographic Corea's sign is reported. Abdomen/Pelvis CT 12/28/22 07:00 IMPRESSION: 1. Hepatomegaly with hepatic steatosis. 2. Diffuse ascites. 3. No radiopaque urolith or hydroureteronephrosis. Fleischner guidelines were followed. Paracentesis Ultrasound 12/28/22 16:30 IMPRESSION: Successful ultrasound-guided therapeutic paracentesis performed with approximately 1.2 L of greenish/yellowish clear fluid drained. Medications Medications Current Medications Amlodipine Besylate (Amlodipine Besylate 10 Mg Tablet) 10 mg PO DAILY [facility]; Protocol Last Admin: 12/30/22 10:15 Dose: 10 mg Enoxaparin Sodium (Enoxaparin Sodium 40 Mg/0.4 Ml Syringe) 40 mg SUBCUT BEDTIME DAI Last Admin: 12/29/22 21:32 Dose: 40 mg Folic Acid (Folic Acid 1 Mg Tablet) 1 mg PO DAILY [facility] Last Admin: 12/30/22 10:14 Dose: 1 mg Furosemide (Furosemide 20 Mg Tablet) 20 mg PO DAILY [facility]; Protocol Last Admin: 12/30/22 10:16 Dose: 20 mg Guaifenesin/Dextromethorphan (Guaifenesin Dm 100/10/5 Ml 5 Ml Syrup) 5 ml PO Q4H PRN PRN Reason: cough Last Admin: 12/29/22 21:45 Dose: 5 ml Hydroxyzine HCl (Hydroxyzine Hcl 50 Mg Tablet) 50 mg PO Q6H PRN PRN Reason: anxiety Last Admin: 12/29/22 15:55 Dose: 50 mg Ceftriaxone Sodium 1 gm/ (Sodium Chloride) 50 mls @ 100 mls/hr IV BEDTIME DAI Last Infusion: 12/29/22 22:16 Dose: Infused Lactulose (Lactulose 20 Gm/30 Ml Solution) 30 gm PO TID [facility] Last Admin: 12/30/22 15:01 Dose: 30 gm Lorazepam (Lorazepam 2 Mg/Ml Vial) 1 mg IVPUSH Q4H PRN PRN Reason: CIWA 8+ Last Admin: 12/28/22 08:43 Dose: 1 mg Multivitamins/Vitamin C (Multivitamin Tablet) 1 tab PO DAILY [facility] Last Admin: 12/30/22 10:14 Dose: 1 tab Omeprazole (Omeprazole 20 Mg Capsule.Dr) 20 mg PO DAILY PRN PRN Reason: Heartburn Last Admin: 12/28/22 17:54 Dose: 20 mg Ondansetron HCl (Ondansetron Hcl 4 Mg/2 Ml Vial) 4 mg IVPUSH Q8H PRN PRN Reason: Nausea and Vomiting Oxycodone HCl (Oxycodone Hcl Immed Release 5 Mg Tablet) 5 mg PO Q6H PRN PRN Reason: Pain, Severe (Pain Scale 7-10) Potassium Chloride (Potassium Chloride Packet 20 Meq Packet) 20 meq PO DAILY [facility] Last Admin: 12/30/22 10:29 Dose: 20 meq Prednisolone Sodium Phosphate (Prednisolone Sodium Phosphate 15 Mg/5 Ml Solution) 40 mg PO DAILY [facility] Last Admin: 12/30/22 10:18 Dose: 40 mg Sodium Chloride (0.9 % Sodium Chloride Flush 3 Ml Syringe) 3 ml IVFLUSH QSHIFT [facility] Last Admin: 12/30/22 15:02 Dose: 3 ml Spironolactone (Spironolactone 25 Mg Tablet) 50 mg PO DAILY [facility]; Protocol Last Admin: 12/30/22 10:15 Dose: 50 mg Thiamine HCl (Thiamine Hcl 100 Mg Tablet) 100 mg PO DAILY [facility] Last Admin: 12/30/22 10:14 Dose: 100 mg Allergies Allergies Allergy/AdvReac Type Severity Reaction Status Date / Time No Known Allergies Allergy Verified 12/27/22 19:28 [No Known Allergies*] Assessment & Plan Assessment & Plan (1) Alcohol use disorder: Status: Acute Code(s): F10.90 - Alcohol use, unspecified, uncomplicated Assessment and Plan: * Campral prior to discharge --TID * it infrastructure consultant to schedule appt with [facility] Total time managing care of this patient today _30___ minutes.
[2022-12-30] MEDS: PEG 3350/Na Sulf,Bicarb,Cl/KCL 4,000 ML SOLN.RECON 4000 ML PO (16:17)
--- NOTE | 2022-12-30 17:04 | P.CDIM_ITS ---
PROVIDER RESPONSE TEXT: To clarify, the appropriate diagnosis supported by the clinical indicators: Acute on chronic QUERY TEXT: PHYSICIAN'S DOCUMENTATION REQUEST Date of Query: 12/29/2022 01:25 PM EDT Patient Name: Aracelis Calderón Admit Date: 12/28/2022 Dear Devante Oneil, A review of the medical record indicates additional documentation may be needed. Please review below and update the documentation accordingly. Clinical Indicators: Per Hospitalist Progress Note 12/29/22: requires continued inpatient hospitalization for the following reasons: liver failure Clarify which of the following accurately represents the acuity of the Liver Failure. Possible options might include: Acute Acute on chronic Compensated Chronic stable condition Remission Other (explain)Clinically unable to determine (explain)Thank you, Ana Luisa Eldridge RN Use of terms such as suspected, likely, concern for, or probable (associated with a specific diagnosi s that is being evaluated, monitored, or treated as if it exists) are acceptable and can be coded in the inpatient se tting, when documented at the time of discharge. Please use your independent medical judgment in providing your response. THIS QUERY IS PART OF THE PERMANENT MEDICAL RECORD
[2022-12-30 19:11] VITALS: BP 118/73; PULSE 91; RESP 18; TEMP 36; O2SAT 97
[2022-12-30] MEDS: Enoxaparin Sodium 40 MG/0.4 ML SYRINGE SUBCUT (21:13)
[2022-12-30] MEDS: cefTRIAXone sodium 1 GM in 0.9 % Sodium Chloride 50 ML IV (21:15)
--- NOTE | 2022-12-30 21:31 | MHC.RECOVSUP ---
? Reason for consult:ETOH o? Current location:[facility]? o? Identified substance use concern:? -? Support ? Intervention: o? Community resources provided ? Plan:N/A ? Additional information:RC met with this pt, Rc provided pt with recovery resources and business card.
[2022-12-30] MEDS: Zolpidem Tartrate 5 MG TABLET PO (22:23)
[2022-12-31] VITALS (9 sets, daily range): BP systolic 106–122; BP diastolic 62–75; PULSE 60–109; RESP 16–20; TEMP 36.3–37.9; O2SAT 96–100
--- NOTE | 2022-12-31 | ECG_ITS ---
Test Reason : chest pain Blood Pressure : / mmHG Vent. Rate : 094 BPM Atrial Rate : 094 BPM P-R Int : 112 ms QRS Dur : 082 ms QT Int : 364 ms P-R-T Axes : 039 -12 000 degrees QTc Int : 455 ms Normal sinus rhythm Normal ECG When compared with ECG of 05-OCT-2021 15:14, Nonspecific T wave abnormality now evident in Anterior leads Referred By: Benedict Wells Electronically Signed By:Kimo Betts
[2022-12-31 05:25] LABS: Hematocrit 28.3 % (37.0-47.0); Hemoglobin 9.4 g/dl (12.0-16.0); Mean Corpuscular HGB Conc 33.2 g/dl (31.0-35.0); Mean Corpuscular Hemoglobin 34.8 pg (27.0-33.0); Mean Corpuscular Volume 104.8 fL (80.0-98.0); Mean Platelet Volume 9.9 fL (9.4-12.3); Platelet Count 213 X10*3/uL (160-400); Red Cell Distribution Width 20.9 % (11.0-16.0); White Blood Count 18.2 X10*3/uL (4.8-10.8)
[2022-12-31 05:45] LABS: Alanine Aminotransferase 56 U/L (0-31); Alkaline Phosphatase 160 U/L (39-117); Anion Gap 12 (12-20); Aspartate Amino Transferase 286 U/L (5-31); Bilirubin Total 18.2 mg/dL (0.0-1.0); Blood Urea Nitrogen 10 mg/dL (9-16); Calcium 9.4 mg/dL (8.4-10.2); Carbon Dioxide 21 mmol/L (22-29); Chloride 109 mmol/L (96-108); Creatinine Clr Calc Pharmacy 117.1; Estimated Glomerular Filt Rate > 60; Glucose Random 89 mg/dL (60-115); Magnesium 1.8 mg/dL (1.6-2.6); Sodium 138 mmol/L (135-145); Total Protein 6.9 g/dL (6.5-8.0)
[2022-12-31] MEDS: 0.9 % Sodium Chloride Flush 3 ML SYRINGE IVFLUSH ×2 (08:51→17:04)
[2022-12-31] MEDS: amLODIPine Besylate 10 MG TABLET PO (08:52)
[2022-12-31 10:50] LABS: UPreg QC Valid YES; Urine Pregnancy NEGATIVE (NEGATIVE)
--- NOTE | 2022-12-31 12:59 | P.PNIM_ITS ---
Subjective Subjective Date of Service: 12/31/22 Interval History: Seen and evaluated Feels better overall with no reported vomiting or bleeding waiting EGD\colonoscopy No reported overnight events Review of Systems Review of Systems: Yes all other systems are reviewed and are negative Physical Exam Vital Signs: Vital Signs: Last Vital Signs Temp 98.6 F 12/31/22 11:24 Pulse 103 H 12/31/22 11:24 Resp 18 12/31/22 11:24 BP 113/68 12/31/22 11:24 Pulse Ox 98 12/31/22 11:24 O2 Del Method Room Air 12/31/22 11:24 BMI result Body Mass Index 23.3 Const: Other: Constitutional : Awake, interactive, not in distress Neck : Normal inspection, Supple Eyes: jaundiced Cardiovascular : RRR, no JVP, no lower extremity edema Respiratory : good bilateral air entry, no crackles, wheezes or rhonchi Gastrointestinal: soft, lax, Normal bowel sounds, Non tender, mild distention Skin : Warm, Dry Neurological : Alert & oriented x3, No focal deficit Objective Data Active Medications Amlodipine Besylate (Amlodipine Besylate 10 Mg Tablet) 10 mg PO DAILY [facility]; Protocol Last Admin: 12/31/22 08:52 Dose: 10 mg Documented By: SHELLIE Enoxaparin Sodium (Enoxaparin Sodium 40 Mg/0.4 Ml Syringe) 40 mg SUBCUT BEDTIME DAI Last Admin: 12/30/22 21:13 Dose: 40 mg Documented By: LIBIA Folic Acid (Folic Acid 1 Mg Tablet) 1 mg PO DAILY DAI Last Admin: 12/31/22 08:52 Dose: Not Given Documented By: SHELLIE Non-Admin Reason: Physician Held Med Furosemide (Furosemide 20 Mg Tablet) 20 mg PO DAILY DAI; Protocol Last Admin: 12/31/22 08:54 Dose: Not Given Documented By: SHELLIE Non-Admin Reason: Physician Held Med Guaifenesin/Dextromethorphan (Guaifenesin Dm 100/10/5 Ml 5 Ml Syrup) 5 ml PO Q4H PRN PRN Reason: cough Last Admin: 12/29/22 21:45 Dose: 5 ml Documented By: LIBIA Hydroxyzine HCl (Hydroxyzine Hcl 50 Mg Tablet) 50 mg PO Q6H PRN PRN Reason: anxiety Last Admin: 12/29/22 15:55 Dose: 50 mg Documented By: LUCA Ceftriaxone Sodium 1 gm/ (Sodium Chloride) 50 mls @ 100 mls/hr IV BEDTIME [facility] Last Infusion: 12/30/22 22:23 Dose: 0 mls/hr Documented By: LIBIA Lactulose (Lactulose 20 Gm/30 Ml Solution) 30 gm PO TID [facility] Last Admin: 12/31/22 08:54 Dose: Not Given Documented By: SHELLIE Non-Admin Reason: Physician Held Med Lorazepam (Lorazepam 2 Mg/Ml Vial) 1 mg IVPUSH Q4H PRN PRN Reason: CIWA 8+ Last Admin: 12/28/22 08:43 Dose: 1 mg Documented By: KONG Multivitamins/Vitamin C (Multivitamin Tablet) 1 tab PO DAILY [facility] Last Admin: 12/31/22 08:54 Dose: Not Given Documented By: SHELLIE Non-Admin Reason: Physician Held Med Omeprazole (Omeprazole 20 Mg Capsule.) 20 mg PO DAILY PRN PRN Reason: Heartburn Last Admin: 12/28/22 17:54 Dose: 20 mg Documented By: BIANCA Ondansetron HCl (Ondansetron Hcl 4 Mg/2 Ml Vial) 4 mg IVPUSH Q8H PRN PRN Reason: Nausea and Vomiting Ondansetron HCl (Ondansetron Hcl 4 Mg/2 Ml Vial) 4 mg IVPUSH ONCE PRN PRN Reason: Nausea and Vomiting Oxycodone HCl (Oxycodone Hcl Immed Release 5 Mg Tablet) 5 mg PO Q6H PRN PRN Reason: Pain, Severe (Pain Scale 7-10) Potassium Chloride (Potassium Chloride Packet 20 Meq Packet) 20 meq PO DAILY [facility] Last Admin: 12/31/22 08:54 Dose: Not Given Documented By: SHELLIE Non-Admin Reason: Physician Held Med Prednisolone Sodium Phosphate (Prednisolone Sodium Phosphate 15 Mg/5 Ml Soluti on) 40 mg PO DAILY [facility] Last Admin: 12/31/22 08:54 Dose: Not Given Documented By: SHELLIE Non-Admin Reason: Physician Held Med Sodium Chloride (0.9 % Sodium Chloride Flush 3 Ml Syringe) 3 ml IVFLUSH QSHIFT [facility] Last Admin: 12/31/22 08:51 Dose: 3 ml Documented By: SHELLIE Spironolactone (Spironolactone 25 Mg Tablet) 50 mg PO DAILY [facility]; Protocol Last Admin: 12/31/22 08:54 Dose: Not Given Documented By: SHELLIE Non-Admin Reason: Physician Held Med Thiamine HCl (Thiamine Hcl 100 Mg Tablet) 100 mg PO DAILY [facility] Last Admin: 12/31/22 08:55 Dose: Not Given Documented By: SHELLIE Non-Admin Reason: Physician Held Med Labs 12/31/22 05:17 12/31/22 05:17 Labs: Laboratory Results - last 24 hr 12/31/22 12/31/22 12/31/22 05:17 05:17 10:24 MCV 104.8 H MCH 34.8 H MCHC 33.2 RDW 20.9 H Plt Count 213 MPV 9.9 Absolute Nucleated RBC 0.000 Nucleated RBC % (auto) 0.0 Anion Gap 12 Estim Creat Clear Calc 117.1 Estimated GFR > 60 Random Glucose 89 Calcium 9.4 Magnesium 1.8 Total Bilirubin 18.2 H AST 286 H ALT 56 H Alkaline Phosphatase 160 H Total Protein 6.9 Albumin 3.0 L Urine Test NEGATIVE Microbiology Microbiology Results: Microbiology 12/27/22 23:57 Gram Stain - Final Peritoneal Fluid Anaerobic Culture - Preliminary No growth to date. Body Fluid Culture - Final No growth after 2 days Assessment and Plan (1) Hyperbilirubinemia: Status: Acute (2) Acute alcoholic hepatitis: Status: Acute (3) Alcohol use disorder: Status: Acute (4) Abdominal ascites: Status: Acute Plan 42yo F with EtOH cirrhosis presenting with worsening abd distension + jaundice # acute EtOH hepatitis MDF 74, on d#11/28 of prednisolone 40 mg/d, GI following and will need outpt f/u as well HCV negative, HBV immune, autoimmune serologies pending # ascites diagnostic tap [700 mL in ED 12/27/22] with no evidence of SBP. 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 Quality Stroke Does the patient have a stroke diagnosis?: No VTE Prior VTE?: No VTE Risk Level:: Medical - moderate - high VTE Device Contraindication: Treatment Not Indicated VTE Drug Contraindication: N/A - Med Ordered
--- NOTE | 2022-12-31 13:23 | MHC.SHP ---
Pre-Procedural Eval Section A Date of Service: 12/31/22 The patient is an INPATIENT: Yes The History & Physical has been completed within 30 days and I have reviewed it.: Yes Section B Chief Complaint: acute alcoholic hepatitis Allergies: Allergies Allergy/AdvReac Type Severity Reaction Status Date / Time No Known Allergies Allergy Verified 12/27/22 19:28 [No Known Allergies*] Plan Diagnosis/Plan: Unchanged I have reviewed the history and physical and performed a pertinent physical examination on my patient. No changes have occurred unless specified. Time Spent With Patient Time: Total time managing care of this patient today ____ minutes.
--- NOTE | 2022-12-31 13:23 | HO.ANESPROP2 ---
[facility] Active Problems Active Problems: All Active Problems (Updated 12/28/22 @ 06:42 by Benedict Wells MD) Hyperbilirubinemia (Acute) Acute alcoholic hepatitis (Acute) Alcohol use disorder (Acute) Abdominal ascites (Acute) Numbness and tingling in left hand (Acute) Left wrist pain (Acute) Pain of ulnar side of wrist (Acute) Injury of triangular fibrocartilage complex (TFCC) of left wrist (Acute) Alcohol withdrawal (Acute) Transaminitis (Acute) Vomiting (Acute) Sprain of wrist, right (Acute) Rash (Acute) Past Medical History Medical History Alcohol use disorder Alcoholic cirrhosis of liver Hypertension Family History Family History Father Bile duct cancer Mother Breast cancer Family history of problems with anesthesia: No Surgical History History of Problems with Anesthesia: Unobtainable Social History Social History Household Members: Spouse and Children Housing: House Do you presently have visiting nurse or other home services: No Alcohol intake: former Patient Tobacco Use Status: Former Tobacco user Quit Date: 2002 Second Hand Smoke Exposure: No Substance Use Type: Marijuana service: No Current occupational status: employed 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[employer] Meds Allergies Allergy/AdvReac Type Severity Reaction Status Date / Time No Known Allergies Allergy Verified 12/27/22 19:28 [No Known Allergies*] Active Medications: Current Medications Acamprosate (Acamprosate Calcium 333 Mg Tablet.) 333 mg PO TID [facility] Amlodipine Besylate (Amlodipine Besylate 10 Mg Tablet) 10 mg PO DAILY DAI; Protocol Last Admin: 12/31/22 08:52 Dose: 10 mg Enoxaparin Sodium (Enoxaparin Sodium 40 Mg/0.4 Ml Syringe) 40 mg SUBCUT BEDTIME DAI Last Admin: 12/30/22 21:13 Dose: 40 mg Folic Acid (Folic Acid 1 Mg Tablet) 1 mg PO DAILY DAI Last Admin: 12/31/22 08:52 Dose: Not Given Furosemide (Furosemide 20 Mg Tablet) 20 mg PO DAILY DAI; Protocol Last Admin: 12/31/22 08:54 Dose: Not Given Guaifenesin/Dextromethorphan (Guaifenesin Dm 100/10/5 Ml 5 Ml Syrup) 5 ml PO Q4H PRN PRN Reason: cough Last Admin: 12/29/22 21:45 Dose: 5 ml Hydroxyzine HCl (Hydroxyzine Hcl 50 Mg Tablet) 50 mg PO Q6H PRN PRN Reason: anxiety Last Admin: 12/29/22 15:55 Dose: 50 mg Ceftriaxone Sodium 1 gm/ (Sodium Chloride) 50 mls @ 100 mls/hr IV BEDTIME [facility] Last Infusion: 12/30/22 22:23 Dose: Infused Lactulose (Lactulose 20 Gm/30 Ml Solution) 30 gm PO TID [facility] Last Admin: 12/31/22 08:54 Dose: Not Given Lorazepam (Lorazepam 2 Mg/Ml Vial) 1 mg IVPUSH Q4H PRN PRN Reason: CIWA 8+ Last Admin: 12/28/22 08:43 Dose: 1 mg Multivitamins/Vitamin C (Multivitamin Tablet) 1 tab PO DAILY [facility] Last Admin: 12/31/22 08:54 Dose: Not Given Omeprazole (Omeprazole 20 Mg Capsule.Dr) 20 mg PO DAILY PRN PRN Reason: Heartburn Last Admin: 12/28/22 17:54 Dose: 20 mg Ondansetron HCl (Ondansetron Hcl 4 Mg/2 Ml Vial) 4 mg IVPUSH Q8H PRN PRN Reason: Nausea and Vomiting Ondansetron HCl (Ondansetron Hcl 4 Mg/2 Ml Vial) 4 mg IVPUSH ONCE PRN PRN Reason: Nausea and Vomiting Oxycodone HCl (Oxycodone Hcl Immed Release 5 Mg Tablet) 5 mg PO Q6H PRN PRN Reason: Pain, Severe (Pain Scale 7-10) Potassium Chloride (Potassium Chloride Packet 20 Meq Packet) 20 meq PO DAILY [facility] Last Admin: 12/31/22 08:54 Dose: Not Given Prednisolone Sodium Phosphate (Prednisolone Sodium Phosphate 15 Mg/5 Ml Solution) 40 mg PO DAILY [facility] Last Admin: 12/31/22 08:54 Dose: Not Given Sodium Chloride (0.9 % Sodium Chloride Flush 3 Ml Syringe) [facility] Last Admin: 12/31/22 08:51 Dose: 3 ml Spironolactone (Spironolactone 25 Mg Tablet) 50 mg PO DAILY [facility]; Protocol Last Admin: 12/31/22 08:54 Dose: Not Given Thiamine HCl (Thiamine Hcl 100 Mg Tablet) 100 mg PO DAILY [facility] Last Admin: 12/31/22 08:55 Dose: Not Given Home Medications Medication Instructions Recorded Confirmed Last Taken Type amlodipine 10 mg tablet 10 mg PO DAILY 06/09/21 12/28/22 1 Day Ago History ~12/27/22 omeprazole 20 mg capsule,delayed 20 mg PO DAILY PRN Heartburn 10/05/21 12/28/22 1 Day Ago History release ~12/27/22 multivitamin 1 tab PO DAILY 10/09/22 12/28/22 1 Month Ago History ~09/08/22 Exam Exam Date and Time: December 31, 2022 1323 Height,Weight and Vital Signs: Height 5 ft 4 in Weight 61.5 kg Last Vital Signs Temp 98.6 F 12/31/22 11:24 Pulse 103 H 12/31/22 11:24 Resp 18 12/31/22 11:24 BP 113/68 12/31/22 11:24 Pulse Ox 98 12/31/22 11:24 O2 Del Method Room Air 12/31/22 11:24 Pertinent Lab Results Pertinent Lab Results: Laboratory Tests 12/27/22 12/27/22 12/27/22 19:54 19:54 19:54 WBC 15.4 H RBC 2.96 L D Hgb 10.0 L D Hct 29.4 L D MCV 99.3 H MCH 33.8 H MCHC 34.0 RDW 20.5 H Plt Count 232 D MPV 10.0 Immature Gran % (Auto) Cancelled Neut % (Auto) Cancelled Lymph % (Auto) Cancelled Barron % (Auto) Cancelled Eos % (Auto) Cancelled Baso % (Auto) Cancelled Lymph # (Auto) Cancelled Barron # (Auto) Cancelled Eos # (Auto) Cancelled Baso # (Auto) Cancelled Abs Immat Gran (auto) Cancelled Absolute Neuts (auto) Cancelled Absolute Nucleated RBC 0.020 H Nucleated RBC % (auto) 0.1 Neutrophils % (Manual) 76 H Band Neutrophils % 5 Lymphocytes % (Manual) 10 L Monocytes % (Manual) 7 Eosinophils % (Manual) 1 Basophils % (Manual) Metamyelocytes % 1 Abs Neuts (Manual) 12.5 H Lymphocytes # (Manual) 1.5 Monocytes # (Manual) 1.1 Eosinophils # (Manual) 0.2 Basophils # (Manual) Metamyelocytes # 0.2 Platelet Estimate NORMAL Plt Morphology Comment NORMAL RBC Morphology NOTED Polychromasia Target Cells Acanthocytes (Spur) 2+ (3-5) PT 22.3 H INR 1.9 H APTT 34.5 Sodium 130 L Potassium 4.0 D Chloride 103 D Carbon Dioxide 18 L Anion Gap 13 BUN 7 L Creatinine 0.62 Estim Creat Clear Calc 102.0 Estimated GFR > 60 Random Glucose 101 Calcium 8.8 Magnesium 1.7 Iron TIBC % Saturation Unsat Iron Binding Ferritin Total Bilirubin 31.3 H Direct Bilirubin 19.6 H AST 301 H ALT 47 H Alkaline Phosphatase 192 H Ammonia Total Protein 6.9 Albumin 2.6 L Lipase 19 Vitamin B12 Folate Urine Color Urine Appearance Urine pH Ur Specific [place] Urine Protein Urine Glucose (UA) Urine Ketones Urine Blood Urine Nitrite Ur Leukocyte Esterase Urine RBC Urine WBC Ur Squamous Epith Cells Other Crystals Urine Bacteria Hyaline Casts Urine Test Peritoneal WBC Peritoneal RBC Periton Neutrophils Periton Lymphocytes Peritoneal Monocytes Peritoneal Basophils Peritoneal Other Cells Peritoneal LDH Peritoneal Glucose Stool Occult Blood Urine Opiates Screen Urine Fentanyl Screen Ur Barbiturates Screen Ur Phencyclidine Scrn Ur Amphetamines Screen U Benzodiazepines Scrn Urine Cocaine Screen U Marijuana (THC) Screen Ethyl Alcohol < 10 Hepatitis A IgM Ab Hep Bs Antigen Hep Bs Antibody Hep B Core Total Ab Hepatitis C Ab (EIA) 12/27/22 12/27/22 12/27/22 19:54 21:03 21:03 WBC RBC Hgb Hct MCV MCH MCHC RDW Plt Count MPV Immature Gran % (Auto) Neut % (Auto) Lymph % (Auto) Barron % (Auto) Eos % (Auto) Baso % (Auto) Lymph # (Auto) Barron # (Auto) Eos # (Auto) Baso # (Auto) Abs Immat Gran (auto) Absolute Neuts (auto) Absolute Nucleated RBC Nucleated RBC % (auto) Neutrophils % (Manual) Band Neutrophils % Lymphocytes % (Manual) Monocytes % (Manual) Eosinophils % (Manual) Basophils % (Manual) Metamyelocytes % Abs Neuts (Manual) Lymphocytes # (Manual) Monocytes # (Manual) Eosinophils # (Manual) Basophils # (Manual) Metamyelocytes # Platelet Estimate Plt Morphology Comment RBC Morphology Polychromasia Target Cells Acanthocytes (Spur) PT INR APTT Sodium Potassium Chloride Carbon Dioxide Anion Gap BUN Creatinine Estim Creat Clear Calc Estimated GFR Random Glucose Calcium Magnesium Iron TIBC % Saturation Unsat Iron Binding Ferritin Total Bilirubin Direct Bilirubin AST ALT Alkaline Phosphatase Ammonia Total Protein Albumin Lipase Vitamin B12 Folate Urine Color Dark Yellow Urine Appearance Cloudy Urine pH 6.5 Ur Specific [place] 1.020 Urine Protein 30 (1+) H Urine Glucose (UA) Negative Urine Ketones Negative Urine Blood Negative Urine Nitrite Positive H Ur Leukocyte Esterase Moderate (2+) H Urine RBC 11-20 H Urine WBC 6-10 H Ur Squamous Epith Cells 11-20 Other Crystals Present Urine Bacteria 4+ Hyaline Casts 0-2 Urine Test Peritoneal WBC Peritoneal RBC Periton Neutrophils Periton Lymphocytes Peritoneal Monocytes Peritoneal Basophils Peritoneal Other Cells Peritoneal LDH Peritoneal Glucose Stool Occult Blood Urine Opiates Screen Not Detected Urine Fentanyl Screen Not Detected Ur Barbiturates Screen Not Detected Ur Phencyclidine Scrn Not Detected Ur Amphetamines Screen Not Detected U Benzodiazepines Scrn Not Detected Urine Cocaine Screen Not Detected U Marijuana (THC) Screen POSITIVE H Ethyl Alcohol Hepatitis A IgM Ab Nonreactive Hep Bs Antigen Negative Hep Bs Antibody REACTIVE Hep B Core Total Ab Nonreactive Hepatitis C Ab (EIA) Nonreactive 12/27/22 12/27/22 12/28/22 23:57 23:57 02:16 WBC RBC Hgb Hct MCV MCH MCHC RDW Plt Count MPV Immature Gran % (Auto) Neut % (Auto) Lymph % (Auto) Barron % (Auto) Eos % (Auto) Baso % (Auto) Lymph # (Auto) Barron # (Auto) Eos # (Auto) Baso # (Auto) Abs Immat Gran (auto) Absolute Neuts (auto) Absolute Nucleated RBC Nucleated RBC % (auto) Neutrophils % (Manual) Band Neutrophils % Lymphocytes % (Manual) Monocytes % (Manual) Eosinophils % (Manual) Basophils % (Manual) Metamyelocytes % Abs Neuts (Manual) Lymphocytes # (Manual) Monocytes # (Manual) Eosinophils # (Manual) Basophils # (Manual) Metamyelocytes # Platelet Estimate Plt Morphology Comment RBC Morphology Polychromasia Target Cells Acanthocytes (Spur) PT INR APTT Sodium Potassium Chloride Carbon Dioxide Anion Gap BUN Creatinine Estim Creat Clear Calc Estimated GFR Random Glucose Calcium Magnesium Iron TIBC % Saturation Unsat Iron Binding Ferritin Total Bilirubin Direct Bilirubin AST ALT Alkaline Phosphatase Ammonia 26 Total Protein Albumin Lipase Vitamin B12 Folate Urine Color Urine Appearance Urine pH Ur Specific [place] Urine Protein Urine Glucose (UA) Urine Ketones Urine Blood Urine Nitrite Ur Leukocyte Esterase Urine RBC Urine WBC Ur Squamous Epith Cells Other Crystals Urine Bacteria Hyaline Casts Urine Test Peritoneal WBC 0.046 Peritoneal RBC < 0.002 Periton Neutrophils 10 Periton Lymphocytes 13 Peritoneal Monocytes 32 Peritoneal Basophils 1 Peritoneal Other Cells 44 Peritoneal LDH < 10 Peritoneal Glucose 20 Stool Occult Blood Urine Opiates Screen Urine Fentanyl Screen Ur Barbiturates Screen Ur Phencyclidine Scrn Ur Amphetamines Screen U Benzodiazepines Scrn Urine Cocaine Screen U Marijuana (THC) Screen Ethyl Alcohol Hepatitis A IgM Ab Hep Bs Antigen Hep Bs Antibody Hep B Core Total Ab Hepatitis C Ab (EIA) 12/28/22 12/28/22 12/28/22 05:28 05:28 17:57 WBC 12.8 H RBC 2.41 L Hgb 8.4 L Hct 23.9 L MCV 99.2 H MCH 34.9 H MCHC 35.1 H RDW 20.2 H Plt Count 199 MPV 9.9 Immature Gran % (Auto) Cancelled Neut % (Auto) Cancelled Lymph % (Auto) Cancelled Barron % (Auto) Cancelled Eos % (Auto) Cancelled Baso % (Auto) Cancelled Lymph # (Auto) Cancelled Barron # (Auto) Cancelled Eos # (Auto) Cancelled Baso # (Auto) Cancelled Abs Immat Gran (auto) Cancelled Absolute Neuts (auto) Cancelled Absolute Nucleated RBC 0.000 Nucleated RBC % (auto) 0.0 Neutrophils % (Manual) 85 H Band Neutrophils % 5 Lymphocytes % (Manual) 4 L Monocytes % (Manual) 2 Eosinophils % (Manual) Basophils % (Manual) 3 H Metamyelocytes % 1 Abs Neuts (Manual) 11.5 H Lymphocytes # (Manual) 0.5 L Monocytes # (Manual) 0.3 Eosinophils # (Manual) Basophils # (Manual) 0.4 H Metamyelocytes # 0.1 Platelet Estimate NORMAL Plt Morphology Comment NORMAL RBC Morphology NOTED Polychromasia 1+ (0-2) Target Cells 1+ (5-14) Acanthocytes (Spur) 1+ (0-2) PT INR APTT Sodium 133 L Potassium 3.4 Chloride 106 Carbon Dioxide 18 L Anion Gap 12 BUN 6 L Creatinine 0.62 Estim Creat Clear Calc 102.0 Estimated GFR > 60 Random Glucose 109 Calcium 8.5 Magnesium Iron TIBC % Saturation Unsat Iron Binding Ferritin Total Bilirubin Direct Bilirubin AST ALT Alkaline Phosphatase Ammonia Total Protein Albumin Lipase Vitamin B12 Folate Urine Color Urine Appearance Urine pH Ur Specific [place] Urine Protein Urine Glucose (UA) Urine Ketones Urine Blood Urine Nitrite Ur Leukocyte Esterase Urine RBC Urine WBC Ur Squamous Epith Cells Other Crystals Urine Bacteria Hyaline Casts Urine Test Peritoneal WBC Peritoneal RBC Periton Neutrophils Periton Lymphocytes Peritoneal Monocytes Peritoneal Basophils Peritoneal Other Cells Peritoneal LDH Peritoneal Glucose Stool Occult Blood POSITIVE Urine Opiates Screen Urine Fentanyl Screen Ur Barbiturates Screen Ur Phencyclidine Scrn Ur Amphetamines Screen U Benzodiazepines Scrn Urine Cocaine Screen U Marijuana (THC) Screen Ethyl Alcohol Hepatitis A IgM Ab Hep Bs Antigen Hep Bs Antibody Hep B Core Total Ab Hepatitis C Ab (EIA) 12/29/22 12/29/22 12/29/22 05:32 05:32 05:32 WBC 17.8 H RBC 2.52 L Hgb 8.8 L Hct 25.5 L MCV 101.2 H MCH 34.9 H MCHC 34.5 RDW 20.8 H Plt Count 240 MPV 10.3 Immature Gran % (Auto) Neut % (Auto) Lymph % (Auto) Barron % (Auto) Eos % (Auto) Baso % (Auto) Lymph # (Auto) Barron # (Auto) Eos # (Auto) Baso # (Auto) Abs Immat Gran (auto) Absolute Neuts (auto) Absolute Nucleated RBC 0.020 H Nucleated RBC % (auto) 0.1 Neutrophils % (Manual) Band Neutrophils % Lymphocytes % (Manual) Monocytes % (Manual) Eosinophils % (Manual) Basophils % (Manual) Metamyelocytes % Abs Neuts (Manual) Lymphocytes # (Manual) Monocytes # (Manual) Eosinophils # (Manual) Basophils # (Manual) Metamyelocytes # Platelet Estimate Plt Morphology Comment RBC Morphology Polychromasia Target Cells Acanthocytes (Spur) PT 23.9 H INR 2.0 H APTT Sodium 136 Potassium 3.1 L Chloride 109 H Carbon Dioxide 18 L Anion Gap 12 BUN 8 L Creatinine 0.61 Estim Creat Clear Calc 103.7 Estimated GFR > 60 Random Glucose 93 Calcium 8.6 Magnesium 1.7 Iron 79 TIBC 124 L % Saturation 64 H Unsat Iron Binding 45 Ferritin Total Bilirubin 24.0 H Direct Bilirubin AST 169 H ALT 38 H Alkaline Phosphatase 162 H Ammonia Total Protein 6.1 L Albumin 2.7 L Lipase Vitamin B12 Folate Urine Color Urine Appearance Urine pH Ur Specific [place] Urine Protein Urine Glucose (UA) Urine Ketones Urine Blood Urine Nitrite Ur Leukocyte Esterase Urine RBC Urine WBC Ur Squamous Epith Cells Other Crystals Urine Bacteria Hyaline Casts Urine Test Peritoneal WBC Peritoneal RBC Periton Neutrophils Periton Lymphocytes Peritoneal Monocytes Peritoneal Basophils Peritoneal Other Cells Peritoneal LDH Peritoneal Glucose Stool Occult Blood Urine Opiates Screen Urine Fentanyl Screen Ur Barbiturates Screen Ur Phencyclidine Scrn Ur Amphetamines Screen U Benzodiazepines Scrn Urine Cocaine Screen U Marijuana (THC) Screen Ethyl Alcohol Hepatitis A IgM Ab Hep Bs Antigen Hep Bs Antibody Hep B Core Total Ab Hepatitis C Ab (EIA) 12/29/22 12/29/22 12/30/22 05:32 05:32 05:31 WBC 18.3 H RBC 2.64 L Hgb 9.0 L Hct 26.9 L MCV 101.9 H MCH 34.1 H MCHC 33.5 RDW 21.2 H Plt Count 208 MPV 10.1 Immature Gran % (Auto) Neut % (Auto) Lymph % (Auto) Barron % (Auto) Eos % (Auto) Baso % (Auto) Lymph # (Auto) Barron # (Auto) Eos # (Auto) Baso # (Auto) Abs Immat Gran (auto) Absolute Neuts (auto) Absolute Nucleated RBC 0.020 H Nucleated RBC % (auto) 0.1 Neutrophils % (Manual) Band Neutrophils % Lymphocytes % (Manual) Monocytes % (Manual) Eosinophils % (Manual) Basophils % (Manual) Metamyelocytes % Abs Neuts (Manual) Lymphocytes # (Manual) Monocytes # (Manual) Eosinophils # (Manual) Basophils # (Manual) Metamyelocytes # Platelet Estimate Plt Morphology Comment RBC Morphology Polychromasia Target Cells Acanthocytes (Spur) PT INR APTT Sodium Potassium Chloride Carbon Dioxide Anion Gap BUN Creatinine Estim Creat Clear Calc Estimated GFR Random Glucose Calcium Magnesium Iron TIBC % Saturation Unsat Iron Binding Ferritin 384 H Total Bilirubin Direct Bilirubin AST ALT Alkaline Phosphatase Ammonia Total Protein Albumin Lipase Vitamin B12 1972 H Folate 8.1 Urine Color Urine Appearance Urine pH Ur Specific [place] Urine Protein Urine Glucose (UA) Urine Ketones Urine Blood Urine Nitrite Ur Leukocyte Esterase Urine RBC Urine WBC Ur Squamous Epith Cells Other Crystals Urine Bacteria Hyaline Casts Urine Test Peritoneal WBC Peritoneal RBC Periton Neutrophils Periton Lymphocytes Peritoneal Monocytes Peritoneal Basophils Peritoneal Other Cells Peritoneal LDH Peritoneal Glucose Stool Occult Blood Urine Opiates Screen Urine Fentanyl Screen Ur Barbiturates Screen Ur Phencyclidine Scrn Ur Amphetamines Screen U Benzodiazepines Scrn Urine Cocaine Screen U Marijuana (THC) Screen Ethyl Alcohol Hepatitis A IgM Ab Hep Bs Antigen Hep Bs Antibody Hep B Core Total Ab Hepatitis C Ab (EIA) 12/30/22 12/31/22 12/31/22 05:31 05:17 05:17 WBC 18.2 H RBC 2.70 L Hgb 9.4 L Hct 28.3 L MCV 104.8 H MCH 34.8 H MCHC 33.2 RDW 20.9 H Plt Count 213 MPV 9.9 Immature Gran % (Auto) Neut % (Auto) Lymph % (Auto) Barron % (Auto) Eos % (Auto) Baso % (Auto) Lymph # (Auto) Barron # (Auto) Eos # (Auto) Baso # (Auto) Abs Immat Gran (auto) Absolute Neuts (auto) Absolute Nucleated RBC 0.000 Nucleated RBC % (auto) 0.0 Neutrophils % (Manual) Band Neutrophils % Lymphocytes % (Manual) Monocytes % (Manual) Eosinophils % (Manual) Basophils % (Manual) Metamyelocytes % Abs Neuts (Manual) Lymphocytes # (Manual) Monocytes # (Manual) Eosinophils # (Manual) Basophils # (Manual) Metamyelocytes # Platelet Estimate Plt Morphology Comment RBC Morphology Polychromasia Target Cells Acanthocytes (Spur) PT INR APTT Sodium 135 138 Potassium 3.5 4.0 Chloride 107 109 H Carbon Dioxide 19 L 21 L Anion Gap 13 12 BUN 10 10 Creatinine 0.58 0.54 Estim Creat Clear Calc 109.1 117.1 Estimated GFR > 60 > 60 Random Glucose 93 89 Calcium 9.0 9.4 Magnesium 1.8 1.8 Iron TIBC % Saturation Unsat Iron Binding Ferritin Total Bilirubin 19.1 H 18.2 H Direct Bilirubin AST 175 H 286 H ALT 42 H 56 H Alkaline Phosphatase 158 H 160 H Ammonia Total Protein 6.2 L 6.9 Albumin 2.7 L 3.0 L Lipase Vitamin B12 Folate Urine Color Urine Appearance Urine pH Ur Specific [place] Urine Protein Urine Glucose (UA) Urine Ketones Urine Blood Urine Nitrite Ur Leukocyte Esterase Urine RBC Urine WBC Ur Squamous Epith Cells Other Crystals Urine Bacteria Hyaline Casts Urine Test Peritoneal WBC Peritoneal RBC Periton Neutrophils Periton Lymphocytes Peritoneal Monocytes Peritoneal Basophils Peritoneal Other Cells Peritoneal LDH Peritoneal Glucose Stool Occult Blood Urine Opiates Screen Urine Fentanyl Screen Ur Barbiturates Screen Ur Phencyclidine Scrn Ur Amphetamines Screen U Benzodiazepines Scrn Urine Cocaine Screen U Marijuana (THC) Screen Ethyl Alcohol Hepatitis A IgM Ab Hep Bs Antigen Hep Bs Antibody Hep B Core Total Ab Hepatitis C Ab (EIA) 12/31/22 10:24 WBC RBC Hgb Hct MCV MCH MCHC RDW Plt Count MPV Immature Gran % (Auto) Neut % (Auto) Lymph % (Auto) Barron % (Auto) Eos % (Auto) Baso % (Auto) Lymph # (Auto) Barron # (Auto) Eos # (Auto) Baso # (Auto) Abs Immat Gran (auto) Absolute Neuts (auto) Absolute Nucleated RBC Nucleated RBC % (auto) Neutrophils % (Manual) Band Neutrophils % Lymphocytes % (Manual) Monocytes % (Manual) Eosinophils % (Manual) Basophils % (Manual) Metamyelocytes % Abs Neuts (Manual) Lymphocytes # (Manual) Monocytes # (Manual) Eosinophils # (Manual) Basophils # (Manual) Metamyelocytes # Platelet Estimate Plt Morphology Comment RBC Morphology Polychromasia Target Cells Acanthocytes (Spur) PT INR APTT Sodium Potassium Chloride Carbon Dioxide Anion Gap BUN Creatinine Estim Creat Clear Calc Estimated GFR Random Glucose Calcium Magnesium Iron TIBC % Saturation Unsat Iron Binding Ferritin Total Bilirubin Direct Bilirubin AST ALT Alkaline Phosphatase Ammonia Total Protein Albumin Lipase Vitamin B12 Folate Urine Color Urine Appearance Urine pH Ur Specific [place] Urine Protein Urine Glucose (UA) Urine Ketones Urine Blood Urine Nitrite Ur Leukocyte Esterase Urine RBC Urine WBC Ur Squamous Epith Cells Other Crystals Urine Bacteria Hyaline Casts Urine Test NEGATIVE Peritoneal WBC Peritoneal RBC Periton Neutrophils Periton Lymphocytes Peritoneal Monocytes Peritoneal Basophils Peritoneal Other Cells Peritoneal LDH Peritoneal Glucose Stool Occult Blood Urine Opiates Screen Urine Fentanyl Screen Ur Barbiturates Screen Ur Phencyclidine Scrn Ur Amphetamines Screen U Benzodiazepines Scrn Urine Cocaine Screen U Marijuana (THC) Screen Ethyl Alcohol Hepatitis A IgM Ab Hep Bs Antigen Hep Bs Antibody Hep B Core Total Ab Hepatitis C Ab (EIA) Airway Mallampati Class: II TM Dist: >3cm Neck ROM: Full Loose/Missing/Broken Teeth: No Heart: rrr Lungs: clear Assessment and Plan Final Anesthetic Review Family History of Problems with Anesthesia: No History of Problems with Anesthesia: Unobtainable NPO: Yes ASA Class: III Final Preanesthetic Review: No Changes in Pt Med Stat, Meds/Allgs Chart Reviewed, Consent Obtained/Reviewed and Anes Risks/Benef Reviewed Patient Risk: High Procedure Risk: Low Anesthetic Plan Anesthetic Plan: MAC: Disposition: Standard PACU
--- NOTE | 2022-12-31 13:43 | MHC.RECOVRN ---
Pt has intake appt at the [facility] on 01/11/23 at 2PM with Vidya Walden APRN.
--- NOTE | 2022-12-31 14:24 | P.OP_ITS ---
Operative Note Operative Note Date of Service: 12/31/22 Narrative: Operative Information Procedure Description: EGD, Colonoscopy Indication: anemia, rectal bleeding Anesthesia: MAC FLEXIBLE TRANSORAL UPPER GASTROINTESTINAL ENDOSCOPY AND COLONOSCOPY PROCEDURE NOTE UPPER ENDOSCOPY Consent: Indications for the procedure and potential complications of bleeding, perforation, reaction to medications and missed diagnosis were discussed with the patient and informed consent was obtained. Instrument: Olympus GIF H 190 J mid size upper endoscope Monitoring: Vital signs and clinical assessment, continuous EKG monitoring, Pulse oximetry, Carbon Dioxide monitoring and blood pressure monitoring were done throughout the procedure. Procedure: The patient was placed in the left lateral decubitis position and pre-procedure medications were administered and a bite block was placed. The endoscope was inserted into the mouth and advanced under direct vision to the third part of duodenum. A careful inspection was made as the upper endoscope was withdrawn including a retroflexed examination of the proximal stomach; Findings and interventions are described below. Findings: Larynx:normal Esophagus: GE junction at 36 cm, diaphragm hiatus at 36 cm, x 1 grade II varix noted with red markings, x 1 band applied with good collapse, also surrounding esophagitis noted Stomach: Mosaic pattern consistent with portal hypertensive gastropathy. Grade 2 flap valve on retroflexed examination of the cardia. Duodenum: Normal bulb and descending duodenum, Intervention: Banding of varix COLONOSCOPY Instrument: Olympus variable stiffness pediatric scope 190L Colonoscopy Monitoring: Vital signs and clinical assessment, continuous EKG monitoring, Pulse oximetry, Carbon Dioxide monitoring and blood pressure monitoring were done throughout the procedure. Colon withdrawal time was 6 minutes. Procedure: The patient was placed in the left lateral decubitis position and pre-procedure medications were administered. After a digital rectal examination of the ano-rectum, the video colonoscope was inserted into the rectum and advanced through the colon to the cecum/TI. The colonoscope was slowly withdrawn in a retrograde panoramic fashion and the colon mucosa was carefully examined including a retroflexed view of the rectum. Findings and interventions are described below. Procedure Difficulty:moderate Findings: Terminal Ileum-not intubated No fresh or altered blood seen in colon Cecum:normal Ascending Colon: 6-9 mm sessile polyp removed with cold snare, not retrieved, x 1 clip applied for hemostasis Transverse Colon -normal Descending Colon:normal Sigmoid Colon: few small tics seen Rectum: Retroflexion with moderately large internal hemorrhoids, grade I Anorectum - normal Colon preparation: [place] Bowel Preparation Scale Right colon; 1-2 Transverse colon: 2 Left colon; 2 (0 = Unprepared colon segment with mucosa not seen due to solid stool that cannot be cleared. 1 = Portion of mucosa of the colon segment seen, but other areas of the colon segment not well seen due to staining, residual stool and/or opaque liquid. 2 = Minor amount of residual staining, small fragments of stool and/or opaque liquid, but mucosa of colon segment seen well. 3 = Entire mucosa of colon segment seen well with no residual staining, small fragments of stool or opaque liquid) Impression and Post Procedure Diagnosis: Endoscopy Findings: esophgeal varix esophagitis PHG Colonoscopy Findings: polyp internal hemorrhoids diverticular disease Plan: Await Pathology results Repeat Colonoscopy in 1-2 years due to fair right sided prep or earlier if clinically indicated High fiber diet leaflet avoid straining at stool, epsom salts and sitz bath, anusol supps or cream Repeat EGD in 4 weeks or so send home on low dose PPI send home with 2 weeks of carafate Above findings were reviewed with the patient and relevant handouts were provided if indicated.
--- NOTE | 2022-12-31 14:49 | P.DS_ITS ---
DS: Providers Provider Date of Service: 01/01/23 Date of admission: 12/28/22 02:18 Primary care physician: Ralph Claudoi III, MD Consults: 12/28/22 02:13 Consult to Gastroenterology Routine Consulting Provider: Marisa Enriquez Reason for consultation: Acute alcoholic hepatitis Has provider been notified: No 12/28/22 07:23 Addiction Medicine Routine Consulting Provider: Addiction Covering Reason for consultation: etoh with decomp cirr DS: Diagnosis Discharge Diagnosis (1) Hyperbilirubinemia: Status: Acute (2) Acute alcoholic hepatitis: Status: Acute (3) Alcohol use disorder: Status: Acute (4) Abdominal ascites: Status: Acute (5) Bleeding hemorrhoids: Status: Acute (6) Transaminitis: Status: Acute DS: Summary Hospital Course Hospital Course: Admission note HPI This is a 42-year-old female past medical history of alcoholic liver cirrhosis and alcohol abuse, hypertension presents the hospital with complaints of abdominal distension and significant pain.? Patient also reports that she noticed her color yellowing.? 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 Patient denies any confusion, no fever no chills, no chest pain, some shortness of breath, no urinary symptoms and no current lower extremity edema.? On arrival to the ED patient noted to have a heart rate of 108, otherwise stable Labs are significant for WBC count of 15.4, hemoglobin of 10, hematocrit 29.4, PT of 22.3, INR of 1.9, sodium of 130, bilirubin of 31.3, direct of 19.6, AST of 3 1, ALT of 47, alk-phos of 192, albumin of 2.6, Urine is positive for leukocyte Estrace, nitrites, and WBC, Patient reports that her last drink was about 2 weeks ago.Diagnostic paracentesis was done in the ED and shows no evidence of SBP Hospital course # acute EtOH hepatitis Patient admitted for treatment of acute hepatitis from alcoholism. MDF score high. Started on tapering dose of prednisolone as GI evaluated her and will need outpt f/u as well. Transaminitis trended down during the hospital stay. HCV negative, HBV immune, autoimmune serologies pending at time of discharge. # ascites Treated by diagnostic tap [700 mL in ED 12/27/22] with no evidence of SBP.? therapeutic tap done 12/28/22 with 1200 mL removed Started on spironolactone + furosemide, low-sodium diet # anemia due to cirrhosis and hematochezia from internal hemorroids Had EGD + colonoscopy showing esophagitis, PHG, internal hemorroids and diverticular disease with GI recommendations for high fiber diet, Sitz bath, Anusol, PPI and Carafate with plan to repeat EGD as outpatient in 4 weeks and Colonoscopy in 1-2 years. advance diet as tolerated # UTI, E coli quinolone-resistant Treated with IV ceftriaxone. To finish Ceftin on discharge. # Alcohol use disorder ?thiamine, folate, Recovery Team consulted and will arrange project manager/team coach Continue antibiotics as prescribed Continue tapering dose of Prednisolone Pantoprazole, Carafate as prescribed Continue Spirolonolactone, Lasix for fluid management. Lactulose for constipation ; target 2 bowel movements daily Sitz bath and hemorroidal cream To follow with Dr Enriquez from GI as outpatient We advise you complete abstinence from Alcohol Time Spent with Patient Time attestation: Total time managing care of this patient today ____ minutes. Discharge coordination time: Greater than 30 minutes Quality: Safe Use of Opioids Does Pt have an Active Cancer Diagnosis on the Problem List?: No Quality: Stroke Does the patient have a stroke diagnosis?: No Physical Exam Vital Signs: Vital Signs: Last Vital Signs Temp 98.9 F 12/31/22 14:35 Pulse 105 H 12/31/22 14:35 Resp 16 12/31/22 14:35 BP 117/75 12/31/22 14:35 Pulse Ox 98 12/31/22 14:35 O2 Del Method Room Air 12/31/22 14:35 BMI result Body Mass Index 23.3 Const: Other: Constitutional : Awake, interactive, not in distress Neck : Normal inspection, Supple Eyes: jaundiced Cardiovascular : RRR, no JVP, no lower extremity edema Respiratory : good bilateral air entry, no crackles, wheezes or rhonchi Gastrointestinal: soft, lax, Normal bowel sounds, Non tender, mild distention Skin : Warm, Dry Neurological : Alert & oriented x3, No focal deficit DS: Data Data Completed and Pending Completed studies during hospitalization [Text1]: Procedures Detoxification Services for Substance Abuse Treatment (10/09/22) Labs on day of discharge: Laboratory Results - last 24 hr 06/12/31/22 12/31/22 05:17 05:17 10:24 WBC 18.2 H RBC 2.70 L Hgb 9.4 L Hct 28.3 L MCV 104.8 H MCH 34.8 H MCHC 33.2 RDW 20.9 H Plt Count 213 MPV 9.9 Absolute Nucleated RBC 0.000 Nucleated RBC % (auto) 0.0 Sodium 138 Potassium 4.0 Chloride 109 H Carbon Dioxide 21 L Anion Gap 12 BUN 10 Creatinine 0.54 Estim Creat Clear Calc 117.1 Estimated GFR > 60 Random Glucose 89 Calcium 9.4 Magnesium 1.8 Total Bilirubin 18.2 H AST 286 H ALT 56 H Alkaline Phosphatase 160 H Total Protein 6.9 Albumin 3.0 L Urine Test NEGATIVE Preliminary micro results at discharge 12/27/22 23:57 Anaerobic Culture - Preliminary Peritoneal Fluid No growth to date. Imaging US - abdomen: Radiologist's impression: ITS Impressions Abdomen Ultrasound 12/27/22 22:36 IMPRESSION: 1. There is hepatomegaly. 2. There is generalized increase in hepatic echotexture, consistent with fatty infiltration or hepatocellular disease. Please correlate clinically. No focal hepatic mass or intrahepatic biliary dilatation is seen. 3. There is moderate ascites. 4. Gallbladder wall thickening is likely a sequela of ascites. No cholelithiasis is seen. No sonographic Corea's sign is reported. Abdomen/Pelvis CT 12/28/22 07:00 IMPRESSION: 1. Hepatomegaly with hepatic steatosis. 2. Diffuse ascites. 3. No radiopaque urolith or hydroureteronephrosis. Fleischner guidelines were followed. Paracentesis Ultrasound 12/28/22 16:30 IMPRESSION: Successful ultrasound-guided therapeutic paracentesis performed with approximately 1.2 L of greenish/yellowish clear fluid drained. Discharge Plan Discharge Anticipated Discharge Date/Time: 12/31/22 14:41 Patient Disposition: Home, Self-Care Discharge Diagnosis: Acute alcoholic hepatitis Bleeding hemorroids Alcohol use disoreder Referrals: Ralph Claudio III, MD [Primary Care Provider] - 1 Week Discharge Medications: New spironolactone 25 mg Tablet 50 mg PO DAILY Qty: 90 0RF Protocol: Hold for SBP< HOLD for SBP < : 90 acamprosate 333 mg Tablet,Delayed Release (Dr/Ec) 333 mg PO TID Qty: 90 0RF furosemide 20 mg Tablet 20 mg PO DAILY Qty: 90 0RF Protocol: Hold for SBP< HOLD for SBP < : 90 lactulose 20 gram/30 mL Solution 20 g PO TID Qty: 1500 2RF prednisolone 5 mg tablet See Taper PO QAM Qty: 130 0RF Taper: Prednisone 40 mg daily for 5 Days and 0 Hour 30 mg daily for 7 Days and 0 Hour 20 mg daily for 7 Days and 0 Hour 10 mg daily for 7 Days and 0 Hour 5 mg daily for 7 Days and 0 Hour sucralfate [Carafate] 1 gram tablet 1 g PO BID Qty: 60 0RF (DME) sitz bath Kit See Rx Instructions .Route Qty: 1 0RF Rx Instructions: As directed hydrocortisone [Proctozone-HC] 2.5 % cream with perineal applicator 1 appl NM BEDTIME PRN (Reason: hemorrhoids) Qty: 30 0RF pantoprazole 40 mg tablet,delayed release (DR/EC) 40 mg PO DAILY Qty: 90 0RF ondansetron 4 mg tablet,disintegrating 4 mg PO Q8H PRN (Reason: nausea and vomiting) Qty: 30 0RF cefuroxime axetil 500 mg tablet 500 mg PO BID Qty: 6 0RF Continued multivitamin Tablet 1 tab PO DAILY potassium chloride 20 mEq packet 20 meq PO DAILY Qty: 30 0RF folic acid 1 mg tablet 1 mg PO DAILY Qty: 30 0RF thiamine HCl (vitamin B1) 100 mg tablet 100 mg PO DAILY Qty: 30 0RF amlodipine 10 mg tablet 10 mg PO DAILY Discontinued omeprazole 20 mg Capsule,Delayed Release(Dr/Ec) 20 mg PO DAILY PRN (Reason: Heartburn) Discharge Orders: Discharge Order (Routine); Ordered 01/01/23 Ordered By: Efrain Adams Diet: High fiber diet Activity on Discharge: As tolerated Stand Alone Forms: Patient Portal Discharge page Care Plan Goals: Read below Health Concerns: Read below Plan of Treatment: Read below Assessment: You were admitted to the hospital for evaluation of jaundice and abdominal distention. Found to have evidence of alcohol hepatitis requiring evaluation by fire extinguisher mechanic and taping the ascitic fluids. water-pills were started with good tolerance. Noted to have rectal bleeding. had upper and lower endoscopies showing evidence of bleeding hemorroids. Found to have urine infection treated with IV antibiotics. Continue antibiotics as prescribed Continue tapering dose of Prednisolone Pantoprazole, Carafate as prescribed Continue Spirolonolactone, Lasix for fluid management. Lactulose for constipation ; target 2 bowel movements daily Sitz bath and hemorroidal cream Ondanesterone for nausea To follow with Dr Enriquez from GI as outpatient We advise you complete abstinence from Alcohol Patient Instructions: Acute Liver Failure (GEN)
[2022-12-31] MEDS: ondansetron HCL 4 MG/2 ML VIAL IVPUSH (14:50)
[2022-12-31] MEDS: hydrOXYzine HCL 50 MG TABLET PO (16:59)
[2022-12-31] MEDS: Omeprazole 20 MG CAPSULE.DR PO (16:59)
[2022-12-31] MEDS: Acamprosate Calcium 333 MG TABLET.DR PO (20:45)
[2022-12-31] MEDS: Enoxaparin Sodium 40 MG/0.4 ML SYRINGE SUBCUT (20:45)
[2022-12-31] MEDS: Morphine Sulfate 4 MG/ML CARTRIDGE IVPUSH (20:45)
[2022-12-31] MEDS: cefTRIAXone sodium 1 GM in 0.9 % Sodium Chloride 50 ML IV (20:46)
[2022-12-31] MEDS: Lactulose 20 GM/30 ML SOLUTION 30 GM PO (21:20)
[2022-12-31 21:45] LABS: Troponin-I High Sensitivity < 2.7 ng/L (<3.5-17.0)
[2022-12-31] MEDS: Simethicone 80 MG TAB.CHEW PO (22:48)
[2023-01-01 03:28] VITALS: BP 109/68; PULSE 88; RESP 14; TEMP 36; O2SAT 95
[2023-01-01 07:42] VITALS: BP 112/69; PULSE 98; RESP 16; TEMP 36.2; O2SAT 99
[2023-01-01 07:50] VITALS: O2SAT 97
[2023-01-01] MEDS: Acamprosate Calcium 333 MG TABLET.DR PO (08:46)
[2023-01-01] MEDS: Thiamine HCL 100 MG TABLET PO (08:46)
[2023-01-01] MEDS: Folic Acid 1 MG TABLET PO (08:46)
[2023-01-01] MEDS: 0.9 % Sodium Chloride Flush 3 ML SYRINGE IVFLUSH (08:46)
[2023-01-01] MEDS: Spironolactone 25 MG TABLET 50 MG PO (08:46)
[2023-01-01] MEDS: Multivitamin TABLET 1 TAB PO (08:46)
[2023-01-01] MEDS: Omeprazole 20 MG CAPSULE.DR PO (08:46)
[2023-01-01] MEDS: Furosemide 20 MG TABLET PO (08:46)
[2023-01-01] MEDS: amLODIPine Besylate 10 MG TABLET PO (08:47)
[2023-01-01] MEDS: Lactulose 20 GM/30 ML SOLUTION 30 GM PO (08:47)
[2023-01-01] MEDS: oxyCODONE HCl Immed Release 5 MG TABLET PO (08:47)
[2023-01-01] MEDS: hydrOXYzine HCL 50 MG TABLET PO (08:47)
[2023-01-01] MEDS: Potassium Chloride Packet 20 MEQ PACKET PO (08:48)
[2023-01-01] MEDS: prednisoLONE sodium phosphate 15 MG/5 ML SOLUTION 40 MG PO (08:48)
--- NOTE | 2023-01-01 10:09 | MHC.CM.PN ---
PT WILL DC HOME TODAY WITH NO SERVICES PT TO ARRANGE HER OWN TRANSPORT
[2023-01-01 11:21] VITALS: BP 122/72; PULSE 98; RESP 16; TEMP 36.3; O2SAT 98
--- NOTE | 2023-01-01 20:13 | HO.POSTANES ---
Post Anesthesia Evaluation Post Anesthesia Evaluation Date of Service: 01/01/23 Vital Signs: Vital Signs Temp Pulse Resp BP Pulse Ox O2 Del Method 01/01/23 11:21 97.4 F 98 16 122/72 98 Room Air Anesthesia: TIVA Mental Status: Awake Pain Control: Satisfactory Nausea/Vomiting: None Hydration: Adequate Anesthesia-Related Issues: No Anes. Related Issues
[2023-01-02 18:43] LABS: Zinc 33 mcg/dL (60-130)
[2023-01-03 12:48] LABS: Liver Kidney Microsomal Ab <=20.0 U (<=20.0)
[2023-01-03 14:04] LABS: Mitochondrial Antibodies NEGATIVE (NEGATIVE)
[2023-01-03 23:14] LABS: Smooth Muscle Antibody <20 U (<20)
== END 2023-01-01 12:00 | disposition home or self-care (01) | DRG 280 ==
LOC: HO.ED 12-28 02:08 → HO.EDOVER 12-28 02:34 → HO.S3 12-28 07:46
PROVIDERS: Anesthesiology; Family Medicine; Internal Medicine Gastroenterology; Physician Assistant; Radiology Diagnostic Radiology; Admitting Provider Internal Medicine; Emergency Provider Internal Medicine; PCP Internal Medicine; Visit Provider Student in an Organized Health Care Education/Training Program
PROC: 0W9G3ZZ Drainage of Peritoneal Cavity, Percutaneous Approach (ICD-10-PCS; principal; 2022-12-28 15:30)
PROC: 0DBK8ZX Excision of Ascending Colon, Via Natural or Artificial Opening Endoscopic, Diagnostic (ICD-10-PCS; principal; 2022-12-31 11:30)
DX: K70.31 Alcoholic cirrhosis of liver with ascites (principal); K70.11 Alcoholic hepatitis with ascites; D68.4 Acquired coagulation factor deficiency; K57.31 Diverticulosis of large intestine without perforation or abscess with bleeding; K72.10 Chronic hepatic failure without coma; D63.8 Anemia in other chronic diseases classified elsewhere; I85.10 Secondary esophageal varices without bleeding; K22.10 Ulcer of esophagus without bleeding; K76.6 Portal hypertension; F10.11 Alcohol abuse, in remission; K72.00 Acute and subacute hepatic failure without coma; K63.5 Polyp of colon; I10 Essential (primary) hypertension; K64.8 Other hemorrhoids; N39.0 Urinary tract infection, site not specified; K31.89 Other diseases of stomach and duodenum; B96.20 Unspecified Escherichia coli [E. coli] as the cause of diseases classified elsewhere; Z16.23 Resistance to quinolones and fluoroquinolones; Z87.891 Personal history of nicotine dependence; Z79.899 Other long term (current) drug therapy
CPT/HCPCS: 36415; 49083; 71045; 74176; 76705; 80048; 80053; 80076; 80307; 81001; 81025; 82140; 82272; 82607; 82728; 82746; 82945; 83540; 83615; 83690; 83735; 84484; 84630; 85007; 85025; 85027; 85610; 85730; 86015; 86255; 86256; 86376; 86704; 86706; 86709; 86803; 87070; 87073; 87086; 87088; 87186; 87205; 87340; 89051; 93005; 99285; J0696; J1650; J2060; J2270; J2405; J2550; P9047

== ENCOUNTER → 2023-01-11 14:06 | Outpatient (BNVA) | payer OTHER, SELFPAY | PROVIDERS: PCP Internal Medicine; Visit Provider Nurse Practitioner Psychiatric/Mental Health ==

== ENCOUNTER → 2023-02-17 13:12 | Day surgery (SDC) | payer OTHER, SELFPAY ==
--- NOTE | 2023-02-16 10:50 | P.CONAN_ITS ---
Documented by User: Iris Almodovar NP 02/16/23 10:57 HPI - Anesthesia Eval Consult details Narrative: 42yo F for Upper Endoscopy ETOH cirrhosis. Last paracentesis 12/2022 INR = 2.0 on 12/2022. Will repeat DOS. PMFSH Active Problems Active Problems: All Active Problems (Updated 02/15/23 @ 14:42 by Nicole Mendez RN) Rash (Acute) Sprain of wrist, right (Acute) Alcohol withdrawal (Acute) Vomiting (Acute) Injury of triangular fibrocartilage complex (TFCC) of left wrist (Acute) Pain of ulnar side of wrist (Acute) Left wrist pain (Acute) Numbness and tingling in left hand (Acute) Bleeding hemorrhoids (Acute) Past Medical History Medical History Acute alcoholic hepatitis Alcohol use disorder Alcoholic cirrhosis of liver Depression GERD (gastroesophageal reflux disease) Hyperbilirubinemia Hypertension Family History Family History Father Bile duct cancer Mother Breast cancer Family history of problems with anesthesia: No Surgical History Surgical History H/O colonoscopy History of esophagogastroduodenoscopy (EGD) History of Problems with Anesthesia: Unobtainable Social History Social History Household Members: Spouse and Children Housing: House Do you presently have visiting nurse or other home services: No Alcohol intake: former Patient Tobacco Use Status: Former Tobacco user Quit Date: 2002 Second Hand Smoke Exposure: No Substance Use Type: Marijuana Advance Directives: No Advance Directives Information Provided: Yes service: No Current occupational status: employed 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[employer] Meds Allergies Allergy/AdvReac Type Severity Reaction Status Date / Time No Known Allergies Allergy Verified 12/27/22 19:28 [No Known Allergies*] Home Medications Medication Instructions Recorded Confirmed Last Taken Type amlodipine 10 mg tablet 10 mg PO DAILY 06/09/21 02/15/23 1 Day Ago History ~12/27/22 multivitamin 1 tab PO DAILY 10/09/22 02/15/23 1 Month Ago History ~09/08/22 Exam Exam Date and Time: February 16, 2023 1050 Height,Weight and Vital Signs: Height 5 ft 4 in Pertinent Lab Results Pertinent Lab Results: Laboratory Tests 12/31/22 12/31/22 05:17 05:17 WBC 18.2 H Hgb 9.4 L Hct 28.3 L Plt Count 213 Sodium 138 Potassium 4.0 Chloride 109 H Carbon Dioxide 21 L BUN 10 Creatinine 0.54 Laboratory Tests 12/31/22 05:17 Total Bilirubin 18.2 H AST 286 H ALT 56 H Alkaline Phosphatase 160 H Total Protein 6.9 Albumin 3.0 L Narrative Narrative: EKG 12/2022 Vent. Rate : 094 BPM ? ? Atrial Rate : 094 BPM ?? P-R Int : 112 ms? QRS Dur : 082 ms ? ? QT Int : 364 ms ? ? ? P-R-T Axes : 039 -12 000 degrees ?? QTc Int : 455 ms ? Normal sinus rhythm Normal ECG When compared with ECG of 05-OCT-2021 15:14, Nonspecific T wave abnormality now evident in Anterior leads US paracentesis abd w/image 12/2022 IMPRESSION: Successful ultrasound-guided therapeutic paracentesis performed with approximately 1.2 L of greenish/yellowish clear fluid drained. Assessment and Plan Assessment Anesthesia Assessment: Chart Reviewed Final Anesthetic Review Family History of Problems with Anesthesia: No History of Problems with Anesthesia: Unobtainable Documented by User: Jesús Gillette MD 02/17/23 13:20 [facility] Past Medical History Medical History Acute alcoholic hepatitis Alcohol use disorder Alcoholic cirrhosis of liver Depression GERD (gastroesophageal reflux disease) Hyperbilirubinemia Hypertension Family History Family History Father Bile duct cancer Mother Breast cancer Surgical History Surgical History H/O colonoscopy History of esophagogastroduodenoscopy (EGD) History of Problems with Anesthesia: No Social History Social History Household Members: Spouse and Children Housing: House Do you presently have visiting nurse or other home services: No Alcohol intake: former Patient Tobacco Use Status: Former Tobacco user Quit Date: 2002 Second Hand Smoke Exposure: No Substance Use Type: Marijuana Advance Directives: No Advance Directives Information Provided: Yes service: No Current occupational status: employed 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[employer] Meds Allergies Allergy/AdvReac Type Severity Reaction Status Date / Time No Known Allergies Allergy Verified 12/27/22 19:28 [No Known Allergies*] Home Medications Medication Instructions Recorded Confirmed Last Taken Type amlodipine 10 mg tablet 10 mg PO DAILY 06/09/21 02/15/23 1 Day Ago History ~12/27/22 multivitamin 1 tab PO DAILY 10/09/22 02/15/23 1 Month Ago History ~09/08/22 Exam Airway Mallampati Class: I TM Dist: >3cm Neck ROM: Full Loose/Missing/Broken Teeth: No Assessment and Plan Assessment Anesthesia Assessment: Anesthesia Plan Discussed Final Anesthetic Review History of Problems with Anesthesia: No NPO: Yes ASA Class: III Final Preanesthetic Review: No Changes in Pt Med Stat, Meds/Allgs Chart Reviewed, Consent Obtained/Reviewed and Anes Risks/Benef Reviewed Patient Risk: Intermediate Procedure Risk: Low Anesthetic Plan Anesthetic Plan: MAC: Disposition: Standard PACU
[2023-02-17] VITALS (10 sets, daily range): BP systolic 113–129; BP diastolic 62–92; PULSE 90–117; RESP 16–20; TEMP 36.2–37.2; O2SAT 97–100; BMI 21.3
--- NOTE | 2023-02-17 13:39 | MHC.SHP ---
Pre-Procedural Eval Section A Date of Service: 02/17/23 Section B Chief Complaint: variceal surveillance Relevant Family History (Specify if Yes): No Relevant Social History: Alcohol Use Present Medications: see Short Stay Collaborative assessment Medical History: Significant History (Acute alcoholic hepatitis Alcohol use disorder Alcoholic cirrhosis of liver Depression GERD (gastroesophageal reflux disease) Hyperbilirubinemia Hypertension) History of Previous Operations: Relevant previous surgery/procedure and date(s) (egd,colonoscopy) Allergies: Allergies Allergy/AdvReac Type Severity Reaction Status Date / Time No Known Allergies Allergy Verified 12/27/22 19:28 [No Known Allergies*] Review of Systems Sugical H&P ROS: Negative: Constitution, Cardiovascular, Respiratory, Neurological, Psychiatric, Hem-Onc, Allergic/Immunologic, Gastrointestinal, Genitourinary, Musculoskeletal, Integumentary, Endocrine and Eyes/Ears/Nose/Throat Exam Surgical H&P Exam: Normal: HEENT, Normal: Heart, Normal: Lungs, Normal: Extremities, Normal: Abdomen, Normal: Skin and Normal: Neurological Plan Diagnosis/Plan: Unchanged I have reviewed the history and physical and performed a pertinent physical examination on my patient. No changes have occurred unless specified. Time Spent With Patient Time: Total time managing care of this patient today ____ minutes.
[2023-02-17] MEDS: Lactated Ringers 1,000 ML 100 ML IVCONT (13:48)
[2023-02-17 13:52] LABS: UPreg QC Valid YES; Urine Pregnancy NEGATIVE (NEGATIVE)
--- NOTE | 2023-02-17 14:08 | W.PM.OPN ---
Operative Note Operative Note Date of Service: 02/17/23 Narrative: Procedure Description: EGD Indication: variceal surveillance Anesthesia: MAC FLEXIBLE TRANSORAL UPPER GASTROINTESTINAL ENDOSCOPY UPPER ENDOSCOPY Consent: Indications for the procedure and potential complications of bleeding, perforation, reaction to medications and missed diagnosis were discussed with the patient and informed consent was obtained. Instrument: Olympus GIF H 190 J mid size upper endoscope Monitoring: Vital signs and clinical assessment, continuous EKG monitoring, Pulse oximetry, Carbon Dioxide monitoring and blood pressure monitoring were done throughout the procedure. Procedure: The patient was placed in the left lateral decubitis position and pre-procedure medications were administered and a bite block was placed. The endoscope was inserted into the mouth and advanced under direct vision to the third part of duodenum. A careful inspection was made as the upper endoscope was withdrawn including a retroflexed examination of the proximal stomach; Findings and interventions are described below. Findings: Larynx:normal Esophagus: GE junction at 36? cm, diaphragm hiatus at 36 cm, x 2 grade II varix noted with red markings, x 1 band applied with good collapse, Stomach: Mosaic pattern consistent with portal hypertensive gastropathy. Grade 2 flap valve on retroflexed examination of the cardia. Duodenum: Normal bulb and descending duodenum, Intervention: Banding of varix Impression/Findings: esophgeal varices PHG PLAN: repeat EGD in 4-6 weeks sucralfate 1 g bid for 1 week commence low dose BB aiming for HR around 60 and low dose statin to reduce portal pressure cont with alcohol abstinence
[2023-02-17] MEDS: ondansetron HCL 4 MG/2 ML VIAL IVPUSH (14:34)
[2023-02-17] MEDS: LORazepam 2 MG/ML VIAL 0.5 MG IVPUSH (14:35)
[2023-02-17] MEDS: Mag&Al/Sim/Diphenhyd/Lidocaine 10 ML ORAL.SUSP PO (14:47)
--- NOTE | 2023-02-17 16:22 | PC.NURSE ---
Delay in sucralfate due to not being in Pyxis. Pharmacy needed to bring medication to PACU
[2023-02-17] MEDS: Sucralfate Oral Suspension 1 GM/10 ML ORAL.SUSP PO (16:23)
--- NOTE | 2023-02-17 17:00 | PC.NURSE ---
Dr. Enriquez notified of patients vital signs and presentation.
--- NOTE | 2023-02-17 18:10 | PC.NURSE ---
1710 Patient transported to ED on stretcher with monitor in place. Bedside report given to [facility].
--- NOTE | 2023-02-17 18:40 | PC.NURSE ---
Addendum entered by Reggie Kebede 02/17/23 18:42: @[id number] Original Note: Spoke to Dr. Enriquez over phone about patients vital signs and presentation. Dr. Enriquez ordered to bring patient to ED. Dr. Enriquez to give doctor to doctor report. Nurse to nurse report to be given to the ED.
== END | disposition home or self-care (01) ==
PROVIDERS: Nurse Practitioner; PCP Internal Medicine; Visit Provider Internal Medicine Gastroenterology
PROC: 0DJ08ZZ Inspection of Upper Intestinal Tract, Via Natural or Artificial Opening Endoscopic (ICD-10-PCS; CPT 43235; principal; 2023-02-17 14:40)
DX: K91.89 Other postprocedural complications and disorders of digestive system (principal); Y83.9 Surgical procedure, unspecified as the cause of abnormal reaction of the patient, or of later complication, without mention of misadventure at the time of the procedure; R11.0 Nausea; R00.0 Tachycardia, unspecified; K76.6 Portal hypertension; K31.89 Other diseases of stomach and duodenum; I85.00 Esophageal varices without bleeding; K44.9 Diaphragmatic hernia without obstruction or gangrene; N39.0 Urinary tract infection, site not specified; I10 Essential (primary) hypertension; K21.9 Gastro-esophageal reflux disease without esophagitis; K70.31 Alcoholic cirrhosis of liver with ascites; K70.11 Alcoholic hepatitis with ascites; F10.10 Alcohol abuse, uncomplicated; Z87.891 Personal history of nicotine dependence
CPT/HCPCS: 43244; 81025; J2060; J2405; J2550

== ENCOUNTER → 2023-02-17 13:12 | Outpatient (BNV) | payer OTHER, SELFPAY | PROVIDERS: PCP Internal Medicine; Visit Provider Internal Medicine Gastroenterology | DX: I85.00 Esophageal varices without bleeding (principal) | CPT/HCPCS: 43235 ==

== ENCOUNTER 2023-02-17 17:01 | Emergency (ER) | payer OTHER, SELFPAY ==
[2023-02-17 17:08] VITALS: BP 125/75; PULSE 102; RESP 18; TEMP 37.2; O2SAT 99; BMI 21.7
[2023-02-17 17:14] VITALS: PULSE 101
--- NOTE | 2023-02-17 17:33 | PC.NURSE ---
pt a&ox3. respirations even and unlabored. pt coming from out patient surgey where she had an EGD band placed. pt came out of surgery around 1400. since then the pt has been nauseous and vomiting bile and red streaked vomit. pt denies chest pain. pt reports epigastric pin. abdomen soft and non tender. pt tachy on monitor.
[2023-02-17 18:19] LABS: MANUAL DIFF FLAG NO
[2023-02-17 18:21] LABS: Basophils Absolute Auto 0.1 X10*3/uL (0.0-0.2); Basophils Percent Auto 1.2 % (0-2); Eosinophils Absolute Auto 0.2 X10*3/uL (0.0-0.4); Eosinophils Percent Auto 3.1 % (0-4); Hematocrit 28.4 % (37.0-47.0); Hemoglobin 9.6 g/dl (12.0-16.0); Imm Gran Abs Auto 0.07 X10*3/uL (0.00-0.03); Imm Gran Pct Auto 1.2 % (0.0-0.4); Lymphocytes Absolute Auto 1.1 X10*3/uL (1.2-4.9); Lymphocytes Percent Auto 18.4 % (20-40); Mean Corpuscular HGB Conc 33.8 g/dl (31.0-35.0); Mean Corpuscular Hemoglobin 32.7 pg (27.0-33.0); Mean Corpuscular Volume 96.6 fL (80.0-98.0); Mean Platelet Volume 9.3 fL (9.4-12.3); Monocytes Absolute Auto 0.6 X10*3/uL (0.1-1.2); Monocytes Percent Auto 9.4 % (2-11); Neutrophils Absolute Auto 3.9 x10*3/uL (2.0-8.3); Neutrophils Percent Auto 66.7 % (45-73); Platelet Count 160 X10*3/uL (160-400); Red Blood Count 2.94 X10*6/uL (4.20-5.50); Red Cell Distribution Width 12.7 % (11.0-16.0); White Blood Count 5.9 X10*3/uL (4.8-10.8)
[2023-02-17 18:34] LABS: Alanine Aminotransferase 19 U/L (0-31); Albumin Level 3.4 g/dL (3.5-5.0); Alkaline Phosphatase 128 U/L (39-117); Anion Gap 12 (12-20); Aspartate Amino Transferase 52 U/L (5-31); Bilirubin Total 2.6 mg/dL (0.0-1.0); Blood Urea Nitrogen 7 mg/dL (9-16); Calcium 9.4 mg/dL (8.4-10.2); Carbon Dioxide 22 mmol/L (22-29); Chloride 105 mmol/L (96-108); Creatinine Clr Calc Pharmacy 89.1; Estimated Glomerular Filt Rate > 60; Glucose Random 98 mg/dL (60-115); Potassium 3.8 mmol/L (3.3-5.1); Sodium 135 mmol/L (135-145); Total Protein 7.4 g/dL (6.5-8.0)
--- NOTE | 2023-02-17 18:39 | PC.NURSE ---
pt sleeping. respirations even and unlabored.
[2023-02-17 19:37] VITALS: BP 92/71; PULSE 95; RESP 17; TEMP 36.9; O2SAT 99
[2023-02-17 19:56] LABS: UPreg QC Valid YES; Urine Pregnancy NEGATIVE (NEGATIVE)
[2023-02-17 19:57] LABS: Appearance Urine Clear; Color Urine Yellow; Glucose Urine UA Negative (Negative); Leukocyte Esterase Urine Negative (Negative); Nitrite Urine Negative (Negative); PH 7.5 (5.0-9.0); Urine Blood Negative (Negative); Urine Ketones Negative (Negative); Urine Protein Negative (Neg-Trace)
[2023-02-17] MEDS: Lactated Ringers 1,000 ML 999 ML IV (20:16)
[2023-02-17] MEDS: Haloperidol Lactate 5 MG/ML VIAL 2.5 MG IM (20:20)
--- NOTE | 2023-02-17 20:46 | ED_ITS ---
HPI - General Adult General Chief complaint: Nausea/Vomiting/Diarrhea Stated complaint: tachy, vomiting Time Seen by Provider: 02/17/23 19:59 Source: patient, RN notes reviewed and old records reviewed Mode of arrival: wheelchair Limitations: no limitations History of Present Illness HPI narrative: 42-year-old female with past medical history significant for alcoholic liver disease presents for evaluation of vomiting. Patient presents directly from the endoscopy suite She was having upper endoscopy due to ?diverticulosis of intestine at approximately 2:00 p.m. today Patient had an uneventful procedure per GI, Dr. Enriquez's note. However postprocedure the patient was given Zofran, Phenergan, Ativan, Carafate, magic mouthwash and has had no improvement in her vomiting Therefore she presents to ER for further evaluation She was also given IV fluids Patient denies any pain but continues to endorse nausea Denies any fevers or chills Related Data Home Medications Medication Instructions Recorded Confirmed amlodipine 10 mg tablet 10 mg PO DAILY 06/09/21 02/15/23 multivitamin 1 tab PO DAILY 10/09/22 02/15/23 Previous Rx's Medication Instructions Recorded folic acid 1 mg tablet 1 mg PO DAILY #30 tabs 12/16/22 potassium chloride 20 mEq oral 20 meq PO DAILY #30 ea 12/16/22 packet thiamine HCl (vitamin B1) 100 mg 100 mg PO DAILY #30 tabs 12/16/22 tablet acamprosate 333 mg tablet,delayed 333 mg PO TID #90 tabs 12/31/22 release furosemide 20 mg tablet 20 mg PO DAILY #90 tabs 12/31/22 hydrocortisone 2.5 % topical cream 1 appl [place] BEDTIME PRN hemorrhoids 12/31/22 with perineal applicator #30 grams (Proctozone-HC) lactulose 20 gram/30 mL oral 20 g (30 mL) PO TID #1,500 mL 12/31/22 solution pantoprazole 40 mg tablet,delayed 40 mg PO DAILY #90 tabs 12/31/22 release prednisolone 5 mg tablet See Taper PO QAM #130 tabs 12/31/22 sitz bath #1 ea 12/31/22 spironolactone 25 mg tablet 50 mg PO DAILY #90 tabs 12/31/22 sucralfate 1 gram tablet (Carafate) 1 g PO BID #60 tabs 12/31/22 Magic Mouthwash 10 ml PO .qid prn #240 mL 02/17/23 Diphen/Lido/Antacid 1:1:1 240 mL suspension carvedilol 3.125 mg tablet 3.125 mg PO BID #60 tabs 02/17/23 ondansetron 4 mg disintegrating 4 mg PO Q8H PRN nausea and 02/17/23 tablet vomiting #30 tabs simvastatin 20 mg tablet 20 mg PO BEDTIME #30 tabs 02/17/23 sucralfate 100 mg/mL oral 10 ml PO BID #400 mL 02/17/23 suspension (Carafate) ondansetron 4 mg disintegrating 4 mg PO Q8H PRN nausea and 02/18/23 tablet vomiting #20 tabs Allergies Allergy/AdvReac Type Severity Reaction Status Date / Time No Known Allergies Allergy Verified 02/17/23 17:13 [No Known Allergies*] Review of Systems Constitutional: Constitutional: Denies chills and Denies fever(s) Cardiovascular: Cardiovascular: Denies chest pain and Denies dyspnea Respiratory: Respiratory: Denies cough and Denies dyspnea Gastrointestinal: Gastrointestinal: Denies abdominal pain, Reports nausea and Reports vomiting Musculoskeletal: Musculoskeletal: Denies back pain PMFSH Past Medical History Medical History Acute alcoholic hepatitis Alcohol use disorder Alcoholic cirrhosis of liver Depression GERD (gastroesophageal reflux disease) Hyperbilirubinemia Hypertension Surgical History H/O colonoscopy History of esophagogastroduodenoscopy (EGD) Family History Family History Father Bile duct cancer Mother Breast cancer Social History Social History Household Members: Spouse and Children Housing: House Do you presently have visiting nurse or other home services: No Alcohol intake: former Patient Tobacco Use Status: Former Tobacco user Quit Date: 2002 Smoked in Last 30 Days: No Second Hand Smoke Exposure: No Use of substances other than those prescribed or required for medical reasons: No Substance Use Type: Marijuana Advance Directives: Yes Advance Directives on File: Yes Advance Directives Date on File: 12/28/22 service: No Current occupational status: employed 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[employer] Physical Exam ED Vital Signs: Vital Signs - 24 hr 02/17/23 17:08 02/17/23 17:14 02/17/23 19:37 Temperature 99.0 F 98.5 F Pulse Rate 102 H 101 H 95 Respiratory Rate 18 17 Blood Pressure 125/75 92/71 Pulse Oximetry 99 99 Oxygen Delivery Method Room Air Room Air 02/17/23 21:26 02/18/23 00:41 Temperature 97.7 F 97.9 F Pulse Rate 92 95 Respiratory Rate 15 17 Blood Pressure 119/77 119/69 Pulse Oximetry 100 97 Oxygen Delivery Method Room Air Room Air BMI result Body Mass Index 21.7 Const General: healthy appearing, comfortable, no acute distress, alert and awake Nutritional Appearance: well nourished Orientation/consciousness: patient oriented x3 HENMT Head: Yes normocephalic and Yes atraumatic Eyes Eyelids: Yes eyelids normal Conjunctivae: conjunctivae normal Sclerae: sclerae normal Corneas: corneas normal Pupils: Equal, round and reactive pupils present EOM: EOMs intact bilaterally Neck Neck: Yes full ROM Resp Effort & Inspection: normal respiratory effort, able to speak in complete sentences and not labored Cardio Rate: regular rate Rhythm: regular rhythm GI Palpation (GI): Soft to palpation, not firm, nontender, no guarding and not rigid Skin General skin exam: no rashes or lesions noted and elasticity normal Neuro General: patient oriented x3 Cranial nerves: Yes Equal, round and reactive pupils present and Yes Bilaterally intact EOM present Cognition (Neuro): normal cognition Extrem Other: Moving all extremities well without any obvious deformities Course Reevaluation(s) Reevaluation #1: Patient re-evaluated, she reports feeling better, has not vomited since receiving Haldol we will p.o. challenge the patient Time: 00:11 Reevaluation #2: Patient tolerating oral intake without any further vomiting. She is stable for discharge Time: 00:48 Medications Administered Discontinued Medications Generic Name Dose Route Start Last Admin Trade Name Freq PRN Reason Stop Dose Admin Haloperidol Lactate 2.5 mg 02/17/23 20:06 02/17/23 20:20 Haloperidol Lactate 5 Mg/Ml Vial IM 02/17/23 20:07 2.5 mg STAT STA Administration Lactated Ringer's 1,000 mls @ 999 mls/hr 02/17/23 20:15 02/17/23 21:17 Lr IV 02/17/23 21:15 Infused .Q1H1M DAI Infusion Medical Decision Making Medical Decision Making [facility] Narrative: 42-year-old female presents for evaluation of nausea and vomiting postprocedure. Patient denies any pain, per Dr. Has sounds no, there was a low suspicion for perforation. Will try to control the patient's nausea and vomiting and p.o. challenge the patient.She has no leukocytosis. She does have a baseline anemia likely related to her cirrhotic liver. Patient continues to have transaminitis or significantly improving compared to December 31, 2022. Patient medicated with Haldol IM, lactated Ringer's Differential Diagnosis Differential Diagnoses: The differential diagnosis associated with the presentation includes Anesthesia are reaction Acute nausea/vomiting Enteritis Gastritis Dehydration Lab Data [facility] Lab Attestation statement: I reviewed the patient's lab results. Normal white count of 5.9. Mild anemia hemoglobin 9.6 hematocrit 28.4, unchanged from 1/2 months ago. No electrolyte abnormalities. Patient has improving transaminitis her bilirubin has improved to 2.6 from 18.2 on December 31 02/17/23 18:15 02/17/23 18:15 Labs: Lab Results 02/17/23 02/17/23 02/17/23 Range/Units 18:15 18:15 19:41 WBC 5.9 (4.8-10.8) X10*3/uL RBC 2.94 L (4.20-5.50) X10*6/uL Hgb 9.6 L (12.0-16.0) g/dl Hct 28.4 L (37.0-47.0) % MCV 96.6 (80.0-98.0) fL MCH 32.7 (27.0-33.0) pg MCHC 33.8 (31.0-35.0) g/dl RDW 12.7 (11.0-16.0) % Plt Count 160 (160-400) X10*3/uL MPV 9.3 L (9.4-12.3) fL Immature Gran % (Auto) 1.2 H (0.0-0.4) % Neut % (Auto) 66.7 (45-73) % Lymph % (Auto) 18.4 L (20-40) % [place] % (Auto) 9.4 (2-11) % Eos % (Auto) 3.1 (0-4) % Baso % (Auto) 1.2 (0-2) % Lymph # (Auto) 1.1 L (1.2-4.9) X10*3/uL [place] # (Auto) 0.6 (0.1-1.2) X10*3/uL Eos # (Auto) 0.2 (0.0-0.4) X10*3/uL Baso # (Auto) 0.1 (0.0-0.2) X10*3/uL Abs Immat Gran (auto) 0.07 H (0.00-0.03) X10*3/uL Absolute Neuts (auto) 3.9 (2.0-8.3) x10*3/uL Absolute Nucleated RBC 0.000 (0.0-0.012) X10*3/uL Nucleated RBC % (auto) 0.0 (0.0-0.2) /100WBC Sodium 135 (135-145) mmol/L Potassium 3.8 (3.3-5.1) mmol/L Chloride 105 (96-108) mmol/L Carbon Dioxide 22 (22-29) mmol/L Anion Gap 12 (12-20) BUN 7 L (9-16) mg/dL Creatinine 0.71 (0.5-1.4) mg/dL Estim Creat Clear Calc 89.1 Estimated GFR > 60 Random Glucose 98 (60-115) mg/dL Calcium 9.4 (8.4-10.2) mg/dL Total Bilirubin 2.6 H (0.0-1.0) mg/dL AST 52 H (5-31) U/L ALT 19 (0-31) U/L Alkaline Phosphatase 128 H (39-117) U/L Total Protein 7.4 (6.5-8.0) g/dL Albumin 3.4 L (3.5-5.0) g/dL Urine Color Yellow Urine Appearance Clear Urine pH 7.5 (5.0-9.0) Ur Specific [place] 1.010 (1.005-1.025) Urine Protein Negative (Neg-Trace) mg/dL Urine Glucose (UA) Negative (Negative) mg/dL Urine Ketones Negative (Negative) mg/dL Urine Blood Negative (Negative) Urine Nitrite Negative (Negative) Ur Leukocyte Esterase Negative (Negative) Urine Test (NEGATIVE) 02/17/23 Range/Units 19:41 WBC (4.8-10.8) X10*3/uL RBC (4.20-5.50) X10*6/uL Hgb (12.0-16.0) g/dl Hct (37.0-47.0) % MCV (80.0-98.0) fL MCH (27.0-33.0) pg MCHC (31.0-35.0) g/dl RDW (11.0-16.0) % Plt Count (160-400) X10*3/uL MPV (9.4-12.3) fL Immature Gran % (Auto) (0.0-0.4) % Neut % (Auto) (45-73) % Lymph % (Auto) (20-40) % [place] % (Auto) (2-11) % Eos % (Auto) (0-4) % Baso % (Auto) (0-2) % Lymph # (Auto) (1.2-4.9) X10*3/uL [place] # (Auto) (0.1-1.2) X10*3/uL Eos # (Auto) (0.0-0.4) X10*3/uL Baso # (Auto) (0.0-0.2) X10*3/uL Abs Immat Gran (auto) (0.00-0.03) X10*3/uL Absolute Neuts (auto) (2.0-8.3) x10*3/uL Absolute Nucleated RBC (0.0-0.012) X10*3/uL Nucleated RBC % (auto) (0.0-0.2) /100WBC Sodium (135-145) mmol/L Potassium (3.3-5.1) mmol/L Chloride (96-108) mmol/L Carbon Dioxide (22-29) mmol/L Anion Gap (12-20) BUN (9-16) mg/dL Creatinine (0.5-1.4) mg/dL Estim Creat Clear Calc Estimated GFR Random Glucose (60-115) mg/dL Calcium (8.4-10.2) mg/dL Total Bilirubin (0.0-1.0) mg/dL AST (5-31) U/L ALT (0-31) U/L Alkaline Phosphatase (39-117) U/L Total Protein (6.5-8.0) g/dL Albumin (3.5-5.0) g/dL Urine Color Urine Appearance Urine pH (5.0-9.0) Ur Specific [place] (1.005-1.025) Urine Protein (Neg-Trace) mg/dL Urine Glucose (UA) (Negative) mg/dL Urine Ketones (Negative) mg/dL Urine Blood (Negative) Urine Nitrite (Negative) Ur Leukocyte Esterase (Negative) Urine Test NEGATIVE (NEGATIVE) Discharge Plan Discharge Clinical Impression: Vomiting Patient Disposition: Home, Self-Care Additional Instructions: Your symptoms were likely a side effect of the general anesthesia you were given. Use Zofran as needed for any further nausea or vomiting Drink lots of fluids, small sips at a time to stay hydrated Follow-up with your primary doctor in your GI doctor Prescriptions: New ondansetron 4 mg tablet,disintegrating 4 mg PO Q8H PRN (Reason: nausea and vomiting) Qty: 20 0RF No Action multivitamin Tablet 1 tab PO DAILY potassium chloride 20 mEq packet 20 meq PO DAILY Qty: 30 0RF folic acid 1 mg tablet 1 mg PO DAILY Qty: 30 0RF thiamine HCl (vitamin B1) 100 mg tablet 100 mg PO DAILY Qty: 30 0RF spironolactone 25 mg Tablet 50 mg PO DAILY Qty: 90 0RF Protocol: Hold for SBP< HOLD for SBP < : 90 acamprosate 333 mg Tablet,Delayed Release (Dr/Ec) 333 mg PO TID Qty: 90 0RF furosemide 20 mg Tablet 20 mg PO DAILY Qty: 90 0RF Protocol: Hold for SBP< HOLD for SBP < : 90 lactulose 20 gram/30 mL Solution 20 g PO TID Qty: 1500 2RF prednisolone 5 mg tablet See Taper PO QAM Qty: 130 0RF Taper: Prednisone 40 mg daily for 5 Days and 0 Hour 30 mg daily for 7 Days and 0 Hour 20 mg daily for 7 Days and 0 Hour 10 mg daily for 7 Days and 0 Hour 5 mg daily for 7 Days and 0 Hour sucralfate [Carafate] 1 gram tablet 1 g PO BID Qty: 60 0RF (DME) sitz bath Kit See Rx Instructions .Route Qty: 1 0RF Rx Instructions: As directed hydrocortisone [Proctozone-HC] 2.5 % cream with perineal applicator 1 appl [place] BEDTIME PRN (Reason: hemorrhoids) Qty: 30 0RF pantoprazole 40 mg tablet,delayed release (DR/EC) 40 mg PO DAILY Qty: 90 0RF carvedilol 3.125 mg tablet 3.125 mg PO BID Qty: 60 2RF Rx Instructions: must administer with a meal/food, take 1 tab for 1 week then 1 tab twice a day if no side effects simvastatin 20 mg tablet 20 mg PO BEDTIME Qty: 30 2RF sucralfate [Carafate] 100 mg/mL suspension 10 ml PO BID Qty: 400 0RF ondansetron 4 mg tablet,disintegrating 4 mg PO Q8H PRN (Reason: nausea and vomiting) Qty: 30 0RF Magic Mouthwash Diphen/Lido/Antacid 1:1:1 240 mL suspension 10 ml PO .qid prn Qty: 240 1RF Rx Instructions: Lidocaine Viscous 2 % 80mL; diphenhydramine 12.5 mg/5 mL 80mL; aluminum-mag hydrox-simeth [id number]/5mL 80mL amlodipine 10 mg tablet 10 mg PO DAILY
[2023-02-17 21:26] VITALS: BP 119/77; PULSE 92; RESP 15; TEMP 36.5; O2SAT 100
[2023-02-18 00:41] VITALS: BP 119/69; PULSE 95; RESP 17; TEMP 36.6; O2SAT 97
== END 2023-02-18 01:35 | disposition home or self-care (01) ==
PROVIDERS: Emergency Provider Emergency Medicine; PCP Internal Medicine
DX: R11.2 Nausea with vomiting, unspecified (principal); Z79.899 Other long term (current) drug therapy
CPT/HCPCS: 36415; 80053; 81003; 81025; 85025; 96360; 96372; 99284

== ENCOUNTER 2023-03-04 12:20 | Outpatient (AMB) | payer OTHER, SELFPAY ==
--- NOTE | 2023-03-04 12:21 | MHC.OFFVIS ---
Intake Vital Signs 03/04/23 12:24 Height 5 ft 4 in Weight 130 lb 1.164 oz BMI 22.3 BP 112/55 L Blood Pressure Location Lt brachial Position Sitting Pulse 91 Intake Visit Reasons: S/P EGD; Dr. Enriquez Intake Note: Aracelis presents in the office as a follow up EGD. CC: Here for the results of her EGD that she had recently. 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 Enriquez HPI Details 42-year-old female past medical history of alcoholic liver cirrhosis and alcohol abuse, hypertension who I am seeing for f/u after I had seen her as in patient for ascites and decompensated cirrhosis 12/2022 RECAP: She initially presented? with complaints of abdominal distension and diffuse abdominal pain worse with movement, without any relieving factors.? Seh also noted increasing jaundice for few weeks. She had been drinking vodka She had been commenced on pred 40 mg due ot high MELD score and concern for alcoholic hepatitis LABS: WBC: 15.4, hemoglobin of 10, hematocrit 29.4, PT of 22.3, INR of 1.9, sodium: 130, bilirubin of 31.3, direct of 19.6, AST of 3 1, ALT of 47, alk-phos of 192, albumin of 2.6, Urine: positive for leukocyte Estrace, nitrites, and WBC, Ascitic fluid: neg for SBP Last viral serologies-- neg for Hep A, B and C . 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 VITAL SIGNS:see workflow HEENT: Nonicteric sclerae, PERRLA, EOMI. Oropharynx clear. Moist mucous membranes. Conjunctivae appear well perfused. No thyroid mass. CHEST: Chest wall is nontender. HEART: Regular rate and rhythm without murmurs. LUNGS: Clear to auscultation bilaterally. ABDOMEN: Soft, positive bowel sounds, nontender, no organomegaly.no flank tenderness SKIN: No rash, no excessive bruising, petechiae, or purpura. NEUROLOGIC: Cranial nerves II-XII intact without motor/sensory deficit. ankle swelling noted A/P: 1/ Alcohol related cirrhosis PLAN: 1/ stop amlodipine--can cause ankle swelling, and recheck BP in 1 week, can increase carvedilol0 2/ periodic US imaging for HCC 3/ repeat EGD soon 4/ Low salt diet--increase lasix, recheck labs in 1 week and BP in office 5/ US imaging for HCC screening 6/ cont with alcohol abstinence, can use coffee -black or green tea 2-4 cups daily PFSH Medical History (Updated 03/04/23 @ 19:30 by Marisa Enriquez MD) Acute alcoholic hepatitis Alcohol use disorder Alcoholic cirrhosis of liver Depression GERD (gastroesophageal reflux disease) Hyperbilirubinemia Hypertension Surgical History H/O colonoscopy History of esophagogastroduodenoscopy (EGD) Family History Father Bile duct cancer Mother Breast cancer Social History Household Members: Spouse and Children Housing: House Do you presently have visiting nurse or other home services: No Alcohol intake: former Patient Tobacco Use Status: Former Tobacco user Quit Date: 2002 Second Hand Smoke Exposure: No Substance Use Type: Marijuana Advance Directives Date on File: 12/28/22 service: No Current occupational status: employed 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[employer] Physical Exam Vital Signs: Last Vital Signs Pulse 91 03/04/23 12:24 BP 112/55 L 03/04/23 12:24 BMI result Body Mass Index 22.3 Assessment & Plan Assessment & Plan (1) Alcoholic cirrhosis of liver: Code(s): K70.30 - Alcoholic cirrhosis of liver without ascites Orders: Orders US abdomen epperson w elastography Today K74.60 - Unspecified cirrhosis of liver, K75.81 - Nonalcoholic steatohepatitis (ISABEL) Medications: New furosemide 40 mg PO DAILY 30 tabs 1RF Discontinued furosemide Discontinued Reason: Doctor's Order 20 mg See Protocol PO DAILY 90 tabs 0RF Coding Level of Care Code Est Pt Level 4 (40174) Diagnoses Alcoholic cirrhosis of liver K70.30
[2023-03-04 12:24] VITALS: BP 112/55; PULSE 91; BMI 22.3
== END 2023-03-04 14:31 | disposition home or self-care (01) ==
PROVIDERS: PCP Internal Medicine; Visit Provider Internal Medicine Gastroenterology
DX: K70.30 Alcoholic cirrhosis of liver without ascites (principal)
CPT/HCPCS: 99214

== ENCOUNTER → 2023-03-04 12:20 | Outpatient (BNVA) | payer OTHER, SELFPAY | PROVIDERS: PCP Internal Medicine; Visit Provider Internal Medicine Gastroenterology ==

== ENCOUNTER 2023-03-25 08:22 | Outpatient (REF) | payer OTHER, SELFPAY ==
--- NOTE | ~2023-03-25 | US_ITS ---
EXAMINATION: US ABDOMEN LIMITED WITH LIVER ELASTOGRAPHY CLINICAL INFORMATION: [place] COMPARISON: Previous ultrasounds most recent December 2022, CT December 2022 and MRI October 2022 TECHNIQUE: Real-time imaging of the abdominal viscera. Noninvasive ultrasound liver fibrosis assessment is performed using Elijah ElastPQ point quantification shear wave elastography (2D-SWE) with a C5-2 MHz transducer. Multiple elastography samples are obtained. FINDINGS: PANCREAS: Normal. LIVER: Liver echotexture is increased. The contour of the liver is questionable for mild cirrhotic change. No focal liver lesion or biliary duct dilatation. The right lobe measures 16 cm in length. The left lobe measures 12 cm in length. Portal flow is normal/hepatopedal. Recanalized paraumbilical vein. Varices adjacent to the left lobe. Shear wave liver elastography median stiffness is 2.4 m/s (reference: normal median stiffness is 1.3 m/s or less). IQR/median stiffness to assess sampling precision is 0.07 (reference: good quality data set is IQR/median stiffness of 0.15 or less). GALLBLADDER: Normal. The gallbladder is physiologically distended without evidence of stones, sludge, polyps, wall thickening or pericholecystic fluid. COMMON BILE DUCT: Normal in caliber measuring 0.3 cm in diameter. RIGHT KIDNEY: Normal. No hydronephrosis. No renal calculi or focal parenchymal lesions. The kidney measures 11 cm in maximum dimension. FREE FLUID: None. US/US abdomen epperson w elastography IMPRESSION: 1. Impression echogenic liver and question mild cirrhotic changes. No focal liver lesion. Patent main portal vein with appropriate hepatopedal flow. Recannulized paraumbilical vein and varices adjacent to the left lobe of the liver. No ascites. 2. Liver elastography: Adequate liver sampling. There is increased liver stiffness suggestive of clinically significant portal hypertension. REFERENCE: Society of Radiologists in Ultrasound Liver Stiffness Thresholds (2020): LIVER STIFFNESS THRESHOLDS: *Liver Stiffness equal or less than 1.3 m/s: High probability of being normal. *Liver Stiffness less than 1.7 m/s: In the absence of other known clinical signs, rules out compensated advanced chronic liver disease. *Liver Stiffness 1.7-2.1 m/s: Suggestive of compensated advanced chronic liver disease but need further test for confirmation. *Liver Stiffness over 2.1 m/s: Rules in compensated advanced chronic liver disease. *Liver Stiffness over 2.4 m/s: QUALITY OF DATA SET: *IQR/Median value equal or less than 0.15 implies a quality data set. *IQR/Median value over 0.15 implies a poor quality data set. SIGNIFICANT CHANGE FROM PRIOR EXAM: Significant change if liver stiffness measurement is 10% or greater from prior exam. OTHER CONSIDERATIONS: The stage of liver fibrosis may be overestimated in the setting of acute hepatitis, liver inflammation, elevated liver function tests, hepatic vascular congestion, obstructive cholestasis, non-fasting state, and infiltrative diseases such as amyloidosis and lymphoma. In some patients with NAFLD, the liver stiffness thresholds for compensated advanced chronic liver disease may be lower. In causes other than viral hepatitis and NAFLD, liver stiffness thresholds are not well established.
== END 2023-03-25 08:23 | disposition home or self-care (01) ==
LOC: HO.US 08:22
PROVIDERS: PCP Internal Medicine; Visit Provider Internal Medicine Gastroenterology
DX: K75.81 Nonalcoholic steatohepatitis (NASH) (principal); K74.60 Unspecified cirrhosis of liver
CPT/HCPCS: 76705; 76981

== ENCOUNTER 2023-04-12 13:06 | Emergency (ER) | payer OTHER, SELFPAY ==
[2023-04-12 14:27] VITALS: BP 157/101; PULSE 89; RESP 16; TEMP 35.7; O2SAT 100; BMI 19.2
--- NOTE | 2023-04-12 14:29 | ED_ITS ---
HPI - General Adult General Chief complaint: Nausea/Vomiting/Diarrhea Stated complaint: nausea/ feels like passing out Time Seen by Provider: 04/13/23 01:22 Source: patient Mode of arrival: ambulatory Limitations: no limitations History of Present Illness HPI narrative: Patient's history of hepatic steatosis marijuana use frequently had drink yesterday and been throwing up since then unable take her medication no fever no significant abdominal pain no urinary complaints no abdominal distention no abdominal distant no history of pancreatitis patient denies any anxiety Related Data Home Medications Medication Instructions Recorded Confirmed amlodipine 10 mg tablet 10 mg PO DAILY 06/09/21 02/15/23 Previous Rx's Medication Instructions Recorded folic acid 1 mg tablet 1 mg PO DAILY #30 tabs 12/16/22 potassium chloride 20 mEq oral 20 meq PO DAILY #30 ea 12/16/22 packet thiamine HCl (vitamin B1) 100 mg 100 mg PO DAILY #30 tabs 12/16/22 tablet acamprosate 333 mg tablet,delayed 333 mg PO TID #90 tabs 12/31/22 release hydrocortisone 2.5 % topical cream 1 appl [place] BEDTIME PRN hemorrhoids 12/31/22 with perineal applicator #30 grams (Proctozone-HC) lactulose 20 gram/30 mL oral 20 g (30 mL) PO TID #1,500 mL 12/31/22 solution pantoprazole 40 mg tablet,delayed 40 mg PO DAILY #90 tabs 12/31/22 release sitz bath #1 ea 12/31/22 spironolactone 25 mg tablet 50 mg PO DAILY #90 tabs 12/31/22 carvedilol 3.125 mg tablet 3.125 mg PO BID #60 tabs 02/17/23 simvastatin 20 mg tablet 20 mg PO BEDTIME #30 tabs 02/17/23 ondansetron 4 mg disintegrating 4 mg PO Q8H PRN nausea and 02/18/23 tablet vomiting #20 tabs furosemide 40 mg tablet 40 mg PO DAILY #30 tabs 03/28/23 Allergies Allergy/AdvReac Type Severity Reaction Status Date / Time No Known Allergies Allergy Verified 03/04/23 12:25 [No Known Allergies*] Review of Systems 2 Review of Systems: Yes all other systems are reviewed and are negative PMFSH Past Medical History Medical History GERD (gastroesophageal reflux disease) Depression Hyperbilirubinemia Acute alcoholic hepatitis Alcoholic cirrhosis of liver Alcohol use disorder Hypertension Surgical History History of esophagogastroduodenoscopy (EGD) H/O colonoscopy Family History Family History Father Bile duct cancer Mother Breast cancer Social History Social History Household Members: Spouse and Children Housing: House Do you presently have visiting nurse or other home services: No Alcohol intake: current Alcohol intake frequency: a few times a month Alcohol type: beer Patient Tobacco Use Status: Former Tobacco user Quit Date: 2002 Smoked in Last 30 Days: No Second Hand Smoke Exposure: No Use of substances other than those prescribed or required for medical reasons: Yes Substance Use Type: Marijuana Advance Directives: Yes Advance Directives on File: Yes Advance Directives Date on File: 12/28/22 Patient : No service: No Current occupational status: employed 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 Oriented X3. No acute distress. Eyes: PERRLA, No Nystagmus mild icterus ENT: Pharynx normal. Oral Mucosa moist Neck: Normal inspection. Neck supple. CVS: Normal heart rate and rhythm. Pulses normal. Respiratory: No respiratory distress. Equal air entry bilateral, no wheezing/rales/rhonchi Abdomen: Soft, mild epigastric tenderness Bowel sounds are present, no mass palpable, no CVA tenderness Skin: Skin warm and dry. Normal skin color. Normal skin turgor. Extremities: No lower extremity edema. No calf tenderness Neuro: Oriented X 3. No motor deficit. No sensory deficit.No cerebellar signs , cranial nerves II-XII intact Course Course Course Narrative: This is an RME: Additional HPI, ROS, PE not included below will be deferred to primary provider. This is a [id number]-female, with a hx of alcoholic liver disease, GERD, depression, hyperbilirubienimia, with complaints of vomiting and weakness which started today. Patient reports that she has vomited numerous times. She has a history of similar symptoms which she has been the emergency department for. She has a history of alcohol abuse, she is been sober for the last several months however does admit to drinking 3 alcoholic beverages last night. She was previously on acamprosate which she discontinued a week and half ago. Patient nontoxic appearing however appears uncomfortable, pale. She does have a band on S off a Edward varices. Denies any hemoptysis. Vital signs stable. Plan: Labs, UA, patient given Zofran 4 mg ODT in triage. Medications Administered Discontinued Medications Generic Name Dose Route Start Last Admin Trade Name Freq PRN Reason Stop Dose Admin Famotidine 20 mg 04/13/23 01:26 04/13/23 02:05 Famotidine/Pf 20 Mg/2 Ml Vial IVPUSH 04/13/23 01:27 20 mg ONCE ONE Administration Ondansetron HCl 4 mg 04/12/23 14:32 04/12/23 14:35 Ondansetron Odt 4 Mg Tab.Rapdis TRANSLINGU 04/12/23 14:33 4 mg ONCE ONE Administration Prochlorperazine Edisylate 10 mg 04/13/23 01:26 04/13/23 02:05 Prochlorperazine Edisylate 10 Mg/2 Ml Vial IVPUSH 04/13/23 01:27 10 mg ONCE ONE Administration Medical Decision Making Medical Decision Making [facility] Narrative: Patient with acute gastritis with alcohol use and THC use labs are stable give IV fluids discharge patient home Differential Diagnosis Differential Diagnoses: The differential diagnosis associated with the presentation includes Acute gastritis/THC induced vomiting/pancreatitis/hepatitis Lab Data [facility] Lab Attestation statement: I reviewed the patient's lab results. 04/12/23 14:48 04/12/23 14:48 Labs: Lab Results 04/12/23 Range/Units 14:48 WBC 5.3 (4.8-10.8) X10*3/uL RBC 3.91 L D (4.20-5.50) X10*6/uL Hgb 11.2 L (12.0-16.0) g/dl Hct 34.3 L D (37.0-47.0) % MCV 87.7 (80.0-98.0) fL MCH 28.6 (27.0-33.0) pg MCHC 32.7 (31.0-35.0) g/dl RDW 13.6 (11.0-16.0) % Plt Count 143 L (160-400) X10*3/uL MPV 10.4 (9.4-12.3) fL Immature Gran % (Auto) 0.4 (0.0-0.4) % Neut % (Auto) 80.9 H (45-73) % Lymph % (Auto) 10.2 L (20-40) % Haines % (Auto) 7.9 (2-11) % Eos % (Auto) 0.0 (0-4) % Baso % (Auto) 0.6 (0-2) % Lymph # (Auto) 0.5 L (1.2-4.9) X10*3/uL Haines # (Auto) 0.4 (0.1-1.2) X10*3/uL Eos # (Auto) 0.0 (0.0-0.4) X10*3/uL Baso # (Auto) 0.0 (0.0-0.2) X10*3/uL Abs Immat Gran (auto) 0.02 (0.00-0.03) X10*3/uL Absolute Neuts (auto) 4.3 (2.0-8.3) x10*3/uL Absolute Nucleated RBC 0.000 (0.0-0.012) X10*3/uL Nucleated RBC % (auto) 0.0 (0.0-0.2) /100WBC Sodium 137 (135-145) mmol/L Potassium 3.3 (3.3-5.1) mmol/L Chloride 98 (96-108) mmol/L Carbon Dioxide 23 (22-29) mmol/L Anion Gap 19 (12-20) BUN 15 (9-16) mg/dL Creatinine 0.79 (0.5-1.4) mg/dL Estim Creat Clear Calc 74.2 Estimated GFR > 60 Random Glucose 136 H (60-115) mg/dL Calcium 10.3 H D (8.4-10.2) mg/dL Total Bilirubin 3.1 H (0.0-1.0) mg/dL Direct Bilirubin 1.7 H (0.0-0.5) mg/dL AST 143 H (5-31) U/L ALT 41 H (0-31) U/L Alkaline Phosphatase 162 H (39-117) U/L Total Protein 8.7 H (6.5-8.0) g/dL Albumin 4.5 (3.5-5.0) g/dL Lipase 19 (8-78) U/L Discharge Plan Discharge Clinical Impression: Acute alcoholic gastritis Patient Disposition: Home, Self-Care Instructions: Gastritis (ED) Additional Instructions: Drink plenty of fluids Stop drinking alcohol Take medication as prescribed before and follow with gastroenterology Prescriptions: No Action furosemide 40 mg tablet 40 mg PO DAILY Qty: 30 1RF potassium chloride 20 mEq packet 20 meq PO DAILY Qty: 30 0RF folic acid 1 mg tablet 1 mg PO DAILY Qty: 30 0RF thiamine HCl (vitamin B1) 100 mg tablet 100 mg PO DAILY Qty: 30 0RF spironolactone 25 mg Tablet 50 mg PO DAILY Qty: 90 0RF Protocol: Hold for SBP< HOLD for SBP < : 90 acamprosate 333 mg Tablet,Delayed Release (Dr/Ec) 333 mg PO TID Qty: 90 0RF lactulose 20 gram/30 mL Solution 20 g PO TID Qty: 1500 2RF (DME) [place] bath Kit See Rx Instructions .Route Qty: 1 0RF Rx Instructions: As directed hydrocortisone [Proctozone-HC] 2.5 % cream with perineal applicator 1 appl [place] BEDTIME PRN (Reason: hemorrhoids) Qty: 30 0RF pantoprazole 40 mg tablet,delayed release (DR/EC) 40 mg PO DAILY Qty: 90 0RF carvedilol 3.125 mg tablet 3.125 mg PO BID Qty: 60 2RF Rx Instructions: must administer with a meal/food, take 1 tab for 1 week then 1 tab twice a day if no side effects simvastatin 20 mg tablet 20 mg PO BEDTIME Qty: 30 2RF ondansetron 4 mg tablet,disintegrating 4 mg PO Q8H PRN (Reason: nausea and vomiting) Qty: 20 0RF amlodipine 10 mg tablet 10 mg PO DAILY
[2023-04-12 15:11] LABS: Alanine Aminotransferase 41 U/L (0-31); Albumin Level 4.5 g/dL (3.5-5.0); Alkaline Phosphatase 162 U/L (39-117); Anion Gap 19 (12-20); Aspartate Amino Transferase 143 U/L (5-31); Bilirubin Direct 1.7 mg/dL (0.0-0.5); Bilirubin Total 3.1 mg/dL (0.0-1.0); Blood Urea Nitrogen 15 mg/dL (9-16); Calcium 10.3 mg/dL (8.4-10.2); Carbon Dioxide 23 mmol/L (22-29); Chloride 98 mmol/L (96-108); Creatinine Clr Calc Pharmacy 74.2; Estimated Glomerular Filt Rate > 60; Glucose Random 136 mg/dL (60-115); Potassium 3.3 mmol/L (3.3-5.1); Sodium 137 mmol/L (135-145); Total Protein 8.7 g/dL (6.5-8.0)
[2023-04-12 22:44] VITALS: BP 147/84; PULSE 66; RESP 16; TEMP 36.5; O2SAT 100
[2023-04-13] VITALS: BP 135/74; PULSE 78; RESP 17; TEMP 36.9; O2SAT 100
[2023-04-13 01:48] LABS: Lipase 19 U/L (8-78)
== END 2023-04-13 02:59 | disposition home or self-care (01) ==
PROVIDERS: Physician Assistant Medical; Emergency Provider Internal Medicine; PCP Internal Medicine
DX: K29.20 Alcoholic gastritis without bleeding (principal); R11.2 Nausea with vomiting, unspecified; R19.7 Diarrhea, unspecified; F12.90 Cannabis use, unspecified, uncomplicated; Z87.891 Personal history of nicotine dependence; Z79.899 Other long term (current) drug therapy
CPT/HCPCS: 36415; 80048; 80076; 83690; 85025; 96361; 96374; 96375; 99284

== ENCOUNTER 2023-04-15 08:42 | Outpatient (AMB) | payer OTHER, SELFPAY ==
--- NOTE | 2023-04-15 08:42 | A.OFFVIS_ITS ---
Intake Intake Visit Reasons: 6 weeks follow up Intake Note: Aracelis presents as a video call. CC: She states that she is feeling okay since her last visit. Allergies No Known Allergies [No Known Allergies*] Allergy (Verified 03/04/23 12:25) HPI 6 weeks follow up HPI Details 42-year-old female past medical history of alcoholic liver cirrhosis and alcohol abuse, hypertension who I am seeing for f/u after I had seen her as in patient for ascites and decompensated cirrhosis 12/2022 RECAP: She initially presented? with complaints of abdominal distension and diffuse abdominal pain worse with movement, without any relieving factors.? She also noted increasing jaundice for few weeks. She had been drinking vodka She had been commenced on pred 40 mg due ot high MELD score and concern for alcoholic hepatitis LABS: WBC: 15.4, hemoglobin of 10, hematocrit 29.4, PT of 22.3, INR of 1.9, sodium: 130, bilirubin of 31.3, direct of 19.6, AST of 3 1, ALT of 47, alk-phos of 192, albumin of 2.6, Urine: positive for leukocyte Estrace, nitrites, and WBC, rept Labs: 04/12/23 LFT: bili 3.1, AST: 143, ALT: 41, Alk phos: 162 Ascitic fluid: neg for SBP Last viral serologies-- neg for Hep A, B and C . Imaging: CT and US: hepatomegaly, ascites, distended thickened GB EGD x 2 variceal banding--due another EGD she had relapse and drank alcohol 04/12/23 and went to ED due to nausea and vomiting, had stopped acamprosate week before this INTERIM; feeling better now appetite good she denies abdominal pain and nausea ankle swelling less now since stopping amlodipine BP had been lower at home, has a BP monitor still taking lasix 40 mg and aldactone 50 mg A/P: 1/ Alcohol related cirrhosis, decompensa sarahi PLAN: 1/ I asked her to take a few BP readings and call them in to the office 2/ periodic US imaging for HCC 3/ repeat EGD --will send [facility] to [facility] 4/ Low salt diet--cont with current diur etic regimen 5/ cont with alcohol abstinence, can use coffee -black or green tea 2-4 cups daily --she will talk to her PCP about posisble going back on acamprosate. PFSH Medical History GERD (gastroesophageal reflux disease) Depression Hyperbilirubinemia Acute alcoholic hepatitis Alcoholic cirrhosis of liver Alcohol use disorder Hypertension Surgical History History of esophagogastroduodenoscopy (EGD) H/O colonoscopy Family History Father Bile duct cancer Mother Breast cancer Social History Household Members: Spouse and Children Housing: House Do you presently have visiting nurse or other home services: No Alcohol intake: current Alcohol intake frequency: a few times a month Alcohol type: beer Patient Tobacco Use Status: Former Tobacco user Quit Date: 2002 Second Hand Smoke Exposure: No Substance Use Type: Marijuana Advance Directives Date on File: 12/28/22 service: No Current occupational status: employed 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
== END 2023-04-15 09:26 | disposition home or self-care (01) ==
LOC: HO.HGI 08:42
PROVIDERS: PCP Internal Medicine; Visit Provider Internal Medicine Gastroenterology
DX: K70.31 Alcoholic cirrhosis of liver with ascites (principal)
CPT/HCPCS: 99213

== ENCOUNTER → 2023-04-15 08:42 | Outpatient (BNVA) | payer OTHER, SELFPAY | PROVIDERS: PCP Internal Medicine; Visit Provider Internal Medicine Gastroenterology ==

== ENCOUNTER 2023-11-04 14:32 | Inpatient (IN) | payer OTHER, SELFPAY ==
[2023-11-04] VITALS (19 sets, daily range): BP systolic 105–147; BP diastolic 41–97; PULSE 87–124; RESP 13–23; TEMP 36.4–37.7; O2SAT 98–100; BMI 20.6
--- NOTE | ~2023-11-04 | CT_ITS ---
EXAMINATION: CT ABDOMEN AND PELVIS WITH AND WITHOUT CONTRAST: CT GI BLEEDING STUDY CLINICAL INFORMATION: Reason for Exam UGIB. COMPARISON: CT abdomen pelvis 12/28/2022. TECHNIQUE: Multidetector volumetric imaging was performed from the lung bases to the pubic symphysis before and after the administration of: Intravenous contrast: 80 mL Omnipaque 350 2 sets of post contrast imaging was performed, one during the arterial phase and 1 after a 2 minute delay to look for extravasation No contrast reaction reported MIP coronal, sagittal and coronal reformatted images were obtained on the technologist workstation. This CT examination was performed using dose optimization techniques as appropriate, variously including the following: *Automated exposure control *Adjustment of mA and/or kV according to patient size (this includes techniques or standardized protocols for targeted exams where dose is matched to indication/reason for exam; i.e. extremities or head) *Use of iterative reconstruction technique Total exam dose-length product 979 mGy-cm FINDINGS: STOMACH AND ESOPHAGUS: There is evidence of portal hypertension with large esophageal varices along with some perigastric varices. The highest concentration of varices around the distal esophagus. SMALL BOWEL: There is marked enhancement of small bowel which appears thickened after IV contrast but no definite extravasation into bowel lumen with accumulation on delayed images COLON: No intraluminal contrast accumulation to suggest hemorrhage. There is diffuse minimal colonic wall thickening seen which may be secondary to portal colopathy. There are some colonic diverticula without evidence of diverticulitis. Normal appendix. LUNG BASES: No nodules, mass, or focal consolidation. PLEURA: No pleural effusion. LIVER, GALLBLADDER, AND BILIARY TREE: The liver has a cirrhotic appearance with a nodular border and heterogeneous echogenicity. There is recanalization of the umbilical vein with associated varices Ascites is present.. No focal hepatic lesion or biliary ductal dilatation is present. The gallbladder is distended with a slightly thickened wall with no evidence of radiopaque gallstones or obvious pericholecystic fluid collection. PANCREAS: Normal; no mass or surrounding fluid. SPLEEN: Spleen is enlarged measuring 12.4 cm in size. ADRENAL GLANDS: Normal; no mass. KIDNEYS AND URETERS: The kidneys are normal in size, shape, and attenuation. No hydronephrosis, hydroureter, or calculi. ABDOMINAL WALL: No hernia seen. VASCULAR STRUCTURES: Please see discussion above regarding portal hypertension with marked esophageal varices and some gastric varices along with enlarged splenic vein and recanalized umbilical vein. There is a small splenorenal shunt. The coronary vein is enlarged and appears to be the main feeding source of the gastroesophageal varices LYMPH NODES: No retroperitoneal lymphadenopathy. Edematous changes are present in the mesentery. BLADDER: No focal mass or wall thickening seen. No bladder calculi. PELVIC VISCERA: Normal CT appearance of the uterus which contains an IUD. No adnexal mass seen. OSSEOUS STRUCTURES: No acute or suspicious osseous abnormality. CT/CT gi bleed abd pel wo/w IVcon IMPRESSION: 1. No evidence of active gastrointestinal bleeding. 2. Cirrhotic liver with portal hypertension, ascites and large extensive esophageal varices. 3. Marked enhancement of the small bowel after IV contrast as well as some mucosal thickening of the colon. These findings could be due to portal colopathy/enterography. 4. Patient could benefit from TIPS placement with BRTO of the esophageal varices via the coronary vein. Consider interventional radiology consult. This critical result was discussed with Dr. Soila Lee at 9:31 PM on the evening of the exam and it was ascertained that the content and urgency of the report was understood at the time of direct communication.
--- NOTE | ~2023-11-04 | XR_ITS ---
EXAMINATION: XR CHEST CLINICAL INFORMATION: Chest pain. COMPARISON: Chest radiograph dated 12/31/2022. TECHNIQUE: 2 views of the chest were obtained. FINDINGS: Heart size is normal. The lungs are clear. There is no pleural effusion or pneumothorax. No acute osseous abnormality. XR/XR chest 2V IMPRESSION: No acute cardiopulmonary disease.
--- NOTE | 2023-11-04 14:54 | ED.GENADULT ---
[facility] - General Adult General Chief complaint: GI Bleed Stated complaint: vomiting blood Time Seen by Provider: 11/04/23 15:59 Source: patient Mode of arrival: ambulatory History of Present Illness HPI narrative: 43-year-old female with history of alcohol use disorder, has known liver cirrhosis and has a history of requiring esophageal variceal banding. Patient comes in with relapse onto alcohol, last drink was on Tuesday, she denies any significant withdrawal symptoms in the past, states that she has had multiple episodes of vomiting with blood as well as melena. Patient denies any hematemesis since yesterday, last melena stool was this morning, she denies any abdominal pain and states she has noticed the change in her skin color for the past couple of days. Related Data Home Medications ?Medication ?Instructions ?Recorded ?Confirmed omeprazole 20 mg capsule,delayed 20 mg PO DAILY PRN Heartburn 11/04/23 11/04/23 release Allergies Allergy/AdvReac Type Severity Reaction Status Date / Time No Known Allergies Allergy Verified 11/04/23 14:58 [No Known Allergies*] Review of Systems Review of Systems: Pertinent positives and negatives as stated in HPI [facility] Past Medical History Source: nursing notes reviewed Medical History GERD (gastroesophageal reflux disease) Depression Hyperbilirubinemia Acute alcoholic hepatitis Alcoholic cirrhosis of liver Alcohol use disorder Hypertension Surgical History History of esophagogastroduodenoscopy (EGD) H/O colonoscopy Family History Family History Father Bile duct cancer Mother Breast cancer Social History Social History Household Members: Spouse and Children Housing: House Do you presently have visiting nurse or other home services: No Alcohol intake: current Alcohol intake frequency: 3 or more drinks per day Alcohol type: hard liquor Patient Tobacco Use Status: Former Tobacco user Quit Date: 2002 Smoked in Last 30 Days: No Second Hand Smoke Exposure: No Substance Use Type: Marijuana Advance Directives: Yes Advance Directives on File: Yes Advance Directives Date on File: 12/28/22 service: No Current occupational status: employed 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[employer] Physical Exam ED Vital Signs: Vital Signs - 24 hr 11/04/23 14:54 11/04/23 16:00 11/04/23 16:46 Temperature 98 F 99.3 F Pulse Rate 118 H 124 H 115 H Respiratory Rate 19 16 18 Blood Pressure 105/41 L 133/64 108/51 L Pulse Oximetry 98 Oxygen Delivery Method Room Air Room Air 11/04/23 17:04 11/04/23 17:40 11/04/23 17:44 Temperature 99.4 F 98.8 F 98.8 F Pulse Rate 115 H 109 H 108 H Respiratory Rate 18 15 18 Blood Pressure 116/61 127/64 127/64 Pulse Oximetry Oxygen Delivery Method 11/04/23 18:01 11/04/23 18:22 11/04/23 18:37 Temperature 99.6 F 99.9 F Pulse Rate 106 H 109 H 109 H Respiratory Rate 16 18 18 Blood Pressure 147/97 H 126/77 Pulse Oximetry 100 Oxygen Delivery Method Room Air 11/04/23 19:08 11/04/23 19:25 11/04/23 19:40 Temperature 99.4 F 99.4 F 99.6 F Pulse Rate 118 H 109 H 109 H Respiratory Rate 18 23 H 23 H Blood Pressure 136/75 117/68 121/74 Pulse Oximetry Oxygen Delivery Method BMI result Body Mass Index 20.6 VITAL SIGNS: Reviewed. GENERAL: Well developed, well nourished, in no acute distress. HEAD: Normocephalic/atraumatic EYES: PERRLA, EOMI, scleral icterus EARS: Ext canals without abnormality NOSE: Nares patent bilateral OROPHARYNX: no oral lesions noted, posterior pharynx clear NECK: Supple, no adenopathy LUNGS: Normal breath sounds. No adventitious sounds or accessory muscle use. SpO2<98> CARDIOVASCULAR: Regular rate and rhythm without noted murmurs, no JVD or lower extremity edema. ABDOMEN: Soft, non-tender, non-distended with bowel sounds. 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 EXTREMITIES: No cyanosis, clubbing or edema. SKIN: Inspection of the skin reveals no rashes,+ jaundice NEUROLOGIC: Alert and oriented x 4. Strength and sensation to light touch were grossly intact x 4. Course Course Course Narrative: This is a rapid medical exam performed by Mahesh Dhaliwal NP: Additional HPI, ROS, PE not included below will be deferred to primary provider. Patient is a 43-year-old female with history of alcoholic cirrhosis, recent admission with banding of esophageal varices presenting to the ED with complaint of 2 episodes of hematemesis yesterday, also had other episodes of vomiting which were non-bloody. States was briefly sober, has been drinking for the last 2-3 months, no drinks in the past few days. Also reports black diarrhea the past few days. Feels very lightheaded/near-syncopal, chest pain. Patient jaundiced in triage, awake, alert, sitting in wheelchair, BP low, tachycardic. Plan: labs, UA Medications Administered Discontinued Medications Generic Name Dose Route Start Last Admin Trade Name Freq PRN Reason Stop Dose Admin Sodium Chloride 100 mls @ 100 mls/hr 11/04/23 16:07 11/04/23 18:21 Ns IV 11/04/23 17:06 Infused ONCE ONE Infusion Sodium Chloride 100 mls @ 100 mls/hr 11/04/23 16:07 11/04/23 19:12 Ns IV 11/04/23 17:06 Infused ONCE ONE Infusion Sodium Chloride 1,000 mls @ 999 mls/hr 11/04/23 16:15 11/04/23 18:42 Ns IV 11/04/23 17:15 Infused .Q1H1M DAI Infusion Magnesium Sulfate 2 gm in 50 mls @ 150 mls/hr 11/04/23 16:20 11/04/23 16:56 Magnesium Sulfate/H2o IV 11/04/23 16:39 Infused ONCE ONE Infusion Potassium Chloride 10 meq in 100 mls @ 100 mls/hr 11/04/23 16:30 11/04/23 18:17 Potassium Chloride/H20 IV 11/04/23 18:29 100 mls/hr Q1H DAI Administration Ceftriaxone Sodium 2 gm/ 50 mls @ 100 mls/hr 11/04/23 16:54 11/04/23 19:11 Sodium Chloride IV 11/04/23 17:23 100 mls/hr ONCE ONE Administration Octreotide Acetate 500 mcg/ 501 mls @ 25.05 mls/hr 11/04/23 17:00 11/04/23 18:03 Sodium Chloride IVCONT 25 mcg/hr .Q20H DAI 25.05 mls/hr Administration 25 MCG/HR Phytonadione 10 mg/ Sodium 51 mls @ 51 mls/hr 11/04/23 16:54 11/04/23 19:12 Chloride IV 11/04/23 17:53 Infused ONCE ONE Infusion Iohexol 100 ml 11/04/23 18:59 11/04/23 18:59 Iohexol 350 Mg/Ml 100 Ml Infus..Btl IV 11/04/23 19:00 80 ml ONCE ONE Administration Octreotide Acetate 50 mcg 11/04/23 17:45 11/04/23 17:57 Octreotide Acetate 100 Mcg/Ml Ampul IVPUSH 11/04/23 17:46 50 mcg ONCE ONE Administration Ondansetron HCl 4 mg 11/04/23 17:13 11/04/23 17:18 Ondansetron Hcl 4 Mg/2 Ml Vial IVPUSH 11/04/23 17:14 4 mg ONCE ONE Administration Pantoprazole Sodium 80 mg 11/04/23 16:07 11/04/23 16:21 Pantoprazole Sodium 40 Mg/10 Ml Vial IVPUSH 11/04/23 16:08 80 mg ONCE ONE Administration Medical Decision Making Medical Decision Making [facility] Narrative: 1515: 43-year-old female with history and clinical presentation consistent with alcoholic hepatitis, upper GI bleed, currently hemodynamically stable other patient is noted to be tachycardic she has not having any current passage of stool or vomiting. No concern for SBP at this time. Sirs responses from a noninfectious source. INTERVENTION: Blood transfusion, 1 L of IV fluids, repletion of potassium/magnesium, 80 mg Protonix 1655: I discussed case with Dr. Delatorre who has additional recommendations of 2 g of Rocephin, octreotide drip, vitamin K, and an additional 2 units of PRBCs. The antibiotics are for a noninfectious etiology. 1655: Laboratory values that suggest organ dysfunction are in fact consistent with patient's underlying chronic liver cirrhosis disease. I reviewed remaining investigations and hematologic indices demonstrate evidence of upper GI bleed when taken in to context of history provided. There is no thrombocytopenia and leukocytosis is noninfectious in etiology and associated with reactive/stress response. INR noted to be 2.0 and patient received IV vitamin K for this. Chemistry indices demonstrate mild metabolic acidosis secondary to bleeding/dehydration and hypokalemia was repleted with 20 mEq via IV after receiving repletion of magnesium. Liver enzymes consistent with chronic liver disease and likely a component of alcoholic hepatitis. I sensitivity troponin-22.1 and suspect demand in nature. I discussed case with inpatient hospitalist who accepts admission as patient's heart rate has significantly improved, she remains hemodynamically stable otherwise via blood pressure, there have been no further episodes of hematemesis or bowel movements. Patient is on a CIWA. 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 Please see the discussion above 11/04/23 15:17 11/04/23 15:17 Labs: Lab Results 11/04/23 11/04/23 11/04/23 Range/Units 15:17 17:14 19:15 WBC 17.7 H (4.8-10.8) X10*3/uL RBC 1.53 L D (4.20-5.50) X10*6/uL Hgb 3.4 L* D (12.0-16.0) g/dl Hct 12.0 L* D (37.0-47.0) % MCV 78.4 L (80.0-98.0) fL MCH 22.2 L (27.0-33.0) pg MCHC 28.3 L (31.0-35.0) g/dl RDW 26.9 H (11.0-16.0) % Plt Count 247 D (160-400) X10*3/uL MPV 11.0 (9.4-12.3) fL Immature Gran % (Auto) Cancelled Neut % (Auto) Cancelled Lymph % (Auto) Cancelled [place] % (Auto) Cancelled Eos % (Auto) Cancelled Baso % (Auto) Cancelled Lymph # (Auto) Cancelled [place] # (Auto) Cancelled Eos # (Auto) Cancelled Baso # (Auto) Cancelled Abs Immat Gran (auto) Cancelled Absolute Neuts (auto) Cancelled Absolute Nucleated RBC 0.110 H (0.0-0.012) X10*3/uL Nucleated RBC % (auto) 0.6 H (0.0-0.2) /100WBC Neutrophils % (Manual) 89 H (45-73) % Band Neutrophils % 0 L (3-5) % Lymphocytes % (Manual) 6 L (20-40) % Monocytes % (Manual) 4 (2-11) % Eosinophils % (Manual) 1 (0-4) % Abs Neuts (Manual) 15.8 H (2.0-8.3) X10*3/uL Lymphocytes # (Manual) 1.1 L (1.2-4.9) X10*3/uL Monocytes # (Manual) 0.7 (0.1-1.2) X10*3/uL Eosinophils # (Manual) 0.2 (0.0-0.4) X10*3/uL Nucleated RBCs 1 H (0-0) /100WBC Platelet Estimate NORMAL (NORMAL) Plt Morphology Comment NORMAL RBC Morphology NOTED Ovalocytes 1+ (5-14) /OIF Schistocytes 1+ (0-2) /OIF Smear Tech's Comments MANUAL DIFF PT 24.7 H (11.1-13.3) SEC INR 2.0 H (0.9-1.1) APTT 27.7 (26.0-36.8) SEC Sodium 128 L (135-145) mmol/L Potassium 2.9 L* (3.3-5.1) mmol/L Chloride 97 (96-108) mmol/L Carbon Dioxide 19 L (22-29) mmol/L Anion Gap 15 (12-20) BUN 16 (9-16) mg/dL Creatinine 0.70 (0.5-1.4) mg/dL Estim Creat Clear Calc 89.0 Estimated GFR > 60 Random Glucose 159 H (60-115) mg/dL Calcium 7.5 L D (8.4-10.2) mg/dL Magnesium 1.4 L* (1.6-2.6) mg/dL Total Bilirubin 4.1 H (0.0-1.0) mg/dL AST 82 H (5-31) U/L ALT 14 (0-31) U/L Alkaline Phosphatase 173 H (39-117) U/L Ammonia 54 (13-55) umol/L Troponin I High Sens 22.1 H D (<3.5-17.0) ng/L Total Protein 5.9 L (6.5-8.0) g/dL Albumin 2.5 L (3.5-5.0) g/dL Amylase 15 L (28-100) U/L Lipase 24 (8-78) U/L Beta HCG, Quant < 2 mIU/mL Urine Color Dark Yellow Urine Appearance Clear Urine pH 6.5 (5.0-9.0) Ur Specific [place] >= 1.030 H (1.005-1.025) Urine Protein Negative (Neg-Trace) mg/dL Urine Glucose (UA) Negative (Negative) mg/dL Urine Ketones Negative (Negative) mg/dL Urine Blood Negative (Negative) Urine Nitrite Negative (Negative) Ur Leukocyte Esterase Negative (Negative) Stool Occult Blood POSITIVE (NEGATIVE) Urine Opiates Screen Not Detected (Not Detect) Ur Buprenorphine Scrn Not Detected (Not Detect) ng/mL Ur Oxycodone Screen Not Detected (Not Detect) ng/mL Urine Methadone Screen Not Detected (Not Detect) ng/mL Urine Fentanyl Screen Not Detected (Not Detect) Ur Barbiturates Screen Not Detected (Not Detect) Ur Phencyclidine Scrn Not Detected (Not Detect) Ur Amphetamines Screen Not Detected (Not Detect) U Benzodiazepines Scrn Not Detected (Not Detect) Urine Cocaine Screen Not Detected (Not Detect) U Marijuana (THC) Screen POSITIVE H (Not Detect) Ethyl Alcohol < 10 mg/dL Blood Type O Positive Antibody Screen NEGATIVE Crossmatch See Detail Independent Interpretation I performed an independent interpretation of an: EKG Interpretation: Sinus tachycardia, HR-126, no STEMI, AR/QRS/QTC is within normal limits. Radiology Impression Discussion of test interpretation with radiology: I have reviewed the radiologist's reading. Radiologist Impression: Please see the discussion above External Record Review External record reviewed: Outpatient record, Prior outpatient labs and Prior outpatient radiology Chronic Conditions Liver cirrhosis disease Social Determinants Patient?s care significantly limited by Social Determinants of Health including: Alcoholism and drug addiction in family Critical Care Time Critical Care Time Critical Care Time: Yes Total Critical Care Time: 90 Attestation: I personally attest to this time spent taking care of the patient. Discharge Plan Discharge Clinical Impression: UGIB (upper gastrointestinal bleed), Melena, Hypomagnesemia, Hypokalemia, Alcohol use disorder, Alcoholic hepatitis Prescriptions: No Action omeprazole 20 mg Capsule,Delayed Release(Dr/Ec) 20 mg PO DAILY PRN (Reason: Heartburn) Print Language: Yi
--- NOTE | 2023-11-04 14:58 | ECG_ITS ---
Test Reason : vomitingblood Blood Pressure : / mmHG Vent. Rate : 126 BPM Atrial Rate : 126 BPM P-R Int : 126 ms QRS Dur : 076 ms QT Int : 328 ms P-R-T Axes : 044 -08 011 degrees QTc Int : 475 ms Sinus tachycardia Otherwise normal ECG When compared with ECG of 31-DEC-2022 20:58, Nonspecific T wave abnormality now evident in Lateral leads Referred By: Isamar Dhaliwal Electronically Signed By:KARELY KEEN
[2023-11-04 15:37] LABS: Ammonia 54 umol/L (13-55)
[2023-11-04 15:43] LABS: Mean Corpuscular HGB Conc 28.3 g/dl (31.0-35.0); Mean Corpuscular Hemoglobin 22.2 pg (27.0-33.0); Mean Corpuscular Volume 78.4 fL (80.0-98.0); NRBC Pct Auto 0.6 /100WBC (0.0-0.2); Platelet Count 247 X10*3/uL (160-400); Prothrombin Time 24.7 SEC (11.1-13.3); Red Blood Count 1.53 X10*6/uL (4.20-5.50); Red Cell Distribution Width 26.9 % (11.0-16.0); White Blood Count 17.7 X10*3/uL (4.8-10.8)
[2023-11-04 15:46] LABS: Partial Thromboplastin Time 27.7 SEC (26.0-36.8)
[2023-11-04 15:58] LABS: Alanine Aminotransferase 14 U/L (0-31); Albumin Level 2.5 g/dL (3.5-5.0); Alkaline Phosphatase 173 U/L (39-117); Amylase 15 U/L (28-100); Anion Gap 15 (12-20); Aspartate Amino Transferase 82 U/L (5-31); Bilirubin Total 4.1 mg/dL (0.0-1.0); Blood Urea Nitrogen 16 mg/dL (9-16); Calcium 7.5 mg/dL (8.4-10.2); Carbon Dioxide 19 mmol/L (22-29); Chloride 97 mmol/L (96-108); Estimated Glomerular Filt Rate > 60; Ethanol < 10 mg/dL; Glucose Random 159 mg/dL (60-115); Lipase 24 U/L (8-78); Magnesium 1.4 mg/dL (1.6-2.6); Potassium 2.9 mmol/L (3.3-5.1); Sodium 128 mmol/L (135-145); Total Protein 5.9 g/dL (6.5-8.0)
[2023-11-04 16:00] LABS: HCG Quantitative < 2 mIU/mL; Troponin-I High Sensitivity 22.1 ng/L (<3.5-17.0)
[2023-11-04] MEDS: 0.9 % Sodium Chloride 1,000 ML 999 ML IV (16:21)
[2023-11-04] MEDS: Pantoprazole Sodium 40 MG/10 ML VIAL 80 MG IVPUSH (16:21)
[2023-11-04] MEDS: Magnesium Sulfate/H2O 2 GM/50 ML PIGGYBACK IV (16:29)
[2023-11-04 16:51] LABS: SLIDE REVIEW MANUAL DIFF
[2023-11-04] MEDS: Potassium Chloride/H20 10 MEQ/100 ML PIGGYBACK 100 MEQ IV ×2 (16:52→18:17)
[2023-11-04 16:54] LABS: Band Neutrophils Percent 0 % (3-5); Eosinophils Absolute Manual 0.2 X10*3/uL (0.0-0.4); Eosinophils Percent Manual 1 % (0-4); Lymphocytes Absolute Manual 1.1 X10*3/uL (1.2-4.9); Lymphocytes Percent Manual 6 % (20-40); Monocytes Absolute Manual 0.7 X10*3/uL (0.1-1.2); Monocytes Percent Manual 4 % (2-11); Neutrophils Absolute Manual 15.8 X10*3/uL (2.0-8.3); Neutrophils Percent Manual 89 % (45-73); Nucleated Red Blood Cells 1 /100WBC (0-0)
[2023-11-04 16:56] LABS: Ovalocytes 1+ (5-14) /OIF; Schistocytes 1+ (0-2) /OIF
[2023-11-04 16:57] LABS: Platelet Estimate NORMAL (NORMAL); Platelet Morphology Comment NORMAL; RBC Morphology NOTED
--- NOTE | 2023-11-04 17:06 | PC.NURSE ---
per Dr.. Stewart, increase rate and infuse each unit of blood over 1hr.
[2023-11-04] MEDS: ondansetron HCL 4 MG/2 ML VIAL IVPUSH (17:18)
[2023-11-04 17:19] LABS: OBS Int Ctl Valid YES; OBS1 POSITIVE (NEGATIVE)
[2023-11-04] MEDS: Phytonadione (Vit K1) 10 MG in 0.9 % Sodium Chloride 50 ML 51 MG IV (17:31)
[2023-11-04] MEDS: Octreotide Acetate 100 MCG/ML AMPUL 50 MCG IVPUSH (17:57)
[2023-11-04] MEDS: Octreotide Acetate 500 MCG in 0.9 % Sodium Chloride 500 ML 25.05 MCG IVCONT (18:03)
--- NOTE | 2023-11-04 18:37 | PC.NURSE ---
provider notified that blood cultures and lactic were not ordered on patient prior to ABX admin. Those labs not ordered and will hang cheo
[2023-11-04] MEDS: iohexoL 350 MG/ML 100 ML INFUS..BTL IV (18:59)
[2023-11-04] MEDS: cefTRIAXone sodium 2 GM in 0.9 % Sodium Chloride 50 ML IV (19:11)
[2023-11-04 19:34] LABS: Appearance Urine Clear; Color Urine Dark Yellow; Glucose Urine UA Negative (Negative); Leukocyte Esterase Urine Negative (Negative); Nitrite Urine Negative (Negative); PH 6.5 (5.0-9.0); Specific Gravity - Urine >= 1.030 (1.005-1.025); Urine Blood Negative (Negative); Urine Ketones Negative (Negative); Urine Protein Negative (Neg-Trace)
--- NOTE | 2023-11-04 19:37 | PC.NURSE ---
3 rd bag of PRBc's hung, transfusing w/o issues, temp has been 99.4-99.6 x 2 hrs , P 109, BP 119/72. Dr. Gandhi made aware, no new orders at this time.
[2023-11-04 19:41] LABS: Amphetamine Screen Urine Not Detected (Not Detect); Barbiturates, Urine Not Detected (Not Detect); Benzodiazepines Screen Urine Not Detected (Not Detect); Buprenorphine Scr Not Detected (Not Detect); Cannabinoid Screen Urine POSITIVE (Not Detect); Cocaine Screen Urine Not Detected (Not Detect); Fentanyl, urine Not Detected (Not Detect); Methadone Screen, Urine Not Detected (Not Detect); Opiate Screen Urine Not Detected (Not Detect); Oxycodone Screen Urine Not Detected (Not Detect); Phencyclidine Screen Urine Not Detected (Not Detect)
--- NOTE | 2023-11-04 20:02 | PHA.MEDREC ---
Pharmacy Consult ? Medication Reconciliation Pharmacy has completed the medication reconciliation. Patient reports only taking Prilosec as needed for heartburn. Reports has not been taking any prescription medications. Apryl Wing, PharmD
--- NOTE | 2023-11-04 20:17 | P.HPHOSP_ITS ---
History of Present Illness Date of Service: 11/04/23 Attending physician on admission: Emely Bailey Chief Complaint: Shortness of breath Aracelis Calderón is a 43 years old woman with past medical history significant for alcoholic liver cirrhosis, esophageal varices s/p banding w/ portal HTN gastropathy(Feb 2023), GERD and depression presents to the emergency department complaining of coffee-ground vomiting and dark stools over the last week. Today she became very short of breath with minimal exertion associated with palpitations. Denies associated abdominal pain, increased abdominal girth, fever, chills or pain with urination. She stated that her urine looks darker than usual. She stated that she has been drinking Gatorade and yesterday took 1 pill of Motrin for headache. Denied taking NSAIDs in the daily basis. She does not take any medication daily but sometimes takes PPI for reflux. Patient admits drinking alcohol around for alcoholic beverage (vodka). Last drink was Tuesday and currently denied any withdrawal symptoms. Denied tobacco smoking or illicit drug use. In the ED, she was found to have tachycardia. Blood pressure has been stable. There is no fever reported. Blood workup is remarkable for H&H of 3.4&12.0. Platelets are normal and there is leukocytosis 17.7. There is hyponatremia of 128 and hypokalemia 2.9. Magnesium is low, 1.4. Corrected calcium is 8.7. Bilirubin is 4.1, AST 82, ALT 14 and alk-phos 173. Lipase is normal. Urinalysis showed no urinary tract infection. Stool for occult blood is positive. Urine drug screen positive for marijuana. CXR is negative. Abdominal pelvis CT scan results are still pending. ED tx: Octreotide IV infusion, Protonix 80 mg IV, KCl IV, Zofran 4 mg IV, magnesium sulfate 2 g, NS 1 L bolus, ceftriaxone 2 g IV, vitamin K 10 mg IV. According to ED provider, case was discussed with GI service. Review of Systems 2 Review of Systems: All 12 systems were reviewed and normal except as noted in HPI. [facility] Medical History GERD (gastroesophageal reflux disease) Depression Hyperbilirubinemia Acute alcoholic hepatitis Alcoholic cirrhosis of liver Alcohol use disorder Hypertension Family History Father Bile duct cancer Mother Breast cancer Surgical History History of esophagogastroduodenoscopy (EGD) H/O colonoscopy Social History Household Members: Spouse and Children Housing: House Do you presently have visiting nurse or other home services: No Alcohol intake: current Alcohol intake frequency: 3 or more drinks per day Alcohol type: hard liquor Patient Tobacco Use Status: Former Tobacco user Quit Date: 2002 Smoked in Last 30 Days: No Second Hand Smoke Exposure: No Use of substances other than those prescribed or required for medical reasons: Yes Substance Use Type: Marijuana Substance Use Frequency: Occasionally Last Used Substance: Days (ago) Currently Displaying Signs/Symptoms of Drug Intoxication Withdrawal: No Any prior treatment program specific to substance use: No Have you been hit, kicked, punched, or otherwise hurt by someone within the past year? 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[employer] Meds Allergies Allergy/AdvReac Type Severity Reaction Status Date / Time No Known Allergies Allergy Verified 11/04/23 14:58 [No Known Allergies*] Active Medications: Current Medications Octreotide Acetate 500 mcg/ (Sodium Chloride) 501 mls @ 50.1 mls/hr IVCONT .Q10H DAI Ceftriaxone Sodium 1 gm/ (Sodium Chloride) 50 mls @ 100 mls/hr IV Q24H DAI Pantoprazole Sodium (Pantoprazole Sodium 40 Mg/10 Ml Vial) 40 mg IVPUSH Q12H DAI Sodium Chloride (0.9 % Sodium Chloride Flush 3 Ml Syringe) 3 ml IVFLUSH QSHIFT DAI Home Medications ?Medication ?Instructions ?Recorded ?Confirmed ?Last Taken ?Type omeprazole 20 mg capsule,delayed 20 mg PO DAILY PRN Heartburn 11/04/23 11/04/23 Unknown History release Physical Exam 2 Vital Signs and Narrative: Vital Signs: Last Vital Signs Temp 99.6 F 11/04/23 19:40 Pulse 109 H 11/04/23 19:40 Resp 23 H 11/04/23 19:40 BP 121/74 11/04/23 19:40 Pulse Ox 100 11/04/23 18:37 O2 Del Method Room Air 11/04/23 18:37 BMI result Body Mass Index 20.6 Constitutional - Awake and Alert, No apparent distress. Pleasant. Cooperative. HEENT- Pupils equally round, icteric sclera. Mild oral mucosa dryness. Heart - Tachycardia. (+) murmur. Lungs - Normal lung expansion, Normal respiratory effort, No respiratory distress, CTA bilaterally Abdomen- NT / ND; increased BS; No rebound or guarding. No fluid wave. Extremities - no calf tenderness bilaterally, no swelling Musculoskeletal - Normal inspection, normal ROM Skin - Warm/Dry Neurological - Alert & oriented x3. No focal weakness. Psychological - Depressed affect Results Labs 11/05/23 06:38 11/05/23 06:38 Labs: Laboratory Results - last 24 hr 11/04/23 11/04/23 11/04/23 15:17 17:14 19:15 MCV 78.4 L MCH 22.2 L MCHC 28.3 L RDW 26.9 H Plt Count 247 D MPV 11.0 Immature Gran % (Auto) Cancelled Neut % (Auto) Cancelled Lymph % (Auto) Cancelled Haakon % (Auto) Cancelled Eos % (Auto) Cancelled Baso % (Auto) Cancelled Lymph # (Auto) Cancelled Haakon # (Auto) Cancelled Eos # (Auto) Cancelled Baso # (Auto) Cancelled Abs Immat Gran (auto) Cancelled Absolute Neuts (auto) Cancelled Absolute Nucleated RBC 0.110 H Nucleated RBC % (auto) 0.6 H Neutrophils % (Manual) 89 H Band Neutrophils % 0 L Lymphocytes % (Manual) 6 L Monocytes % (Manual) 4 Eosinophils % (Manual) 1 Abs Neuts (Manual) 15.8 H Lymphocytes # (Manual) 1.1 L Monocytes # (Manual) 0.7 Eosinophils # (Manual) 0.2 Nucleated RBCs 1 H Platelet Estimate NORMAL Plt Morphology Comment NORMAL RBC Morphology NOTED Ovalocytes 1+ (5-14) Schistocytes 1+ (0-2) Smear Tech's Comments MANUAL DIFF PT 24.7 H INR 2.0 H APTT 27.7 Anion Gap 15 Estim Creat Clear Calc 89.0 Estimated GFR > 60 Random Glucose 159 H Calcium 7.5 L D Magnesium 1.4 L* Total Bilirubin 4.1 H AST 82 H ALT 14 Alkaline Phosphatase 173 H Ammonia 54 Troponin I High Sens 22.1 H D Total Protein 5.9 L Albumin 2.5 L Amylase 15 L Lipase 24 Beta HCG, Quant < 2 Urine Color Dark Yellow Urine Appearance Clear Urine pH 6.5 Ur Specific Willis >= 1.030 H Urine Protein Negative Urine Glucose (UA) Negative Urine Ketones Negative Urine Blood Negative Urine Nitrite Negative Ur Leukocyte Esterase Negative Stool Occult Blood POSITIVE Urine Opiates Screen Not Detected Ur Buprenorphine Scrn Not Detected Ur Oxycodone Screen Not Detected Urine Methadone Screen Not Detected Urine Fentanyl Screen Not Detected Ur Barbiturates Screen Not Detected Ur Phencyclidine Scrn Not Detected Ur Amphetamines Screen Not Detected U Benzodiazepines Scrn Not Detected Urine Cocaine Screen Not Detected U Marijuana (THC) Screen POSITIVE H Ethyl Alcohol < 10 Blood Type O Positive Antibody Screen NEGATIVE Crossmatch See Detail Imaging Radiologist's Impressions: Impressions Chest X-Ray 11/04/23 15:27 IMPRESSION: No acute cardiopulmonary disease. Assessment and Plan (1) UGIB (upper gastrointestinal bleed): Status: Acute (2) Alcoholic cirrhosis of liver: Qualifiers: Ascites presence: without ascites Qualified Code(s): K70.30 - Alcoholic cirrhosis of liver without ascites Status: Acute (3) Alcoholic hepatitis: Qualifiers: Ascites presence: without ascites Qualified Code(s): K70.10 - Alcoholic hepatitis without ascites Status: Acute Plan Aracelis Calderón is a 43 years old woman with past medical history significant for alcoholic liver cirrhosis, esophageal varices s/p banding w/ portal HTN gastropathy(Feb 2023) admitted with: * Acute blood loss anemia due to upper gastrointestinal bleeding likely secondary to esophageal varices. Admit to hospitalist service. NPO. PRBC transfusions to keep Hgb >7.0 (pt is currenlty receiving 3rd unit of PRBCs). Monitor H&H closely. Continue Protonix 40 mg IV every 12 hours and octreotide IV 50 mcg infusion. Ceftriaxone 1 g IV daily. GI input appreciated. * Elevated INR likely secondary to liver failure. Will transfuse 2 units fresh frozen plasma for now. Continue to monitor INR. * Elevated LFTs secondary to alcohol abuse/underlying liver cirrhosis, likely decompensated. Continue to monitor. Patient was encouraged to avoid alcohol consumption. * Leukocytosis, tachycardia and tachypnea. Secondary to GI bleeding/blood loss anemia. No sepsis. Continue blood transfusion. Continue vital signs monitoring. * Multiple electrolyte imbalances: Hyponatremia, hypokalemia and hypomagnesemia. Secondary to vomiting. IV fluids given in the emergency department. We will replete as needed. Continue to monitor. * Heartburn. Continue PPI. * Alcohol abuse. Patient encouraged to avoid alcohol consumption. CIWA protocol. Thiamine IV daily. Start folic acid and multivitamins when able. DVT prophylaxis: SCDs only. Code status: Full Patient will need hospitalization for at least 2 midnights for acute blood loss anemia due to GI bleeding treatment with PRBCs and fresh frozen transfusions, close monitoring of vital signs and evaluation by subspecialty. Quality Stroke Does the patient have a stroke diagnosis?: No VTE Prior VTE?: No VTE Risk Level:: Medical - moderate - high VTE Device Contraindication: N/A - Device Ordered VTE Drug Contraindication: Treatment Not Indicated
--- NOTE | 2023-11-04 20:20 | PC.NURSE ---
3 rd unit of PRBc's transfused, repeat H&H drawn by crystal growing technician.
[2023-11-04 20:27] LABS: Hemoglobin 7.9 g/dl (12.0-16.0)
[2023-11-04 20:29] LABS: Hematocrit 23.7 % (37.0-47.0)
--- NOTE | 2023-11-04 20:41 | PC.NURSE ---
Hgb 7.9, Hct 23.7, per Dr. Velez, hold 4th unit of PRBCs for now (but keep it on hold as she might need it later), give 2 units of FFP now. Recheck HH at 11 pm.
[2023-11-04] MEDS: Octreotide Acetate 500 MCG in 0.9 % Sodium Chloride 500 ML 50.1 MCG IVCONT (21:12)
[2023-11-05] VITALS (11 sets, daily range): BP systolic 97–132; BP diastolic 55–82; PULSE 74–100; RESP 12–18; TEMP 36.1–36.8; O2SAT 95–100
[2023-11-05 00:11] LABS: Hematocrit 22.7 % (37.0-47.0); Hemoglobin 7.6 g/dl (12.0-16.0)
[2023-11-05] MEDS: LORazepam 2 MG/ML VIAL 0.5 MG IVPUSH (02:02)
[2023-11-05] MEDS: Pantoprazole Sodium 40 MG/10 ML VIAL IVPUSH ×2 (04:47→16:47)
[2023-11-05 06:49] LABS: Hemoglobin 3.4 g/dl (12.0-16.0)
[2023-11-05 07:09] LABS: Hematocrit 23.1 % (37.0-47.0); Hemoglobin 7.8 g/dl (12.0-16.0); Mean Corpuscular HGB Conc 33.8 g/dl (31.0-35.0); Mean Corpuscular Volume 85.9 fL (80.0-98.0); Mean Platelet Volume 10.5 fL (9.4-12.3); Platelet Count 106 X10*3/uL (160-400); Red Blood Count 2.69 X10*6/uL (4.20-5.50); Red Cell Distribution Width 19.2 % (11.0-16.0); White Blood Count 9.4 X10*3/uL (4.8-10.8)
[2023-11-05 07:12] LABS: NRBC Pct Auto 1.4 /100WBC (0.0-0.2)
[2023-11-05 07:40] LABS: Alanine Aminotransferase 17 U/L (0-31); Albumin Level 2.5 g/dL (3.5-5.0); Alkaline Phosphatase 146 U/L (39-117); Anion Gap 11 (12-20); Aspartate Amino Transferase 111 U/L (5-31); Bilirubin Total 6.7 mg/dL (0.0-1.0); Blood Urea Nitrogen 12 mg/dL (9-16); Calcium 7.6 mg/dL (8.4-10.2); Carbon Dioxide 21 mmol/L (22-29); Chloride 105 mmol/L (96-108); Creatinine Clr Calc Pharmacy 97.3; Estimated Glomerular Filt Rate > 60; Glucose Random 99 mg/dL (60-115); Potassium 3.1 mmol/L (3.3-5.1); Sodium 134 mmol/L (135-145); Total Protein 5.5 g/dL (6.5-8.0)
[2023-11-05] MEDS: Thiamine HCL 100 MG in 0.9 % Sodium Chloride 100 ML 202 MG IV (08:30)
[2023-11-05] MEDS: Octreotide Acetate 500 MCG in 0.9 % Sodium Chloride 500 ML 50.1 MCG IVCONT (08:30)
[2023-11-05] MEDS: 0.9 % Sodium Chloride Flush 3 ML SYRINGE IVFLUSH ×3 (08:31→20:35)
--- NOTE | 2023-11-05 10:59 | P.CONAN_ITS ---
HPI - Anesthesia Eval Consult details Narrative: GI bleeding PMFSH Active Problems Active Problems: All Active Problems Alcoholic hepatitis (Acute) Alcohol use disorder (Acute) Hypokalemia (Acute) Hypomagnesemia (Acute) Melena (Acute) UGIB (upper gastrointestinal bleed) (Acute) Alcoholic cirrhosis of liver (Acute) Rash (Acute) Sprain of wrist, right (Acute) Alcohol withdrawal (Acute) Vomiting (Acute) Injury of triangular fibrocartilage complex (TFCC) of left wrist (Acute) Pain of ulnar side of wrist (Acute) Left wrist pain (Acute) Numbness and tingling in left hand (Acute) Bleeding hemorrhoids (Acute) Past Medical History Medical History GERD (gastroesophageal reflux disease) Depression Hyperbilirubinemia Acute alcoholic hepatitis Alcoholic cirrhosis of liver Alcohol use disorder Hypertension Family History Family History Father Bile duct cancer Mother Breast cancer Family history of problems with anesthesia: No Surgical History Surgical History History of esophagogastroduodenoscopy (EGD) H/O colonoscopy History of Problems with Anesthesia: No Social History Social History Household Members: Spouse and Children Housing: House Do you presently have visiting nurse or other home services: No Alcohol intake: current Alcohol intake frequency: 3 or more drinks per day Alcohol type: hard liquor Patient Tobacco Use Status: Former Tobacco user Quit Date: 2002 Smoked in Last 30 Days: No Second Hand Smoke Exposure: No Use of substances other than those prescribed or required for medical reasons: Yes Substance Use Type: Marijuana Substance Use Frequency: Occasionally Last Used Substance: Days (ago) Currently Displaying Signs/Symptoms of Drug Intoxication Withdrawal: No Any prior treatment program specific to substance use: No Have you been hit, kicked, punched, or otherwise hurt by someone within the past year? 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[employer] Meds Allergies Allergy/AdvReac Type Severity Reaction Status Date / Time No Known Allergies Allergy Verified 11/04/23 14:58 [No Known Allergies*] Active Medications: Current Medications Octreotide Acetate 500 mcg/ (Sodium Chloride) 501 mls @ 50.1 mls/hr IVCONT .Q10H [facility] Last Admin: 11/05/23 08:30 Dose: 50 mcg/hr, 50.1 mls/hr Ceftriaxone Sodium 1 gm/ (Sodium Chloride) 50 mls @ 100 mls/hr IV Q24H [facility] Thiamine HCl 100 mg/ Sodium (Chloride) 101 mls @ 202 mls/hr IV DAILY [facility] Stop: 11/10/23 08:59 Last Infusion: 11/05/23 09:03 Dose: Infused Ondansetron HCl (Ondansetron Hcl 4 Mg/2 Ml Vial) 4 mg IVPUSH Q4H PRN PRN Reason: Nausea and Vomiting Pantoprazole Sodium (Pantoprazole Sodium 40 Mg/10 Ml Vial) 40 mg IVPUSH Q12H [facility] Last Admin: 11/05/23 04:47 Dose: 40 mg Sodium Chloride (0.9 % Sodium Chloride Flush 3 Ml Syringe) 3 ml IVFLUSH QSHIFT [facility] Last Admin: 11/05/23 08:31 Dose: 3 ml Home Medications ?Medication ?Instructions ?Recorded ?Confirmed ?Last Taken ?Type omeprazole 20 mg capsule,delayed 20 mg PO DAILY PRN Heartburn 11/04/23 11/04/23 Unknown History release Exam Height,Weight and Vital Signs: Height 5 ft 4 in Weight 54.431 kg Last Vital Signs Temp 98.0 F 11/05/23 10:12 Pulse 83 11/05/23 10:12 Resp 18 11/05/23 10:12 BP 104/59 L 11/05/23 10:12 Pulse Ox 98 11/05/23 07:20 O2 Del Method Room Air 11/05/23 07:20 Pertinent Lab Results Pertinent Lab Results: Laboratory Tests 11/04/23 11/04/23 11/04/23 15:17 17:14 19:15 WBC 17.7 H RBC 1.53 L D Hgb 3.4 L* D Hct 12.0 L* D MCV 78.4 L MCH 22.2 L MCHC 28.3 L RDW 26.9 H Plt Count 247 D MPV 11.0 Immature Gran % (Auto) Cancelled Neut % (Auto) Cancelled Lymph % (Auto) Cancelled Amelia % (Auto) Cancelled Eos % (Auto) Cancelled Baso % (Auto) Cancelled Lymph # (Auto) Cancelled Amelia # (Auto) Cancelled Eos # (Auto) Cancelled Baso # (Auto) Cancelled Abs Immat Gran (auto) Cancelled Absolute Neuts (auto) Cancelled Absolute Nucleated RBC 0.110 H Nucleated RBC % (auto) 0.6 H Neutrophils % (Manual) 89 H Band Neutrophils % 0 L Lymphocytes % (Manual) 6 L Monocytes % (Manual) 4 Eosinophils % (Manual) 1 Abs Neuts (Manual) 15.8 H Lymphocytes # (Manual) 1.1 L Monocytes # (Manual) 0.7 Eosinophils # (Manual) 0.2 Nucleated RBCs 1 H Platelet Estimate NORMAL Plt Morphology Comment NORMAL RBC Morphology NOTED Ovalocytes 1+ (5-14) Schistocytes 1+ (0-2) Smear Tech's Comments MANUAL DIFF PT 24.7 H INR 2.0 H APTT 27.7 Sodium 128 L Potassium 2.9 L* Chloride 97 Carbon Dioxide 19 L Anion Gap 15 BUN 16 Creatinine 0.70 Estim Creat Clear Calc 89.0 Estimated GFR > 60 Random Glucose 159 H Calcium 7.5 L D Magnesium 1.4 L* Total Bilirubin 4.1 H AST 82 H ALT 14 Alkaline Phosphatase 173 H Ammonia 54 Troponin I High Sens 22.1 H D Total Protein 5.9 L Albumin 2.5 L Amylase 15 L Lipase 24 Beta HCG, Quant < 2 Urine Color Dark Yellow Urine Appearance Clear Urine pH 6.5 Ur Specific [place] >= 1.030 H Urine Protein Negative Urine Glucose (UA) Negative Urine Ketones Negative Urine Blood Negative Urine Nitrite Negative Ur Leukocyte Esterase Negative Stool Occult Blood POSITIVE Urine Opiates Screen Not Detected Ur Buprenorphine Scrn Not Detected Ur Oxycodone Screen Not Detected Urine Methadone Screen Not Detected Urine Fentanyl Screen Not Detected Ur Barbiturates Screen Not Detected Ur Phencyclidine Scrn Not Detected Ur Amphetamines Screen Not Detected U Benzodiazepines Scrn Not Detected Urine Cocaine Screen Not Detected U Marijuana (THC) Screen POSITIVE H Ethyl Alcohol < 10 Blood Type O Positive Antibody Screen NEGATIVE Crossmatch See Detail 11/04/23 11/04/23 11/04/23 20:20 23:30 23:43 WBC RBC Hgb 7.9 L D 7.6 L Hct 23.7 L D 22.7 L MCV MCH MCHC RDW Plt Count MPV Immature Gran % (Auto) Neut % (Auto) Lymph % (Auto) Amelia % (Auto) Eos % (Auto) Baso % (Auto) Lymph # (Auto) Amelia # (Auto) Eos # (Auto) Baso # (Auto) Abs Immat Gran (auto) Absolute Neuts (auto) Absolute Nucleated RBC Nucleated RBC % (auto) Neutrophils % (Manual) Band Neutrophils % Lymphocytes % (Manual) Monocytes % (Manual) Eosinophils % (Manual) Abs Neuts (Manual) Lymphocytes # (Manual) Monocytes # (Manual) Eosinophils # (Manual) Nucleated RBCs Platelet Estimate Plt Morphology Comment RBC Morphology Ovalocytes Schistocytes Smear Tech's Comments PT INR APTT Sodium Cancelled Potassium Cancelled Chloride Cancelled Carbon Dioxide Cancelled Anion Gap Cancelled BUN Cancelled Creatinine Cancelled Estim Creat Clear Calc Cancelled Estimated GFR Cancelled Random Glucose Cancelled Calcium Cancelled Magnesium Total Bilirubin Cancelled AST Cancelled ALT Cancelled Alkaline Phosphatase Cancelled Ammonia Troponin I High Sens Total Protein Cancelled Albumin Cancelled Amylase Lipase Beta HCG, Quant Urine Color Urine Appearance Urine pH Ur Specific [place] Urine Protein Urine Glucose (UA) Urine Ketones Urine Blood Urine Nitrite Ur Leukocyte Esterase Stool Occult Blood Urine Opiates Screen Ur Buprenorphine Scrn Ur Oxycodone Screen Urine Methadone Screen Urine Fentanyl Screen Ur Barbiturates Screen Ur Phencyclidine Scrn Ur Amphetamines Screen U Benzodiazepines Scrn Urine Cocaine Screen U Marijuana (THC) Screen Ethyl Alcohol Blood Type Antibody Screen Crossmatch 11/05/23 06:38 WBC 9.4 RBC 2.69 L D Hgb 7.8 L Hct 23.1 L MCV 85.9 D MCH 29.0 MCHC 33.8 RDW 19.2 H Plt Count 106 L D MPV 10.5 Immature Gran % (Auto) Neut % (Auto) Lymph % (Auto) Amelia % (Auto) Eos % (Auto) Baso % (Auto) Lymph # (Auto) Amelia # (Auto) Eos # (Auto) Baso # (Auto) Abs Immat Gran (auto) Absolute Neuts (auto) Absolute Nucleated RBC 0.130 H Nucleated RBC % (auto) 1.4 H Neutrophils % (Manual) Band Neutrophils % Lymphocytes % (Manual) Monocytes % (Manual) Eosinophils % (Manual) Abs Neuts (Manual) Lymphocytes # (Manual) Monocytes # (Manual) Eosinophils # (Manual) Nucleated RBCs Platelet Estimate Plt Morphology Comment RBC Morphology Ovalocytes Schistocytes Smear Tech's Comments PT INR APTT Sodium 134 L Potassium 3.1 L Chloride 105 Carbon Dioxide 21 L Anion Gap 11 L BUN 12 Creatinine 0.64 Estim Creat Clear Calc 97.3 Estimated GFR > 60 Random Glucose 99 Calcium 7.6 L Magnesium 2.0 Total Bilirubin 6.7 H AST 111 H ALT 17 Alkaline Phosphatase 146 H Ammonia Troponin I High Sens Total Protein 5.5 L Albumin 2.5 L Amylase Lipase Beta HCG, Quant Urine Color Urine Appearance Urine pH Ur Specific [place] Urine Protein Urine Glucose (UA) Urine Ketones Urine Blood Urine Nitrite Ur Leukocyte Esterase Stool Occult Blood Urine Opiates Screen Ur Buprenorphine Scrn Ur Oxycodone Screen Urine Methadone Screen Urine Fentanyl Screen Ur Barbiturates Screen Ur Phencyclidine Scrn Ur Amphetamines Screen U Benzodiazepines Scrn Urine Cocaine Screen U Marijuana (THC) Screen Ethyl Alcohol Blood Type Antibody Screen Crossmatch Airway Mallampati Class: II TM Dist: >3cm Neck ROM: Full Loose/Missing/Broken Teeth: No Heart: RRR Lungs: CTA Assessment and Plan Assessment Anesthesia Assessment: Anesthesia Plan Discussed and Chart Reviewed Final Anesthetic Review Family History of Problems with Anesthesia: No History of Problems with Anesthesia: No NPO: Yes ASA Class: IV and Emergency Final Preanesthetic Review: No Changes in Pt Med Stat, Meds/Allgs Chart Reviewed, Consent Obtained/Reviewed and Anes Risks/Benef Reviewed Patient Risk: High Procedure Risk: Low Anesthetic Plan Anesthetic Plan: MAC: Disposition: Standard PACU
--- NOTE | 2023-11-05 11:07 | PM.GICN ---
History of Present Illness Data of Consult Service Date: 11/05/23 Requesting physician: Emely Bailey Primary Care Provider: Ralph Claudio III, MD HPI Reason for consult: Variceal bleeding This is a 43-year-old female past medical history of alcohol use disorder that has led to cirrhosis complicated by portal hypertension with ascites and variceal bleeding. Gastroenterology has been consulted for question of variceal bleeding. Patient presented to the hospital yesterday with multiple episodes of fresh blood emesis x1 day as well as dark tarry stools x2 weeks. Reports that had given up etOH after last admission but fell off the wagon and resumed drinking 5-6 hard drinks per day as of 3 months ago. Has also been a no-show in office as well as for outpatient EGD. On arrival, vitals were noted to be tachycardic in the 110s with normal blood pressure. CBC significant for hemoglobin down to 3.4 INR 2.0, Chem 7 was remarkable for AST greater than ALT with total bilirubin of 6.7 U tox was also positive for marijuana. Previous endoscopy: EGD 02/17/2023: Esophageal varices status post EBL x1. Portal hypertensive gastropathy. 12/31/22: Esophageal varices status post EBL x1. Portal hypertensive gastropathy. Review of Systems Review of Systems: Yes all other systems are reviewed and are negative PMFSH Past Medical History Medical History GERD (gastroesophageal reflux disease) Depression Hyperbilirubinemia Acute alcoholic hepatitis Alcoholic cirrhosis of liver Alcohol use disorder Hypertension Family History Family History Father Bile duct cancer Mother Breast cancer Surgical History Surgical History History of esophagogastroduodenoscopy (EGD) H/O colonoscopy Social History Social History Household Members: Spouse and Children Housing: House Do you presently have visiting nurse or other home services: No Alcohol intake: current Alcohol intake frequency: 3 or more drinks per day Alcohol type: hard liquor Patient Tobacco Use Status: Former Tobacco user Quit Date: 2002 Smoked in Last 30 Days: No Second Hand Smoke Exposure: No Use of substances other than those prescribed or required for medical reasons: Yes Substance Use Type: Marijuana Substance Use Frequency: Occasionally Last Used Substance: Days (ago) Currently Displaying Signs/Symptoms of Drug Intoxication Withdrawal: No Any prior treatment program specific to substance use: No Have you been hit, kicked, punched, or otherwise hurt by someone within the past year? 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[employer] Meds Allergies Allergy/AdvReac Type Severity Reaction Status Date / Time No Known Allergies Allergy Verified 11/04/23 14:58 [No Known Allergies*] Active Medications: Current Medications Fentanyl (Fentanyl Citrate/Pf 100 Mcg/2 Ml Vial) 25 mcg IVPUSH Q5M PRN; Protocol PRN Reason: Pain, Moderate(Pain Scale 4-6) Stop: 11/05/23 17:01 Octreotide Acetate 500 mcg/ (Sodium Chloride) 501 mls @ 50.1 mls/hr IVCONT .Q10H [facility] Last Admin: 11/05/23 08:30 Dose: 50 mcg/hr, 50.1 mls/hr Ceftriaxone Sodium 1 gm/ (Sodium Chloride) 50 mls @ 100 mls/hr IV Q24H [facility] Thiamine HCl 100 mg/ Sodium (Chloride) 101 mls @ 202 mls/hr IV DAILY [facility] Stop: 11/10/23 08:59 Last Infusion: 11/05/23 09:03 Dose: Infused Ondansetron HCl (Ondansetron Hcl 4 Mg/2 Ml Vial) 4 mg IVPUSH Q4H PRN PRN Reason: Nausea and Vomiting Ondansetron HCl (Ondansetron Hcl 4 Mg/2 Ml Vial) 4 mg IVPUSH ONCE PRN PRN Reason: Nausea and Vomiting Stop: 11/05/23 17:01 Pantoprazole Sodium (Pantoprazole Sodium 40 Mg/10 Ml Vial) 40 mg IVPUSH Q12H [facility] Last Admin: 11/05/23 04:47 Dose: 40 mg Sodium Chloride (0.9 % Sodium Chloride Flush 3 Ml Syringe) 3 ml IVFLUSH QSHIFT [facility] Last Admin: 11/05/23 08:31 Dose: 3 ml Home Medications ?Medication ?Instructions ?Recorded ?Confirmed ?Last Taken ?Type omeprazole 20 mg capsule,delayed 20 mg PO DAILY PRN Heartburn 11/04/23 11/04/23 Unknown History release Physical Exam Vital Signs: Vital Signs: Last Vital Signs Temp 98.0 F 11/05/23 10:12 Pulse 83 11/05/23 10:12 Resp 18 11/05/23 10:12 BP 104/59 L 11/05/23 10:12 Pulse Ox 98 11/05/23 07:20 O2 Del Method Room Air 11/05/23 07:20 BMI result Body Mass Index 20.6 No acute distress Pale appearing, scleral icterus Mildly diaphoretic Abdomen soft, mildly distended, nontender Alert oriented x3, fine tremors Results Labs 11/05/23 06:38 11/05/23 06:38 Labs: Short CBC 11/04/23 11/04/23 11/04/23 Range/Units 15:17 20:20 23:30 WBC 17.7 H (4.8-10.8) X10*3/uL Hgb 3.4 L* D 7.9 L D 7.6 L (12.0-16.0) g/dl Hct 12.0 L* D 23.7 L D 22.7 L (37.0-47.0) % Plt Count 247 D (160-400) X10*3/uL 11/05/23 Range/Units 06:38 WBC 9.4 (4.8-10.8) X10*3/uL Hgb 7.8 L (12.0-16.0) g/dl Hct 23.1 L (37.0-47.0) % Plt Count 106 L D (160-400) X10*3/uL BMP 11/04/23 11/04/23 11/05/23 15:17 23:43 06:38 Sodium 128 L Cancelled 134 L Potassium 2.9 L* Cancelled 3.1 L Chloride 97 Cancelled 105 Carbon Dioxide 19 L Cancelled 21 L BUN 16 Cancelled 12 Creatinine 0.70 Cancelled 0.64 Calcium 7.5 L D Cancelled 7.6 L Liver Function 11/04/23 11/04/23 11/05/23 Range/Units 15:17 23:43 06:38 Total Bilirubin 4.1 H Cancelled 6.7 H (0.0-1.0) mg/dL AST 82 H Cancelled 111 H (5-31) U/L ALT 14 Cancelled 17 (0-31) U/L Alkaline Phosphatase 173 H Cancelled 146 H (39-117) U/L Albumin 2.5 L Cancelled 2.5 L (3.5-5.0) g/dL Urine 11/04/23 Range/Units 19:15 Urine Color Dark Yellow Urine Appearance Clear Urine pH 6.5 (5.0-9.0) Ur Specific [place] >= 1.030 H (1.005-1.025) Urine Protein Negative (Neg-Trace) mg/dL Urine Glucose (UA) Negative (Negative) mg/dL Imaging CT scan - abdomen: Radiologist's impression: STOMACH AND ESOPHAGUS: There is evidence of portal hypertension with large esophageal varices along with some perigastric varices. The highest concentration of varices around the distal esophagus. SMALL BOWEL: There is marked enhancement of small bowel which appears thickened after IV contrast but no definite extravasation into bowel lumen with accumulation on delayed images COLON: No intraluminal contrast accumulation to suggest hemorrhage. There is diffuse minimal colonic wall thickening seen which may be secondary to portal colopathy. There are some colonic diverticula without evidence of diverticulitis. Normal appendix. VASCULAR STRUCTURES: Please see discussion above regarding portal hypertension with marked esophageal varices and some gastric varices along with enlarged splenic vein and recanalized umbilical vein. There is a small splenorenal shunt. The coronary vein is enlarged and appears to be the main feeding source of the gastroesophageal varices Assessment and Plan (1) Alcohol use disorder: Status: Acute (2) Alcoholic cirrhosis of liver: Status: Acute (3) UGIB (upper gastrointestinal bleed): Status: Acute (4) Alcohol withdrawal: Status: Acute (5) Esophageal varices: Status: Acute (6) Abdominal ascites: Status: Resolved Plan Acute anemia of blood loss 2/2 likely variceal bleeding Decomp etOH related cirrhosis MELD-Na 24 Alc hep MDF 62.5 Overall presentation consistent with GI bleeding likely from variceal hemorrhage. Will arrange for urgent endoscopy this morning. Please keep her NPO. Agree with medical management as outlined below. In addition, will also need a diagnostic paracentesis to rule out SBP. Plan: -x2 IV access at all times -Transfuse for HB goal 7 - avoid overtransfusing as that may worsen portal hypertension -please keep the patient NPO -EGD today -continue IV ppi, octreotide and ceftriaxone -[facility] protocol -for alcohol hepatitis, corticosteroids contraindicated in the setting of ongoing bleeding -check blood cultures and DIAGNOSTIC para for complete infectious work up - pls hold off therapeutic para and/or diuretics for now -strict abstinence from alcohol advised -check MELD labs tomorrow including INR Further recommendations to follow in the procedure note Procedures Date of Service Date of Service: 11/05/23
--- NOTE | 2023-11-05 11:52 | P.OP_ITS ---
Operative Note Operative Note Date of Service: 11/05/23 Narrative: Procedure: Esophagogastroduodenoscopy Endoscopist: Nandini Obregon MD Indication: UGIB, varices Anesthesia Provider: Devan De Anda MD Anesthesia Type: MAC ?? EGD Procedure:?? The procedure, indications, preparation and potential complications were reviewed with the patient, who indicated understanding and gave written informed consent to proceed. A physical exam was performed. The endoscope was introduced through the mouth, and advanced to the second part of duodenum. The mucosa was carefully examined on slow withdrawal of the endoscope. The patient tolerated the procedure well. There were no immediate complications.? ? EGD Findings:? * Esophagus:? At least 3 columns of large varices noted from GEJ extending up to 25 cm. The Z line was at 36 cm. * Stomach:?Diffuse congestion and erythema in mosaic pattern consistent with portal hypertensive gastropathy was noted in the whole stomach. Retroflexion was performed in the cardia, no fundal varices were appreciated on exam today. * Duodenum:?Diffuse congestion, erythema and edemaconsistent with portal hypertensive duodenopathy was noted. Additional intervention: The scope was withdrawn. [employer] 7-shooter was a affixed to the scope in the usual fashion and the scope was reintroduced through the mouth. Three bands were placed with satisfactory decompression of varices. ? EGD Impressions:? * Esophageal varices (EVBL x3) * Portal hypertensive gastropathy * Portal hypertensive duodenopathy ?? Recommendations:?? * NPO for 6 hours and then clear liquids starting 5.30pm * Can advance diet tmrw if no rebleeding * Start liquid carafate 1g QID this evening when able to take PO * Can also give magic mouth wash to SWALLOW to help with post-banding discomfort * Cont IV PPI and Octreotide x 72h from procedure * Thereafter, PPI can be switched to PO * After 72h, start coreg 3.125 BID - uptitrated to 6.25 BID if tolerated by HR and BP over 48h * High MELD and ongoing alc hep may be prohibitive for pre-emptive TIPS * Repeat EGD in 6-8 weeks
--- NOTE | 2023-11-05 11:52 | W.PM.OPN ---
Operative Note Operative Note Date of Service: 11/05/23 Narrative: Procedure: Esophagogastroduodenoscopy Endoscopist: Nandini Obregon MD Indication: UGIB, varices Anesthesia Provider: Devan De Anda MD Anesthesia Type: MAC ?? EGD Procedure:?? The procedure, indications, preparation and potential complications were reviewed with the patient, who indicated understanding and gave written informed consent to proceed. A physical exam was performed. The endoscope was introduced through the mouth, and advanced to the second part of duodenum. The mucosa was carefully examined on slow withdrawal of the endoscope. The patient tolerated the procedure well. There were no immediate complications.? ? EGD Findings:? Esophagus:? At least 3 columns of large varices noted from GEJ extending up to 25 cm. The Z line was at 36 cm. Stomach:?Diffuse congestion and erythema in mosaic pattern consistent with portal hypertensive gastropathy was noted in the whole stomach. Retroflexion was performed in the cardia, no fundal varices were appreciated on exam today. Duodenum:?Diffuse congestion, erythema and edemaconsistent with portal hypertensive duodenopathy was noted. Additional intervention: The scope was withdrawn. [employer] 7-shooter was a affixed to the scope in the usual fashion and the scope was reintroduced through the mouth. Three bands were placed with satisfactory decompression of varices. ? EGD Impressions:? Esophageal varices (EVBL x3) Portal hypertensive gastropathy Portal hypertensive duodenopathy ?? Recommendations:?? NPO for 6 hours and then clear liquids starting 5.30pm Can advance diet tmrw if no rebleeding Start liquid carafate 1g QID this evening when able to take PO Can also give magic mouth wash to SWALLOW to help with post-banding discomfort Cont IV PPI and Octreotide x 72h from procedure Thereafter, PPI can be switched to PO After 72h, start coreg 3.125 BID - uptitrated to 6.25 BID if tolerated by HR and BP over 48h High MELD and ongoing alc hep may be prohibitive for pre-emptive TIPS Repeat EGD in 6-8 weeks
--- NOTE | 2023-11-05 12:40 | P.PNIM_ITS ---
Subjective Subjective Date of Service: 11/05/23 Interval History: No acute bleeding overnight. Feels better with volume and blood Review of Systems Denies chest pain Denies shortness of breath Denies nausea vomiting diarrhea Denies fever chills Physical Exam 2 Vital Signs: Vital Signs: Last Vital Signs Temp 97.1 F 11/05/23 12:16 Pulse 87 11/05/23 12:16 Resp 18 11/05/23 12:16 BP 112/65 11/05/23 12:16 Pulse Ox 98 11/05/23 12:16 O2 Del Method Room Air 11/05/23 12:16 BMI result Body Mass Index 20.6 Const: Other: Awake alert no acute distress Resp: Other: Clear to auscultation bilaterally no rales rhonchi or wheezes Cardio: Other: No S4; positive S1-S2; no S3 murmurs rubs or gallops GI: Other: Soft distended positive bowel sounds throughout Extrem: Other: No edema bilaterally Objective Data Active Medications Fentanyl (Fentanyl Citrate/Pf 100 Mcg/2 Ml Vial) 25 mcg IVPUSH Q5M PRN; Protocol PRN Reason: Pain, Moderate(Pain Scale 4-6) Stop: 11/05/23 17:01 Octreotide Acetate 500 mcg/ (Sodium Chloride) 501 mls @ 50.1 mls/hr IVCONT .Q10H [facility] Last Admin: 11/05/23 08:30 Dose: 50 mcg/hr, 50.1 mls/hr Documented By: WOJCIECH Ceftriaxone Sodium 1 gm/ (Sodium Chloride) 50 mls @ 100 mls/hr IV Q24H [facility] Thiamine HCl 100 mg/ Sodium (Chloride) 101 mls @ 202 mls/hr IV DAILY [facility] Stop: 11/10/23 08:59 Last Infusion: 11/05/23 09:03 Dose: Infused Documented By: WOJCIECH Ondansetron HCl (Ondansetron Hcl 4 Mg/2 Ml Vial) 4 mg IVPUSH Q4H PRN PRN Reason: Nausea and Vomiting Ondansetron HCl (Ondansetron Hcl 4 Mg/2 Ml Vial) 4 mg IVPUSH ONCE PRN PRN Reason: Nausea and Vomiting Stop: 11/05/23 17:01 Pantoprazole Sodium (Pantoprazole Sodium 40 Mg/10 Ml Vial) 40 mg IVPUSH Q12H [facility] Last Admin: 11/05/23 04:47 Dose: 40 mg Documented By: LYLE Sodium Chloride (0.9 % Sodium Chloride Flush 3 Ml Syringe) 3 ml IVFLUSH [facility] Last Admin: 11/05/23 08:31 Dose: 3 ml Documented By: WOJCIECH Labs 11/05/23 06:38 11/05/23 06:38 Labs: Laboratory Results - last 24 hr 11/04/23 11/04/23 11/04/23 15:17 17:14 19:15 MCV 78.4 L MCH 22.2 L MCHC 28.3 L RDW 26.9 H Plt Count 247 D MPV 11.0 Immature Gran % (Auto) Cancelled Neut % (Auto) Cancelled Lymph % (Auto) Cancelled [place] % (Auto) Cancelled Eos % (Auto) Cancelled Baso % (Auto) Cancelled Lymph # (Auto) Cancelled [place] # (Auto) Cancelled Eos # (Auto) Cancelled Baso # (Auto) Cancelled Abs Immat Gran (auto) Cancelled Absolute Neuts (auto) Cancelled Absolute Nucleated RBC 0.110 H Nucleated RBC % (auto) 0.6 H Neutrophils % (Manual) 89 H Band Neutrophils % 0 L Lymphocytes % (Manual) 6 L Monocytes % (Manual) 4 Eosinophils % (Manual) 1 Abs Neuts (Manual) 15.8 H Lymphocytes # (Manual) 1.1 L Monocytes # (Manual) 0.7 Eosinophils # (Manual) 0.2 Nucleated RBCs 1 H Platelet Estimate NORMAL Plt Morphology Comment NORMAL RBC Morphology NOTED Ovalocytes 1+ (5-14) Schistocytes 1+ (0-2) Smear Tech's Comments MANUAL DIFF PT 24.7 H INR 2.0 H APTT 27.7 Anion Gap 15 Estim Creat Clear Calc 89.0 Estimated GFR > 60 Random Glucose 159 H Calcium 7.5 L D Magnesium 1.4 L* Total Bilirubin 4.1 H AST 82 H ALT 14 Alkaline Phosphatase 173 H Ammonia 54 Troponin I High Sens 22.1 H D Total Protein 5.9 L Albumin 2.5 L Amylase 15 L Lipase 24 Beta HCG, Quant < 2 Urine Color Dark Yellow Urine Appearance Clear Urine pH 6.5 Ur Specific [place] >= 1.030 H Urine Protein Negative Urine Glucose (UA) Negative Urine Ketones Negative Urine Blood Negative Urine Nitrite Negative Ur Leukocyte Esterase Negative Stool Occult Blood POSITIVE Urine Opiates Screen Not Detected Ur Buprenorphine Scrn Not Detected Ur Oxycodone Screen Not Detected Urine Methadone Screen Not Detected Urine Fentanyl Screen Not Detected Ur Barbiturates Screen Not Detected Ur Phencyclidine Scrn Not Detected Ur Amphetamines Screen Not Detected U Benzodiazepines Scrn Not Detected Urine Cocaine Screen Not Detected U Marijuana (THC) Screen POSITIVE H Ethyl Alcohol < 10 Blood Type O Positive Antibody Screen NEGATIVE Crossmatch See Detail 11/04/23 11/05/23 23:43 06:38 MCV 85.9 D MCH 29.0 MCHC 33.8 RDW 19.2 H Plt Count 106 L D MPV 10.5 Immature Gran % (Auto) Neut % (Auto) Lymph % (Auto) [place] % (Auto) Eos % (Auto) Baso % (Auto) Lymph # (Auto) [place] # (Auto) Eos # (Auto) Baso # (Auto) Abs Immat Gran (auto) Absolute Neuts (auto) Absolute Nucleated RBC 0.130 H Nucleated RBC % (auto) 1.4 H Neutrophils % (Manual) Band Neutrophils % Lymphocytes % (Manual) Monocytes % (Manual) Eosinophils % (Manual) Abs Neuts (Manual) Lymphocytes # (Manual) Monocytes # (Manual) Eosinophils # (Manual) Nucleated RBCs Platelet Estimate Plt Morphology Comment RBC Morphology Ovalocytes Schistocytes Smear Tech's Comments PT INR APTT Anion Gap Cancelled 11 L Estim Creat Clear Calc Cancelled 97.3 Estimated GFR Cancelled > 60 Random Glucose Cancelled 99 Calcium Cancelled 7.6 L Magnesium 2.0 Total Bilirubin Cancelled 6.7 H AST Cancelled 111 H ALT Cancelled 17 Alkaline Phosphatase Cancelled 146 H Ammonia Troponin I High Sens Total Protein Cancelled 5.5 L Albumin Cancelled 2.5 L Amylase Lipase Beta HCG, Quant Urine Color Urine Appearance Urine pH Ur Specific [place] Urine Protein Urine Glucose (UA) Urine Ketones Urine Blood Urine Nitrite Ur Leukocyte Esterase Stool Occult Blood Urine Opiates Screen Ur Buprenorphine Scrn Ur Oxycodone Screen Urine Methadone Screen Urine Fentanyl Screen Ur Barbiturates Screen Ur Phencyclidine Scrn Ur Amphetamines Screen U Benzodiazepines Scrn Urine Cocaine Screen U Marijuana (THC) Screen Ethyl Alcohol Blood Type Antibody Screen Crossmatch Assessment and Plan (1) UGIB (upper gastrointestinal bleed): Status: Acute (2) Alcohol use disorder: Status: Acute Plan 43-year-old female with known history of alcohol abuse presents with likely upper GI bleed secondary to varices. Initial hemoglobin 3.4; transfused 4 units packed cells with good response 1. Upper GI bleed (status post EGD) -as per GI * NPO for 6 hours and then clear liquids starting 5.30pm * Can advance diet tmrw if no rebleeding * Start liquid carafate 1g QID this evening when able to take PO * Can also give magic mouth wash to SWALLOW to help with post-banding discomfort * Cont IV PPI and Octreotide x 72h from procedure * Thereafter, PPI can be switched to PO * After 72h, start coreg 3.125 BID - uptitrated to 6.25 BID if tolerated by HR and BP over 48h * High MELD and ongoing alc hep may be prohibitive for pre-emptive TIPS * Repeat EGD in 6-8 weeks 2. Alcohol use disorder -continue to observe on CIWA scale Full code Pneumatics Requires ongoing hospitalization post endoscopy to resume diet and monitor response to therapies. We will continue IV octreotide over the next 72 hours as recommended Quality Stroke Does the patient have a stroke diagnosis?: No VTE Prior VTE?: No VTE Risk Level:: Medical - moderate - high VTE Device Contraindication: N/A - Device Ordered VTE Drug Contraindication: Treatment Not Indicated
[2023-11-05] MEDS: ondansetron HCL 4 MG/2 ML VIAL IVPUSH ×2 (13:18→20:47)
[2023-11-05] MEDS: Morphine Sulfate 4 MG/ML CARTRIDGE IVPUSH ×2 (13:56→18:14)
--- NOTE | 2023-11-05 14:36 | MHC.CM.PN ---
PT REPORTS SHE LIVES AT HOME WITH HER AND KIDS SHE IS INDEPENDENT WITH CARE, HAS NO DME AND NO SERVICES HCP ON FILE PCP: TUNDE STEEN DCP: HOME NO SERVICES VIA PRIVATE TRANSPORT
[2023-11-05] MEDS: cefTRIAXone sodium 1 GM in 0.9 % Sodium Chloride 50 ML IV (18:15)
[2023-11-05] MEDS: Octreotide Acetate 500 MCG in 0.9 % Sodium Chloride 500 ML 50.2 MCG IVCONT (20:34)
[2023-11-06] VITALS (7 sets, daily range): BP systolic 117–140; BP diastolic 68–87; PULSE 73–90; RESP 16–18; TEMP 36.3–36.8; O2SAT 93–98
[2023-11-06] MEDS: Morphine Sulfate 4 MG/ML CARTRIDGE IVPUSH ×4 (01:31→22:17)
[2023-11-06] MEDS: ondansetron HCL 4 MG/2 ML VIAL IVPUSH (05:07)
[2023-11-06] MEDS: Pantoprazole Sodium 40 MG/10 ML VIAL IVPUSH ×2 (05:07→16:16)
[2023-11-06] MEDS: Octreotide Acetate 500 MCG in 0.9 % Sodium Chloride 500 ML 50.2 MCG IVCONT ×3 (06:53→23:59)
[2023-11-06 06:56] LABS: MANUAL DIFF FLAG NO
[2023-11-06 07:04] LABS: Basophils Absolute Auto 0.1 X10*3/uL (0.0-0.2); Basophils Percent Auto 1.5 % (0-2); Eosinophils Absolute Auto 0.3 X10*3/uL (0.0-0.4); Eosinophils Percent Auto 3.1 % (0-4); Hematocrit 27.8 % (37.0-47.0); Hemoglobin 9.2 g/dl (12.0-16.0); Imm Gran Abs Auto 0.25 X10*3/uL (0.00-0.03); Imm Gran Pct Auto 3.1 % (0.0-0.4); Lymphocytes Absolute Auto 0.9 X10*3/uL (1.2-4.9); Lymphocytes Percent Auto 11.5 % (20-40); Mean Corpuscular HGB Conc 33.1 g/dl (31.0-35.0); Mean Corpuscular Hemoglobin 28.8 pg (27.0-33.0); Mean Corpuscular Volume 87.1 fL (80.0-98.0); Mean Platelet Volume 10.1 fL (9.4-12.3); Monocytes Absolute Auto 0.7 X10*3/uL (0.1-1.2); NRBC Pct Auto 0.6 /100WBC (0.0-0.2); Neutrophils Percent Auto 72.8 % (45-73); Red Blood Count 3.19 X10*6/uL (4.20-5.50); Red Cell Distribution Width 18.5 % (11.0-16.0); White Blood Count 8.2 X10*3/uL (4.8-10.8)
[2023-11-06 07:08] LABS: INTERNATIONAL NORM RATIO 1.6 (0.9-1.1); Prothrombin Time 19.2 SEC (11.1-13.3)
[2023-11-06 07:16] LABS: Alanine Aminotransferase 19 U/L (0-31); Albumin Level 2.4 g/dL (3.5-5.0); Alkaline Phosphatase 149 U/L (39-117); Anion Gap 11 (12-20); Aspartate Amino Transferase 134 U/L (5-31); Bilirubin Total 6.6 mg/dL (0.0-1.0); Blood Urea Nitrogen 11 mg/dL (9-16); Calcium 7.4 mg/dL (8.4-10.2); Carbon Dioxide 20 mmol/L (22-29); Chloride 107 mmol/L (96-108); Creatinine Clr Calc Pharmacy 94.4; Estimated Glomerular Filt Rate > 60; Glucose Fasting 96 mg/dL (60-99); Potassium 3.2 mmol/L (3.3-5.1); Sodium 135 mmol/L (135-145); Total Protein 5.5 g/dL (6.5-8.0)
[2023-11-06 07:17] LABS: Platelet Count 99 X10*3/uL (160-400)
[2023-11-06] MEDS: Sucralfate Oral Suspension 1 GM/10 ML ORAL.SUSP PO ×4 (09:49→20:06)
[2023-11-06] MEDS: 0.9 % Sodium Chloride Flush 3 ML SYRINGE IVFLUSH ×3 (09:49→22:15)
[2023-11-06] MEDS: Thiamine HCL 100 MG in 0.9 % Sodium Chloride 100 ML 202 MG IV (09:49)
--- NOTE | 2023-11-06 10:39 | MHC.RECOVRN ---
Pt in [id number] positive screen for unhealthy alcohol use on admission, subsequently met with t/w to discuss alcohol use and recovery supports/options. Pt voices concern regarding alcohol use and is aware that drinking at unhealthy levels is known to increase risk of alcohol related health problems. Pt reports that the last time she was in the hospital she was D/C on Campral and was able to maintain sobriety but that she had stopped the medication and began drinking again which she reports led up to this hospitalization.? Pt expresses how alcohol use has impacted health, including negative impact on overall health and well being and ability to support her family. Discussed risk reduction strategies including drinking below the recommended limit. Provided pt with written resources including information on inpatient and outpatient treatment, NOLBERTO, harm reduction, and recovery coaching. Pt plans to resume her campral and explore other NOLBERTO along with increasing her supports around AUD such as outpt., therapy, etc.? Pt provided with t/w contact information if questions or concerns arise. Denies other questions or concerns at this time.
--- NOTE | 2023-11-06 11:57 | HO.POSTANES ---
Post Anesthesia Evaluation Post Anesthesia Evaluation Date of Service: 11/06/23 Vital Signs: Vital Signs Temp Pulse Resp BP Pulse Ox O2 Del Method 11/06/23 08:00 97.4 F 82 18 130/83 96 Room Air 11/06/23 04:00 98.1 F 73 18 123/78 96 Room Air 11/06/23 00:00 97.9 F 77 18 140/78 H 98 Room Air Anesthesia: Monitored Mental Status: Awake Pain Control: Satisfactory Nausea/Vomiting: None Hydration: Adequate Anesthesia-Related Issues: No Anes. Related Issues
--- NOTE | 2023-11-06 12:55 | HO.PM.IMPN ---
Subjective Subjective Date of Service: 11/06/23 Interval History: Doing well status post banding. Hemoglobin stable. No active bleeding Review of Systems Denies chest pain Denies shortness of breath Denies nausea vomiting diarrhea Denies fever chills Physical Exam Vital Signs: Vital Signs: Last Vital Signs Temp 97.6 F 11/06/23 12:00 Pulse 86 11/06/23 12:00 Resp 18 11/06/23 12:00 BP 133/86 11/06/23 12:00 Pulse Ox 98 11/06/23 12:00 O2 Del Method Room Air 11/06/23 12:00 BMI result Body Mass Index 20.6 Const: Other: Awake alert no acute distress Resp: Other: Clear to auscultation bilaterally no rales rhonchi or wheezes Cardio: Other: No S4; positive S1-S2; no S3 murmurs rubs or gallops GI: Other: Soft distended positive bowel sounds throughout Extrem: Other: No edema bilaterally Objective Data Active Medications Octreotide Acetate 500 mcg/ (Sodium Chloride) 501 mls @ 50.1 mls/hr IVCONT .Q10H [facility] Last Admin: 11/06/23 06:53 Dose: 50.1 mcg/hr, 50.2 mls/hr Documented By: KYLIE Ceftriaxone Sodium 1 gm/ (Sodium Chloride) 50 mls @ 100 mls/hr IV Q24H [facility] Last Infusion: 11/05/23 18:45 Dose: Infused Documented By: WOJCIECH Thiamine HCl 100 mg/ Sodium (Chloride) 101 mls @ 202 mls/hr IV DAILY [facility] Stop: 11/10/23 08:59 Last Infusion: 11/06/23 10:19 Dose: Infused Documented By: WOJCIECH Lidocaine/Diphenhydr/Alum/Mg/Simeth (Mag&Al/Sim/Diphenhyd/Lidocaine 10 Ml Oral.Susp) 10 ml PO Q4H PRN; Protocol PRN Reason: swallowing discomfort Morphine Sulfate (Morphine Sulfate 4 Mg/Ml Cartridge) 4 mg IVPUSH Q4H PRN; Protocol PRN Reason: Pain, Severe (Pain Scale 7-10) Last Admin: 11/06/23 05:07 Dose: 4 mg Documented By: KYLIE Ondansetron HCl (Ondansetron Hcl 4 Mg/2 Ml Vial) 4 mg IVPUSH Q4H PRN PRN Reason: Nausea and Vomiting Last Admin: 11/06/23 05:07 Dose: 4 mg Documented By: KYLIE Pantoprazole Sodium (Pantoprazole Sodium 40 Mg/10 Ml Vial) 40 mg IVPUSH Q12H [facility] Last Admin: 11/06/23 05:07 Dose: 40 mg Documented By: KYLIE Sodium Chloride (0.9 % Sodium Chloride Flush 3 Ml Syringe) 3 ml IVFLUSH QSHIFT [facility] Last Admin: 11/06/23 09:49 Dose: 3 ml Documented By: WOJCIECH Sucralfate (Sucralfate Oral Suspension 1 Gm/10 Ml Oral.Susp) 1 gm PO QIDACHS [facility] Last Admin: 11/06/23 12:44 Dose: 1 gm Documented By: WOJCIECH Labs 11/06/23 06:27 11/06/23 06:27 Labs: Laboratory Results - last 24 hr 11/06/23 06:27 MCV 87.1 MCH 28.8 MCHC 33.1 RDW 18.5 H Plt Count 99 L MPV 10.1 Immature Gran % (Auto) 3.1 H Neut % (Auto) 72.8 Lymph % (Auto) 11.5 L [place] % (Auto) 8.0 Eos % (Auto) 3.1 Baso % (Auto) 1.5 Lymph # (Auto) 0.9 L [place] # (Auto) 0.7 Eos # (Auto) 0.3 Baso # (Auto) 0.1 Abs Immat Gran (auto) 0.25 H Absolute Neuts (auto) 6.0 Absolute Nucleated RBC 0.050 H Nucleated RBC % (auto) 0.6 H PT 19.2 H D INR 1.6 H Anion Gap 11 L Estim Creat Clear Calc 94.4 Estimated GFR > 60 Fasting Glucose 96 Calcium 7.4 L Total Bilirubin 6.6 H AST 134 H ALT 19 Alkaline Phosphatase 149 H Total Protein 5.5 L Albumin 2.4 L Assessment and Plan (1) UGIB (upper gastrointestinal bleed): Status: Acute (2) Esophageal varices: Status: Acute Plan 43-year-old female with known history of alcohol abuse presents with likely upper GI bleed secondary to varices. Initial hemoglobin 3.4; transfused 4 units packed cells with good response 1. Upper GI bleed (status post EGD) -tolerating clears...advance as tolerated -carafate 1g QID -Cont IV PPI and Octreotide x 72h from procedure(5/8 am) -Coreg 3.125 BID - uptitrated to 6.25 BID if tolerated by HR and BP over 48h(start 58) 2. Alcohol use disorder -continue to observe on CIWA scale Full code Pneumatics Requires ongoing hospitalization post endoscopy to resume diet and monitor response to therapies. We will continue IV octreotide over the next 72 hours as recommended Quality Stroke Does the patient have a stroke diagnosis?: No VTE Prior VTE?: No VTE Risk Level:: Medical - moderate - high VTE Device Contraindication: N/A - Device Ordered VTE Drug Contraindication: Treatment Not Indicated
[2023-11-06] MEDS: cefTRIAXone sodium 1 GM in 0.9 % Sodium Chloride 50 ML IV (18:06)
[2023-11-07 03:12] VITALS: BP 131/83; PULSE 77; RESP 16; TEMP 36.5; O2SAT 95
[2023-11-07] MEDS: Pantoprazole Sodium 40 MG/10 ML VIAL IVPUSH ×2 (06:16→15:25)
[2023-11-07 07:46] VITALS: BP 141/88; PULSE 81; RESP 20; TEMP 36.5; O2SAT 98
[2023-11-07] MEDS: Thiamine HCL 100 MG in 0.9 % Sodium Chloride 100 ML IV (08:44)
[2023-11-07] MEDS: Octreotide Acetate 500 MCG in 0.9 % Sodium Chloride 500 ML 50.2 MCG IVCONT ×2 (08:44→18:34)
[2023-11-07] MEDS: Sucralfate Oral Suspension 1 GM/10 ML ORAL.SUSP PO ×4 (08:45→19:41)
[2023-11-07] MEDS: 0.9 % Sodium Chloride Flush 3 ML SYRINGE IVFLUSH ×3 (08:45→23:44)
--- NOTE | 2023-11-07 10:24 | MHC.CM.PN ---
Per ROUNDS discussion, Patient is not yet medically cleared for dc (Needs Octreotide for a few more days and advancing diet); home is the goal and CM will follow.
[2023-11-07 11:27] VITALS: BP 112/76; PULSE 81; RESP 18; TEMP 36.4; O2SAT 96
--- NOTE | 2023-11-07 13:48 | HO.PM.IMPN ---
Subjective Subjective Date of Service: 11/07/23 Interval History: Doing well post banding. Diet advancing without issue. No bleeding noted Review of Systems Denies chest pain Denies shortness of breath Denies nausea vomiting diarrhea Denies fever chills Physical Exam Vital Signs: Vital Signs: Last Vital Signs Temp 97.5 F 11/07/23 11:27 Pulse 81 11/07/23 11:27 Resp 18 11/07/23 11:27 BP 112/76 11/07/23 11:27 Pulse Ox 96 11/07/23 11:27 O2 Del Method Room Air 11/07/23 11:27 BMI result Body Mass Index 20.6 Const: Other: Awake alert no acute distress Resp: Other: Clear to auscultation bilaterally no rales rhonchi or wheezes Cardio: Other: No S4; positive S1-S2; no S3 murmurs rubs or gallops GI: Other: Soft distended positive bowel sounds throughout Extrem: Other: No edema bilaterally Objective Data Active Medications Octreotide Acetate 500 mcg/ (Sodium Chloride) 501 mls @ 50.1 mls/hr IVCONT .Q10H [facility] Last Admin: 11/07/23 08:44 Dose: 50.1 mcg/hr, 50.2 mls/hr Documented By: ANA Ceftriaxone Sodium 1 gm/ (Sodium Chloride) 50 mls @ 100 mls/hr IV Q24H [facility] Last Infusion: 11/06/23 18:36 Dose: Infused Documented By: WOJCIECH Thiamine HCl 100 mg/ Sodium (Chloride) 101 mls @ 202 mls/hr IV DAILY [facility] Stop: 11/10/23 08:59 Last Infusion: 11/07/23 10:03 Dose: Infused Documented By: ANA Lidocaine/Diphenhydr/Alum/Mg/Simeth (Mag&Al/Sim/Diphenhyd/Lidocaine 10 Ml Oral.Susp) 10 ml PO Q4H PRN; Protocol PRN Reason: swallowing discomfort Morphine Sulfate (Morphine Sulfate 4 Mg/Ml Cartridge) 4 mg IVPUSH Q4H PRN; Protocol PRN Reason: Pain, Severe (Pain Scale 7-10) Last Admin: 11/06/23 22:17 Dose: 4 mg Documented By: TRICIA Ondansetron HCl (Ondansetron Hcl 4 Mg/2 Ml Vial) 4 mg IVPUSH Q4H PRN PRN Reason: Nausea and Vomiting Last Admin: 11/06/23 05:07 Dose: 4 mg Documented By: KYLIE Pantoprazole Sodium (Pantoprazole Sodium 40 Mg/10 Ml Vial) 40 mg IVPUSH Q12H [facility] Last Admin: 11/07/23 06:16 Dose: 40 mg Documented By: TRICIA Sodium Chloride (0.9 % Sodium Chloride Flush 3 Ml Syringe) 3 ml IVFLUSH QSHIFT [facility] Last Admin: 11/07/23 08:45 Dose: 3 ml Documented By: ANA Sucralfate (Sucralfate Oral Suspension 1 Gm/10 Ml Oral.Susp) 1 gm PO QIDACHS [facility] Last Admin: 11/07/23 11:43 Dose: 1 gm Documented By: ANA Labs 11/06/23 06:27 11/06/23 06:27 Labs: Laboratory Results - last 24 hr 11/04/23 15:17 Smear Path Review SEE NOTE Assessment and Plan (1) UGIB (upper gastrointestinal bleed): Status: Acute (2) Esophageal varices: Status: Acute (3) Alcohol use disorder: Status: Acute Plan 43-year-old female with known history of alcohol abuse presents with likely upper GI bleed secondary to varices. Initial hemoglobin 3.4; transfused 4 units packed cells with good response 1. Upper GI bleed (status post EGD) -tolerating advancement of diet -carafate 1g QID -Cont IV PPI and Octreotide x 72h from procedure(5/8 am) -Coreg 3.125 BID - uptitrated to 6.25 BID if tolerated by HR and BP over 48h(start 5/8) 2. Alcohol use disorder -continue to observe on CIWA scale Full code Pneumatics Requires ongoing hospitalization post endoscopy to resume diet and monitor response to therapies. We will continue IV octreotide over the next 72 hours as recommended Quality Stroke Does the patient have a stroke diagnosis?: No VTE Prior VTE?: No VTE Risk Level:: Medical - moderate - high VTE Device Contraindication: N/A - Device Ordered VTE Drug Contraindication: Treatment Not Indicated
--- NOTE | 2023-11-07 13:49 | P.PNGI_ITS ---
Subjective Subjective Date of Service: 11/07/23 Interval History: Seen and evaluated at bedside. Doing well. Awake, alert, eating lunch. Has not had any further bowel movements since endoscopy. No further nausea and vomiting. Critical Care Time (minutes): 0 Physical Exam 2 Vital Signs: Vital Signs: Last Vital Signs Temp 97.5 F 11/07/23 11:27 Pulse 81 11/07/23 11:27 Resp 18 11/07/23 11:27 BP 112/76 11/07/23 11:27 Pulse Ox 96 11/07/23 11:27 O2 Del Method Room Air 11/07/23 11:27 BMI result Body Mass Index 20.6 No acute distress Icteric Abdomen soft, nontender Objective Data Labs 11/06/23 06:27 11/06/23 06:27 Labs: Laboratory Results - last 24 hr 11/04/23 15:17 Smear Path Review SEE NOTE Procedures Date of Service Date of Service: 11/07/23 Progress Note: A&P Assessment and plan (1) Esophageal varices: Status: Acute (2) Alcoholic hepatitis: Status: Acute (3) Alcohol use disorder: Status: Acute (4) UGIB (upper gastrointestinal bleed): Status: Acute (5) Alcoholic cirrhosis of liver: Status: Acute (6) Abdominal ascites: Status: Resolved Plan p/w acute anemia of blood loss 2/2 variceal hemorrhage s/p EGD with EVBL x3 11/05/23. No furhter GIB clinically. Labs pending from today. Doing well. Plan: -ok to advance diet -continue IV ppi, octreotide and ceftriaxone till 11/07. -Can switch to PO ppo, coreg 3.125 BID thereafter -Ceftriaxone can be swithced to PO cipro to be cont'd for 7 days of Abx therapy total. -Repeat EGD will be arranged -[facility] protocol -for alcohol hepatitis, corticosteroids contraindicated as pt presented with UGIB -check blood cultures and DIAGNOSTIC para for complete infectious work up - pls hold off therapeutic para and/or diuretics for now -strict abstinence from alcohol advised -check MELD labs tomorrow including INR Time Spent With Patient Time: Total time managing care of this patient today ____ minutes. Quality Stroke Does the patient have a stroke diagnosis?: No VTE Prior VTE?: No VTE Risk Level:: Medical - moderate - high VTE Device Contraindication: N/A - Device Ordered VTE Drug Contraindication: Treatment Not Indicated
[2023-11-07 14:16] LABS: Hematocrit 27.9 % (37.0-47.0); Hemoglobin 9.2 g/dl (12.0-16.0); Mean Platelet Volume 10.3 fL (9.4-12.3); NRBC Pct Auto 0.2 /100WBC (0.0-0.2); Platelet Count 108 X10*3/uL (160-400); Red Blood Count 3.17 X10*6/uL (4.20-5.50); Red Cell Distribution Width 19.7 % (11.0-16.0); White Blood Count 8.8 X10*3/uL (4.8-10.8)
[2023-11-07 14:31] LABS: Alanine Aminotransferase 20 U/L (0-31); Albumin Level 2.3 g/dL (3.5-5.0); Alkaline Phosphatase 140 U/L (39-117); Anion Gap 9 (12-20); Aspartate Amino Transferase 98 U/L (5-31); Bilirubin Total 5.3 mg/dL (0.0-1.0); Blood Urea Nitrogen 5 mg/dL (9-16); Calcium 7.6 mg/dL (8.4-10.2); Carbon Dioxide 21 mmol/L (22-29); Chloride 108 mmol/L (96-108); Creatinine Clr Calc Pharmacy 91.6; Estimated Glomerular Filt Rate > 60; Glucose Random 128 mg/dL (60-115); Sodium 135 mmol/L (135-145); Total Protein 5.5 g/dL (6.5-8.0)
[2023-11-07 15:03] LABS: INTERNATIONAL NORM RATIO 1.6 (0.9-1.1); Prothrombin Time 19.6 SEC (11.1-13.3)
[2023-11-07] MEDS: Morphine Sulfate 4 MG/ML CARTRIDGE IVPUSH ×2 (15:25→19:46)
[2023-11-07 15:29] VITALS: BP 122/83; PULSE 92; RESP 18; TEMP 36.9; O2SAT 98
[2023-11-07 19:28] VITALS: BP 121/76; PULSE 77; RESP 16; TEMP 37.1; O2SAT 98
[2023-11-07] MEDS: cefTRIAXone sodium 1 GM in 0.9 % Sodium Chloride 50 ML IV (19:46)
[2023-11-07 23:34] VITALS: BP 118/80; PULSE 87; RESP 16; TEMP 36.4; O2SAT 97
[2023-11-08 03:23] VITALS: BP 113/79; PULSE 76; RESP 16; TEMP 36.6; O2SAT 98
[2023-11-08] MEDS: Octreotide Acetate 500 MCG in 0.9 % Sodium Chloride 500 ML 50.2 MCG IVCONT ×2 (04:16→14:19)
[2023-11-08 08:00] VITALS: BP 130/81; PULSE 78; RESP 20; TEMP 36.4; O2SAT 98
--- NOTE | 2023-11-08 09:39 | HO.ADDICTPRO ---
Subjective Subjective Date of Service: 11/08/23 Reason For Visit: Upper GI bleeding Interim History: Patient seen in follow up --photoresist printer met with patient over the weekend Resources provided. Patient know to this bond writer via previous admission. Awake, alert, pleasant. Guarded regarding alcohol use--minimal responses to any questions about it. Started on Acamprosate during admission in December 2022. She think it was was working as she was not thinking of alcohol as much and was able to abstain. Unclear how long patient did abstain for and unclear when she started drinking again or how much-- I'm not really sure...I can't actually remember, but it doesn't matter because I am never drinking again, this scared me enough She presented to the [facility] for an intake following admission in 2022 and left once registered. Today she reports that the office was not a place she wante dot be and that she wanted he rPCP to continue Campral for her. She requests to restart medication prior to discharge. Review of Systems Acute medical concerns: Yes Review of Systems Constitutional: Reports as per HPI and Reports no additional constitutional complaints Diagnostics Vital Signs (24Hr): Vital Signs - 24 hr 11/07/23 11:27 11/07/23 15:29 11/07/23 19:28 Temperature 97.5 F 98.4 F 98.7 F Pulse Rate 81 92 77 Respiratory Rate 18 18 16 Blood Pressure 112/76 122/83 121/76 Pulse Oximetry 96 98 98 Oxygen Delivery Method Room Air Room Air Room Air 11/07/23 23:34 11/08/23 03:23 11/08/23 08:00 Temperature 97.5 F 97.8 F 97.5 F Pulse Rate 87 76 78 Respiratory Rate 16 16 20 Blood Pressure 118/80 113/79 130/81 Pulse Oximetry 97 98 98 Oxygen Delivery Method Room Air Room Air Room Air BMI result Body Mass Index 20.6 Labs 11/07/23 13:54 11/07/23 13:54 Labs: Laboratory Results - last 48 hr 11/04/23 11/07/23 15:17 13:54 WBC 8.8 RBC 3.17 L Hgb 9.2 L Hct 27.9 L MCV 88.0 MCH 29.0 MCHC 33.0 RDW 19.7 H Plt Count 108 L MPV 10.3 Absolute Nucleated RBC 0.020 H Nucleated RBC % (auto) 0.2 Smear Path Review SEE NOTE PT 19.6 H INR 1.6 H Sodium 135 Potassium 3.0 L Chloride 108 Carbon Dioxide 21 L Anion Gap 9 L BUN 5 L Creatinine 0.68 Estim Creat Clear Calc 91.6 Estimated GFR > 60 Random Glucose 128 H Calcium 7.6 L Total Bilirubin 5.3 H AST 98 H ALT 20 Alkaline Phosphatase 140 H Total Protein 5.5 L Albumin 2.3 L Imaging Radiology Impressions: ITS Impressions Chest X-Ray 11/04/23 15:27 IMPRESSION: No acute cardiopulmonary disease. Abdomen/Pelvis CT 11/04/23 18:58 IMPRESSION: 1. No evidence of active gastrointestinal bleeding. 2. Cirrhotic liver with portal hypertension, ascites and large extensive esophageal varices. 3. Marked enhancement of the small bowel after IV contrast as well as some mucosal thickening of the colon. These findings could be due to portal colopathy/enterography. 4. Patient could benefit from TIPS placement with BRTO of the esophageal varices via the coronary vein. Consider interventional radiology consult. This critical result was discussed with Dr. Soila Lee at 9:31 PM on the evening of the exam and it was ascertained that the content and urgency of the report was understood at the time of direct communication. Medications Medications Current Medications Octreotide Acetate 500 mcg/ (Sodium Chloride) 501 mls @ 50.1 mls/hr IVCONT .Q10H DAI Last Admin: 11/08/23 04:16 Dose: 50.1 mcg/hr, 50.2 mls/hr Ceftriaxone Sodium 1 gm/ (Sodium Chloride) 50 mls @ 100 mls/hr IV Q24H DAI Last Infusion: 11/07/23 20:43 Dose: Infused Thiamine HCl 100 mg/ Sodium (Chloride) 101 mls @ 202 mls/hr IV DAILY DAI Stop: 11/10/23 08:59 Last Infusion: 11/07/23 10:03 Dose: Infused Lidocaine/Diphenhydr/Alum/Mg/Simeth (Mag&Al/Sim/Diphenhyd/Lidocaine 10 Ml Oral.Susp) 10 ml PO Q4H PRN; Protocol PRN Reason: swallowing discomfort Morphine Sulfate (Morphine Sulfate 4 Mg/Ml Cartridge) 4 mg IVPUSH Q4H PRN; Protocol PRN Reason: Pain, Severe (Pain Scale 7-10) Last Admin: 11/07/23 19:46 Dose: 4 mg Ondansetron HCl (Ondansetron Hcl 4 Mg/2 Ml Vial) 4 mg IVPUSH Q4H PRN PRN Reason: Nausea and Vomiting Last Admin: 11/06/23 05:07 Dose: 4 mg Sodium Chloride (0.9 % Sodium Chloride Flush 3 Ml Syringe) 3 ml IVFLUSH QSHIFT [facility] Last Admin: 11/07/23 23:44 Dose: 3 ml Sucralfate (Sucralfate Oral Suspension 1 Gm/10 Ml Oral.Susp) 1 gm PO QIDACHS [facility] Last Admin: 11/07/23 19:41 Dose: 1 gm Allergies Allergies Allergy/AdvReac Type Severity Reaction Status Date / Time No Known Allergies Allergy Verified 11/04/23 14:58 [No Known Allergies*] Assessment & Plan Assessment & Plan (1) Alcohol use disorder, severe, dependence: Status: Acute Code(s): F10.20 - Alcohol dependence, uncomplicated Assessment and Plan: withdrawal resolved Will restart Acamprosate BID Patient not interested in outpatient treatment--would like to continue medication outpatient via her PCP Declined to discuss risk reduction strategies No follow up indicated Rx for Campral 666mg BID at time of discharge Total time managing care of this patient today ____ minutes.
[2023-11-08] MEDS: 0.9 % Sodium Chloride Flush 3 ML SYRINGE IVFLUSH ×3 (10:23→20:03)
[2023-11-08] MEDS: Sucralfate Oral Suspension 1 GM/10 ML ORAL.SUSP PO ×4 (10:23→20:02)
[2023-11-08] MEDS: Acamprosate Calcium 333 MG TABLET.DR 666 MG PO ×2 (10:23→20:03)
[2023-11-08] MEDS: Thiamine HCL 100 MG TABLET PO (10:23)
[2023-11-08 11:11] VITALS: BP 136/78; PULSE 71; RESP 20; TEMP 36.4; O2SAT 100
--- NOTE | 2023-11-08 15:14 | P.PNIM_ITS ---
Subjective Subjective Date of Service: 11/08/23 Interval History: Feeling better tolerating diet, denies recurrent episodes of hematemesis, no melena, no abdominal pain no nausea, no vomiting, no headache, no dizziness, no acute events overnight. Requesting for sleeping aid. Review of Systems All other system reviewed and negative Physical Exam 2 Vital Signs: Vital Signs: Last Vital Signs Temp 97.5 F 11/08/23 11:11 Pulse 71 11/08/23 11:11 Resp 20 11/08/23 11:11 BP 136/78 11/08/23 11:11 Pulse Ox 100 11/08/23 11:11 O2 Del Method Room Air 11/08/23 11:11 BMI result Body Mass Index 20.6 Const: Other: General awake alert x3, resting comfortably in no acute distress. Anicteric sclera Neck supple no JVD. CVS regular rate rhythm, Respiratory lungs clear to auscultation, no respiratory distress, no wheeze, no rhonchi. Gastrointestinal abdomen soft, non tender, bowel sounds audible, no guarding , no rigidity. Extremities no edema. Neuro non focal Skin no rash Psych appropriate affect Objective Data Active Medications Acamprosate (Acamprosate Calcium 333 Mg Tablet.) 666 mg PO BID [facility] Last Admin: 11/08/23 10:23 Dose: 666 mg Documented By: HARRIETT Octreotide Acetate 500 mcg/ (Sodium Chloride) 501 mls @ 50.1 mls/hr IVCONT .Q10H [facility] Last Admin: 11/08/23 14:19 Dose: 50.1 mcg/hr, 50.2 mls/hr Documented By: HARRIETT Ceftriaxone Sodium 1 gm/ (Sodium Chloride) 50 mls @ 100 mls/hr IV Q24H [facility] Last Infusion: 11/07/23 20:43 Dose: Infused Documented By: RAMON Lidocaine/Diphenhydr/Alum/Mg/Simeth (Mag&Al/Sim/Diphenhyd/Lidocaine 10 Ml Oral.Susp) 10 ml PO Q4H PRN; Protocol PRN Reason: swallowing discomfort Morphine Sulfate (Morphine Sulfate 4 Mg/Ml Cartridge) 4 mg IVPUSH Q4H PRN; Protocol PRN Reason: Pain, Severe (Pain Scale 7-10) Last Admin: 11/07/23 19:46 Dose: 4 mg Documented By: RAMON Ondansetron HCl (Ondansetron Hcl 4 Mg/2 Ml Vial) 4 mg IVPUSH Q4H PRN PRN Reason: Nausea and Vomiting Last Admin: 11/06/23 05:07 Dose: 4 mg Documented By: KYLIE Pantoprazole Sodium (Pantoprazole Sodium 40 Mg/10 Ml Vial) 40 mg IVPUSH BID@0630,1630 [facility] Sodium Chloride (0.9 % Sodium Chloride Flush 3 Ml Syringe) 3 ml IVFLUSH QSHIFT [facility] Last Admin: 11/08/23 10:23 Dose: 3 ml Documented By: HARRIETT Sucralfate (Sucralfate Oral Suspension 1 Gm/10 Ml Oral.Susp) 1 gm PO QIDACHS [facility] Last Admin: 11/08/23 12:28 Dose: 1 gm Documented By: HARRIETT Thiamine HCl (Thiamine Hcl 100 Mg Tablet) 100 mg PO DAILY [facility] Last Admin: 11/08/23 10:23 Dose: 100 mg Documented By: HARRIETT Labs 11/07/23 13:54 11/07/23 13:54 Assessment and Plan (1) UGIB (upper gastrointestinal bleed): Status: Acute (2) Esophageal varices: Status: Acute (3) Alcohol use disorder: Status: Acute Plan 43-year-old female with known history of alcohol abuse presents with likely upper GI bleed secondary to varices. Initial hemoglobin 3.4; transfused 4 units packed cells with good response 1. Upper GI bleed (status post EGD) -underwent upper endoscopy 11/05/23 that showed esophageal varices, portal hypertensive gastropathy and duodenopathy, status post 3 bands with satisfactory decompression of varices -on carafate 1g QID ,on IV PPI and Octreotide x 72h from procedure(5/8 am) -Coreg 3.125 BID - uptitrated to 6.25 BID if tolerated by HR and BP over 48h(start 11/08) -outpatient follow-up with GI for repeat upper endoscopy in 12-09 -continue IV ceftriaxone and switch to by mouth Ceftin for total 7 days treatment 2. Alcohol use disorder/alcoholic hepatitis -strongly recommend to abstain from alcohol, corticosteroids contraindicated due to upper GI bleed, INR 1.6 -seen by Addiction Team they Provided pt. with written resources including information on inpatient and outpatient treatment, NOLBRETO, harm reduction, and recovery coaching. -Pt. plans to resume her campral and explore other NOLBERTO along with increasing her supports around AUD such as outpt., therapy, etc.? 3. Leukocytosis, tachycardia and tachypnea resolved was not due to sepsis Full code Pneumatics Requires ongoing hospitalization post endoscopy to resume diet and monitor response to therapies. We will continue IV octreotide over the next 72 hours as recommended Quality Stroke Does the patient have a stroke diagnosis?: No VTE Prior VTE?: No VTE Risk Level:: Medical - moderate - high VTE Device Contraindication: N/A - Device Ordered VTE Drug Contraindication: Treatment Not Indicated
[2023-11-08 16:00] VITALS: BP 122/80; PULSE 79; RESP 16; TEMP 36.7; O2SAT 99
[2023-11-08] MEDS: Pantoprazole Sodium 40 MG/10 ML VIAL IVPUSH (16:04)
[2023-11-08 20:00] VITALS: BP 122/80; PULSE 83; RESP 18; TEMP 36.8; O2SAT 97
[2023-11-08] MEDS: Melatonin 3 MG TABLET 6 MG PO (20:03)
[2023-11-08] MEDS: cefTRIAXone sodium 1 GM in 0.9 % Sodium Chloride 50 ML IV (20:06)
[2023-11-08 23:46] VITALS: BP 129/83; PULSE 83; RESP 18; TEMP 36.5; O2SAT 99
[2023-11-09] MEDS: Octreotide Acetate 500 MCG in 0.9 % Sodium Chloride 500 ML 50.2 MCG IVCONT (00:11)
[2023-11-09 03:32] VITALS: BP 138/83; PULSE 71; RESP 16; TEMP 36.4; O2SAT 100
[2023-11-09] MEDS: Pantoprazole Sodium 40 MG/10 ML VIAL IVPUSH (05:51)
[2023-11-09 07:14] VITALS: BP 125/75; PULSE 67; RESP 20; TEMP 36.6; O2SAT 98
[2023-11-09] MEDS: Potassium Chloride ER 20 MEQ TAB.ER.PRT PO (08:09)
[2023-11-09] MEDS: Sucralfate Oral Suspension 1 GM/10 ML ORAL.SUSP PO ×2 (08:09→10:24)
[2023-11-09] MEDS: Acamprosate Calcium 333 MG TABLET.DR 666 MG PO (08:09)
[2023-11-09] MEDS: Thiamine HCL 100 MG TABLET PO (08:09)
[2023-11-09] MEDS: 0.9 % Sodium Chloride Flush 3 ML SYRINGE IVFLUSH (08:10)
[2023-11-09 09:07] LABS: INTERNATIONAL NORM RATIO 1.8 (0.9-1.1)
[2023-11-09 09:23] LABS: Alanine Aminotransferase 18 U/L (0-31); Albumin Level 2.6 g/dL (3.5-5.0); Alkaline Phosphatase 158 U/L (39-117); Anion Gap 10 (12-20); Aspartate Amino Transferase 71 U/L (5-31); Bilirubin Direct 3.7 mg/dL (0.0-0.5); Bilirubin Total 5.4 mg/dL (0.0-1.0); Blood Urea Nitrogen 3 mg/dL (9-16); Calcium 8.1 mg/dL (8.4-10.2); Carbon Dioxide 20 mmol/L (22-29); Chloride 110 mmol/L (96-108); Creatinine Clr Calc Pharmacy 100.5; Estimated Glomerular Filt Rate > 60; Glucose Random 123 mg/dL (60-115); Potassium 3.2 mmol/L (3.3-5.1); Sodium 137 mmol/L (135-145)
--- NOTE | 2023-11-09 09:33 | PM.DS ---
DS: Providers Provider Date of Service: 11/09/23 Date of admission: 11/04/23 20:07 Primary care physician: Ralph Claudio III, MD Consults: 11/04/23 20:15 Consult to Gastroenterology Routine Consulting Provider: Nandini Obregon Reason for consultation: Upper GI bleeding Has provider been notified: No 11/04/23 22:10 Addiction Medicine Routine Consulting Provider: Addiction Covering Reason for consultation: H/O ETOH abuse DS: Diagnosis Discharge Diagnosis (1) UGIB (upper gastrointestinal bleed): Status: Acute (2) Esophageal varices: Status: Acute (3) Alcohol use disorder: Status: Acute DS: Summary Hospital Course Hospital Course: History of presenting illness. Date of Service: 11/04/23 Attending physician on admission: Emely Bailey Chief Complaint: Shortness of breath Aracelis Calderón is a 43 years old woman with past medical history significant for alcoholic liver cirrhosis, esophageal varices s/p banding w/ portal HTN gastropathy(Feb 2023), GERD and depression presents to the emergency department complaining of coffee-ground vomiting and dark stools over the last week. Today she became very short of breath with minimal exertion associated with palpitations. Denies associated abdominal pain, increased abdominal girth, fever, chills or pain with urination. She stated that her urine looks darker than usual. She stated that she has been drinking Gatorade and yesterday took 1 pill of Motrin for headache. Denied taking NSAIDs in the daily basis. She does not take any medication daily but sometimes takes PPI for reflux. Patient admits drinking alcohol around for alcoholic beverage (vodka). Last drink was Tuesday and currently denied any withdrawal symptoms. Denied tobacco smoking or illicit drug use. In the ED, she was found to have tachycardia. Blood pressure has been stable. There is no fever reported. Blood workup is remarkable for H&H of 3.4&12.0. Platelets are normal and there is leukocytosis 17.7. There is hyponatremia of 128 and hypokalemia 2.9. Magnesium is low, 1.4. Corrected calcium is 8.7. Bilirubin is 4.1, AST 82, ALT 14 and alk-phos 173. Lipase is normal. Urinalysis showed no urinary tract infection. Stool for occult blood is positive. Urine drug screen positive for marijuana. CXR is negative. Abdominal pelvis CT scan results are still pending. ED tx: Octreotide IV infusion, Protonix 80 mg IV, KCl IV, Zofran 4 mg IV, magnesium sulfate 2 g, NS 1 L bolus, ceftriaxone 2 g IV, vitamin K 10 mg IV. According to ED provider, case was discussed with GI service. Hospital course: 43-year-old female with known history of alcohol abuse presents with upper GI bleed and admitted to telemetry unit ,underwent upper endoscopy 11/05/23 that showed esophageal varices, portal hypertensive gastropathy and duodenopathy, status post 3 bands with satisfactory decompression of varices , postprocedure treated with carafate 1g QID , IV PPI and Octreotide x 72h from procedure, patient had no recurrent bleed, currently tolerating diet with no melena, no abdominal pain upon discharge she has been placed on Prilosec 40 mg 1 tablet daily, Cipro 1 tablet twice daily for 3 more days to finish a total 7 day course, of antibiotics ,Coreg 3.125 BID she is recommended to follow-up with GI Dr. Obregon for repeat upper endoscopy in 6-8 weeks. She has been strongly recommended to abstain from alcohol, patient on admission noted to have leukocytosis, tachycardia and tachypnea all related to alcohol use and not due to sepsis, also noted to have hypo magnesemia and hypokalemia repleted and normalized. In regard to Alcohol use disorder/alcoholic hepatitis she has been strongly recommended to abstain from alcohol she was seen by Addiction Team they Provided pt. with written resources including information on inpatient and outpatient treatment, NOLBERTO, harm reduction, and recovery coaching, patient has been started on Campral recommend to continue and follow-up outpatient Time Attestation Discharge Coordination Time (in mins): 40 Quality: Safe Use of Opioids Does Pt have an Active Cancer Diagnosis on the Problem List?: No Quality: Stroke Does the patient have a stroke diagnosis?: No Physical Exam Vital Signs: Vital Signs: Last Vital Signs Temp 97.8 F 11/09/23 07:14 Pulse 67 11/09/23 07:14 Resp 20 11/09/23 07:14 BP 125/75 11/09/23 07:14 Pulse Ox 98 11/09/23 07:14 O2 Del Method Room Air 11/09/23 07:14 BMI result Body Mass Index 20.6 Const: Other: General awake alert x3, resting comfortably in no acute distress. Anicteric sclera Neck supple no JVD. CVS regular rate rhythm, Respiratory lungs clear to auscultation, no respiratory distress, no wheeze, no rhonchi. Gastrointestinal abdomen soft, non tender, bowel sounds audible, no guarding , no rigidity. Extremities no edema. Neuro non focal Skin no rash/eccymosis Psych appropriate affect DS: Data Data Completed and Pending Completed studies during hospitalization [Text1]: Procedures Control Bleeding in Gastrointestinal Tract, Via Natural or Artificial Opening Endoscopic (12/28/22) Detoxification Services for Substance Abuse Treatment (10/09/22) Drainage of Peritoneal Cavity, Percutaneous Approach (12/28/22) Excision of Ascending Colon, Via Natural or Artificial Opening Endoscopic, Diagnostic (12/28/22) Occlusion of Esophageal Vein with Extraluminal Device, Via Natural or Artificial Opening Endoscopic (12/28/22) Labs on day of discharge: Laboratory Results - last 24 hr 11/09/23 08:35 PT 22.0 H INR 1.8 H Sodium 137 Potassium 3.2 L Chloride 110 H Carbon Dioxide 20 L Anion Gap 10 L BUN 3 L Creatinine 0.62 Estim Creat Clear Calc 100.5 Estimated GFR > 60 Random Glucose 123 H Calcium 8.1 L D Total Bilirubin 5.4 H Direct Bilirubin 3.7 H AST 71 H ALT 18 Alkaline Phosphatase 158 H Total Protein 6.0 L Albumin 2.6 L Discharge Plan Discharge Anticipated Discharge Date/Time: 11/09/23 09:31 Patient Disposition: Home Health Service Discharge Diagnosis: Upper GI bleed Alcohol use disorder Alcoholic hepatitis Referrals: Ralph Claudio III, MD [Primary Care Provider] - 1 Week Discharge Medications: New omeprazole 40 mg capsule,delayed release(DR/EC) 40 mg PO DAILY Qty: 30 0RF ciprofloxacin HCl 250 mg tablet 250 mg PO BID Qty: 6 0RF carvedilol [Coreg] 3.125 mg tablet 3.125 mg PO BID Qty: 60 0RF Rx Instructions: must administer with a meal/food Discontinued omeprazole 20 mg Capsule,Delayed Release(Dr/Ec) 20 mg PO DAILY PRN (Reason: Heartburn) Discharge Orders: Discharge Order (Routine); Ordered 11/09/23 Ordered By: Slime Duckworth Diet: Advance to usual diet Activity on Discharge: As tolerated Stand Alone Forms: Patient Portal Discharge page Print Language: Arabic Care Plan Goals: Acute blood loss anemia due to variceal hemorrhage Recommend Complete abstinence from alcohol Take Coreg 3.125 mg b.i.d./Ceftin 250 mg 1 tablet twice daily and take Prilosec 1 tablet daily Take Campral 660 mg b.i.d. as per Addiction Team Health Concerns: Alcohol use disorder Plan of Treatment: Outpatient follow-up with Dr. Obregon from Gastroenterology for repeat upper endoscopy call for appointment Outpatient follow-up with primary care physician call for appointment Assessment: As above
--- NOTE | 2023-11-09 10:23 | MHC.CM.PN ---
Pt has been medically cleared for DC, she will go home via family transport, DC plan is: self care.
== END 2023-11-09 11:03 | disposition home health service (06) | DRG 280 ==
LOC: HO.ED 17:20 → HO.EDOVER 20:19 → HO.IMC 20:43
PROVIDERS: Hospitalist; Internal Medicine; Registered Nurse Emergency; Admitting Provider Internal Medicine; Emergency Provider Student in an Organized Health Care Education/Training Program; PCP Internal Medicine; Visit Provider Hospitalist
PROC: 0DJ08ZZ Inspection of Upper Intestinal Tract, Via Natural or Artificial Opening Endoscopic (ICD-10-PCS; CPT 43235; principal; 2023-11-05 11:00)
DX: K70.31 Alcoholic cirrhosis of liver with ascites (principal); K70.11 Alcoholic hepatitis with ascites; I85.11 Secondary esophageal varices with bleeding; K76.6 Portal hypertension; D62 Acute posthemorrhagic anemia; E83.42 Hypomagnesemia; K21.9 Gastro-esophageal reflux disease without esophagitis; K31.89 Other diseases of stomach and duodenum; F10.10 Alcohol abuse, uncomplicated; E87.6 Hypokalemia; Z87.891 Personal history of nicotine dependence
CPT/HCPCS: 36415; 71046; 74178; 80048; 80053; 80076; 80307; 81003; 82140; 82150; 82272; 83690; 83735; 84484; 84702; 85007; 85014; 85018; 85025; 85027; 85610; 85730; 86850; 86900; 86901; 86920; 86923; 93005; 99285; C9113; J0171; J0696; J2060; J2270; J2354; J2405; J2704; J3010; J3411; J3430; J3475; J3480; P9016; P9017; Q9967

== ENCOUNTER → 2023-11-04 14:58 | Outpatient (BNV) | payer OTHER, SELFPAY | PROVIDERS: Admitting Provider Internal Medicine; Emergency Provider Student in an Organized Health Care Education/Training Program; PCP Internal Medicine; Visit Provider Internal Medicine | DX: R00.0 Tachycardia, unspecified (principal) | CPT/HCPCS: 93010 ==

== ENCOUNTER → 2023-11-04 20:07 | Outpatient (BNV) | payer OTHER, SELFPAY | PROVIDERS: Admitting Provider Internal Medicine; Emergency Provider Student in an Organized Health Care Education/Training Program; PCP Internal Medicine; Visit Provider Nurse Practitioner Psychiatric/Mental Health | DX: F10.20 Alcohol dependence, uncomplicated (principal) | CPT/HCPCS: 99231 ==

== ENCOUNTER → 2023-11-04 20:07 | Outpatient (BNV) | payer OTHER, SELFPAY | PROVIDERS: Admitting Provider Internal Medicine; Emergency Provider Student in an Organized Health Care Education/Training Program; PCP Internal Medicine; Visit Provider Internal Medicine | DX: I85.00 Esophageal varices without bleeding (principal); K70.10 Alcoholic hepatitis without ascites; F10.90 Alcohol use, unspecified, uncomplicated; K92.2 Gastrointestinal hemorrhage, unspecified; K70.30 Alcoholic cirrhosis of liver without ascites; R18.8 Other ascites | CPT/HCPCS: 43244; 99223; 99233 ==

== ENCOUNTER → 2023-11-04 20:07 | Outpatient (BNV) | payer OTHER, SELFPAY | PROVIDERS: Admitting Provider Internal Medicine; Emergency Provider Student in an Organized Health Care Education/Training Program; PCP Internal Medicine; Visit Provider Hospitalist | DX: K92.2 Gastrointestinal hemorrhage, unspecified (principal); I85.00 Esophageal varices without bleeding; F10.90 Alcohol use, unspecified, uncomplicated | CPT/HCPCS: 99223; 99233; 99239 ==

== ENCOUNTER 2024-04-12 13:30 | Emergency (ER) | payer OTHER, SELFPAY ==
[2024-04-12 13:32] VITALS: BP 140/83; PULSE 102; RESP 20; TEMP 36.8; O2SAT 100; BMI 19.7
--- NOTE | 2024-04-12 13:32 | ED_ITS ---
HPI - General Adult General Chief complaint: Nausea/Vomiting/Diarrhea Stated complaint: Vomiting Time Seen by Provider: 04/12/24 19:46 Source: patient Limitations: no limitations History of Present Illness ED Provider: Nicole Daley PA-C HPI narrative: 43-year-old female with a prior history of alcohol abuse now sober for over 8 months, underlying liver dysfunction, alcoholic hepatitis, esophageal varices presents with acute nausea vomiting. Patient states she has been unable to tolerate oral intake. Denies fever, diarrhea, cough cold symptoms, sick contacts with same symptoms and no belly pain. Related Data Previous Rx's ?Medication ?Instructions ?Recorded carvedilol 3.125 mg tablet (Coreg) 3.125 mg PO BID #60 tabs 11/09/23 ciprofloxacin HCl 250 mg tablet 250 mg PO BID #6 tabs 11/09/23 omeprazole 40 mg capsule,delayed 40 mg PO DAILY #30 caps 11/09/23 release metoclopramide HCl 10 mg tablet 10 mg PO Q6H PRN nausea and 04/13/24 (Reglan) vomiting #12 tabs Allergies Allergy/AdvReac Type Severity Reaction Status Date / Time No Known Allergies Allergy Verified 04/12/24 13:33 [No Known Allergies*] Review of Systems 2 Review of Systems: Yes all other systems are reviewed and are negative Constitutional: Constitutional: Denies fever(s) Cardiovascular: Cardiovascular: Denies chest pain and Denies dyspnea Respiratory: Respiratory: Denies cough and Denies dyspnea Gastrointestinal: Gastrointestinal: Denies abdominal pain, Denies diarrhea, Reports nausea and Reports vomiting PMFSH Past Medical History Attestation statement: The following information was validated with the patient. Medical History GERD (gastroesophageal reflux disease) Depression Hyperbilirubinemia Acute alcoholic hepatitis Alcoholic cirrhosis of liver Alcohol use disorder Hypertension Surgical History History of esophagogastroduodenoscopy (EGD) H/O colonoscopy Family History Family History Father Bile duct cancer Mother Breast cancer Social History Social History Household Members: Spouse and Children Housing: House Do you presently have visiting nurse or other home services: No Alcohol intake: former Patient Tobacco Use Status: Former Tobacco user Smoked in Last 30 Days: No Second Hand Smoke Exposure: No Use of substances other than those prescribed or required for medical reasons: No Substance Use Type: Marijuana Advance Directives: Yes Advance Directives on File: Yes Advance Directives Date on File: 12/28/22 Patient : No service: No Current occupational status: employed 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[employer] Physical Exam ED Vital Signs: Vital Signs - 24 hr 04/12/24 13:32 04/12/24 15:08 04/12/24 18:56 Temperature 98.3 F 98 F Pulse Rate 102 H 90 80 Respiratory Rate 20 20 97 H Blood Pressure 140/83 H 150/80 H 108/62 Pulse Oximetry 100 100 98 Oxygen Delivery Method Room Air Room Air Room Air 04/12/24 21:55 04/13/24 00:30 Temperature 97.7 F 98.5 F Pulse Rate 93 72 Respiratory Rate 15 16 Blood Pressure 100/55 L 92/53 L Pulse Oximetry 97 99 Oxygen Delivery Method Room Air Room Air BMI result Body Mass Index 19.7 Const Other: Alert, well in appearance Orientation/consciousness: patient oriented x3 Resp Effort & Inspection: normal respiratory effort Cardio Other: Normal peripheral perfusion GI Other: Soft, nondistended nontender no guarding Skin Other: Warm dry no rash Neuro General: patient oriented x3, no focal motor deficits and CN's II-XI intact bilaterally Psych Other: Calm cooperative Course Course Course Narrative: This is a rapid medical exam performed by Mahesh Dhaliwal NP: Additional HPI, ROS, PE not included below will be deferred to primary provider. Patient is a 43-year-old female with history of esophageal varices with banding, alcoholic hepatitis, states has not drank alcohol in the past 8 months presenting with nausea and vomiting since 6pm last night. Denies diarrhea or abdominal pain. Denies hematemesis. Plan: labs, UA, viral serology Reevaluation(s) Reevaluation #1: Patient is asymptomatic, she is drowsy from the droperidol, we will discharge her once she is able to drive safely Medications Administered Discontinued Medications Generic Name Dose Route Start Last Admin Trade Name Freq PRN Reason Stop Dose Admin Droperidol 2.5 mg 04/12/24 19:46 04/12/24 20:03 Droperidol 5 Mg/2 Ml Vial IVPUSH 04/12/24 19:47 2.5 mg ONCE ONE Administration Sodium Chloride 1,000 mls @ 999 mls/hr 04/12/24 20:00 04/12/24 22:38 Ns IV 04/12/24 21:00 Infused .Q1H1M DAI Infusion Ondansetron HCl 4 mg 04/12/24 15:07 04/12/24 15:09 Ondansetron Odt 4 Mg Tab.Rapdis TRANSLINGU 04/12/24 15:08 4 mg ONCE ONE Administration Medical Decision Making Medical Decision Making MDM Narrative: 43-year-old female with a prior history of alcohol abuse now sober for over 8 months, underlying liver dysfunction, alcoholic hepatitis, esophageal varices presents with acute nausea vomiting. Patient states she has been unable to tolerate oral intake. Denies fever, diarrhea, cough cold symptoms, sick contacts with same symptoms and no belly pain. No coffee-ground emesis. No bright red blood with vomiting. Problem: Varices, alcoholic hepatitis, liver dysfunction History: Per patient I have considered the following differential diagnoses: Viral syndrome, acute intra-abdominal pathology , variceal bleed, onset of cirrhosis Plan: Patient has no belly pain, there was no pain elicited with palpation of abdomen, she does not warrant imaging. Screening labs and viral panel were obtained from triage and are unremarkable. We will give symptomatic treatment, this is likely viral in nature. Labs: No leukocytosis, not anemic, no electrolyte abnormality, LFTs are at the patient's baseline, viral panel negative Lab Data 04/12/24 16:19 04/12/24 16:19 Labs: Lab Results 04/12/24 04/12/24 Range/Units 16:19 20:09 WBC 7.6 (4.8-10.8) X10*3/uL RBC 4.26 D (4.20-5.50) X10*6/uL Hgb 9.4 L (12.0-16.0) g/dl Hct 31.1 L (37.0-47.0) % MCV 73.0 L (80.0-98.0) fL MCH 22.1 L (27.0-33.0) pg MCHC 30.2 L (31.0-35.0) g/dl RDW 19.8 H (11.0-16.0) % Plt Count 166 D (160-400) X10*3/uL MPV 9.3 L (9.4-12.3) fL Immature Gran % (Auto) 0.3 (0.0-0.4) % Neut % (Auto) 67.9 (45-73) % Lymph % (Auto) 19.0 L (20-40) % [place] % (Auto) 11.9 H (2-11) % Eos % (Auto) 0.4 (0-4) % Baso % (Auto) 0.5 (0-2) % Lymph # (Auto) 1.4 (1.2-4.9) X10*3/uL [place] # (Auto) 0.9 (0.1-1.2) X10*3/uL Eos # (Auto) 0.0 (0.0-0.4) X10*3/uL Baso # (Auto) 0.0 (0.0-0.2) X10*3/uL Abs Immat Gran (auto) 0.02 (0.00-0.03) X10*3/uL Absolute Neuts (auto) 5.2 (2.0-8.3) x10*3/uL Absolute Nucleated RBC 0.000 (0.0-0.012) X10*3/uL Nucleated RBC % (auto) 0.0 (0.0-0.2) /100WBC Sodium 136 (135-145) mmol/L Potassium 3.5 (3.3-5.1) mmol/L Chloride 103 (96-108) mmol/L Carbon Dioxide 24 (22-29) mmol/L Anion Gap 13 (12-20) BUN 11 (9-16) mg/dL Creatinine 0.74 (0.5-1.4) mg/dL Estim Creat Clear Calc 80.7 Estimated GFR > 60 Random Glucose 125 H (60-115) mg/dL Calcium 9.6 D (8.4-10.2) mg/dL Magnesium 1.7 (1.6-2.6) mg/dL Total Bilirubin 2.4 H (0.0-1.0) mg/dL AST 80 H (5-31) U/L ALT 40 H (0-31) U/L Alkaline Phosphatase 107 (39-117) U/L Total Protein 7.8 (6.5-8.0) g/dL Albumin 4.0 (3.5-5.0) g/dL Amylase 45 (28-100) U/L Lipase 16 (8-78) U/L Beta HCG, Quant < 2 mIU/mL Urine Color Dark Yellow Urine Appearance Clear Urine pH 6.5 (5.0-9.0) Ur Specific [place] 1.025 (1.005-1.025) Urine Protein Trace (Neg-Trace) mg/dL Urine Glucose (UA) Negative (Negative) mg/dL Urine Ketones Trace (Negative) mg/dL Urine Blood Negative (Negative) Urine Nitrite Negative (Negative) Ur Leukocyte Esterase Small (1+) H (Negative) Urine RBC 0-2 (0-2) /HPF Urine WBC 6-10 H (0-5) /HPF Ur Squamous Epith Cells 3-5 (0-2) /HPF Urine Bacteria None Seen (None Seen) Hyaline Casts 0-2 (0-2) /LPF Ethyl Alcohol < 10 mg/dL Discharge Plan Discharge Clinical Impression: Vomiting Patient Disposition: Home, Self-Care Additional Instructions: All of your labs were normal for you. You likely have a virus causing your symptoms. See home care instructions. Use of Reglan as needed for nausea, to note, sometimes it makes people feel restless, if you develop this sensation, take 50 mg of [id number] Benadryl to counteract the effect. Follow up with your primary care provider as needed. Prescriptions: New metoclopramide HCl [Reglan] 10 mg tablet 10 mg PO Q6H PRN (Reason: nausea and vomiting) Qty: 12 0RF No Action omeprazole 40 mg capsule,delayed release(DR/EC) 40 mg PO DAILY Qty: 30 0RF ciprofloxacin HCl 250 mg tablet 250 mg PO BID Qty: 6 0RF carvedilol [Coreg] 3.125 mg tablet 3.125 mg PO BID Qty: 60 0RF Rx Instructions: must administer with a meal/food Print Language: Indonesian
[2024-04-12 15:08] VITALS: BP 150/80; PULSE 90; RESP 20; O2SAT 100
[2024-04-12] MEDS: Ondansetron ODT 4 MG TAB.RAPDIS TRANSLINGU (15:09)
[2024-04-12 16:31] LABS: MANUAL DIFF FLAG NO
[2024-04-12 16:38] LABS: Basophils Percent Auto 0.5 % (0-2); Eosinophils Percent Auto 0.4 % (0-4); Hematocrit 31.1 % (37.0-47.0); Hemoglobin 9.4 g/dl (12.0-16.0); Imm Gran Abs Auto 0.02 X10*3/uL (0.00-0.03); Imm Gran Pct Auto 0.3 % (0.0-0.4); Lymphocytes Absolute Auto 1.4 X10*3/uL (1.2-4.9); Mean Corpuscular HGB Conc 30.2 g/dl (31.0-35.0); Mean Corpuscular Hemoglobin 22.1 pg (27.0-33.0); Mean Platelet Volume 9.3 fL (9.4-12.3); Monocytes Absolute Auto 0.9 X10*3/uL (0.1-1.2); Monocytes Percent Auto 11.9 % (2-11); Neutrophils Absolute Auto 5.2 x10*3/uL (2.0-8.3); Neutrophils Percent Auto 67.9 % (45-73); Platelet Count 166 X10*3/uL (160-400); Red Blood Count 4.26 X10*6/uL (4.20-5.50); Red Cell Distribution Width 19.8 % (11.0-16.0); White Blood Count 7.6 X10*3/uL (4.8-10.8)
[2024-04-12 16:48] LABS: Amylase 45 U/L (28-100)
[2024-04-12 16:50] LABS: Alanine Aminotransferase 40 U/L (0-31); Alkaline Phosphatase 107 U/L (39-117); Anion Gap 13 (12-20); Aspartate Amino Transferase 80 U/L (5-31); Bilirubin Total 2.4 mg/dL (0.0-1.0); Blood Urea Nitrogen 11 mg/dL (9-16); Calcium 9.6 mg/dL (8.4-10.2); Carbon Dioxide 24 mmol/L (22-29); Chloride 103 mmol/L (96-108); Creatinine Clr Calc Pharmacy 80.7; Estimated Glomerular Filt Rate > 60; Ethanol < 10 mg/dL; Glucose Random 125 mg/dL (60-115); Lipase 16 U/L (8-78); Magnesium 1.7 mg/dL (1.6-2.6); Potassium 3.5 mmol/L (3.3-5.1); Sodium 136 mmol/L (135-145); Total Protein 7.8 g/dL (6.5-8.0)
[2024-04-12 16:59] LABS: HCG Quantitative < 2 mIU/mL
[2024-04-12 18:56] VITALS: BP 108/62; PULSE 80; RESP 97; TEMP 36.6; O2SAT 98
[2024-04-12] MEDS: droPERidol 5 MG/2 ML VIAL 2.5 MG IVPUSH (20:03)
[2024-04-12] MEDS: 0.9 % Sodium Chloride 1,000 ML 999 ML IV (20:05)
[2024-04-12 20:19] LABS: Appearance Urine Clear; Color Urine Dark Yellow; Glucose Urine UA Negative (Negative); Leukocyte Esterase Urine Small (1+) (Negative); Nitrite Urine Negative (Negative); PH 6.5 (5.0-9.0); Specific Gravity - Urine 1.025 (1.005-1.025); UMIC TRIGGER UACC YES; Urine Blood Negative (Negative); Urine Ketones Trace mg/dL (Negative); Urine Protein Trace mg/dL (Neg-Trace)
[2024-04-12 20:24] LABS: Bacteria Urine None Seen (None Seen); Hyaline Casts Urine 0-2 /LPF (0-2); RBC Urine 0-2 /HPF (0-2); UACC Culture Trigger YES
[2024-04-12 21:55] VITALS: BP 100/55; PULSE 93; RESP 15; TEMP 36.5; O2SAT 97
[2024-04-13 00:30] VITALS: BP 92/53; PULSE 72; RESP 16; TEMP 36.9; O2SAT 99
[2024-04-13 02:24] VITALS: BP 101/65; PULSE 68; RESP 18; TEMP 36.8; O2SAT 99
== END 2024-04-13 02:25 | disposition home or self-care (01) ==
PROVIDERS: Registered Nurse Emergency; Emergency Provider Internal Medicine
DX: R11.2 Nausea with vomiting, unspecified (principal); F10.10 Alcohol abuse, uncomplicated; Y90.0 Blood alcohol level of less than 20 mg/100 ml; Z79.899 Other long term (current) drug therapy
CPT/HCPCS: 36415; 80053; 80307; 81001; 82150; 83690; 83735; 84702; 85025; 87086; 96361; 96374; 99284; 99285; J1790

== ENCOUNTER 2024-08-04 09:45 | Emergency (ER) | payer OTHER, SELFPAY ==
[2024-08-04 09:55] VITALS: BP 164/89; PULSE 108; RESP 19; TEMP 36.6; O2SAT 98; BMI 19.7
--- NOTE | 2024-08-04 10:11 | PC.NURSE ---
pt drinking water and then vomitted, advised to not drink at this time, zofran given
[2024-08-04] MEDS: Ondansetron ODT 4 MG TAB.RAPDIS TRANSLINGU (10:13)
[2024-08-04 10:35] LABS: MANUAL DIFF FLAG NO
[2024-08-04 10:37] LABS: Basophils Absolute Auto 0.1 X10*3/uL (0.0-0.2); Hemoglobin 9.8 g/dl (12.0-16.0); Imm Gran Abs Auto 0.03 X10*3/uL (0.00-0.03); Imm Gran Pct Auto 0.6 % (0.0-0.4); Lymphocytes Absolute Auto 0.6 X10*3/uL (1.2-4.9); Lymphocytes Percent Auto 12.5 % (20-40); Mean Corpuscular HGB Conc 30.6 g/dl (31.0-35.0); Mean Corpuscular Hemoglobin 21.9 pg (27.0-33.0); Mean Corpuscular Volume 71.4 fL (80.0-98.0); Mean Platelet Volume 9.1 fL (9.4-12.3); Monocytes Absolute Auto 0.2 X10*3/uL (0.1-1.2); Monocytes Percent Auto 3.7 % (2-11); Neutrophils Absolute Auto 4.2 x10*3/uL (2.0-8.3); Neutrophils Percent Auto 82.2 % (45-73); Platelet Count 148 X10*3/uL (160-400); Red Blood Count 4.48 X10*6/uL (4.20-5.50); Red Cell Distribution Width 19.8 % (11.0-16.0); White Blood Count 5.1 X10*3/uL (4.8-10.8)
[2024-08-04 10:39] LABS: Appearance Urine Turbid; Color Urine Dark Yellow; Glucose Urine UA Negative (Negative); Leukocyte Esterase Urine Trace (Negative); Nitrite Urine Negative (Negative); Specific Gravity - Urine >= 1.030 (1.005-1.025); UMIC TRIGGER UACC YES; Urine Blood Negative (Negative); Urine Ketones 15 mg/dL (Negative); Urine Protein 30 (1+) mg/dL (Neg-Trace)
[2024-08-04 10:40] LABS: UPreg QC Valid YES; Urine Pregnancy NEGATIVE (NEGATIVE)
[2024-08-04 10:48] LABS: Bacteria Urine None Seen (None Seen); RBC Urine 0-2 /HPF (0-2); Squamous Epithelial Cell Urine 0-2 /HPF (0-2); WBC Urine 0-5 /HPF (0-5)
[2024-08-04 10:59] LABS: Alanine Aminotransferase 50 U/L (0-31); Albumin Level 4.2 g/dL (3.5-5.0); Alkaline Phosphatase 141 U/L (39-117); Anion Gap 14 (12-20); Aspartate Amino Transferase 92 U/L (5-31); Bilirubin Direct 0.9 mg/dL (0.0-0.5); Bilirubin Total 2.4 mg/dL (0.0-1.0); Blood Urea Nitrogen 11 mg/dL (9-16); Calcium 9.6 mg/dL (8.4-10.2); Carbon Dioxide 22 mmol/L (22-29); Chloride 106 mmol/L (96-108); Creatinine Clr Calc Pharmacy 93.8; Estimated Glomerular Filt Rate > 60; Glucose Random 141 mg/dL (60-115); Lipase 16 U/L (8-78); Potassium 3.6 mmol/L (3.3-5.1); Sodium 138 mmol/L (135-145); Total Protein 8.1 g/dL (6.5-8.0)
[2024-08-04 11:24] LABS: Influenza A PCR NEGATIVE (Negative); Influenza B PCR NEGATIVE (Negative); Resp Syncy Virus RNA Qual PCR NEGATIVE (Negative); SARS COV2 PCR INHOUSE NEGATIVE (Negative)
== END 2024-08-04 12:02 | disposition left against medical advice (07) ==
PROVIDERS: Emergency Provider Emergency Medicine
DX: R11.2 Nausea with vomiting, unspecified (principal); Z03.818 Encounter for observation for suspected exposure to other biological agents ruled out; Z53.21 Procedure and treatment not carried out due to patient leaving prior to being seen by health care provider
CPT/HCPCS: 0241U; 80048; 80076; 81001; 81025; 83690; 85025; 99281; 99282